=== PATIENT | male | born 1945 | race Caucasian/White ===

== ENCOUNTER → 2017-12-26 06:00 | Outpatient (CLI) | payer MEDICARE, OTHER, MEDICAID, SELFPAY ==
--- NOTE | 2017-12-26 12:54 | STRESSREP_ITS ---
Stress Test Report Date: 12/26/2017 Procedure: Pharmacologic stress nuclear imaging study Indications: CAD status post PCI status post CABG; preoperative cardiovascular evaluation Consent: Per the patient Procedure: The patient underwent pharmacologic (Regadenoson) evaluation with a peak heart rate of 100 bpm (66% predicted maximal heart rate) with a peak blood pressure 162/78 mmHg. The baseline ECG demonstrates the appearance of underlying normal sinus rhythm with nonspecific ST/T-wave abnormality. The peak pharmacologic ECG demonstrates no obvious ECG changes. There were no obvious cardiac dysrhythmias pretest, during pharmacologic infusion, or recovery. The patient had no complaint of chest discomfort during pharmacologic infusion or recovery. The examination was discontinued secondary to completion of protocol. Impression: 1. Pharmacologic (Regadenoson) evaluation 2. Peak pharmacologic ECG with continued nonspecific ST and T-wave abnormality 3. Nuclear images pending Myocardial perfusion imaging study: Technique: The patient was injected with 11.2 mCi of technetium 99m Cardiolite and subsequently rest SPECT Cardiolite nuclear imaging was obtained in the horizontal long, vertical long, and short axis views. The patient underwent pharmacologic (Regadenoson) evaluation with a peak heart rate of 100 bpm (66% predicted maximal heart rate) with a peak blood pressure 162/78 mmHg. The patient was injected with 31.0 mCi of technetium 99m Cardiolite and subsequently stress SPECT Cardiolite nuclear imaging was obtained in the horizontal long, vertical long, and short axis views. A gated Cardiolite study was obtained. Interpretation: Rest and stress SPECT Cardiolite nuclear imaging, s/p normalization, realignment , and attenuation correction, demonstrates an area of diminished to absence of myocardial perfusion / trace uptake in the basal inferoseptal, inferior, and inferolateral segments extending into the mid to distal inferolateral segments, inferior apical, and lateral apical segments. There are similar type findings on the rest and stress polar map images. There is diminished end systolic thickening and brightening and diminished inward wall motion and myocardial thickening in the aforementioned areas. The gated Cardiolite study reports an LVEF of 45%. Impression: 1. Rest and Stress SPECT Cardiolite nuclear imaging demonstrates myocardial perfusion changes compatible with an area of myocardial injury / infarction involving portions of the inferoseptal, inferior, inferolateral, inferoapical, and lateral apical segments. 2. There are no myocardial perfusion images considered diagnostic for stress induced myocardial ischemia. 3. The Gated LVEF is 45%.
== END ==
PROVIDERS: Family Provider Family Medicine; PCP Family Medicine; Visit Provider Internal Medicine Cardiovascular Disease
DX: Z01.810 Encounter for preprocedural cardiovascular examination (principal); I25.10 Atherosclerotic heart disease of native coronary artery without angina pectoris
CPT/HCPCS: 78452; 93017; A9500; A4216; J2785

== ENCOUNTER 2018-01-02 16:53 | Inpatient (IN) | payer MEDICARE, OTHER, MEDICAID, SELFPAY ==
[2018-01-02 16:56] VITALS: BP 149/76; PULSE 75; RESP 16; TEMP 37.4; O2SAT 98; BMI 27.1
--- NOTE | 2018-01-02 17:37 | CT_ITS ---
STUDY: CT ABDOMEN AND PELVIS WITHOUT CONTRAST REASON FOR EXAM: Male, 72 years old. Nausea and vomiting RADIATION DOSAGE (If Supplied By Facility): CTDIvol = ( 21.90 ) mGy, DLP = ( 984.63 ) mGycm TECHNIQUE: Transaxial images were obtained from the lower chest to the upper thighs without oral contrast, and without intravenous contrast. Sagittal and coronal images were reconstructed. Individualized dose optimization techniques were used for this CT. COMPARISON: June 06, 2017 FINDINGS: There is minimal dependent atelectasis in both lung bases. There is no pleural effusion. There is mild enlargement of the heart. Sternotomy wires are present. There are coronary artery calcifications. The liver is unremarkable. The gallbladder is contracted. The spleen is unremarkable. The pancreas is unremarkable. The adrenal glands are unremarkable. There are benign cysts in the right kidney. The right kidney is small with cortical thinning. There is no dilatation of the collecting system in the right kidney. There are benign cysts in the left kidney. The left kidney is small with cortical thinning. There is no dilatation of the collecting system in the left kidney. The stomach is unremarkable. An ileostomy is again seen in the left lower quadrant. Small bowel loops are prominent. There is herniation of bowel to the right of midline with the neck measuring about 7 cm. There is herniation of bowel into a pannus in the lower abdominal wall. There is herniation of small bowel in the right lateral pelvic wall with the neck measuring 4.5 cm. The colon is surgically absent. There are moderate scattered vascular calcifications. The IVC is unremarkable. The retroperitoneum is unremarkable. There is no free fluid in the abdomen. The urinary bladder is unremarkable. The prostate is small. Benign calcifications are again seen in the lower pelvis. Extensive surgical changes are again seen along the anterior abdominal wall. There are moderate degenerative changes in the visualized spine. Surgical changes are again seen in the lumbar spine. There are marked degenerative changes in the left hip. There are marked degenerative changes in the sacroiliac joints. Prostheses are present in the right hip. CT/Abdomen/Pelvis without Cont IMPRESSION: Extensive surgical changes are again seen along the anterior abdominal wall with defects present showing herniation of small bowel. The hernias are not significantly changed compared to the prior study, however there is now dilatation of small bowel loops worrisome for a partial obstruction at one of these hernias, possibly the hernia positioned to the right of midline above what is thought to represent the umbilicus. There is no ascites or free air. There are stable incidental findings described above. Electronically Signed: Amber Hall MD at 18:33 EST Tel Direct: [phone], Service support ,
[2018-01-02] MEDS: 0.9% Normal Saline 1,000 ML 150 ML IV (18:05)
[2018-01-02 18:42] LABS: Anion Gap 8 (5-15); BUN 54 mg/dL (7-18); Calcium,Total 9.3 mg/dL (8.5-10.1); Chloride 111 mmol/L (98-107); Creatinine, Serum 2.57 mg/dL (0.70-1.30); EST Glomerular Filtration Rate 26 mL/min (>60); Est Glom Filt Rate - Afr Amer 32 mL/min (>60); Estimated Creatinine Clearance 24.14 ml/min; Glucose 116 mg/dL (74-106); Hematocrit 44.7 % (40-54); Hemoglobin 14.5 g/dl (13.0-16.5); Mean Corp Hgb Conc 32.4 g/gl (32-36); Mean Corpuscular Hgb 29.5 pg (27.0-32.0); Mean Corpuscular Volume 90.9 fL (80-94); Mean Platelet Vol. 9.7 fl (6.2-12.0); Platelet Count 122 K/mm3 (150-450); Potassium 5.3 mmol/L (3.5-5.1); RBC Distribution Width CV 15.6 % (11.6-14.6); RBC Distribution Width SD 49.8 fl (35.1-43.9); Red Blood Count 4.92 M/mm3 (4.6-6.2); Sodium Level 140 mmol/L (136-145); White Blood Count 9.9 K/mm3 (4.4-11.0)
[2018-01-02 18:47] LABS: Differential Indicated MANUAL DIFF; POSITIVE COUNT YES; POSITIVE DIFFERENTIAL NO; POSITIVE MORPHOLOGY YES
--- NOTE | 2018-01-02 19:36 | NURSING ---
ILEOSTOMY EMPTY FOR ABOUT 300 OF LIQUID STOOL
[2018-01-02 19:45] LABS: Eosinophil 5 % (0-5); Lymphocyte 22 % (19-41); Metamyelocyte 4 % (0-1); Monocyte 2 % (0-10); Neutrophil-Band 3 % (0-5); Neutrophil-Segmented 64 % (47-70); Total Cells Counted 100 (MANUAL DIFF)
[2018-01-02 19:46] LABS: Absolute Lymphocyte Count 2.18 X10^3/ul (0.83-4.51); Lymphocyte # 2.18 X10^3/ul (4.0); Neutrophil # 7.03 X10^3/uL (2.7-7.7)
[2018-01-02 19:47] LABS: Platelet Estimate SLT DEC (ADEQ); Red Cell Morphology NORM C+C NORMAL (NORM C&C)
[2018-01-02 19:58] VITALS: BP 145/65; PULSE 66; RESP 20; O2SAT 98
[2018-01-02 20:00] VITALS: BP 145/65; PULSE 66; RESP 20; O2SAT 98
--- NOTE | 2018-01-02 20:02 | ED.DCSUM_ITS ---
- ER Visit Summary Date of Service: 01/02/18 Chief Complaint: Nausea and vomiting History of Present Illness: The patient is a 72 M with nausea and vomiting today. He does complain of lower abdominal pain. Patient has had multiple abdominal surgeries and does have an ostomy. He is having output from his ostomy although slightly less than normal. He does complain of a low-grade fever. He is scheduled for hernia repair later this month with Dr. Minaya at [facility]. Physical Examination: Vital signs are significant for temperature 99.3 TA, otherwise normal. Patient sitting upright in bed in no acute distress. He is nontoxic appearing. Head and neck examination is unremarkable. Heart is regular rate and rhythm. Lung sounds are clear. Abdomen is soft with lower abdominal tenderness, worse in the right lower quadrant. He does have active bowel sounds throughout. Test Results: CBC is significant only for platelet count of 122,000. Chemistry studies reveal BUN of 54 and creatinine of 2.57. He does have known renal failure this does appear to be consistent with his baseline. CT the flank shows extensive surgical changes. Hernias are not significantly changed compared to prior study, but now there is dilatation of the small bowel loops worrisome for partial small bowel obstruction. Emergency Department Course and Treatment: Patient was treated with morphine, Phenergan, and IV fluids. I spoke with Dr. Purdy to whom the patient is known. Patient will be admitted for bowel rest and Dr. Purdy will evaluate him in the morning. I spoke with the hospitalist. Treatment Plan: [] Disposition: Admit Impression: Partial small bowel obstruction This note was generated with [employer] dictation software. It may contain incorrect words, spelling, and punctuation that were not noted in review of the chart prior to signing ED Disposition - Plan for ED Patient: Chief Complaint: Nausea/Vomiting
--- NOTE | 2018-01-02 20:09 | PCM.HP.STD ---
Problem List (1) Paroxysmal atrial flutter Status: Chronic (2) Benign essential hypertension Status: Chronic (3) History of coronary artery bypass graft Status: Chronic (4) Hypothyroidism Status: Chronic Qualifiers: (5) Parkinson's disease Status: Chronic (6) Rheumatoid arthritis Status: Chronic Qualifiers: (7) Opiate dependence Status: Chronic (8) Personality disorder Status: Chronic (9) Chronic obstructive lung disease Status: Chronic Qualifiers: (10) Cerebrovascular disease, arteriosclerotic, post-stroke Status: Chronic (11) Migraines Status: Chronic Qualifiers: (12) Peptic ulcer disease Status: Chronic (13) CKD (chronic kidney disease) stage 3, GFR 30-59 ml/min Status: Chronic (14) Ankylosing spondylitis Status: Chronic (15) Psoriatic arthritis Status: Chronic History of Present Illness Date of Admission: 01/02/18 Chief Complaint: Abdominal pain, nausea and vomiting. The patient is a 72 year old M with complicated past medical history presented to the emergency room because of abdominal pain, nausea and vomiting. Her symptoms started last night with abdominal pain, generalized abdominal pain, dull aching pain and sometimes crampy, 7 out of 10 in severity, not radiating, associated with nausea and vomiting and without aggravating or relieving factors. He history of total colectomy for diverticulitis and he has ileostomy in place. He mentioned that his stool output has been decreased slightly but not significantly. He denies fever chills. In the emergency room, his vital signs were stable. His routine blood work was remarkable for platelet count of 122,000, potassium of 5.3, creatinine of 2.[address] scan abdomen and pelvis without contrast revealed extensive anterior abdominal changes with defects as well as findings consistent with possible partial small bowel obstruction. ER physician notified the general surgeon on-call and Dr. Purdy agreed to see the patient in consultation to morning. Patient is being admitted for suspected partial small bowel obstruction. 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, arteriosclerotic, post-stroke (Chronic) Migraines (Chronic) Peptic ulcer disease (Chronic) CKD (chronic kidney disease) stage 3, GFR 30-59 ml/min (Chronic) Esophagitis (Chronic) Ankylosing spondylitis (Chronic) Psoriatic arthritis (Chronic) Allergies amoxicillin trihydrate [From Augmentin] Allergy (Verified 01/02/18 16:58) Rash bisacodyl [From Dulcolax (bisacodyl)] Allergy (Verified 01/02/18 16:58) Anaphylaxis iodine Allergy (Verified 01/02/18 16:58) Rash piperacillin sodium [From Zosyn] Allergy (Verified 01/02/18 16:58) Rash potassium clavulanate [From Augmentin] Allergy (Verified 01/02/18 16:58) Rash tazobactam sodium [From Zosyn] Allergy (Verified 01/02/18 16:58) Rash apixaban [From Eliquis] Adverse Reaction (Verified 01/02/18 16:58) Other azithromycin Adverse Reaction (Verified 01/02/18 16:58) Diarrhea bupropion Adverse Reaction (Verified 01/02/18 16:58) Unknown ciprofloxacin [From Cipro] Adverse Reaction (Verified 01/02/18 16:58) Other ciprofloxacin HCl [From Cipro] Adverse Reaction (Verified 01/02/18 16:58) Other diazepam [From Valium] Adverse Reaction (Verified 01/02/18 16:58) Other hallucinations duloxetine Adverse Reaction (Verified 01/02/18 16:58) Unknown gabapentin Adverse Reaction (Verified 01/02/18 16:58) Other heparin Adverse Reaction (Verified 01/02/18 16:58) Unknown Iodinated Contrast- Oral and IV Dye [CONTRASTS] Adverse Reaction (Verified 01/02/18 16:58) Rash nitroglycerin Adverse Reaction (Verified 01/02/18 16:58) Other headaches and extreme hyperactivity paroxetine Adverse Reaction (Verified 01/02/18 16:58) Unknown tetracycline [Tetracycline] Adverse Reaction (Verified 01/02/18 16:58) Vomiting plastics Adverse Reaction (Uncoded 01/02/18 16:58) Rash Home Medications: Ambulatory Orders Medication Instructions Recorded Acetaminophen/Butalbital/Caffe 1 tablet PO BID PRN 06/06/17 [Fioricet] Albuterol Aerosols [Ventolin 2.5 mg INHALATION Q4HWA.RT 06/06/17 Aerosols] Allopurinol 100 mg PO BID 06/06/17 Amiodarone HCl [Pacerone] 200 mg PO DAILY 06/06/17 Amlodipine [Norvasc] 10 mg PO DAILY 06/06/17 Aspirin E.C. [Ecotrin] 81 mg PO DAILY@0800 06/06/17 Cholecalciferol (Vitamin D3) 5,000 unit PO DAILY 06/06/17 [Vitamin D3] Cimetidine [Tagamet Hb] 200 mg PO PRN PRN 06/06/17 Colchicine [Mitigare] 0.6 mg PO PRN PRN 06/06/17 Cyanocobalamin (Vitamin B-12) 1,000 mcg IM Q28D 06/06/17 [Vitamin B-12] Diphenhydramine HCl [Benadryl 25 mg PO PRN PRN 06/06/17 Allergy] Folic Acid 0.4 mg PO DAILY@0800 06/06/17 Hydromorphone HCl [Dilaudid] 4 mg PO DAILY PRN 06/06/17 Levothyroxine [Synthroid] 137 mcg PO DAILY 06/06/17 Magnesium Glycinate 4,000 gm PO TID 06/06/17 Metoprolol Tartrate 25 mg PO DAILY PRN 06/06/17 Morphine Sulfate [Morphine Sulfate 30 mg PO Q8H PRN 06/06/17 ER] Multivitamins,Ther W-Minerals 1 tablet PO BID 06/06/17 [Multivitamin With Minerals] Pramipexole Di-HCl [Mirapex] 1 mg PO QHS 06/06/17 ProMETHAzine [Phenergan] 25 mg PO Q4H PRN PRN 06/06/17 Testosterone Cypionate 100 mg IM Q14D 06/06/17 [Depo-Testosterone] Turmeric/Turmeric Root Extract 800 mg PO TID 06/06/17 [Turmeric] Vilazodone Hydrochloride [Viibryd] 40 mg PO DAILY 06/06/17 Zinc 50 mg PO BID 06/06/17 Amitriptyline HCl 25 mg PO QHS 12/11/17 Apremilast [Otezla] 30 mg PO BID 12/11/17 Carbidopa/Levodopa 10/100 1 tab PO 4X/DAY 12/11/17 Codeine 30 mg PO DAILY 12/11/17 Entacapone [Comtan] 200 mg PO 4X/DAY 12/11/17 Omeprazole Magnesium [Prilosec Otc] 40 mg PO DAILY 01/02/18 Sucralfate [Carafate] 1 gm PO TID 01/02/18 Surgical History: appendectomy, coronary bypass surgery, total hip arthroplasty, tonsillectomy, - - multiple abdominal surgeries with removal of entire colon, placement of abdominal wall mesh, ileostomy, surgery for bowel abscess, lumbar back surgery, right shoulder surgery, foot surgery, cervical neck surgery, prostate surgery Psychiatric History: - - Personality disorder Lives: Spouse/ Significant Other Smoking Status: Former smoker Alcohol: None Drugs: None - *Family History Maternal History Items: Hypertension Paternal History Items: Heart Disease Sibling History Items: Diabetes Review of Systems Constitutional: Reports: Anorexia. Denies: Chills, Fever, Weakness Eyes: Denies: Blurred vision, Double vision, Drainage, Redness HEENT: Denies: Difficulty Hearing, Ear Pain, Eye Pain, Nasal Congestion, Sore Throat Cardiovascular: Denies: Chest Pain, Chest Pressure, Chest Tightness, Palpitations, Paroxysmal Noc. Dyspnea, Syncope Respiratory: Denies: Cough, Hemoptysis, Pleuritic Pain, Shortness of Breath, Shortness of breath upon exertion Gastrointestinal: Reports: Abdominal Pain, Nausea, Vomiting. Denies: Constipation, Diarrhea, Hematochezia, Melena Genitourinary: Denies: Dysuria, Frequency, Hematuria Musculoskeletal: Denies: Arm Pain, Back Pain, Foot Pain Skin: Denies: Dryness, Rash Neurological: Denies: Balance problems, Double vision, Change in Speech, Slurred speech, Confusion, Headaches, Incoordination, Numbness Psychiatric: Denies: Anxiety, Depression Endocrine: Denies: Change in Body Habitus, Polydipsia VTE Information - Inpt Only VTE Present on Admission: No VTE Mechan Device Prophylaxis: SCD's VTE Pharm Prophylaxis ordered?: No - Physical Exam General: Alert, Oriented x3, Cooperative, No apparent distress HEENT: Atraumatic, PERRLA, EOMI Oral: Moist Mucosa, No Gingival or Mucosal Lesions/ Ulcerations Neck: Supple, No JVD, Negative Carotid Bruits, Trachea Midline, Thyroid Normal Size and Texture Lungs: Clear to auscultation, No rhonchi, No wheeze, No rales, Diminished Cardiovascular: Regular rate, Regular Rhythm, Normal S2, PMI Normal Abdomen: Bowel Sounds Present, Non-Distended, No Hepato-splenomegaly, Tender Extremities: No clubbing, No cyanosis, No edema Skin: No rashes, No breakdown Lymphatic: No Cervical, Supraclavicular, or Inguinal Adenopathy Neurological: Cranial nerves II-XII grossly intact, Motor Exam 5/5 strength throughout Psych/Mental Status: Flat Affect, Alert and oriented to time, place, person, mood and affect Vital Signs Temp Pulse Resp BP Pulse Ox 99.3 F H 75 16 149/76 H 98 01/02/18 16:56 01/02/18 16:56 01/02/18 16:56 01/02/18 16:56 01/02/18 16:56 Laboratory Tests 01/02/18 01/02/18 Range/Units 18:10 18:10 WBC 9.9 (4.4-11.0) K/mm3 RBC 4.92 (4.6-6.2) M/mm3 Hgb 14.5 (13.0-16.5) g/dl Hct 44.7 (40-54) % MCV 90.9 (80-94) fL MCH 29.5 (27.0-32.0) pg MCHC 32.4 (32-36) g/gl RDW 15.6 H (11.6-14.6) % RDW Differential 49.8 H (35.1-43.9) fl Plt Count 122 L (150-450) K/mm3 MPV 9.7 (6.2-12.0) fl Neut % (Auto) Not Reportable Absolute Neuts (auto) 7.0 (2.0-7.7) X10^3/uL Absolute Lymphs (auto) 2.18 (0.83-4.51) X10^3/ul Total Counted 100 (MANUAL DIFF) Neutrophils % (Manual) 64 (47-70) % Band Neutrophils % 3 (0-5) % Lymphocytes % (Manual) 22 (19-41) % Monocytes % (Manual) 2 (0-10) % Eosinophils % (Manual) 5 (0-5) % Metamyelocytes % 4 H (0-1) % Diff Path Review May foll Platelet Estimate SLT DEC (ADEQ) RBC Morphology NORM C+C (NORM C&C) NORMAL Sodium 140 (136-145) mmol/L Potassium 5.3 H (3.5-5.1) mmol/L Chloride 111 H (98-107) mmol/L Carbon Dioxide 21.0 (21.0-32.0) mmol/L Anion Gap 8 (5-15) BUN 54 H (7-18) mg/dL Creatinine 2.57 H (0.70-1.30) mg/dL Estim Creat Clear Calc 24.14 ml/min Est GFR (MDRD) Af Amer 32 L (>60) mL/min Est GFR (MDRD) Non-Af 26 L (>60) mL/min BUN/Creatinine Ratio 21.0 H (10-20) RATIO Glucose 116 H (74-106) mg/dL Calcium 9.3 (8.5-10.1) mg/dL Clinical Impression(s) from Imaging Studies Abdomen/Pelvis CT 01/02/18 17:37 IMPRESSION: Extensive surgical changes are again seen along the anterior abdominal wall with defects present showing herniation of small bowel. The hernias are not significantly changed compared to the prior study, however there is now dilatation of small bowel loops worrisome for a partial obstruction at one of these hernias, possibly the hernia positioned to the right of midline above what is thought to represent the umbilicus. There is no ascites or free air. There are stable incidental findings described above. Electronically Signed: Amber Hall MD at 18:33 EST Tel Direct: [phone], Service support , Assessment/Plan This is a 72 years old male patient presented to the emergency room because of abdominal pain, nausea and vomiting and he was found to have findings consistent with suspected partial small bowel obstruction on CT scan abdomen and pelvis. #1 suspected partial small bowel obstruction: In context of history of multiple abdominal surgeries as well as past history of partial small bowel obstruction, likely because of adhesions. CT scan abdomen and pelvis without contrast reviewed as above. Vital signs are stable. Plan: Admit to [facility] floor, telemetry, keep on n.p.o., IV fluids, replace electrolytes as appropriate, IV morphine as needed for pain, IV Zofran as needed, IV Phenergan as needed, IV Pepcid twice daily, repeat CBC and BMP tomorrow morning, general surgery consult, PT OT evaluation and treatment., Dr. Purdy was notified by ER physician and he will see the patient in consultation tomorrow morning. #2 mild hyperkalemia: Potassium is 5.3. Serum creatinine is 2.57 which is chronic and at his baseline. Plan for IV fluids as above, repeat BMP tomorrow morning. #3 stage III chronic kidney disease: Creatinine is around 2-2.5 mg/dL. Admission creatinine is 2.57, stable at baseline. #4 proximal atrial flutter: Heart rate stable, blood pressure stable. Continue amiodarone and metoprolol for rate control. He is not on anticoagulation. #5 thrombocytopenia: Chronic, platelet count is 122,000, no evidence of active bleeding. #6 CAD status post CABG and stents: Stable, no acute issues. Continue aspirin and metoprolol. #7 hypertension: Blood pressure stable, continue metoprolol and Norvasc. #9 DVT prophylaxis: SCDs. Other chronic medical problems: Stable, continue current medications. #1 Parkinson's disease. #2 rheumatoid arthritis. #3 hypothyroidism. #4 history of CVA/TIA. #5 ankylosing spondylitis. Rate stable, This note was generated with [employer] dictation software. It may contain incorrect words, spelling, and punctuation that were not noted in checking the note before signing. Code Visit Inpatient E&M: 80161 Init Hosp L3
[2018-01-02 20:53] VITALS: BP 164/50; PULSE 64; RESP 14; TEMP 36.9; O2SAT 100
[2018-01-02 21:16] VITALS: BMI 26.8
--- NOTE | 2018-01-02 21:18 | NURSING ---
Pt states he has some trouble swallowing d/t Parkinsons. Lizz RN (admissions nurse) did most of the home meds except this RN clarified Omeprazole and Carafaate with pt per instructions from Lizz.
[2018-01-02 21:26] VITALS: BMI 26.8
[2018-01-02] MEDS: 0.9% Normal Saline 1,000 ML 100 ML IV (21:44)
[2018-01-02 22:08] LABS: Magnesium 1.7 mg/dL (1.6-2.6)
[2018-01-02] MEDS: Pramipexole Di-HCl 1 MG Tablet PO (23:10)
[2018-01-02] MEDS: Carbidopa/Levodopa 10/100 Tablet PO (23:10)
[2018-01-02] MEDS: Amitriptyline 25 MG Tablet PO (23:10)
[2018-01-02 23:27] VITALS: O2SAT 95
[2018-01-02 23:29] VITALS: PULSE 56
[2018-01-03] VITALS (10 sets, daily range): BP systolic 144–148; BP diastolic 58–72; PULSE 60–78; RESP 14–16; TEMP 36.6–37.4; O2SAT 97–100
[2018-01-03] MEDS: amLODIPine 5 MG Tablet PO ×2 (00:24→22:53)
[2018-01-03] MEDS: DiphenhydrAMINE 12.5 MG/5 ML UDC PO ×2 (04:19→13:12)
[2018-01-03 06:03] LABS: Absolute Lymphocyte Count 1.81 X10^3/ul (0.83-4.51); Basophil# 0.05 X10^3/uL; Basophil% 0.6 % (0-1); Eosinophils% 3.4 % (0-5); Hematocrit 40.6 % (40-54); Hemoglobin 12.5 g/dl (13.0-16.5); Lymphocyte # 1.81 X10^3/ul (4.0); Lymphocyte % 20.8 % (19-41); Mean Corp Hgb Conc 30.8 g/gl (32-36); Mean Corpuscular Hgb 29.2 pg (27.0-32.0); Mean Corpuscular Volume 94.9 fL (80-94); Mean Platelet Vol. 9.7 fl (6.2-12.0); Monocyte# 0.34 X10^3/uL; Monocyte% 3.9 % (0-10); Neutrophil # 5.99 X10^3/uL (2.7-7.7); Neutrophil % 68.9 % (47-70); Platelet Count 94 K/mm3 (150-450); RBC Distribution Width CV 15.6 % (11.6-14.6); RBC Distribution Width SD 53.4 fl (35.1-43.9); Red Blood Count 4.28 M/mm3 (4.6-6.2); White Blood Count 8.7 K/mm3 (4.4-11.0)
[2018-01-03 06:06] LABS: POSITIVE COUNT YES; POSITIVE DIFFERENTIAL NO; POSITIVE MORPHOLOGY YES
[2018-01-03 06:08] LABS: Anion Gap 9 (5-15); BUN 52 mg/dL (7-18); BUN/Creat Ratio 22.7 RATIO (10-20); Calcium,Total 8.2 mg/dL (8.5-10.1); Chloride 116 mmol/L (98-107); Creatinine, Serum 2.29 mg/dL (0.70-1.30); EST Glomerular Filtration Rate 30 mL/min (>60); Est Glom Filt Rate - Afr Amer 37 mL/min (>60); Estimated Creatinine Clearance 27.09 ml/min; Glucose 76 mg/dL (74-106); Potassium 4.9 mmol/L (3.5-5.1); Sodium Level 140 mmol/L (136-145)
[2018-01-03] MEDS: Levothyroxine 137 MCG Tablet PO (06:11)
--- NOTE | 2018-01-03 08:27 | NURSING ---
Was asked to see patient since he has an ileostomy. Pt is known to this nurse and has had the ileostomy for approx 7 yrs. Pt's typically changes the appliances at home. there is a small amount of liquid shi stool noted on the appliance as well as a small amount of stool noted on the flange. cannot tell if the stool on the flange is from leakage or from when the appliance was emptied. patient ok with this nurse removing appliance to assess for leak and to assess the stoma. patient currently wears a 2 piece flat Cori appliance with stoma paste. removed appliance. stoma is well budded, beefy red, moist, and measures approx 7/8. peristomal skin is intact. there is a peristomal hernia noted that patient states he is scheduled to get repaired at [facility] in a week or so. cleansed skin with warm water and patted dry. applied a new 2 piece flat [place] appliance with a small amount of stoma paste. pt tolerated well. will monitor.
--- NOTE | 2018-01-03 09:05 | NURSING ---
Addendum entered by Blanca Rasmussen 01/03/18 09:05: Due to inability to obtain patent IV. Original Note: K[place], IVT in with patient at this time- midline to be inserted.
[2018-01-03] MEDS: 0.9% NaCl Peripheral Flush Adult/Peds IV ×4 (09:19→17:20)
[2018-01-03] MEDS: Ondansetron 4 MG/2 ML Vial IV (09:20)
--- NOTE | 2018-01-03 09:32 | NURSING ---
Patient c/o pain and nausea. zofran and morphine given after insertion of IV by LESLEY Sheets. Multiple attempts and plans for midline- unsuccessful. 22 gauge catheter on index knuckle on right hand- Flushed and IVF reconnected by this RN. Pt refusing AM pills at this time- will wait 30 minutes to see if nausea subsides.
[2018-01-03] MEDS: BENZOCAINE/MENTHOL 1 LOZENGE MUCOUS MEM (10:21)
[2018-01-03] MEDS: Carbidopa/Levodopa 10/100 Tablet PO ×4 (10:25→22:54)
[2018-01-03] MEDS: VILAZODONE HYDROCHLORIDE 10 MG TABLET 20 MG PO (10:25)
[2018-01-03] MEDS: Amiodarone 200 MG Tablet PO (10:27)
--- NOTE | 2018-01-03 12:35 | PCM.PROGNOTE ---
<Izaiah Dobbs - Last Filed: 01/03/18 12:35> Subjective: Pt continues to have significant abdominal pain all over. His ostomy is draining shi colored feces per nursing. No fever or chills. Still nauseous. No vomiting this AM. He had planned to have hernia surgery at [facility] on the . - Physical Exam General: Alert, Oriented x3, Cooperative HEENT: Atraumatic, PERRLA, EOMI, Normocephalic Neck: Supple, No JVD, Negative Carotid Bruits Lungs: Clear to auscultation, Normal air movement Cardiovascular: Regular rate, No murmurs Abdomen: Bowel Sounds Present, Guarding, Tender - very tender to light palp diffusely Extremities: No edema, Capillary Refill Less than 3 Seconds Skin: No rashes, No breakdown Musculoskeletal: No Tenderness to Palpation of Joints or Extremities Neurological: Cranial nerves II-XII grossly intact Psych/Mental Status: Normal Affect, Appropriate, Alert and oriented to time, place, person, mood and affect Vital Signs Temp Pulse Resp BP Pulse Ox 97.9 F 78 16 147/67 H 100 01/03/18 09:15 01/03/18 10:00 01/03/18 09:15 01/03/18 09:15 01/03/18 09:15 Oxygen Delivery Method Room Air Weight: 75.3 kg Body Mass Index (BMI) 26.8 Intake and Output for Last 24 Hours 01/01/18 01/02/18 01/03/18 23:59 23:59 23:59 Intake Total 1105 / 1105 Output Total 550 / 550 Balance 555 / 555 Laboratory Tests Past 24 Hrs 01/03/18 01/03/18 05:00 05:00 WBC 8.7 RBC 4.28 L Hgb 12.5 L Hct 40.6 MCV 94.9 H MCH 29.2 MCHC 30.8 L RDW 15.6 H RDW Differential 53.4 H Plt Count 94 L MPV 9.7 Immature Gran % (Auto) 2.400 H Neut % (Auto) 68.9 Lymph % (Auto) 20.8 [place] % (Auto) 3.9 Eos % (Auto) 3.4 Baso % (Auto) 0.6 Absolute Neuts (auto) 6.0 Absolute Lymphs (auto) 1.81 Total Counted Not Reportable Diff Path Review May foll Sodium 140 Potassium 4.9 Chloride 116 H Carbon Dioxide 15.0 L Anion Gap 9 BUN 52 H Creatinine 2.29 H Estim Creat Clear Calc 27.09 Est GFR (MDRD) Af Amer 37 L Est GFR (MDRD) Non-Af 30 L BUN/Creatinine Ratio 22.7 H Glucose 76 Calcium 8.2 L Assessment/Plan 1. Partial SBO - multiple abdominal surgeries and has multiple abdominal hernias that were supposed to be treated surgically this month at [facility]. Dr. Calabrese is on consult. Pt remains NPO, on IV fluids, no NG, on antiemetics, pain meds, and IV pepcid. Significant pain and tenderness. Ileostomy in place with shi drainage no reported irritation around stoma. He is nauseous with no vomiting. BS are present. Pt may need transferred to his surgeon at [facility]. -CT abdomen at admission with dilated small bowel loops concerning for partial obstruction at one of his hernias (hernia positioned to right of midline above umbilicus). 2. CKD III - improved. reported to be at baseline on admission 3. Hyperkalemia resolved 4. Paroxysmal A flutter - NSR. Continue Amio, metoprolol. No oral anticoagulation 5. Thrombocytopenia - this is trending down and needs to be followed. 6. CAD - s/p CABG/stents. asa/BB 7. HTN - stable 8. Parkinsons - home meds 9. RA, ankylosing spondylitis, chronic pain 10. Hypothyroidism - on synthroid 11. Hx CVA/TIA DVT ppx: SCDs. This patient was seen by Izaiah Dobbs PA-C under the supervision of Dr. Medrano. <Carlton Medrano - Last Filed: 01/03/18 14:58> Subjective: Seen and examined Patient has history of multiple surgeries in the past. He has ileostomy on the left lower quadrant with peristomal hernia and right-sided hernia. - Physical Exam General: Alert, Oriented x3, Cooperative HEENT: Atraumatic, PERRLA, EOMI, Normocephalic Neck: Supple, No JVD, Negative Carotid Bruits Lungs: Clear to auscultation, No rhonchi, Diminished Cardiovascular: Regular rate, Regular Rhythm, Normal S2, No murmurs Abdomen: Bowel Sounds Present, Soft, Non Tender Extremities: No edema, Capillary Refill Less than 3 Seconds Skin: No rashes, No breakdown Musculoskeletal: No Tenderness to Palpation of Joints or Extremities Neurological: Cranial nerves II-XII grossly intact Psych/Mental Status: Normal Affect, Appropriate Vital Signs Temp Pulse Resp BP Pulse Ox 97.9 F 71 16 144/72 H 97 01/03/18 13:26 01/03/18 13:26 01/03/18 13:26 01/03/18 13:26 01/03/18 13:26 Oxygen Delivery Method Room Air Weight: 166 lb 0.129 oz Body Mass Index (BMI) 26.8 Intake and Output for Last 24 Hours 01/01/18 01/02/18 01/03/18 23:59 23:59 23:59 Intake Total 1827 / 1827 Output Total 1100 / 1100 Balance 727 / 727 Laboratory Tests Past 24 Hrs 01/03/18 01/03/18 05:00 05:00 WBC 8.7 RBC 4.28 L Hgb 12.5 L Hct 40.6 MCV 94.9 H MCH 29.2 MCHC 30.8 L RDW 15.6 H RDW Differential 53.4 H Plt Count 94 L MPV 9.7 Immature Gran % (Auto) 2.400 H Neut % (Auto) 68.9 Lymph % (Auto) 20.8 [place] % (Auto) 3.9 Eos % (Auto) 3.4 Baso % (Auto) 0.6 Absolute Neuts (auto) 6.0 Absolute Lymphs (auto) 1.81 Total Counted Not Reportable Diff Path Review May foll Sodium 140 Potassium 4.9 Chloride 116 H Carbon Dioxide 15.0 L Anion Gap 9 BUN 52 H Creatinine 2.29 H Estim Creat Clear Calc 27.09 Est GFR (MDRD) Af Amer 37 L Est GFR (MDRD) Non-Af 30 L BUN/Creatinine Ratio 22.7 H Glucose 76 Calcium 8.2 L Assessment/Plan This patient was seen in conjunction with Izaiah HERNANDEZ. I have independently interviewed and examined the patient and reviewed pertinent history, examination findings, laboratory and plan of management. I have reviewed the note and agree with the documented findings with the few additional points. In brief, patient is admitted for partial small bowel obstruction secondary to multiple abdominal hernias and adhesions. Currently patient is n.p.o. On conservative treatment. I have discussed my assessment with Izaiah HERNANDEZ and orders have been reviewed. Code Visit Inpatient E&M: 92686 Subs Hosp L3
--- NOTE | 2018-01-03 12:44 | PN_ITS ---
<Izaiah Dobbs - Last Filed: 01/03/18 12:35> Subjective: Pt continues to have significant abdominal pain all over. His ostomy is draining shi colored feces per nursing. No fever or chills. Still nauseous. No vomiting this AM. He had planned to have hernia surgery at [facility] on the . - Physical Exam General: Alert, Oriented x3, Cooperative HEENT: Atraumatic, PERRLA, EOMI, Normocephalic Neck: Supple, No JVD, Negative Carotid Bruits Lungs: Clear to auscultation, Normal air movement Cardiovascular: Regular rate, No murmurs Abdomen: Bowel Sounds Present, Guarding, Tender - very tender to light palp diffusely Extremities: No edema, Capillary Refill Less than 3 Seconds Skin: No rashes, No breakdown Musculoskeletal: No Tenderness to Palpation of Joints or Extremities Neurological: Cranial nerves II-XII grossly intact Psych/Mental Status: Normal Affect, Appropriate, Alert and oriented to time, place, person, mood and affect Vital Signs Temp Pulse Resp BP Pulse Ox 97.9 F 78 16 147/67 H 100 01/03/18 09:15 01/03/18 10:00 01/03/18 09:15 01/03/18 09:15 01/03/18 09:15 Oxygen Delivery Method Room Air Weight: 75.3 kg Body Mass Index (BMI) 26.8 Intake and Output for Last 24 Hours 01/01/18 01/02/18 01/03/18 23:59 23:59 23:59 Intake Total 1105 / 1105 Output Total 550 / 550 Balance 555 / 555 Laboratory Tests Past 24 Hrs 01/03/18 01/03/18 05:00 05:00 WBC 8.7 RBC 4.28 L Hgb 12.5 L Hct 40.6 MCV 94.9 H MCH 29.2 MCHC 30.8 L RDW 15.6 H RDW Differential 53.4 H Plt Count 94 L MPV 9.7 Immature Gran % (Auto) 2.400 H Neut % (Auto) 68.9 Lymph % (Auto) 20.8 [place] % (Auto) 3.9 Eos % (Auto) 3.4 Baso % (Auto) 0.6 Absolute Neuts (auto) 6.0 Absolute Lymphs (auto) 1.81 Total Counted Not Reportable Diff Path Review May foll Sodium 140 Potassium 4.9 Chloride 116 H Carbon Dioxide 15.0 L Anion Gap 9 BUN 52 H Creatinine 2.29 H Estim Creat Clear Calc 27.09 Est GFR (MDRD) Af Amer 37 L Est GFR (MDRD) Non-Af 30 L BUN/Creatinine Ratio 22.7 H Glucose 76 Calcium 8.2 L Assessment/Plan 1. Partial SBO - multiple abdominal surgeries and has multiple abdominal hernias that were supposed to be treated surgically this month at [facility]. Dr. Calabrese is on consult. Pt remains NPO, on IV fluids, no NG, on antiemetics, pain meds, and IV pepcid. Significant pain and tenderness. Ileostomy in place with shi drainage no reported irritation around stoma. He is nauseous with no vomiting. BS are present. Pt may need transferred to his surgeon at [facility]. -CT abdomen at admission with dilated small bowel loops concerning for partial obstruction at one of his hernias (hernia positioned to right of midline above umbilicus). 2. CKD III - improved. reported to be at baseline on admission 3. Hyperkalemia resolved 4. Paroxysmal A flutter - NSR. Continue Amio, metoprolol. No oral anticoagulation 5. Thrombocytopenia - this is trending down and needs to be followed. 6. CAD - s/p CABG/stents. asa/BB 7. HTN - stable 8. Parkinsons - home meds 9. RA, ankylosing spondylitis, chronic pain 10. Hypothyroidism - on synthroid 11. Hx CVA/TIA DVT ppx: SCDs. This patient was seen by Izaiah Dobbs PA-C under the supervision of Dr. Medrano. <Carlton Medrano - Last Filed: 01/03/18 14:58> Subjective: Seen and examined Patient has history of multiple surgeries in the past. He has ileostomy on the left lower quadrant with peristomal hernia and right-sided hernia. - Physical Exam General: Alert, Oriented x3, Cooperative HEENT: Atraumatic, PERRLA, EOMI, Normocephalic Neck: Supple, No JVD, Negative Carotid Bruits Lungs: Clear to auscultation, No rhonchi, Diminished Cardiovascular: Regular rate, Regular Rhythm, Normal S2, No murmurs Abdomen: Bowel Sounds Present, Soft, Non Tender Extremities: No edema, Capillary Refill Less than 3 Seconds Skin: No rashes, No breakdown Musculoskeletal: No Tenderness to Palpation of Joints or Extremities Neurological: Cranial nerves II-XII grossly intact Psych/Mental Status: Normal Affect, Appropriate Vital Signs Temp Pulse Resp BP Pulse Ox 97.9 F 71 16 144/72 H 97 01/03/18 13:26 01/03/18 13:26 01/03/18 13:26 01/03/18 13:26 01/03/18 13:26 Oxygen Delivery Method Room Air Weight: 166 lb 0.129 oz Body Mass Index (BMI) 26.8 Intake and Output for Last 24 Hours 01/01/18 01/02/18 01/03/18 23:59 23:59 23:59 Intake Total 1827 / 1827 Output Total 1100 / 1100 Balance 727 / 727 Laboratory Tests Past 24 Hrs 01/03/18 01/03/18 05:00 05:00 WBC 8.7 RBC 4.28 L Hgb 12.5 L Hct 40.6 MCV 94.9 H MCH 29.2 MCHC 30.8 L RDW 15.6 H RDW Differential 53.4 H Plt Count 94 L MPV 9.7 Immature Gran % (Auto) 2.400 H Neut % (Auto) 68.9 Lymph % (Auto) 20.8 [place] % (Auto) 3.9 Eos % (Auto) 3.4 Baso % (Auto) 0.6 Absolute Neuts (auto) 6.0 Absolute Lymphs (auto) 1.81 Total Counted Not Reportable Diff Path Review May foll Sodium 140 Potassium 4.9 Chloride 116 H Carbon Dioxide 15.0 L Anion Gap 9 BUN 52 H Creatinine 2.29 H Estim Creat Clear Calc 27.09 Est GFR (MDRD) Af Amer 37 L Est GFR (MDRD) Non-Af 30 L BUN/Creatinine Ratio 22.7 H Glucose 76 Calcium 8.2 L Assessment/Plan This patient was seen in conjunction with Izaiah HERNANDEZ. I have independently interviewed and examined the patient and reviewed pertinent history, examination findings, laboratory and plan of management. I have reviewed the note and agree with the documented findings with the few additional points. In brief, patient is admitted for partial small bowel obstruction secondary to multiple abdominal hernias and adhesions. Currently patient is n.p.o. On conservative treatment. I have discussed my assessment with Izaiah HERNANDEZ and orders have been reviewed. Code Visit Inpatient E&M: 99151 Subs Hosp L3
[2018-01-03] MEDS: 0.9% Normal Saline 1,000 ML 100 ML IV ×2 (13:12→23:05)
--- NOTE | 2018-01-03 14:49 | CASEMGMT ---
SEAN MELVIN Face to Face with patient for initial transition planning/care coordination assessment. SEAN MELVIN introduced self and role at [facility]. Patient sitting in chair, alert and oriented. Patient willing to participate in assessment and is able to answer all questions appropriately. Care providers, pharmacy, and demographics verified. See link attached. Patient wishes to discharge home, denies need for home health at this time. Patient states that he is scheduled for [facility]. Patient also states that he has aide services with [employer] through [employer] for 2hours/week. Patient states he has no further needs or concerns at this time. SEAN MELVIN updated LYNETTE Boo in regards to [employer] services. CM to follow for discharge planning needs that may arise. Disposition Plan: Patient to discharge home with [employer] services, family support, and follow-up plans in place.
--- NOTE | 2018-01-03 15:33 | CON.PCM_ITS ---
Reason for Consult Date of Consultation: 01/03/18 History of Present Illness: The patient is a 72 year old M who presents with abdominal disconfort and abdominal distention, nausea and vomiting. He is still noting stoma output. He has a parastomal hernia at his left lower quadrant ileostomy site and a complex midline abdominal hernia. he had a very complicated surgical procedure for perforated diverticulitis in 2010 where he had a total colectomy with end ileostomy, 3 hour lysis of adhesions and repair of iliac vein and repair of ureter injury. In July 2014, the patient had follow-up exploratory laparotomy with extensive lysis of adhesions, takedown of enterocutaneous fistula and complex abdominal wall repair. He has since developed multiple parastomal andmidline incisional hernias. He is currently scheduled to undergo complex hernia repair next Monday At [facility] by Dr. Guerrero Minaya. CT scan demonstrates a partial small bowel obstruction picture with complicated hernias as noted above. 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, arteriosclerotic, post-stroke (Chronic) Migraines (Chronic) Peptic ulcer disease (Chronic) CKD (chronic kidney disease) stage 3, GFR 30-59 ml/min (Chronic) Esophagitis (Chronic) Ankylosing spondylitis (Chronic) Psoriatic arthritis (Chronic) Allergies amoxicillin trihydrate [From Augmentin] Allergy (Verified 01/02/18 16:58) Rash bisacodyl [From Dulcolax (bisacodyl)] Allergy (Verified 01/02/18 16:58) Anaphylaxis iodine Allergy (Verified 01/02/18 16:58) Rash piperacillin sodium [From Zosyn] Allergy (Verified 01/02/18 16:58) Rash potassium clavulanate [From Augmentin] Allergy (Verified 01/02/18 16:58) Rash tazobactam sodium [From Zosyn] Allergy (Verified 01/02/18 16:58) Rash apixaban [From Eliquis] Adverse Reaction (Verified 01/02/18 16:58) Other azithromycin Adverse Reaction (Verified 01/02/18 16:58) Diarrhea bupropion Adverse Reaction (Verified 01/02/18 16:58) Unknown ciprofloxacin [From Cipro] Adverse Reaction (Verified 01/02/18 16:58) Other ciprofloxacin HCl [From Cipro] Adverse Reaction (Verified 01/02/18 16:58) Other diazepam [From Valium] Adverse Reaction (Verified 01/02/18 16:58) Other hallucinations duloxetine Adverse Reaction (Verified 01/02/18 16:58) Unknown gabapentin Adverse Reaction (Verified 01/02/18 16:58) Other heparin Adverse Reaction (Verified 01/02/18 16:58) Unknown Iodinated Contrast- Oral and IV Dye [CONTRASTS] Adverse Reaction (Verified 01/02 16:58) Rash nitroglycerin Adverse Reaction (Verified 01/02/18 16:58) Other headaches and extreme hyperactivity paroxetine Adverse Reaction (Verified 01/02/18 16:58) Unknown tetracycline [Tetracycline] Adverse Reaction (Verified 01/02/18 16:58) Vomiting plastics Adverse Reaction (Uncoded 01/02/18 16:58) Rash Home Medications: Ambulatory Orders Medication Instructions Recorded Acetaminophen/Butalbital/Caffe 1 tablet PO BID PRN 06/06/17 [Fioricet] Albuterol Aerosols [Ventolin 2.5 mg INHALATION Q4HWA.RT 06/06/17 Aerosols] Allopurinol 200 mg PO DAILY 06/06/17 Amiodarone HCl [Pacerone] 200 mg PO DAILY 06/06/17 Amlodipine [Norvasc] 5 mg PO QHS 06/06/17 Cimetidine [Tagamet Hb] 200 mg PO PRN PRN 06/06/17 Colchicine [Mitigare] 0.6 mg PO PRN PRN 06/06/17 Diphenhydramine HCl [Benadryl 25 mg PO PRN PRN 06/06/17 Allergy] Hydromorphone HCl [Dilaudid] 4 mg PO DAILY PRN 06/06/17 Levothyroxine [Synthroid] 137 mcg PO [id number] 06/06/17 Metoprolol Tartrate 25 mg PO DAILY 06/06/17 Morphine Sulfate [Morphine Sulfate 30 mg PO Q8H PRN 06/06/17 ER] Pramipexole Di-HCl [Mirapex] 1 mg PO QHS 06/06/17 ProMETHAzine [Phenergan] 25 mg PO Q4H PRN PRN 06/06/17 Testosterone Cypionate 100 mg IM Q14D 06/06/17 [Depo-Testosterone] Vilazodone Hydrochloride [Viibryd] 20 mg PO DAILY 06/06/17 Amitriptyline HCl 25 mg PO QHS 12/11/17 Codeine 30 mg PO Q6H PRN PRN 12/11/17 Entacapone [Comtan] 200 mg PO 4X/DAY 12/11/17 Carbidopa/Levodopa [Carbidopa-Levo 1 tab PO 4X/DAY 01/02/18 25-100 mg Odt] Furosemide [Lasix] 10 mg PO DAILY 01/02/18 Levothyroxine [Synthroid] 274 mcg PO MOTH 01/02/18 Omeprazole Magnesium [Prilosec Otc] 40 mg PO DAILY 01/02/18 Prednisone 5 mg PO DAILY PRN 01/02/18 Sucralfate [Carafate] 1 gm PO TID 01/02/18 Surgical History: appendectomy, coronary bypass surgery, total hip arthroplasty , tonsillectomy, - - multiple abdominal surgeries with removal of entire colon, placement of abdominal wall mesh, ileostomy, surgery for bowel abscess, lumbar back surgery, right shoulder surgery, foot surgery, cervical neck surgery, prostate surgery Psychiatric History: - - Personality disorder Lives: Spouse/ Significant Other Smoking Status: Former smoker Alcohol: None Drugs: None - *Family History Maternal History Items: Hypertension Paternal History Items: Heart Disease Sibling History Items: Diabetes - Physical Exam General: Alert, Oriented x3 Lungs: Clear to auscultation, Normal air movement Cardiovascular: Regular rate, Irregular Rate Abdomen: Bowel Sounds Present, Soft, Tender - mildly, - - multiple midline and parastomal hernias. There is output in the stoma bag Vital Signs Temp Pulse Resp BP Pulse Ox 97.9 F 71 16 144/72 H 97 01/03/18 13:26 01/03/18 13:26 01/03/18 13:26 01/03/18 13:26 01/03/18 13:26 Oxygen Delivery Method Room Air Weight: 75.3 kg Body Mass Index (BMI) 26.8 Intake and Output for Last 24 Hours 01/01/18 01/02/18 01/03/18 23:59 23:59 23:59 Intake Total 1827 / 1827 Output Total 1100 / 1100 Balance 727 / 727 Laboratory Tests Past 24 Hrs 01/03/18 01/03/18 05:00 05:00 WBC 8.7 RBC 4.28 L Hgb 12.5 L Hct 40.6 MCV 94.9 H MCH 29.2 MCHC 30.8 L RDW 15.6 H RDW Differential 53.4 H Plt Count 94 L MPV 9.7 Immature Gran % (Auto) 2.400 H Neut % (Auto) 68.9 Lymph % (Auto) 20.8 [place] % (Auto) 3.9 Eos % (Auto) 3.4 Baso % (Auto) 0.6 Absolute Neuts (auto) 6.0 Absolute Lymphs (auto) 1.81 Total Counted Not Reportable Diff Path Review March foll Sodium 140 Potassium 4.9 Chloride 116 H Carbon Dioxide 15.0 L Anion Gap 9 BUN 52 H Creatinine 2.29 H Estim Creat Clear Calc 27.09 Est GFR (MDRD) Af Amer 37 L Est GFR (MDRD) Non-Af 30 L BUN/Creatinine Ratio 22.7 H Glucose 76 Calcium 8.2 L Assessment/Plan complex abdominal hernia, parastomal hernia, partial small bowel obstruction. we'll plan for bowel rest, IV fluid support. Anticipate that the patient will resolve with conservative treatment. It would be optimal if his bowel is somewhat decompressed prior to his surgical procedures next week. We will plan for pain control in the interim. we'll follow with serial exams and abdominal series. If the patient fails to improve, we'll consider earlier transfer to [place].
[2018-01-03] MEDS: Amitriptyline 25 MG Tablet PO (22:53)
[2018-01-03] MEDS: Pramipexole Di-HCl 1 MG Tablet PO (23:14)
[2018-01-04] VITALS (11 sets, daily range): BP systolic 134–173; BP diastolic 49–70; PULSE 56–82; RESP 16–18; TEMP 36.6–37.7; O2SAT 97–100
--- NOTE | 2018-01-04 05:00 | RAD_ITS ---
STUDY: X-RAY - ABDOMEN/PELVIS REASON FOR EXAM: Male, 72 years old. Small bowel obstruction TECHNIQUE: 3 view COMPARISON: None. FINDINGS: There is no bowel distention or free intraperitoneal air. A total right hip replacement suspicion of avascular necrosis of the left femoral head. There are degenerative changes of the lower thoracic and lumbosacral spines with degenerative L4 and L5. Significant plates and screws are seen at the L3-4 level. RAD/Abd Inc Decub and/or Erect IMPRESSION: No acute findings in the abdomen. A total right hip replacement. Early avascular necrosis left femoral head. Electronically Signed: Jose Guadalupe Perrin, at 6:53 EST Tel , Service support ,
[2018-01-04] MEDS: Levothyroxine 137 MCG Tablet 274 MCG PO (06:07)
[2018-01-04] MEDS: VILAZODONE HYDROCHLORIDE 10 MG TABLET 20 MG PO (06:11)
[2018-01-04] MEDS: Carbidopa/Levodopa 10/100 Tablet PO ×3 (06:11→17:54)
[2018-01-04 07:29] LABS: Anion Gap 9 (5-15); BUN 39 mg/dL (7-18); BUN/Creat Ratio 20.3 RATIO (10-20); Calcium,Total 8.3 mg/dL (8.5-10.1); Chloride 115 mmol/L (98-107); Creatinine, Serum 1.92 mg/dL (0.70-1.30); EST Glomerular Filtration Rate 37 mL/min (>60); Est Glom Filt Rate - Afr Amer 45 mL/min (>60); Estimated Creatinine Clearance 32.31 ml/min; Glucose 97 mg/dL (74-106); Potassium 3.9 mmol/L (3.5-5.1); Sodium Level 144 mmol/L (136-145)
[2018-01-04 07:32] LABS: Hematocrit 37.6 % (40-54); Hemoglobin 12.3 g/dl (13.0-16.5); Mean Corp Hgb Conc 32.7 g/gl (32-36); Mean Corpuscular Hgb 29.8 pg (27.0-32.0); Mean Platelet Vol. 8.9 fl (6.2-12.0); Platelet Count 80 K/mm3 (150-450); RBC Distribution Width CV 15.3 % (11.6-14.6); RBC Distribution Width SD 49.6 fl (35.1-43.9); Red Blood Count 4.13 M/mm3 (4.6-6.2); White Blood Count 5.5 K/mm3 (4.4-11.0)
[2018-01-04 07:33] LABS: Differential Indicated MANUAL DIFF; POSITIVE COUNT YES; POSITIVE DIFFERENTIAL NO; POSITIVE MORPHOLOGY YES
[2018-01-04 08:01] LABS: Eosinophil 7 % (0-5); Lymphocyte 21 % (19-41); Monocyte 3 % (0-10); Neutrophil-Segmented 69 % (47-70); Total Cells Counted 100 (MANUAL DIFF)
[2018-01-04 08:02] LABS: Platelet Estimate MKD DEC (ADEQ); Red Cell Morphology NORM C+C NORMAL (NORM C&C)
[2018-01-04 08:04] LABS: Absolute Lymphocyte Count 1.16 X10^3/ul (0.83-4.51); Absolute Neutrophil Count 3.8 X10^3/uL (2.0-7.7)
--- NOTE | 2018-01-04 08:40 | NURSING ---
Pt has had a moderate amount of soft brown stool in ostomy appliance. appliance is intact. no signs of leakage noted. will continue to monitor.
[2018-01-04] MEDS: Amiodarone 200 MG Tablet PO (09:08)
[2018-01-04] MEDS: 0.9% NaCl Peripheral Flush Adult/Peds IV ×2 (09:11→15:28)
[2018-01-04 10:30] LABS: Pathologist Review Reviewed
[2018-01-04] MEDS: 0.9% Normal Saline 1,000 ML 100 ML IV (14:38)
[2018-01-04 14:50] LABS: Pathologist Review Reviewed
[2018-01-04 14:54] LABS: Pathologist Review Reviewed
--- NOTE | 2018-01-04 15:10 | PCM.PROGNOTE ---
<Thu Mcghee - Last Filed: 01/04/18 15:25> Subjective: Patient seen and examined. Complains of abdominal pain 6 out of 10, tender to palpation throughout abdomen. Denies nausea, vomiting. Denies fever, chills. Patient has had a small amount of output from his ostomy as well as flatus. - Physical Exam General: Alert, Oriented x3, Cooperative HEENT: Atraumatic, PERRLA, EOMI, Normocephalic Oral: Dry Mucosa Neck: Supple, No JVD, Negative Carotid Bruits Lungs: Clear to auscultation, Normal air movement Cardiovascular: Regular rate, Regular Rhythm, Normal S1, Normal S2, No murmurs Abdomen: Bowel Sounds Present, Soft, Obese, Tender, Hernia, - - Small amount of output and stoma. Extremities: No clubbing, No cyanosis, No edema, Capillary Refill Less than 3 Seconds Skin: No rashes, No breakdown Musculoskeletal: No Tenderness to Palpation of Joints or Extremities Neurological: Cranial nerves II-XII grossly intact, Neuro grossly intact Psych/Mental Status: Normal Affect, Appropriate Vital Signs Temp Pulse Resp BP Pulse Ox 97.8 F 69 16 173/68 H 100 01/04/18 14:45 01/04/18 14:45 01/04/18 14:45 01/04/18 14:45 01/04/18 14:45 Oxygen Delivery Method Room Air Weight: 75.3 kg Body Mass Index (BMI) 26.8 Intake and Output for Last 24 Hours 01/02/18 01/03/18 01/04/18 23:59 23:59 23:59 Intake Total 2363 / 2363 1388 / 1388 Output Total 1100 / 1100 1450 / 1450 Balance 1263 / 1263 -62 / -62 Laboratory Tests Past 24 Hrs 01/03/18 01/04/18 01/04/18 05:00 06:45 06:45 WBC 5.5 RBC 4.13 L Hgb 12.3 L Hct 37.6 L MCV 91.0 MCH 29.8 MCHC 32.7 RDW 15.3 H RDW Differential 49.6 H Plt Count 80 L MPV 8.9 Neut % (Auto) Not Reportable Absolute Neuts (auto) 3.8 Absolute Lymphs (auto) 1.16 Total Counted 100 Neutrophils % (Manual) 69 Lymphocytes % (Manual) 21 Monocytes % (Manual) 3 Eosinophils % (Manual) 7 H Diff Path Review Reviewed Reviewed Platelet Estimate MKD DEC RBC Morphology NORM C+C Sodium 144 Potassium 3.9 Chloride 115 H Carbon Dioxide 20.0 L Anion Gap 9 BUN 39 H Creatinine 1.92 H Estim Creat Clear Calc 32.31 Est GFR (MDRD) Af Amer 45 L Est GFR (MDRD) Non-Af 37 L BUN/Creatinine Ratio 20.3 H Glucose 97 Calcium 8.3 L Assessment/Plan Patient is a 72-year-old male admitted 01/02/2018 due to abdominal pain, nausea, vomiting. He has a past medical history of chronic kidney disease stage III, psoriatic arthritis, peptic ulcer disease, migraines, CVA, degenerative joint disease, chronic obstructive lung disease, Parkinson's disease, hypothyroidism, type 2 diabetes mellitus, coronary artery disease, hypertension, anemia of chronic disease, paroxysmal atrial flutter. 1. Partial small bowel obstruction with complex abdominal hernia, parastomal hernia-patient has a history of 11 abdominal surgeries. Patient is to have further surgical intervention this month at [facility] with Dr. Guerrero Minaya for complex hernia repair. Dr. Purdy, surgery on consult. Remain n.p.o. Continue IV fluid. Continue antiemetics as needed, morphine as needed and IV Pepcid. Patient denies nausea, vomiting. Continues to have abdominal tenderness/pain. Patient has ileostomy which has small amount of output and flatus. Patient may require transfer to [facility]. CT of abdomen on admission shows dilated small bowel loops concerning for partial obstruction at one of his hernias. Repeat abdominal x-ray this morning shows no acute findings in the abdomen. 2. Chronic kidney disease stage III-stable, monitor BMP. 3. Hyperkalemia-resolved. 4. Paroxysmal A flutter-rate controlled. Not on oral anticoagulation. Continue amiodarone and metoprolol. 5. Thrombocytopenia-trending down, monitor CBC. 6. CAD status post CABG and PCI-does not appear to be on aspirin, statin. Continue beta-crystal. 7. HTN-stable, continue home regimen. 8. Parkinson's disease-continue home regimen. 9. Rheumatoid arthritis, ankylosing spondylitis, DJD, chronic pain with history of opioid dependence-PT/OT. Morphine as needed for pain. 10. Hypothyroidism-continue Synthroid. 11. Hx CVA/TIA-not on aspirin or statin. 12. Protein calorie malnutrition-Ensure supplementation when able to tolerate oral intake. 13. Peptic ulcer disease-continue home regimen. DVT prophylaxis-SCDs. This patient was seen by TRACY Zee under the supervision of Dr. Medrano. <MitchellCarlton - Last Filed: 01/04/18 16:24> Subjective: Seen and examined. Patient said he had complicated abdominal surgery history with about 11 and number. Started with appendectomy which was complicated with appendicular abscess for which he needed further surgery. After that he had diverticulitis which was complicated and perhaps necrotic and had total colectomy with end ileostomy. And after that he had multiple other surgeries for parastomal hernia and bowel obstruction. Today, he does not feel like much improvement as compared to yesterday no worsening too. - Physical Exam Neck: Supple, No JVD, Negative Carotid Bruits Lungs: Clear to auscultation, Diminished Cardiovascular: Regular rate, Regular Rhythm, Normal S1, Normal S2, No murmurs Abdomen: Bowel Sounds Present, Soft, Hyperactive Bowel Sounds, Obese, Tender, Hernia Vital Signs Temp Pulse Resp BP Pulse Ox 97.8 F 69 16 173/68 H 100 01/04/18 14:45 01/04/18 14:45 01/04/18 14:45 01/04/18 14:45 01/04/18 14:45 Oxygen Delivery Method Room Air Weight: 166 lb 0.129 oz Body Mass Index (BMI) 26.8 Intake and Output for Last 24 Hours 01/02/18 01/03/18 01/04/18 23:59 23:59 23:59 Intake Total 2363 / 2363 1388 / 1388 Output Total 1100 / 1100 1450 / 1450 Balance 1263 / 1263 -62 / -62 Laboratory Tests Past 24 Hrs 01/03/18 01/04/18 01/04/18 05:00 06:45 06:45 WBC 5.5 RBC 4.13 L Hgb 12.3 L Hct 37.6 L MCV 91.0 MCH 29.8 MCHC 32.7 RDW 15.3 H RDW Differential 49.6 H Plt Count 80 L MPV 8.9 Neut % (Auto) Not Reportable Absolute Neuts (auto) 3.8 Absolute Lymphs (auto) 1.16 Total Counted 100 Neutrophils % (Manual) 69 Lymphocytes % (Manual) 21 Monocytes % (Manual) 3 Eosinophils % (Manual) 7 H Diff Path Review Reviewed Reviewed Platelet Estimate MKD DEC RBC Morphology NORM C+C Sodium 144 Potassium 3.9 Chloride 115 H Carbon Dioxide 20.0 L Anion Gap 9 BUN 39 H Creatinine 1.92 H Estim Creat Clear Calc 32.31 Est GFR (MDRD) Af Amer 45 L Est GFR (MDRD) Non-Af 37 L BUN/Creatinine Ratio 20.3 H Glucose 97 Calcium 8.3 L Assessment/Plan I This patient was seen in conjunction with Thu KHAN. I have independently interviewed and examined the patient and reviewed pertinent history, examination findings, laboratory and plan of management. I have reviewed the note and agree with the documented findings with the few additional points. In brief, patient is admitted for partial small bowel obstruction secondary to multiple abdominal hernias and adhesions. He had complicated abdominal surgical history with perforated diverticulitis in 2010 which led to a total colectomy with end ileostomy and repair of iliac vein and ureter injuries. As per Dr. Purdy note, patient is scheduled for complex hernia repair on January 12, 2018 micrograms in [facility]. Currently patient is n.p.o. On conservative treatment. Repeat abdominal x-ray 01/04/2018 does not show acute finding. I have discussed my assessment with Thu KHAN and orders have been reviewed. Clinical Impression(s) from Imaging Studies Abdomen/Pelvis CT 01/02/18 17:37 IMPRESSION: Extensive surgical changes are again seen along the anterior abdominal wall with defects present showing herniation of small bowel. The hernias are not significantly changed compared to the prior study, however there is now dilatation of small bowel loops worrisome for a partial obstruction at one of these hernias, possibly the hernia positioned to the right of midline above what is thought to represent the umbilicus. There is no ascites or free air. There are stable incidental findings described above. Electronically Signed: Amber Hall MD at 18:33 EST Tel Direct: [phone], Service support , Abdomen X-Ray 01/04/18 05:00 IMPRESSION: No acute findings in the abdomen. A total right hip replacement. Early avascular necrosis left femoral head. Electronically Signed: Jose Guadalupe Perrin, at 6:53 EST Tel , Service support , Laboratory Results 01/02/18 18:10: Diff Path Review Reviewed 01/03/18 05:00: Diff Path Review Reviewed 01/04/18 06:45: WBC 5.5, RBC 4.13 L, Hgb 12.3 L, Hct 37.6 L, MCV 91.0, MCH 29.8, MCHC 32.7, RDW 15.3 H, RDW Differential 49.6 H, Plt Count 80 L, MPV 8.9, Neut % (Auto) Not Reportable, Absolute Neuts (auto) 3.8, Absolute Lymphs (auto) 1.16, Total Counted 100, Neutrophils % (Manual) 69, Lymphocytes % (Manual) 21, Monocytes % (Manual) 3, Eosinophils % (Manual) 7 H, Diff Path Review Reviewed, Platelet Estimate MKD DEC, RBC Morphology NORM C+C 01/04/18 06:45: Sodium 144, Potassium 3.9, Chloride 115 H, Carbon Dioxide 20.0 L, Anion Gap 9, BUN 39 H, Creatinine 1.92 H, Estim Creat Clear Calc 32.31, Est GFR (MDRD) Af Amer 45 L, Est GFR (MDRD) Non-Af 37 L, BUN/Creatinine Ratio 20.3 H, Glucose 97, Calcium 8.3 L Code Visit Inpatient E&M: 02206 Subs Hosp L3
--- NOTE | 2018-01-04 15:24 | PN_ITS ---
<Thu Mcghee - Last Filed: 01/04/18 15:25> Subjective: Patient seen and examined. Complains of abdominal pain 6 out of 10, tender to palpation throughout abdomen. Denies nausea, vomiting. Denies fever, chills. Patient has had a small amount of output from his ostomy as well as flatus. - Physical Exam General: Alert, Oriented x3, Cooperative HEENT: Atraumatic, PERRLA, EOMI, Normocephalic Oral: Dry Mucosa Neck: Supple, No JVD, Negative Carotid Bruits Lungs: Clear to auscultation, Normal air movement Cardiovascular: Regular rate, Regular Rhythm, Normal S1, Normal S2, No murmurs Abdomen: Bowel Sounds Present, Soft, Obese, Tender, Hernia, - - Small amount of output and stoma. Extremities: No clubbing, No cyanosis, No edema, Capillary Refill Less than 3 Seconds Skin: No rashes, No breakdown Musculoskeletal: No Tenderness to Palpation of Joints or Extremities Neurological: Cranial nerves II-XII grossly intact, Neuro grossly intact Psych/Mental Status: Normal Affect, Appropriate Vital Signs Temp Pulse Resp BP Pulse Ox 97.8 F 69 16 173/68 H 100 01/04/18 14:45 01/04/18 14:45 01/04/18 14:45 01/04/18 14:45 01/04/18 14:45 Oxygen Delivery Method Room Air Weight: 75.3 kg Body Mass Index (BMI) 26.8 Intake and Output for Last 24 Hours 01/02/18 01/03/18 01/04/18 23:59 23:59 23:59 Intake Total 2363 / 2363 1388 / 1388 Output Total 1100 / 1100 1450 / 1450 Balance 1263 / 1263 -62 / -62 Laboratory Tests Past 24 Hrs 01/03/18 01/04/18 01/04/18 05:00 06:45 06:45 WBC 5.5 RBC 4.13 L Hgb 12.3 L Hct 37.6 L MCV 91.0 MCH 29.8 MCHC 32.7 RDW 15.3 H RDW Differential 49.6 H Plt Count 80 L MPV 8.9 Neut % (Auto) Not Reportable Absolute Neuts (auto) 3.8 Absolute Lymphs (auto) 1.16 Total Counted 100 Neutrophils % (Manual) 69 Lymphocytes % (Manual) 21 Monocytes % (Manual) 3 Eosinophils % (Manual) 7 H Diff Path Review Reviewed Reviewed Platelet Estimate MKD DEC RBC Morphology NORM C+C Sodium 144 Potassium 3.9 Chloride 115 H Carbon Dioxide 20.0 L Anion Gap 9 BUN 39 H Creatinine 1.92 H Estim Creat Clear Calc 32.31 Est GFR (MDRD) Af Amer 45 L Est GFR (MDRD) Non-Af 37 L BUN/Creatinine Ratio 20.3 H Glucose 97 Calcium 8.3 L Assessment/Plan Patient is a 72-year-old male admitted 01/02/2018 due to abdominal pain, nausea, vomiting. He has a past medical history of chronic kidney disease stage III, psoriatic arthritis, peptic ulcer disease, migraines, CVA, degenerative joint disease, chronic obstructive lung disease, Parkinson's disease, hypothyroidism, type 2 diabetes mellitus, coronary artery disease, hypertension, anemia of chronic disease, paroxysmal atrial flutter. 1. Partial small bowel obstruction with complex abdominal hernia, parastomal hernia-patient has a history of 11 abdominal surgeries. Patient is to have further surgical intervention this month at [facility] with Dr. Guerrero Minaya for complex hernia repair. Dr. Purdy, surgery on consult. Remain n.p.o. Continue IV fluid. Continue antiemetics as needed, morphine as needed and IV Pepcid. Patient denies nausea, vomiting. Continues to have abdominal tenderness/pain. Patient has ileostomy which has small amount of output and flatus. Patient may require transfer to [facility]. CT of abdomen on admission shows dilated small bowel loops concerning for partial obstruction at one of his hernias. Repeat abdominal x-ray this morning shows no acute findings in the abdomen. 2. Chronic kidney disease stage III-stable, monitor BMP. 3. Hyperkalemia-resolved. 4. Paroxysmal A flutter-rate controlled. Not on oral anticoagulation. Continue amiodarone and metoprolol. 5. Thrombocytopenia-trending down, monitor CBC. 6. CAD status post CABG and PCI-does not appear to be on aspirin, statin. Continue beta-crystal. 7. HTN-stable, continue home regimen. 8. Parkinson's disease-continue home regimen. 9. Rheumatoid arthritis, ankylosing spondylitis, DJD, chronic pain with history of opioid dependence-PT/OT. Morphine as needed for pain. 10. Hypothyroidism-continue Synthroid. 11. Hx CVA/TIA-not on aspirin or statin. 12. Protein calorie malnutrition-Ensure supplementation when able to tolerate oral intake. 13. Peptic ulcer disease-continue home regimen. DVT prophylaxis-SCDs. This patient was seen by TRACY Zee under the supervision of Dr. Medrano. <MitchellCarlton - Last Filed: 01/04/18 16:24> Subjective: Seen and examined. Patient said he had complicated abdominal surgery history with about 11 and number. Started with appendectomy which was complicated with appendicular abscess for which he needed further surgery. After that he had diverticulitis which was complicated and perhaps necrotic and had total colectomy with end ileostomy. And after that he had multiple other surgeries for parastomal hernia and bowel obstruction. Today, he does not feel like much improvement as compared to yesterday no worsening too. - Physical Exam Neck: Supple, No JVD, Negative Carotid Bruits Lungs: Clear to auscultation, Diminished Cardiovascular: Regular rate, Regular Rhythm, Normal S1, Normal S2, No murmurs Abdomen: Bowel Sounds Present, Soft, Hyperactive Bowel Sounds, Obese, Tender, Hernia Vital Signs Temp Pulse Resp BP Pulse Ox 97.8 F 69 16 173/68 H 100 01/04/18 14:45 01/04/18 14:45 01/04/18 14:45 01/04/18 14:45 01/04/18 14:45 Oxygen Delivery Method Room Air Weight: 166 lb 0.129 oz Body Mass Index (BMI) 26.8 Intake and Output for Last 24 Hours 01/02/18 01/03/18 01/04/18 23:59 23:59 23:59 Intake Total 2363 / 2363 1388 / 1388 Output Total 1100 / 1100 1450 / 1450 Balance 1263 / 1263 -62 / -62 Laboratory Tests Past 24 Hrs 01/03/18 01/04/18 01/04/18 05:00 06:45 06:45 WBC 5.5 RBC 4.13 L Hgb 12.3 L Hct 37.6 L MCV 91.0 MCH 29.8 MCHC 32.7 RDW 15.3 H RDW Differential 49.6 H Plt Count 80 L MPV 8.9 Neut % (Auto) Not Reportable Absolute Neuts (auto) 3.8 Absolute Lymphs (auto) 1.16 Total Counted 100 Neutrophils % (Manual) 69 Lymphocytes % (Manual) 21 Monocytes % (Manual) 3 Eosinophils % (Manual) 7 H Diff Path Review Reviewed Reviewed Platelet Estimate MKD DEC RBC Morphology NORM C+C Sodium 144 Potassium 3.9 Chloride 115 H Carbon Dioxide 20.0 L Anion Gap 9 BUN 39 H Creatinine 1.92 H Estim Creat Clear Calc 32.31 Est GFR (MDRD) Af Amer 45 L Est GFR (MDRD) Non-Af 37 L BUN/Creatinine Ratio 20.3 H Glucose 97 Calcium 8.3 L Assessment/Plan I This patient was seen in conjunction with Thu KHAN. I have independently interviewed and examined the patient and reviewed pertinent history, examination findings, laboratory and plan of management. I have reviewed the note and agree with the documented findings with the few additional points. In brief, patient is admitted for partial small bowel obstruction secondary to multiple abdominal hernias and adhesions. He had complicated abdominal surgical history with perforated diverticulitis in 2010 which led to a total colectomy with end ileostomy and repair of iliac vein and ureter injuries. As per Dr. Purdy note, patient is scheduled for complex hernia repair on January 12, 2018 micrograms in [facility]. Currently patient is n.p.o. On conservative treatment. Repeat abdominal x-ray 01/04/2018 does not show acute finding. I have discussed my assessment with Thu KHAN and orders have been reviewed. Clinical Impression(s) from Imaging Studies Abdomen/Pelvis CT 01/02/18 17:37 IMPRESSION: Extensive surgical changes are again seen along the anterior abdominal wall with defects present showing herniation of small bowel. The hernias are not significantly changed compared to the prior study, however there is now dilatation of small bowel loops worrisome for a partial obstruction at one of these hernias, possibly the hernia positioned to the right of midline above what is thought to represent the umbilicus. There is no ascites or free air. There are stable incidental findings described above. Electronically Signed: Amber Hall MD at 18:33 EST Tel Direct: [phone], Service support , Abdomen X-Ray 01/04/18 05:00 IMPRESSION: No acute findings in the abdomen. A total right hip replacement. Early avascular necrosis left femoral head. Electronically Signed: Jose Guadalupe Perrin, at 6:53 EST Tel , Service support , Laboratory Results 01/02/18 18:10: Diff Path Review Reviewed 01/03/18 05:00: Diff Path Review Reviewed 01/04/18 06:45: WBC 5.5, RBC 4.13 L, Hgb 12.3 L, Hct 37.6 L, MCV 91.0, MCH 29.8 , MCHC 32.7, RDW 15.3 H, RDW Differential 49.6 H, Plt Count 80 L, MPV 8.9, Neut % (Auto) Not Reportable, Absolute Neuts (auto) 3.8, Absolute Lymphs (auto) 1.16 , Total Counted 100, Neutrophils % (Manual) 69, Lymphocytes % (Manual) 21, Monocytes % (Manual) 3, Eosinophils % (Manual) 7 H, Diff Path Review Reviewed, Platelet Estimate MKD DEC, RBC Morphology NORM C+C 01/04/18 06:45: Sodium 144, Potassium 3.9, Chloride 115 H, Carbon Dioxide 20.0 L , Anion Gap 9, BUN 39 H, Creatinine 1.92 H, Estim Creat Clear Calc 32.31, Est GFR (MDRD) Af Amer 45 L, Est GFR (MDRD) Non-Af 37 L, BUN/Creatinine Ratio 20.3 H , Glucose 97, Calcium 8.3 L Code Visit Inpatient E&M: 50281 Subs Hosp L3
[2018-01-04] MEDS: Acetaminophen/Butalbital/Caffe 1 Tablet PO (15:32)
--- NOTE | 2018-01-04 15:59 | CHAPLAIN ---
Type of Pastoral Visit _x__ Initial Visit ___ Follow-up Visit ___ On-call Visit ___ General Patient Visit ___ Spiritual Assessment ___ Family Conference ___ Bereavement ___ Rapid Response ___ Code Blue ___ Other (describe below) Pastoral Care Referral From _x__ Patient ___ Family ___ Nurse ___ Physician ___ [place] ___ Foot Orthopedist ___ Other (describe below) Sacrament/Intervention _x__ Active listening ___ Anointing ___ Lutheran ___ Bereavement ___ Communion _x__ Evita exploration ___ _x__ Life review _x__ Prayer ___ Reconciliation ___ Sacrament of Sick _x__ Supportive presence ___ Wedding ___ Other (describe below) Pastoral Comments patient has long list of health history and is facing a major surgery very soon; pt is most worried about his who is very anxious about pt and the potential for his ; pt has strong connection to latter-day and his evita which appears to be his greatest support; patient was quite talkative; pt would like his latter-day contacted and this was accomplished by this parts fabricator
--- NOTE | 2018-01-04 17:54 | PCM.PN.SRG ---
Subjective: sterile nausea, still abdominal pain slightly improved - Physical Exam Lungs: Clear to auscultation, Normal air movement Cardiovascular: Regular rate, Regular Rhythm Abdomen: Bowel Sounds Present, Soft, Tender - mild diffusely without peritoneal signs, Hernia - both midline and parastomal hernias. Soft but partially reducible Vital Signs Temp Pulse Resp BP Pulse Ox 97.8 F 82 16 173/68 H 100 01/04/18 14:45 01/04/18 16:00 01/04/18 14:45 01/04/18 14:45 01/04/18 14:45 Oxygen Delivery Method Room Air Weight: 75.3 kg Body Mass Index (BMI) 26.8 Intake and Output for Last 24 Hours 01/02/18 01/03/18 01/04/18 23:59 23:59 23:59 Intake Total 2363 / 2363 1388 / 1388 Output Total 1100 / 1100 1450 / 1450 Balance 1263 / 1263 -62 / -62 Laboratory Tests Past 24 Hrs 01/03/18 01/04/18 01/04/18 05:00 06:45 06:45 WBC 5.5 RBC 4.13 L Hgb 12.3 L Hct 37.6 L MCV 91.0 MCH 29.8 MCHC 32.7 RDW 15.3 H RDW Differential 49.6 H Plt Count 80 L MPV 8.9 Neut % (Auto) Not Reportable Absolute Neuts (auto) 3.8 Absolute Lymphs (auto) 1.16 Total Counted 100 Neutrophils % (Manual) 69 Lymphocytes % (Manual) 21 Monocytes % (Manual) 3 Eosinophils % (Manual) 7 H Diff Path Review Reviewed Reviewed Platelet Estimate MKD DEC RBC Morphology NORM C+C Sodium 144 Potassium 3.9 Chloride 115 H Carbon Dioxide 20.0 L Anion Gap 9 BUN 39 H Creatinine 1.92 H Estim Creat Clear Calc 32.31 Est GFR (MDRD) Af Amer 45 L Est GFR (MDRD) Non-Af 37 L BUN/Creatinine Ratio 20.3 H Glucose 97 Calcium 8.3 L Assessment/Plan complex abdominal hernia, parastomal hernia, partial small bowel obstruction. we'll plan for bowel rest, IV fluid support. Anticipate that the patient will resolve with conservative treatment. KUB today shows improvement and is listed as a normal bowel gas pattern. The patient does have reasonable output in his ileostomy this morning. It would be optimal if his bowel is somewhat decompressed prior to his surgical procedures next week. We will plan for pain control in the interim. we'll follow with serial exams and abdominal series. as you still having discomfort. We'll maintain him nothing by mouth with bowel rest and IV fluids, but at this point with an improving x-ray picture and stoma output. This may be incisional pain with a resolving partial small bowel obstruction. We will likely plan to start liquids tomorrow if x-ray remains stable and his symptoms are same or improved.
[2018-01-04] MEDS: amLODIPine 5 MG Tablet PO (21:05)
[2018-01-04] MEDS: Pramipexole Di-HCl 1 MG Tablet PO (21:05)
[2018-01-04] MEDS: Amitriptyline 25 MG Tablet PO (21:05)
[2018-01-05] VITALS (17 sets, daily range): BP systolic 129–158; BP diastolic 59–86; PULSE 63–98; RESP 16–20; TEMP 36.7–38.3; O2SAT 95–98
[2018-01-05] MEDS: Carbidopa/Levodopa 10/100 Tablet PO ×5 (00:04→23:32)
[2018-01-05] MEDS: 0.9% Normal Saline 1,000 ML 100 ML IV ×3 (00:05→22:48)
[2018-01-05] MEDS: Acetaminophen/Butalbital/Caffe 1 Tablet PO ×2 (00:11→23:24)
--- NOTE | 2018-01-05 05:00 | RAD_ITS ---
STUDY: X-RAY - ABDOMEN/PELVIS REASON FOR EXAM: Male, 72 years old. History of small bowel obstruction. TECHNIQUE: AP supine and upright views of the abdomen and pelvis. COMPARISON: Comparison is made with prior examination dated January 04, 2018. FINDINGS: Minimal increased markings of the lung bases suggestive of atelectasis. There is an unremarkable bowel gas pattern. There is no demonstrated free abdominal air. The visualized liver, spleen and kidneys are grossly normal in size and morphology. Normal soft tissue structures. There is evidence of prior laminectomy and fusion at the L3-L4 level. The patient is status post right total hip replacement. Moderate to marked degree of osteoarthritis of the left hip joint. RAD/Abd Inc Decub and/or Erect IMPRESSION: Nonspecific bowel gas pattern. Electronically Signed: Xander Doe MD at 8:47 EST Tel [phone], Service support ,
[2018-01-05] MEDS: Levothyroxine 137 MCG Tablet PO (05:43)
--- NOTE | 2018-01-05 05:59 | RAD_ITS ---
STUDY: X-RAY CHEST REASON FOR EXAM: Male, 72 years old. Fever TECHNIQUE: 2 views COMPARISON: None. FINDINGS: There is a mild lower thoracic scoliosis with convexity to the left. There is no acute pneumonia or failure and no pleural effusions. The heart is slightly enlarged. Extensive plates and screws are in the lumbosacral spine There is no demonstrated abnormality of the visualized soft tissue structures of the upper abdomen. RAD/Chest PA and Lateral IMPRESSION: No acute findings in the lungs Electronically Signed: Jose Guadalupe Perrin, at 7:11 EST Tel , Service support ,
[2018-01-05 06:07] LABS: Hematocrit 34.8 % (40-54); Hemoglobin 11.3 g/dl (13.0-16.5); Mean Corp Hgb Conc 32.5 g/gl (32-36); Mean Corpuscular Hgb 29.8 pg (27.0-32.0); Mean Corpuscular Volume 91.8 fL (80-94); Platelet Count 87 K/mm3 (150-450); RBC Distribution Width CV 15.3 % (11.6-14.6); RBC Distribution Width SD 49.6 fl (35.1-43.9); Red Blood Count 3.79 M/mm3 (4.6-6.2); White Blood Count 4.5 K/mm3 (4.4-11.0)
[2018-01-05 06:09] LABS: Scan Indicated on CBC? Y/N NO
[2018-01-05 06:28] LABS: Anion Gap 9 (5-15); BUN 30 mg/dL (7-18); Calcium,Total 7.9 mg/dL (8.5-10.1); Chloride 115 mmol/L (98-107); Creatinine, Serum 1.87 mg/dL (0.70-1.30); EST Glomerular Filtration Rate 38 mL/min (>60); Est Glom Filt Rate - Afr Amer 46 mL/min (>60); Estimated Creatinine Clearance 33.17 ml/min; Glucose 86 mg/dL (74-106); Potassium 3.5 mmol/L (3.5-5.1); Sodium Level 145 mmol/L (136-145)
[2018-01-05 08:31] LABS: Mucous, Urine 0 SEEN /hpf (<or=2+); Red Blood Cells-Urine 0 SEEN /hpf (0-5)
[2018-01-05 08:33] LABS: Color, Urine Yellow (Yellow); Glucose, Dipstick Normal (Normal); Ketone-Dipstick Negative (Negative); Leukocyte Esterase-Dipstick 25 /ul (Negative); Nitrite-Dipstick Negative (Negative); Occult Blood-Urine Negative /ul (Negative); Protein-Dipstick 30 mg/dl (Negative); Specific Gravity, Urine 1.015 (1.002-1.030); Urine Bilirubin Dipstick Negative (Negative); Urine Clarity Sl. Cloudy (Clear); Urine Urobilinogen Normal (Normal)
[2018-01-05 08:40] LABS: Bacteria RARE /hpf (None Seen); Hyaline Cast 0-5 SEEN /lpf (0-5); Squamous Epithelial Cells - UA 0-5 SEEN /hpf (0-5); White Blood Cells 0-5 SEEN /hpf (0-5)
--- NOTE | 2018-01-05 08:57 | NURSING ---
Ileostomy appliance remains intact. no leakage noted. Appliance was just changed on 01/03/18. Plan to keep in place for 4 days if possible.
[2018-01-05] MEDS: 0.9% NaCl Peripheral Flush Adult/Peds IV ×4 (09:54→18:27)
[2018-01-05] MEDS: Amiodarone 200 MG Tablet PO (09:55)
[2018-01-05] MEDS: VILAZODONE HYDROCHLORIDE 10 MG TABLET 20 MG PO (09:55)
[2018-01-05] MEDS: BENZOCAINE/MENTHOL 1 LOZENGE MUCOUS MEM ×2 (10:14→23:24)
--- NOTE | 2018-01-05 11:03 | NURSING ---
pt states he is not diabetic and refused to have blood glucose checked at this time.
[2018-01-05] MEDS: DiphenhydrAMINE 12.5 MG/5 ML UDC PO ×2 (11:08→18:20)
--- NOTE | 2018-01-05 11:18 | PN_ITS ---
<Thu Mcghee - Last Filed: 01/05/18 11:19> Subjective: Patient seen and examined. States symptoms are not improved from yesterday. Continues to have nausea, abdominal pain 06/29. States he has had minimal output from ileostomy. Denies fever, chills. Denies other complaints. Requesting to have central line placed due to difficult blood draws/IV sticks. - Physical Exam General: Alert, Oriented x3, Cooperative, No apparent distress HEENT: Atraumatic, PERRLA, EOMI, Normocephalic Oral: Dry Mucosa Lungs: Clear to auscultation, Normal air movement Cardiovascular: Regular rate, Regular Rhythm, Normal S1, Normal S2, No murmurs Abdomen: Bowel Sounds Present, Soft, Tender, Hernia, - - ileostomy Extremities: No clubbing, No cyanosis, No edema, Capillary Refill Less than 3 Seconds Skin: No rashes, No breakdown Musculoskeletal: No Tenderness to Palpation of Joints or Extremities Neurological: Cranial nerves II-XII grossly intact, Neuro grossly intact Psych/Mental Status: Normal Affect, Appropriate Vital Signs Temp Pulse Resp BP Pulse Ox 99.0 F 98 18 158/86 H 98 01/05/18 11:01 01/05/18 09:48 01/05/18 09:48 01/05/18 09:48 01/05/18 09:48 Oxygen Delivery Method Room Air Weight: 75.3 kg Body Mass Index (BMI) 26.8 Intake and Output for Last 24 Hours 01/03/18 01/04/18 01/05/18 23:59 23:59 23:59 Intake Total 2363 / 2363 2138 / 2138 1032 / 1032 Output Total 1100 / 1100 2125 / 2125 550 / 550 Balance 1263 / 1263 482 / 482 Laboratory Tests Past 24 Hrs 01/03/18 01/05/18 01/05/18 05:00 05:45 05:45 WBC 4.5 RBC 3.79 L Hgb 11.3 L Hct 34.8 L MCV 91.8 MCH 29.8 MCHC 32.5 RDW 15.3 H RDW Differential 49.6 H Plt Count 87 L MPV 9.0 Diff Path Review Reviewed Sodium 145 Potassium 3.5 Chloride 115 H Carbon Dioxide 21.0 Anion Gap 9 BUN 30 H Creatinine 1.87 H Estim Creat Clear Calc 33.17 Est GFR (MDRD) Af Amer 46 L Est GFR (MDRD) Non-Af 38 L BUN/Creatinine Ratio 16.0 Glucose 86 Calcium 7.9 L Urine Color Urine Clarity Urine pH Ur Specific [place] Urine Protein Urine Glucose (UA) Urine Ketones Urine Occult Blood Urine Nitrite Urine Bilirubin Urine Urobilinogen Ur Leukocyte Esterase Urine RBC Urine WBC Ur Squamous Epith Cells Urine Bacteria Hyaline Casts Urine Mucus 01/05/18 08:27 WBC RBC Hgb Hct MCV MCH MCHC RDW RDW Differential Plt Count MPV Diff Path Review Sodium Potassium Chloride Carbon Dioxide Anion Gap BUN Creatinine Estim Creat Clear Calc Est GFR (MDRD) Af Amer Est GFR (MDRD) Non-Af BUN/Creatinine Ratio Glucose Calcium Urine Color Yellow Urine Clarity Sl. Cloudy Urine pH 6.0 Ur Specific [place] 1.015 Urine Protein 30 H Urine Glucose (UA) Normal Urine Ketones Negative Urine Occult Blood Negative Urine Nitrite Negative Urine Bilirubin Negative Urine Urobilinogen Normal Ur Leukocyte Esterase 25 H Urine RBC 0 SEEN Urine WBC 0-5 SEEN Ur Squamous Epith Cells 0-5 SEEN Urine Bacteria RARE Hyaline Casts 0-5 SEEN Urine Mucus 0 SEEN Assessment/Plan Patient is a 72-year-old male admitted 01/02/2018 due to abdominal pain, nausea, vomiting. He has a past medical history of chronic kidney disease stage III, psoriatic arthritis, peptic ulcer disease, migraines, CVA, degenerative joint disease, chronic obstructive lung disease, Parkinson's disease, hypothyroidism, type 2 diabetes mellitus, coronary artery disease, hypertension, anemia of chronic disease, paroxysmal atrial flutter. 1. Partial small bowel obstruction with complex abdominal hernia, parastomal hernia-patient has a history of 11 abdominal surgeries. Patient is to have further surgical intervention 01/12/18 at [facility] with Dr. Guerrero Minaya for complex hernia repair. Dr. Purdy, surgery on consult. Remain n.p.o. Continue IV fluid. Continue antiemetics as needed, morphine as needed and IV Pepcid. Patient denies complains of nausea, denies vomiting. Continues to have abdominal tenderness/pain. Patient has ileostomy which has small amount of output and flatus. Patient may require transfer to [facility]. CT of abdomen on admission shows dilated small bowel loops concerning for partial obstruction at one of his hernias. Repeat abdominal x-ray this morning shows nonspecific bowel gas pattern. Per surgery, patient may possibly be advanced to liquid diet if able to tolerate. 2. Chronic kidney disease stage III-stable, monitor BMP. 3. Hyperkalemia-resolved. 4. Paroxysmal A flutter-rate controlled. Not on oral anticoagulation. Continue amiodarone and metoprolol. 5. Thrombocytopenia-stable, monitor CBC. 6. CAD status post CABG and PCI-does not appear to be on aspirin, statin. Continue beta-crystal. 7. HTN-stable, continue home regimen. 8. Parkinson's disease-continue home regimen. 9. Rheumatoid arthritis, ankylosing spondylitis, DJD, chronic pain with history of opioid dependence-PT/OT. Morphine as needed for pain. 10. Hypothyroidism-continue Synthroid. 11. Hx CVA/TIA-not on aspirin or statin. 12. Protein calorie malnutrition-Ensure supplementation when able to tolerate oral intake. 13. Peptic ulcer disease-continue home regimen. DVT prophylaxis-SCDs. This patient was seen by TRACY Zee under the supervision of Dr. Medrano. <Carlton Medrano - Last Filed: 01/05/18 17:13> - Physical Exam General: Alert, Oriented x3, Cooperative HEENT: Atraumatic, PERRLA, EOMI, Normocephalic Neck: Supple, No JVD, Negative Carotid Bruits Lungs: Clear to auscultation, Normal air movement Cardiovascular: Regular rate, Regular Rhythm, Normal S1, Normal S2, No murmurs Abdomen: Bowel Sounds Present, Soft, Non Tender, Tender, Hernia Extremities: No edema, Capillary Refill Less than 3 Seconds Skin: No rashes, No breakdown Musculoskeletal: No Tenderness to Palpation of Joints or Extremities Neurological: Cranial nerves II-XII grossly intact Psych/Mental Status: Normal Affect, Appropriate Vital Signs Temp Pulse Resp BP Pulse Ox 100.3 F H 96 18 156/73 H 96 01/05/18 14:12 01/05/18 14:00 01/05/18 14:00 01/05/18 14:00 01/05/18 14:00 Oxygen Delivery Method Room Air Weight: 166 lb 0.129 oz Body Mass Index (BMI) 26.8 Intake and Output for Last 24 Hours 01/03/18 01/04/18 01/05/18 23:59 23:59 23:59 Intake Total 2363 / 2363 2138 / 2138 2315 / 2315 Output Total 1100 / 1100 2125 / 2125 1200 / 1200 Balance 1263 / 1263 1115 / 1115 Laboratory Tests Past 24 Hrs 01/05/18 01/05/18 01/05/18 05:45 05:45 08:27 WBC 4.5 RBC 3.79 L Hgb 11.3 L Hct 34.8 L MCV 91.8 MCH 29.8 MCHC 32.5 RDW 15.3 H RDW Differential 49.6 H Plt Count 87 L MPV 9.0 Sodium 145 Potassium 3.5 Chloride 115 H Carbon Dioxide 21.0 Anion Gap 9 BUN 30 H Creatinine 1.87 H Estim Creat Clear Calc 33.17 Est GFR (MDRD) Af Amer 46 L Est GFR (MDRD) Non-Af 38 L BUN/Creatinine Ratio 16.0 Glucose 86 Calcium 7.9 L Urine Color Yellow Urine Clarity Sl. Cloudy Urine pH 6.0 Ur Specific [place] 1.015 Urine Protein 30 H Urine Glucose (UA) Normal Urine Ketones Negative Urine Occult Blood Negative Urine Nitrite Negative Urine Bilirubin Negative Urine Urobilinogen Normal Ur Leukocyte Esterase 25 H Urine RBC 0 SEEN Urine WBC 0-5 SEEN Ur Squamous Epith Cells 0-5 SEEN Urine Bacteria RARE Hyaline Casts 0-5 SEEN Urine Mucus 0 SEEN Assessment/Plan This patient was seen in conjunction with SALES DEVELOPMENT SPECIALIST, Thu. I have independently interviewed and examined the patient and reviewed pertinent history, examination findings, laboratory and plan of management. I have reviewed the note and agree with the documented findings with the few additional points. In brief, patient is admitted for partial small bowel obstruction secondary to multiple abdominal hernias and adhesions. He had complicated abdominal surgical history with perforated diverticulitis in 2010 which led to a total colectomy with end ileostomy and repair of iliac vein and ureter injuries. As per Dr. Purdy note, patient is scheduled for complex hernia repair on January 12, [address] [facility]. Currently patient is n.p.o. On conservative treatment. Repeat abdominal x-ray 01/04/2018 does not show acute finding. Patient has low-grade fever, 101.1 Fahrenheit, rectal 99 and then 100.4 Fahrenheit. Started on IV antibiotics Flagyl and ceftriaxone as the patient is allergic to penicillin group of antibiotics and Cipro. Partial small bowel obstruction with enteritis, most probably from gut marilynn translocation. Lactic acid ordered. Discussed with Dr. Purdy and he want bowel disinfection as surgical preparation for next week including clinic main campus. If further assisted if patient tolerates soft diet with low residue can be discharged, but patient had mild nausea with soft oral diet. I have discussed my assessment with SALES DEVELOPMENT SPECIALIST, Thu and orders have been reviewed. Code Visit Inpatient E&M: 07005 Subs Hosp L3
--- NOTE | 2018-01-05 13:18 | PN.SURG_ITS ---
Subjective: still complaining of abdominal discomfort, nausea control, the sonogram, no vomiting - Physical Exam General: Alert, Oriented x3 Lungs: Clear to auscultation, Normal air movement Cardiovascular: Regular rate, Regular Rhythm Abdomen: Bowel Sounds Present, Soft, Tender - mild diffusely tender-no peritoneal signs, stable herniation, stool and air and stoma bag Vital Signs Temp Pulse Resp BP Pulse Ox 99.0 F 97 18 158/86 H 98 01/05/18 11:01 01/05/18 11:00 01/05/18 09:48 01/05/18 09:48 01/05/18 09:48 Oxygen Delivery Method Room Air Weight: 75.3 kg Body Mass Index (BMI) 26.8 Intake and Output for Last 24 Hours 01/03/18 01/04/18 01/05/18 23:59 23:59 23:59 Intake Total 2363 / 2363 2138 / 2138 1032 / 1032 Output Total 1100 / 1100 2125 / 2125 550 / 550 Balance 1263 / 1263 482 / 482 Laboratory Tests Past 24 Hrs 01/03/18 01/05/18 01/05/18 05:00 05:45 05:45 WBC 4.5 RBC 3.79 L Hgb 11.3 L Hct 34.8 L MCV 91.8 MCH 29.8 MCHC 32.5 RDW 15.3 H RDW Differential 49.6 H Plt Count 87 L MPV 9.0 Diff Path Review Reviewed Sodium 145 Potassium 3.5 Chloride 115 H Carbon Dioxide 21.0 Anion Gap 9 BUN 30 H Creatinine 1.87 H Estim Creat Clear Calc 33.17 Est GFR (MDRD) Af Amer 46 L Est GFR (MDRD) Non-Af 38 L BUN/Creatinine Ratio 16.0 Glucose 86 Calcium 7.9 L Urine Color Urine Clarity Urine pH Ur Specific [place] Urine Protein Urine Glucose (UA) Urine Ketones Urine Occult Blood Urine Nitrite Urine Bilirubin Urine Urobilinogen Ur Leukocyte Esterase Urine RBC Urine WBC Ur Squamous Epith Cells Urine Bacteria Hyaline Casts Urine Mucus 01/05/18 08:27 WBC RBC Hgb Hct MCV MCH MCHC RDW RDW Differential Plt Count MPV Diff Path Review Sodium Potassium Chloride Carbon Dioxide Anion Gap BUN Creatinine Estim Creat Clear Calc Est GFR (MDRD) Af Amer Est GFR (MDRD) Non-Af BUN/Creatinine Ratio Glucose Calcium Urine Color Yellow Urine Clarity Sl. Cloudy Urine pH 6.0 Ur Specific [place] 1.015 Urine Protein 30 H Urine Glucose (UA) Normal Urine Ketones Negative Urine Occult Blood Negative Urine Nitrite Negative Urine Bilirubin Negative Urine Urobilinogen Normal Ur Leukocyte Esterase 25 H Urine RBC 0 SEEN Urine WBC 0-5 SEEN Ur Squamous Epith Cells 0-5 SEEN Urine Bacteria RARE Hyaline Casts 0-5 SEEN Urine Mucus 0 SEEN Assessment/Plan complex abdominal hernia, parastomal hernia, partial small bowel obstruction. KUB is demonstrated normal bowel gas pattern for the past [address] scan demonstrated contrast into the stoma bag. There is succus andfluid contents in the stoma bag. Will start clear liquids and advance as tolerated. As KUB today shows improvement and is listed as a normal bowel gas pattern. The patient does have reasonable output in his ileostomy this morning. We will plan for pain control in the interim. patient had temperature to 101 overnight. White blood cell count is normal. Chest x-ray demonstrated no abnormalities. Urinalysis demonstrated a few bacteria and trace leukocyte esterase. Would start Bactrim DS and obtain urine culture. Otherwise, the patient's tolerating diet. I would plan for discharge to home, have him stay on a lower residue diet until his surgery next week
--- NOTE | 2018-01-05 16:59 | NURSING ---
Notified Thu the BREASTFEEDING EDUCATOR that pt's his nephologist said not to take bactrim due to has stage IV kidney disease. SHe said she would notify Dr. Medrano.
[2018-01-05] MEDS: Ceftriaxone 1 GM/50 ML BAG IV (17:23)
[2018-01-05 18:50] LABS: Lactic Acid 0.7 mmol/L (0.4-2.0)
[2018-01-05] MEDS: Pramipexole Di-HCl 1 MG Tablet PO (22:32)
[2018-01-05] MEDS: amLODIPine 5 MG Tablet PO (22:32)
[2018-01-05] MEDS: Amitriptyline 25 MG Tablet PO (22:33)
[2018-01-06] VITALS (8 sets, daily range): BP systolic 124–169; BP diastolic 59–88; PULSE 59–88; RESP 18; TEMP 36.2–37.3; O2SAT 97–100
[2018-01-06] MEDS: BENZOCAINE/MENTHOL 1 LOZENGE MUCOUS MEM (04:41)
[2018-01-06] MEDS: DiphenhydrAMINE 12.5 MG/5 ML UDC PO (04:51)
[2018-01-06] MEDS: Levothyroxine 137 MCG Tablet PO (05:30)
[2018-01-06] MEDS: Carbidopa/Levodopa 10/100 Tablet PO ×4 (05:31→23:46)
[2018-01-06] MEDS: 0.9% NaCl Peripheral Flush Adult/Peds IV (06:10)
[2018-01-06 06:23] LABS: Hematocrit 35.6 % (40-54); Hemoglobin 11.4 g/dl (13.0-16.5); Mean Corpuscular Hgb 29.2 pg (27.0-32.0); Mean Corpuscular Volume 91.3 fL (80-94); Mean Platelet Vol. 9.3 fl (6.2-12.0); Platelet Count 75 K/mm3 (150-450); RBC Distribution Width CV 15.2 % (11.6-14.6); RBC Distribution Width SD 49.2 fl (35.1-43.9); Scan Indicated on CBC? Y/N NO; White Blood Count 4.1 K/mm3 (4.4-11.0)
[2018-01-06 06:36] LABS: Anion Gap 9 (5-15); BUN 21 mg/dL (7-18); Calcium,Total 8.1 mg/dL (8.5-10.1); Chloride 114 mmol/L (98-107); Creatinine, Serum 1.75 mg/dL (0.70-1.30); EST Glomerular Filtration Rate 41 mL/min (>60); Est Glom Filt Rate - Afr Amer 50 mL/min (>60); Estimated Creatinine Clearance 35.44 ml/min; Glucose 105 mg/dL (74-106); Potassium 3.4 mmol/L (3.5-5.1); Sodium Level 144 mmol/L (136-145)
[2018-01-06] MEDS: Ceftriaxone 1 GM/50 ML BAG IV (10:34)
[2018-01-06] MEDS: Amiodarone 200 MG Tablet PO (10:37)
[2018-01-06] MEDS: VILAZODONE HYDROCHLORIDE 10 MG TABLET 20 MG PO (10:37)
--- NOTE | 2018-01-06 11:41 | PCM.PROGNOTE ---
<Thu Mcghee - Last Filed: 01/06/18 11:51> Subjective: Patient seen and examined. States he is not tolerating a liquid diet. Complains of nausea. Denies emesis. Patient states abdominal pain is not improved. He has had increased output from ostomy which is liquid and brown in color. Denies fever, chills. - Physical Exam General: Alert, Oriented x3, Cooperative, No apparent distress HEENT: Atraumatic, PERRLA, EOMI, Normocephalic Neck: Supple, No JVD, Negative Carotid Bruits Lungs: Clear to auscultation, Normal air movement Cardiovascular: Regular rate, Regular Rhythm, Normal S1, Normal S2, No murmurs Abdomen: Bowel Sounds Present, Soft, Tender, Hernia, - - ileostomy, dark brown liquid output noted. Extremities: No clubbing, No cyanosis, No edema, Capillary Refill Less than 3 Seconds Skin: No rashes, No breakdown Musculoskeletal: No Tenderness to Palpation of Joints or Extremities Neurological: Cranial nerves II-XII grossly intact, Neuro grossly intact Psych/Mental Status: Normal Affect Vital Signs Temp Pulse Resp BP Pulse Ox 97.2 F L 88 18 152/88 H 100 01/06/18 10:00 01/06/18 10:00 01/06/18 10:00 01/06/18 10:00 01/06/18 10:00 Oxygen Delivery Method Room Air Weight: 75.3 kg Body Mass Index (BMI) 26.8 Intake and Output for Last 24 Hours 01/04/18 01/05/18 01/06/18 23:59 23:59 23:59 Intake Total 2138 / 2138 2315 / 2315 1845 / 1845 Output Total 2125 / 2125 1405 / 1405 1850 / 1850 Balance 910 / 910 -5 / -5 Microbiology Past 72 Hours 01/05/18 08:27 Urine Culture - Preliminary Urine, Clean Catch Culture exhibits no growth. Laboratory Tests Past 24 Hrs 01/05/18 01/06/18 01/06/18 18:10 06:10 06:10 WBC 4.1 L RBC 3.90 L Hgb 11.4 L Hct 35.6 L MCV 91.3 MCH 29.2 MCHC 32.0 RDW 15.2 H RDW Differential 49.2 H Plt Count 75 L MPV 9.3 Sodium 144 Potassium 3.4 L Chloride 114 H Carbon Dioxide 21.0 Anion Gap 9 BUN 21 H Creatinine 1.75 H Estim Creat Clear Calc 35.44 Est GFR (MDRD) Af Amer 50 L Est GFR (MDRD) Non-Af 41 L BUN/Creatinine Ratio 12.0 Glucose 105 Lactic Acid 0.7 Calcium 8.1 L Assessment/Plan Patient is a 72-year-old male admitted 01/02/2018 due to abdominal pain, nausea, vomiting. He has a past medical history of chronic kidney disease stage III, psoriatic arthritis, peptic ulcer disease, migraines, CVA, degenerative joint disease, chronic obstructive lung disease, Parkinson's disease, hypothyroidism, type 2 diabetes mellitus, coronary artery disease, hypertension, anemia of chronic disease, paroxysmal atrial flutter. 1. Partial small bowel obstruction with complex abdominal hernia, parastomal hernia-patient has a history of 11 abdominal surgeries. Patient is to have further surgical intervention 01/12/18 at [facility] with Dr. Guerrero Minaya for complex hernia repair. Dr. Purdy, surgery on consult. Clear liquid diet, advance as tolerated. Continue IV fluid. Continue antiemetics as needed, morphine as needed and IV Pepcid. Patient denies complains of nausea, denies vomiting. Continues to have abdominal tenderness/pain. Patient has ileostomy which has increased output which appears dark brown, liquid. CT of abdomen on admission showed dilated small bowel loops concerning for partial obstruction at one of his hernias. Repeat abdominal x-ray 01/05/18 showed nonspecific bowel gas pattern. Patient has had intermittent low-grade temperature. Started on antibiotics empirically given upcoming surgery. Continue IV Flagyl and IV Rocephin. Urine culture shows no growth. Chest x-ray unremarkable. Patient may be discharged when able to tolerate diet. He will be discharged on oral antibiotic therapy and low residue diet until surgery next week. 2. Chronic kidney disease stage III-stable, monitor BMP. 3. Hyperkalemia/hypokalemia-potassium now 3.4 which was replaced orally. Monitor BMP. 4. Paroxysmal A flutter-rate controlled. Not on oral anticoagulation. Continue amiodarone and metoprolol. 5. Thrombocytopenia-stable, monitor CBC. 6. CAD status post CABG and PCI-does not appear to be on aspirin, statin. Continue beta-crystal. 7. HTN-stable, continue home regimen. 8. Parkinson's disease-continue home regimen. 9. Rheumatoid arthritis, ankylosing spondylitis, DJD, chronic pain with history of opioid dependence-PT/OT. Continue home morphine regimen. 10. Hypothyroidism-continue Synthroid. 11. Hx CVA/TIA-not on aspirin or statin. 12. Protein calorie malnutrition-Ensure supplementation when able to tolerate oral intake. 13. Peptic ulcer disease-continue home regimen. DVT prophylaxis-SCDs. This patient was seen by TRACY Zee under the supervision of Dr. Medrano. <Carlton Medrano - Last Filed: 01/06/18 16:25> Subjective: Patient had clear liquid diet in the breakfast and as per the nurse he finished all his diet but he developed abdominal pain, nausea and mild abdominal distention after that. Mild low-grade temperature, 100.3 Fahrenheit. - Physical Exam General: Alert, Oriented x3, Cooperative HEENT: Atraumatic, PERRLA, EOMI, Normocephalic Abdomen: Soft, Tender, Hernia Vital Signs Temp Pulse Resp BP Pulse Ox 98.2 F 78 18 169/71 H 100 01/06/18 15:45 01/06/18 15:45 01/06/18 15:45 01/06/18 15:45 01/06/18 15:45 Oxygen Delivery Method Room Air Weight: 166 lb 0.129 oz Body Mass Index (BMI) 26.8 Intake and Output for Last 24 Hours 01/04/18 01/05/18 01/06/18 23:59 23:59 23:59 Intake Total 2138 / 2138 2315 / 2315 3195 / 3195 Output Total 2125 / 2125 1405 / 1405 2550 / 2550 Balance 910 / 910 645 / 645 Microbiology Past 72 Hours 01/05/18 08:27 Urine Culture - Preliminary Urine, Clean Catch Culture exhibits no growth. Laboratory Tests Past 24 Hrs 01/05/18 01/06/18 01/06/18 18:10 06:10 06:10 WBC 4.1 L RBC 3.90 L Hgb 11.4 L Hct 35.6 L MCV 91.3 MCH 29.2 MCHC 32.0 RDW 15.2 H RDW Differential 49.2 H Plt Count 75 L MPV 9.3 Sodium 144 Potassium 3.4 L Chloride 114 H Carbon Dioxide 21.0 Anion Gap 9 BUN 21 H Creatinine 1.75 H Estim Creat Clear Calc 35.44 Est GFR (MDRD) Af Amer 50 L Est GFR (MDRD) Non-Af 41 L BUN/Creatinine Ratio 12.0 Glucose 105 Lactic Acid 0.7 Calcium 8.1 L Assessment/Plan This patient was seen in conjunction with Thu KHAN. I have independently interviewed and examined the patient and reviewed pertinent history, examination findings, laboratory and plan of management. I have reviewed the note and agree with the documented findings with the few additional points. In brief, patient is admitted for partial small bowel obstruction secondary to multiple abdominal hernias and adhesions. He had complicated abdominal surgical history with perforated diverticulitis in 2010 which led to a total colectomy with end ileostomy and repair of iliac vein and ureter injuries. As per Dr. Purdy note, patient is scheduled for complex hernia repair on January 12, 2018 micrograms in [facility]. Currently patient is n.p.o. On conservative treatment. Repeat abdominal x-ray 01/04/2018 does not show acute finding. Patient has low-grade fever, 101.1 Fahrenheit, rectal 99 and then 100.4 Fahrenheit. Started on IV antibiotics Flagyl and ceftriaxone as the patient is allergic to penicillin group of antibiotics and Cipro. He further said he has tolerated Levaquin and amoxicillin in the past. Partial small bowel obstruction with enteritis, most probably from gut marilynn translocation. Lactic acid 0.[address] Purdy and he want bowel disinfection as surgical preparation for next week including [facility]. Dr. Borrego note reviewed. For now, patient is made n.p.o. for about 6 hours and will try clear liquid but if it does not tolerate, might need to transfer to [facility]. I have discussed my assessment with Thu KHAN and orders have been reviewed. Code Visit Inpatient E&M: 94156 Subs Hosp L3
--- NOTE | 2018-01-06 11:50 | PN_ITS ---
<Thu Mcghee - Last Filed: 01/06/18 11:51> Subjective: Patient seen and examined. States he is not tolerating a liquid diet. Complains of nausea. Denies emesis. Patient states abdominal pain is not improved. He has had increased output from ostomy which is liquid and brown in color. Denies fever, chills. - Physical Exam General: Alert, Oriented x3, Cooperative, No apparent distress HEENT: Atraumatic, PERRLA, EOMI, Normocephalic Neck: Supple, No JVD, Negative Carotid Bruits Lungs: Clear to auscultation, Normal air movement Cardiovascular: Regular rate, Regular Rhythm, Normal S1, Normal S2, No murmurs Abdomen: Bowel Sounds Present, Soft, Tender, Hernia, - - ileostomy, dark brown liquid output noted. Extremities: No clubbing, No cyanosis, No edema, Capillary Refill Less than 3 Seconds Skin: No rashes, No breakdown Musculoskeletal: No Tenderness to Palpation of Joints or Extremities Neurological: Cranial nerves II-XII grossly intact, Neuro grossly intact Psych/Mental Status: Normal Affect Vital Signs Temp Pulse Resp BP Pulse Ox 97.2 F L 88 18 152/88 H 100 01/06/18 10:00 01/06/18 10:00 01/06/18 10:00 01/06/18 10:00 01/06/18 10:00 Oxygen Delivery Method Room Air Weight: 75.3 kg Body Mass Index (BMI) 26.8 Intake and Output for Last 24 Hours 01/04/18 01/05/18 01/06/18 23:59 23:59 23:59 Intake Total 2138 / 2138 2315 / 2315 1845 / 1845 Output Total 2125 / 2125 1405 / 1405 1850 / 1850 Balance 910 / 910 -5 / -5 Microbiology Past 72 Hours 01/05/18 08:27 Urine Culture - Preliminary Urine, Clean Catch Culture exhibits no growth. Laboratory Tests Past 24 Hrs 01/05/18 01/06/18 01/06/18 18:10 06:10 06:10 WBC 4.1 L RBC 3.90 L Hgb 11.4 L Hct 35.6 L MCV 91.3 MCH 29.2 MCHC 32.0 RDW 15.2 H RDW Differential 49.2 H Plt Count 75 L MPV 9.3 Sodium 144 Potassium 3.4 L Chloride 114 H Carbon Dioxide 21.0 Anion Gap 9 BUN 21 H Creatinine 1.75 H Estim Creat Clear Calc 35.44 Est GFR (MDRD) Af Amer 50 L Est GFR (MDRD) Non-Af 41 L BUN/Creatinine Ratio 12.0 Glucose 105 Lactic Acid 0.7 Calcium 8.1 L Assessment/Plan Patient is a 72-year-old male admitted 01/02/2018 due to abdominal pain, nausea, vomiting. He has a past medical history of chronic kidney disease stage III, psoriatic arthritis, peptic ulcer disease, migraines, CVA, degenerative joint disease, chronic obstructive lung disease, Parkinson's disease, hypothyroidism, type 2 diabetes mellitus, coronary artery disease, hypertension, anemia of chronic disease, paroxysmal atrial flutter. 1. Partial small bowel obstruction with complex abdominal hernia, parastomal hernia-patient has a history of 11 abdominal surgeries. Patient is to have further surgical intervention 01/12/[address] [facility] [address] Guerrero Minaya for complex hernia repair. Dr. Purdy, surgery on consult. Clear liquid diet, advance as tolerated. Continue IV fluid. Continue antiemetics as needed, morphine as needed and IV Pepcid. Patient denies complains of nausea, denies vomiting. Continues to have abdominal tenderness/pain. Patient has ileostomy which has increased output which appears dark brown, liquid. CT of abdomen on admission showed dilated small bowel loops concerning for partial obstruction at one of his hernias. Repeat abdominal x-ray 01/05/18 showed nonspecific bowel gas pattern. Patient has had intermittent low-grade temperature. Started on antibiotics empirically given upcoming surgery. Continue IV Flagyl and IV Rocephin. Urine culture shows no growth. Chest x- ray unremarkable. Patient may be discharged when able to tolerate diet. He will be discharged on oral antibiotic therapy and low residue diet until surgery next week. 2. Chronic kidney disease stage III-stable, monitor BMP. 3. Hyperkalemia/hypokalemia-potassium now 3.4 which was replaced orally. Monitor BMP. 4. Paroxysmal A flutter-rate controlled. Not on oral anticoagulation. Continue amiodarone and metoprolol. 5. Thrombocytopenia-stable, monitor CBC. 6. CAD status post CABG and PCI-does not appear to be on aspirin, statin. Continue beta-crystal. 7. HTN-stable, continue home regimen. 8. Parkinson's disease-continue home regimen. 9. Rheumatoid arthritis, ankylosing spondylitis, DJD, chronic pain with history of opioid dependence-PT/OT. Continue home morphine regimen. 10. Hypothyroidism-continue Synthroid. 11. Hx CVA/TIA-not on aspirin or statin. 12. Protein calorie malnutrition-Ensure supplementation when able to tolerate oral intake. 13. Peptic ulcer disease-continue home regimen. DVT prophylaxis-SCDs. This patient was seen by TRACY Zee under the supervision of Dr. Medrano. <Carlton Medrano - Last Filed: 01/06/18 16:25> Subjective: Patient had clear liquid diet in the breakfast and as per the nurse he finished all his diet but he developed abdominal pain, nausea and mild abdominal distention after that. Mild low-grade temperature, 100.3 Fahrenheit. - Physical Exam General: Alert, Oriented x3, Cooperative HEENT: Atraumatic, PERRLA, EOMI, Normocephalic Abdomen: Soft, Tender, Hernia Vital Signs Temp Pulse Resp BP Pulse Ox 98.2 F 78 18 169/71 H 100 01/06/18 15:45 01/06/18 15:45 01/06/18 15:45 01/06/18 15:45 01/06/18 15:45 Oxygen Delivery Method Room Air Weight: 166 lb 0.129 oz Body Mass Index (BMI) 26.8 Intake and Output for Last 24 Hours 01/04/18 01/05/18 01/06/18 23:59 23:59 23:59 Intake Total 2138 / 2138 2315 / 2315 3195 / 3195 Output Total 2125 / 2125 1405 / 1405 2550 / 2550 Balance 910 / 910 645 / 645 Microbiology Past 72 Hours 01/05/18 08:27 Urine Culture - Preliminary Urine, Clean Catch Culture exhibits no growth. Laboratory Tests Past 24 Hrs 01/05/18 01/06/18 01/06/18 18:10 06:10 06:10 WBC 4.1 L RBC 3.90 L Hgb 11.4 L Hct 35.6 L MCV 91.3 MCH 29.2 MCHC 32.0 RDW 15.2 H RDW Differential 49.2 H Plt Count 75 L MPV 9.3 Sodium 144 Potassium 3.4 L Chloride 114 H Carbon Dioxide 21.0 Anion Gap 9 BUN 21 H Creatinine 1.75 H Estim Creat Clear Calc 35.44 Est GFR (MDRD) Af Amer 50 L Est GFR (MDRD) Non-Af 41 L BUN/Creatinine Ratio 12.0 Glucose 105 Lactic Acid 0.7 Calcium 8.1 L Assessment/Plan This patient was seen in conjunction with Thu KHAN. I have independently interviewed and examined the patient and reviewed pertinent history, examination findings, laboratory and plan of management. I have reviewed the note and agree with the documented findings with the few additional points. In brief, patient is admitted for partial small bowel obstruction secondary to multiple abdominal hernias and adhesions. He had complicated abdominal surgical history with perforated diverticulitis in 2010 which led to a total colectomy with end ileostomy and repair of iliac vein and ureter injuries. As per Dr. Purdy note, patient is scheduled for complex hernia repair on January 12, 2018 micrograms in [facility]. Currently patient is n.p.o. On conservative treatment. Repeat abdominal x-ray 01/04/2018 does not show acute finding. Patient has low-grade fever, 101.1 Fahrenheit, rectal 99 and then 100.4 Fahrenheit. Started on IV antibiotics Flagyl and ceftriaxone as the patient is allergic to penicillin group of antibiotics and Cipro. He further said he has tolerated Levaquin and amoxicillin in the past. Partial small bowel obstruction with enteritis, most probably from gut marilynn translocation. Lactic acid 0.[address] Purdy and he want bowel disinfection as surgical preparation for next week including [facility]. Dr. Borrego note reviewed. For now, patient is made n.p.o. for about 6 hours and will try clear liquid but if it does not tolerate, might need to transfer to [facility]. I have discussed my assessment with Thu KHAN and orders have been reviewed. Code Visit Inpatient E&M: 27635 Subs Hosp L3
--- NOTE | 2018-01-06 11:58 | PCM.PN.SRG ---
Subjective: patient with seemingly chronic abdominal pain, no essential changes awaiting surgery at [facility] has air/liquid stools per ostomy - Physical Exam General: Alert, Oriented x3 Oral: Moist Mucosa Neck: Supple Abdomen: Soft, - - ostomy - air/liquid in bag Vital Signs Temp Pulse Resp BP Pulse Ox 97.2 F L 88 18 152/88 H 100 01/06/18 10:00 01/06/18 10:00 01/06/18 10:00 01/06/18 10:00 01/06/18 10:00 Oxygen Delivery Method Room Air Weight: 75.3 kg Body Mass Index (BMI) 26.8 Intake and Output for Last 24 Hours 01/04/18 01/05/18 01/06/18 23:59 23:59 23:59 Intake Total 2138 / 2138 2315 / 2315 1845 / 1845 Output Total 2125 / 2125 1405 / 1405 1850 / 1850 Balance 910 / 910 -5 / -5 Microbiology Past 72 Hours 01/05/18 08:27 Urine Culture - Preliminary Urine, Clean Catch Culture exhibits no growth. Laboratory Tests Past 24 Hrs 01/05/18 01/06/18 01/06/18 18:10 06:10 06:10 WBC 4.1 L RBC 3.90 L Hgb 11.4 L Hct 35.6 L MCV 91.3 MCH 29.2 MCHC 32.0 RDW 15.2 H RDW Differential 49.2 H Plt Count 75 L MPV 9.3 Sodium 144 Potassium 3.4 L Chloride 114 H Carbon Dioxide 21.0 Anion Gap 9 BUN 21 H Creatinine 1.75 H Estim Creat Clear Calc 35.44 Est GFR (MDRD) Af Amer 50 L Est GFR (MDRD) Non-Af 41 L BUN/Creatinine Ratio 12.0 Glucose 105 Lactic Acid 0.7 Calcium 8.1 L Assessment/Plan Impression: chronic abdominal pain parastomal and abdominal wall hernias partial SBO - resolved Plan: continue liquid diet - ensure clear patient to return to all his prehosp meds difficult to determine if patient's abdominal pain is part of his pSBO, however there is air/liquid stool in bag - previous KUB revealed contrast in ostomy bag awaiting surgery at [facility] can be discharged on clear liquid diet with ensure clears, however if no improvement consider early transfer to [facility]
--- NOTE | 2018-01-06 12:01 | PN.SURG_ITS ---
Subjective: patient with seemingly chronic abdominal pain, no essential changes awaiting surgery at [facility] has air/liquid stools per ostomy - Physical Exam General: Alert, Oriented x3 Oral: Moist Mucosa Neck: Supple Abdomen: Soft, - - ostomy - air/liquid in bag Vital Signs Temp Pulse Resp BP Pulse Ox 97.2 F L 88 18 152/88 H 100 01/06/18 10:00 01/06/18 10:00 01/06/18 10:00 01/06/18 10:00 01/06/18 10:00 Oxygen Delivery Method Room Air Weight: 75.3 kg Body Mass Index (BMI) 26.8 Intake and Output for Last 24 Hours 01/04/18 01/05/18 01/06/18 23:59 23:59 23:59 Intake Total 2138 / 2138 2315 / 2315 1845 / 1845 Output Total 2125 / 2125 1405 / 1405 1850 / 1850 Balance 910 / 910 -5 / -5 Microbiology Past 72 Hours 01/05/18 08:27 Urine Culture - Preliminary Urine, Clean Catch Culture exhibits no growth. Laboratory Tests Past 24 Hrs 01/05/18 01/06/18 01/06/18 18:10 06:10 06:10 WBC 4.1 L RBC 3.90 L Hgb 11.4 L Hct 35.6 L MCV 91.3 MCH 29.2 MCHC 32.0 RDW 15.2 H RDW Differential 49.2 H Plt Count 75 L MPV 9.3 Sodium 144 Potassium 3.4 L Chloride 114 H Carbon Dioxide 21.0 Anion Gap 9 BUN 21 H Creatinine 1.75 H Estim Creat Clear Calc 35.44 Est GFR (MDRD) Af Amer 50 L Est GFR (MDRD) Non-Af 41 L BUN/Creatinine Ratio 12.0 Glucose 105 Lactic Acid 0.7 Calcium 8.1 L Assessment/Plan Impression: chronic abdominal pain parastomal and abdominal wall hernias partial SBO - resolved Plan: continue liquid diet - ensure clear patient to return to all his prehosp meds difficult to determine if patient's abdominal pain is part of his pSBO, however there is air/liquid stool in bag - previous KUB revealed contrast in ostomy bag awaiting surgery at [facility] can be discharged on clear liquid diet with ensure clears, however if no improvement consider early transfer to [facility]
[2018-01-06] MEDS: 0.9% Normal Saline 1,000 ML 100 ML IV ×2 (12:08→23:44)
--- NOTE | 2018-01-06 12:13 | CASEMGMT ---
Addendum entered by Oly Knight 01/06/18 12:22: SW called and confirmed w/[facility] that they are current w/pt. MARY Carson, DEALER SALES MANAGER Original Note: SW spoke w/pt as pt may be discharged today. Pt clarified that though he has Passport, he has no services through them at present. Pt states he has nursing 2 hours per week through [facility]. SW placed green sheet w/order to resume home health on chart in event pt is discharged on the weekend. MARY Carson, DEALER SALES MANAGER
[2018-01-06] MEDS: Pramipexole Di-HCl 1 MG Tablet PO (21:31)
[2018-01-06] MEDS: Amitriptyline 25 MG Tablet PO (21:31)
[2018-01-06] MEDS: amLODIPine 5 MG Tablet PO (21:32)
[2018-01-07] VITALS: PULSE 70
[2018-01-07 04:00] VITALS: BP 136/68; PULSE 53; PULSE 63; RESP 18; TEMP 36.8; O2SAT 97
[2018-01-07] MEDS: 0.9% NaCl Peripheral Flush Adult/Peds IV ×2 (04:51→12:35)
[2018-01-07 05:12] LABS: Anion Gap 9 (5-15); BUN 16 mg/dL (7-18); Calcium,Total 7.9 mg/dL (8.5-10.1); Chloride 114 mmol/L (98-107); EST Glomerular Filtration Rate 46 mL/min (>60); Est Glom Filt Rate - Afr Amer 55 mL/min (>60); Estimated Creatinine Clearance 38.77 ml/min; Glucose 131 mg/dL (74-106); Potassium 3.4 mmol/L (3.5-5.1); Sodium Level 144 mmol/L (136-145)
[2018-01-07] MEDS: Carbidopa/Levodopa 10/100 Tablet PO ×2 (06:36→12:41)
[2018-01-07] MEDS: Levothyroxine 137 MCG Tablet PO (06:36)
[2018-01-07] MEDS: Ceftriaxone 1 GM/50 ML BAG IV (09:19)
[2018-01-07] MEDS: VILAZODONE HYDROCHLORIDE 10 MG TABLET 20 MG PO (09:20)
[2018-01-07] MEDS: Amiodarone 200 MG Tablet PO (09:23)
--- NOTE | 2018-01-07 09:56 | PCM.PN.SRG ---
Subjective: patient still with complaint of pain has air/liquid in ostomy bag - Physical Exam General: Alert Neck: Supple Abdomen: Soft, - - air/liquid in ostomy bag Vital Signs Temp Pulse Resp BP Pulse Ox 98.3 F 63 18 136/68 H 97 01/07/18 04:00 01/07/18 04:00 01/07/18 04:00 01/07/18 04:00 01/07/18 04:00 Oxygen Delivery Method Room Air Weight: 75.3 kg Body Mass Index (BMI) 26.8 Intake and Output for Last 24 Hours 01/05/18 01/06/18 01/07/18 23:59 23:59 23:59 Intake Total 2315 / 2315 4545 / 4545 1212 / 1212 Output Total 1405 / 1405 3400 / 3400 800 / 800 Balance 910 / 910 1145 / 1145 412 / 412 Microbiology Past 72 Hours 01/05/18 08:27 Urine Culture - Preliminary Urine, Clean Catch Mixed Gram Positive Organisms Laboratory Tests Past 24 Hrs 01/07/18 04:45 Sodium 144 Potassium 3.4 L Chloride 114 H Carbon Dioxide 21.0 Anion Gap 9 BUN 16 Creatinine 1.60 H Estim Creat Clear Calc 38.77 Est GFR (MDRD) Af Amer 55 L Est GFR (MDRD) Non-Af 46 L BUN/Creatinine Ratio 10.0 Glucose 131 H Calcium 7.9 L Assessment/Plan Impression: chronic abdominal pain parastomal and abdominal wall hernias partial SBO - resolved Plan: continue liquid diet - ensure clear awaiting surgery at [facility] - this Monday can be discharged on clear liquid diet with ensure clears, however if no improvement consider early transfer to [facility]
[2018-01-07 10:00] VITALS: BP 160/88; PULSE 90; RESP 18; TEMP 37.2; O2SAT 95
[2018-01-07 12:00] VITALS: PULSE 62
--- NOTE | 2018-01-07 12:31 | PCM.DC ---
You will use the following diet at home:: Clear liquid - Advance as tolerated. Ensure clear supplementation. Discharge Activity: Return to Normal Activity Call your doctor if you observe: Fever of 101 or Higher, Inability to have a bowel movement, Shortness of breath, Dizziness, Fainting spells, Chest pain, Increased palpitations (irregular heartbeat) Allergies/Adverse Reactions: Allergies amoxicillin trihydrate [From Augmentin] Allergy (Verified 01/02/18 16:58) Rash bisacodyl [From Dulcolax (bisacodyl)] Allergy (Verified 01/02/18 16:58) Anaphylaxis iodine Allergy (Verified 01/02/18 16:58) Rash piperacillin sodium [From Zosyn] Allergy (Verified 01/02/18 16:58) Rash potassium clavulanate [From Augmentin] Allergy (Verified 01/02/18 16:58) Rash tazobactam sodium [From Zosyn] Allergy (Verified 01/02/18 16:58) Rash apixaban [From Eliquis] Adverse Reaction (Verified 01/02/18 16:58) Other azithromycin Adverse Reaction (Verified 01/02/18 16:58) Diarrhea bupropion Adverse Reaction (Verified 01/02/18 16:58) Unknown ciprofloxacin [From Cipro] Adverse Reaction (Verified 01/02/18 16:58) Other ciprofloxacin HCl [From Cipro] Adverse Reaction (Verified 01/02/18 16:58) Other diazepam [From Valium] Adverse Reaction (Verified 01/02/18 16:58) Other hallucinations duloxetine Adverse Reaction (Verified 01/02/18 16:58) Unknown gabapentin Adverse Reaction (Verified 01/02/18 16:58) Other heparin Adverse Reaction (Verified 01/02/18 16:58) Unknown Iodinated Contrast- Oral and IV Dye [CONTRASTS] Adverse Reaction (Verified 01/02/18 16:58) Rash nitroglycerin Adverse Reaction (Verified 01/02/18 16:58) Other headaches and extreme hyperactivity paroxetine Adverse Reaction (Verified 01/02/18 16:58) Unknown tetracycline [Tetracycline] Adverse Reaction (Verified 01/02/18 16:58) Vomiting plastics Adverse Reaction (Uncoded 01/02/18 16:58) Rash Medications to take at Discharge Acetaminophen/Butalbital/Caffe [Fioricet] 1 tablet PO BID PRN 06/06/17 Albuterol Aerosols [Ventolin Aerosols] 2.5 mg INHALATION Q4HWA.RT 06/06/17 Allopurinol 200 mg PO DAILY 06/06/17 Amiodarone HCl [Pacerone] 200 mg PO DAILY 06/06/17 Amlodipine [Norvasc] 5 mg PO QHS 06/06/17 Cimetidine [Tagamet Hb] 200 mg PO PRN PRN 06/06/17 Colchicine [Mitigare] 0.6 mg PO PRN PRN 06/06/17 Diphenhydramine HCl [Benadryl Allergy] 25 mg PO PRN PRN 06/06/17 Hydromorphone HCl [Dilaudid] 4 mg PO DAILY PRN 06/06/17 Levothyroxine [Synthroid] 137 mcg PO [id number] 06/06/17 Metoprolol Tartrate 25 mg PO DAILY 06/06/17 Morphine Sulfate [Morphine Sulfate ER] 30 mg PO Q8H PRN 06/06/17 Pramipexole Di-HCl [Mirapex] 1 mg PO QHS 06/06/17 ProMETHAzine [Phenergan] 25 mg PO Q4H PRN PRN 06/06/17 Testosterone Cypionate [Depo-Testosterone] 100 mg IM Q14D 06/06/17 Vilazodone Hydrochloride [Viibryd] 20 mg PO DAILY 06/06/17 Amitriptyline HCl 25 mg PO QHS 12/11/17 Codeine 30 mg PO Q6H PRN PRN 12/11/17 Entacapone [Comtan] 200 mg PO 4X/DAY 12/11/17 Carbidopa/Levodopa [Carbidopa-Levo 25-100 mg Odt] 1 tab PO 4X/DAY 01/02/18 Furosemide [Lasix] 10 mg PO DAILY 01/02/18 Levothyroxine [Synthroid] 274 mcg PO MOTH 01/02/18 Omeprazole Magnesium [Prilosec Otc] 40 mg PO DAILY 01/02/18 Prednisone 5 mg PO DAILY PRN 01/02/18 Sucralfate [Carafate] 1 gm PO TID 01/02/18 Levofloxacin [Levaquin] 500 mg PO DAILY #4 tab 01/07/18 The following prescriptions were given: Levofloxacin [Levaquin] 500 mg PO DAILY #4 tab Primary Care Physician: Durga Brandt MD [Primary Care Provider] - Please follow up with your Primary Care Physician in: 1 Week, following upcoming surgery. Please Follow Up With: Dr. Guerrero Minaya When: As scheduled 01/12/18 for surgery Proposed Discharge Date: 01/07/18
--- NOTE | 2018-01-07 12:35 | PCM.DC.SUM ---
<Thu Mcghee - Last Filed: 01/07/18 12:44> Discharge Date and Diagnosis Date of Admission: 01/02/18 Date of Discharge: 01/07/18 - Primary Discharge Diagnosis 1. Partial small bowel obstruction-resolved. 2. Protein calorie malnutrition 3. Electrolyte imbalance - Secondary Discharge Diagnosis Chronic Problems Paroxysmal atrial flutter (Chronic) Thrombocytopenia (Chronic) Anemia of chronic disorder (Chronic) Atrial flutter (Chronic) Benign essential hypertension (Chronic) Chronic diarrhea (Chronic) History of coronary artery bypass graft (Chronic) Diabetes mellitus, type 2 (Chronic) Hypothyroidism (Chronic) Parkinson's disease (Chronic) Rheumatoid arthritis (Chronic) Edema of lower extremity (Chronic) Opiate dependence (Chronic) Personality disorder (Chronic) Chronic obstructive lung disease (Chronic) 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, arteriosclerotic, post-stroke (Chronic) Migraines (Chronic) Peptic ulcer disease (Chronic) CKD (chronic kidney disease) stage 3, GFR 30-59 ml/min (Chronic) Esophagitis (Chronic) Ankylosing spondylitis (Chronic) Psoriatic arthritis (Chronic) Hospital Course and Treatment Imaging Results: Diagnostic Data Abdomen/Pelvis CT 01/02/18 17:37 IMPRESSION: Extensive surgical changes are again seen along the anterior abdominal wall with defects present showing herniation of small bowel. The hernias are not significantly changed compared to the prior study, however there is now dilatation of small bowel loops worrisome for a partial obstruction at one of these hernias, possibly the hernia positioned to the right of midline above what is thought to represent the umbilicus. There is no ascites or free air. There are stable incidental findings described above. Electronically Signed: Amber Hall MD at 18:33 EST Tel Direct: [phone], Service support , Abdomen X-Ray 01/05/18 05:00 IMPRESSION: Nonspecific bowel gas pattern. Electronically Signed: Xander Doe MD at 8:47 EST Tel [phone], Service support , Chest X-Ray 01/05/18 05:59 IMPRESSION: No acute findings in the lungs Electronically Signed: Jose Guadalupe Perrin at 7:11 EST Tel , Service support , Consultations 01/02/18 21:31 Consult: Onc/Wound/stain wiper Routine Comment: Reason for Consult:: Ileostomy Dr. Calabrese- Surgery Operations: None Procedures: None Summary of Care Provided: Patient is a 72-year-old male admitted 01/02/2018 due to abdominal pain, nausea, vomiting. He has a past medical history of chronic kidney disease stage III, psoriatic arthritis, peptic ulcer disease, migraines, CVA, degenerative joint disease, chronic obstructive lung disease, Parkinson's disease, hypothyroidism, type 2 diabetes mellitus, coronary artery disease, hypertension, anemia of chronic disease, paroxysmal atrial flutter. 1. Partial small bowel obstruction with complex abdominal hernia, parastomal hernia-patient has a history of 11 abdominal surgeries. Patient is to have further surgical intervention 01/12/[address] [facility] with Dr. Guerrero Minaya for complex hernia repair. Dr. Purdy, surgery was consulted. CT of abdomen on admission showed dilated small bowel loops concerning for partial obstruction at one of his hernias. Repeat abdominal x-ray 01/05/18 showed nonspecific bowel gas pattern. Patient was started on antibiotic therapy empirically given upcoming surgery. He will be discharged on Levaquin 500 mg daily for the next 4 days. Urine culture shows no growth. Chest x-ray unremarkable. Patient is tolerating clear liquid diet. Surgery comfortable with patient being discharged home pending upcoming surgical intervention at [facility]. He is having significant output from his ostomy. He will continue clear liquid diet at discharge with ensure clear supplementation. He can advance to full liquid diet as tolerated. 2. Chronic kidney disease stage III-stable. 3. Hyperkalemia/hypokalemia-replaced. 4. Paroxysmal A flutter-rate controlled. Not on oral anticoagulation. Continue amiodarone and metoprolol. 5. Thrombocytopenia-stable, monitor CBC. 6. CAD status post CABG and PCI-does not appear to be on aspirin, statin. Continue beta-crystal. 7. HTN-stable, continue home regimen. 8. Parkinson's disease-continue home regimen. 9. Rheumatoid arthritis, ankylosing spondylitis, DJD, chronic pain with history of opioid dependence-Continue home morphine regimen. 10. Hypothyroidism-continue Synthroid. 11. Hx CVA/TIA-not on aspirin or statin. 12. Protein calorie malnutrition-Ensure supplementation when able to tolerate oral intake. 13. Peptic ulcer disease-continue home regimen. General: Alert, Oriented x3, Cooperative, No apparent distress HEENT: Atraumatic, PERRLA, EOMI, Normocephalic Neck: Supple, No JVD, Negative Carotid Bruits Lungs: Clear to auscultation, Normal air movement Cardiovascular: Regular rate, Regular Rhythm, Normal S1, Normal S2, No murmurs Abdomen: Bowel Sounds Present, Soft, Tender, Hernia, - - ileostomy, dark brown liquid output noted. Extremities: No clubbing, No cyanosis, No edema, Capillary Refill Less than 3 Seconds Skin: No rashes, No breakdown Musculoskeletal: No Tenderness to Palpation of Joints or Extremities Neurological: Cranial nerves II-XII grossly intact, Neuro grossly intact Psych/Mental Status: Normal Affect Patient seen and examined prior to discharge. Physical assessment as noted above. Patient is tolerating clear liquid and is stable for discharge home pending upcoming surgery 01/12/2018 at [facility]. This patient was seen by TRACY Zee under the supervision of Dr. Medrano. Discharge Diet: - - Clear liquid, ensure clear, advance as tolerated. Discharge Activity: Return to Normal Activity Call your doctor if you observe: Fever of 101 or Higher, Inability to have a bowel movement, Shortness of breath, Dizziness, Fainting spells, Chest pain, Increased palpitations (irregular heartbeat) Home Medications: Medications to take at Discharge Acetaminophen/Butalbital/Caffe [Fioricet] 1 tablet PO BID PRN 06/06/17 Albuterol Aerosols [Ventolin Aerosols] 2.5 mg INHALATION Q4HWA.RT 06/06/17 Allopurinol 200 mg PO DAILY 06/06/17 Amiodarone HCl [Pacerone] 200 mg PO DAILY 06/06/17 Amlodipine [Norvasc] 5 mg PO QHS 06/06/17 Cimetidine [Tagamet Hb] 200 mg PO PRN PRN 06/06/17 Colchicine [Mitigare] 0.6 mg PO PRN PRN 06/06/17 Diphenhydramine HCl [Benadryl Allergy] 25 mg PO PRN PRN 06/06/17 Hydromorphone HCl [Dilaudid] 4 mg PO DAILY PRN 06/06/17 Levothyroxine [Synthroid] 137 mcg PO SUTUWEFRSA 06/06/17 Metoprolol Tartrate 25 mg PO DAILY 06/06/17 Morphine Sulfate [Morphine Sulfate ER] 30 mg PO Q8H PRN 06/06/17 Pramipexole Di-HCl [Mirapex] 1 mg PO QHS 06/06/17 ProMETHAzine [Phenergan] 25 mg PO Q4H PRN PRN 06/06/17 Testosterone Cypionate [Depo-Testosterone] 100 mg IM Q14D 06/06/17 Vilazodone Hydrochloride [Viibryd] 20 mg PO DAILY 06/06/17 Amitriptyline HCl 25 mg PO QHS 12/11/17 Codeine 30 mg PO Q6H PRN PRN 12/11/17 Entacapone [Comtan] 200 mg PO 4X/DAY 12/11/17 Carbidopa/Levodopa [Carbidopa-Levo 25-100 mg Odt] 1 tab PO 4X/DAY 01/02/18 Furosemide [Lasix] 10 mg PO DAILY 01/02/18 Levothyroxine [Synthroid] 274 mcg PO MOTH 01/02/18 Omeprazole Magnesium [Prilosec Otc] 40 mg PO DAILY 01/02/18 Prednisone 5 mg PO DAILY PRN 01/02/18 Sucralfate [Carafate] 1 gm PO TID 01/02/18 Levofloxacin [Levaquin] 500 mg PO DAILY #4 tab 01/07/18 Following Prescrptions Were Given to Patient: Levofloxacin [Levaquin] 500 mg PO DAILY #4 tab Primary Care Physician: Durga Brandt MD [Primary Care Provider] - Please follow up with your Primary Care Physician in: 1 Week, following upcoming surgery. Please Follow Up With: Dr. Guerrero Minaya When: As scheduled 01/12/18 for surgery Disposition: Home Minutes spent on discharge:: 35 Patient Condition:: Stable Meaningful Use Info Meaningful Use Diagnoses (Choose all that apply): None applicable <Carlton Medrano - Last Filed: 01/07/18 17:51> Discharge Date and Diagnosis - Secondary Discharge Diagnosis Chronic Problems Paroxysmal atrial flutter (Chronic) Thrombocytopenia (Chronic) Anemia of chronic disorder (Chronic) Atrial flutter (Chronic) Benign essential hypertension (Chronic) Chronic diarrhea (Chronic) History of coronary artery bypass graft (Chronic) Diabetes mellitus, type 2 (Chronic) Hypothyroidism (Chronic) Parkinson's disease (Chronic) Rheumatoid arthritis (Chronic) Edema of lower extremity (Chronic) Opiate dependence (Chronic) Personality disorder (Chronic) Chronic obstructive lung disease (Chronic) 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, arteriosclerotic, post-stroke (Chronic) Migraines (Chronic) Peptic ulcer disease (Chronic) CKD (chronic kidney disease) stage 3, GFR 30-59 ml/min (Chronic) Esophagitis (Chronic) Ankylosing spondylitis (Chronic) Psoriatic arthritis (Chronic) Hospital Course and Treatment Consultations 01/02/18 21:31 Consult: Onc/Wound/stain wiper Routine Comment: Reason for Consult:: Ileostomy Summary of Care Provided: This patient was seen in conjunction with [employer]ANT, Thu. I have independently interviewed and examined the patient and reviewed pertinent history, examination findings, laboratory and plan of management. I have reviewed the note and agree with the documented findings with the few additional points. In brief, patient is admitted for partial small bowel obstruction secondary to multiple abdominal hernias and adhesions. He had complicated abdominal surgical history with perforated diverticulitis in 2010 which led to a total colectomy with end ileostomy and repair of iliac vein and ureter injuries. As per Dr. Purdy note, patient is scheduled for complex hernia repair on January 12, 2018 micrograms in [facility]. Repeat abdominal x-ray 01/04/2018 does not show acute finding. Patient had low-grade fever, 101.1 Fahrenheit, rectal 99 and then 100.4 Fahrenheit yesterday. Started on IV antibiotics Flagyl and ceftriaxone as the patient is allergic to penicillin group of antibiotics and Cipro. He further said he has tolerated Levaquin and amoxicillin in the past. Today he is afebrile. Partial small bowel obstruction with enteritis, most probably from gut marilynn translocation. Lactic acid 0.[address] Borrego. Patient is being discharged home and advised to report to [facility] about 2 days prior to surgery or if condition worsens can go to [facility] directly. Patient is discharged on Levaquin 500 mg daily as he tolerated in the past. I have discussed my assessment with [employer] CONSULTANTThu and orders have been reviewed. [] Code Visit Inpatient E&M: 70999 Disch Hosp
--- NOTE | 2018-01-07 12:44 | DS.PCM_ITS ---
<Thu Mcghee - Last Filed: 01/07/18 12:44> Discharge Date and Diagnosis Date of Admission: 01/02/18 Date of Discharge: 01/07/18 - Primary Discharge Diagnosis 1. Partial small bowel obstruction-resolved. 2. Protein calorie malnutrition 3. Electrolyte imbalance - Secondary Discharge Diagnosis Chronic Problems Paroxysmal atrial flutter (Chronic) Thrombocytopenia (Chronic) Anemia of chronic disorder (Chronic) Atrial flutter (Chronic) Benign essential hypertension (Chronic) Chronic diarrhea (Chronic) History of coronary artery bypass graft (Chronic) Diabetes mellitus, type 2 (Chronic) Hypothyroidism (Chronic) Parkinson's disease (Chronic) Rheumatoid arthritis (Chronic) Edema of lower extremity (Chronic) Opiate dependence (Chronic) Personality disorder (Chronic) Chronic obstructive lung disease (Chronic) 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, arteriosclerotic, post-stroke (Chronic) Migraines (Chronic) Peptic ulcer disease (Chronic) CKD (chronic kidney disease) stage 3, GFR 30-59 ml/min (Chronic) Esophagitis (Chronic) Ankylosing spondylitis (Chronic) Psoriatic arthritis (Chronic) Hospital Course and Treatment Imaging Results: Diagnostic Data Abdomen/Pelvis CT 01/02/18 17:37 IMPRESSION: Extensive surgical changes are again seen along the anterior abdominal wall with defects present showing herniation of small bowel. The hernias are not significantly changed compared to the prior study, however there is now dilatation of small bowel loops worrisome for a partial obstruction at one of these hernias, possibly the hernia positioned to the right of midline above what is thought to represent the umbilicus. There is no ascites or free air. There are stable incidental findings described above. Electronically Signed: Amber Hall MD at 18:33 EST Tel Direct: [phone], Service support , Abdomen X-Ray 01/05/18 05:00 IMPRESSION: Nonspecific bowel gas pattern. Electronically Signed: Xander Doe MD at 8:47 EST Tel [phone], Service support , Chest X-Ray 01/05/18 05:59 IMPRESSION: No acute findings in the lungs Electronically Signed: Jose Guadalupe Perrin at 7:11 EST Tel , Service support , Consultations 01/02/18 21:31 Consult: Onc/Wound/print machine operator Routine Comment: Reason for Consult:: Ileostomy Dr. Calabrese- Surgery Operations: None Procedures: None Summary of Care Provided: Patient is a 72-year-old male admitted 01/02/2018 due to abdominal pain, nausea, vomiting. He has a past medical history of chronic kidney disease stage III, psoriatic arthritis, peptic ulcer disease, migraines, CVA, degenerative joint disease, chronic obstructive lung disease, Parkinson's disease, hypothyroidism, type 2 diabetes mellitus, coronary artery disease, hypertension, anemia of chronic disease, paroxysmal atrial flutter. 1. Partial small bowel obstruction with complex abdominal hernia, parastomal hernia-patient has a history of 11 abdominal surgeries. Patient is to have further surgical intervention 01/12/18 at [facility] with Dr. Guerrero Minaya for complex hernia repair. Dr. Purdy, surgery was consulted. CT of abdomen on admission showed dilated small bowel loops concerning for partial obstruction at one of his hernias. Repeat abdominal x-ray 01/05/18 showed nonspecific bowel gas pattern. Patient was started on antibiotic therapy empirically given upcoming surgery. He will be discharged on Levaquin 500 mg daily for the next 4 days. Urine culture shows no growth. Chest x-ray unremarkable. Patient is tolerating clear liquid diet. Surgery comfortable with patient being discharged home pending upcoming surgical intervention at [facility]. He is having significant output from his ostomy. He will continue clear liquid diet at discharge with ensure clear supplementation. He can advance to full liquid diet as tolerated. 2. Chronic kidney disease stage III-stable. 3. Hyperkalemia/hypokalemia-replaced. 4. Paroxysmal A flutter-rate controlled. Not on oral anticoagulation. Continue amiodarone and metoprolol. 5. Thrombocytopenia-stable, monitor CBC. 6. CAD status post CABG and PCI-does not appear to be on aspirin, statin. Continue beta-crystal. 7. HTN-stable, continue home regimen. 8. Parkinson's disease-continue home regimen. 9. Rheumatoid arthritis, ankylosing spondylitis, DJD, chronic pain with history of opioid dependence-Continue home morphine regimen. 10. Hypothyroidism-continue Synthroid. 11. Hx CVA/TIA-not on aspirin or statin. 12. Protein calorie malnutrition-Ensure supplementation when able to tolerate oral intake. 13. Peptic ulcer disease-continue home regimen. General: Alert, Oriented x3, Cooperative, No apparent distress HEENT: Atraumatic, PERRLA, EOMI, Normocephalic Neck: Supple, No JVD, Negative Carotid Bruits Lungs: Clear to auscultation, Normal air movement Cardiovascular: Regular rate, Regular Rhythm, Normal S1, Normal S2, No murmurs Abdomen: Bowel Sounds Present, Soft, Tender, Hernia, - - ileostomy, dark brown liquid output noted. Extremities: No clubbing, No cyanosis, No edema, Capillary Refill Less than 3 Seconds Skin: No rashes, No breakdown Musculoskeletal: No Tenderness to Palpation of Joints or Extremities Neurological: Cranial nerves II-XII grossly intact, Neuro grossly intact Psych/Mental Status: Normal Affect Patient seen and examined prior to discharge. Physical assessment as noted above. Patient is tolerating clear liquid and is stable for discharge home pending upcoming surgery 01/12/2018 at [facility]. This patient was seen by TRACY Zee under the supervision of Dr. Medrano. Discharge Diet: - - Clear liquid, ensure clear, advance as tolerated. Discharge Activity: Return to Normal Activity Call your doctor if you observe: Fever of 101 or Higher, Inability to have a bowel movement, Shortness of breath, Dizziness, Fainting spells, Chest pain, Increased palpitations (irregular heartbeat) Home Medications: Medications to take at Discharge Acetaminophen/Butalbital/Caffe [Fioricet] 1 tablet PO BID PRN 06/06/17 Albuterol Aerosols [Ventolin Aerosols] 2.5 mg INHALATION Q4HWA.RT 06/06/17 Allopurinol 200 mg PO DAILY 06/06/17 Amiodarone HCl [Pacerone] 200 mg PO DAILY 06/06/17 Amlodipine [Norvasc] 5 mg PO QHS 06/06/17 Cimetidine [Tagamet Hb] 200 mg PO PRN PRN 06/06/17 Colchicine [Mitigare] 0.6 mg PO PRN PRN 06/06/17 Diphenhydramine HCl [Benadryl Allergy] 25 mg PO PRN PRN 06/06/17 Hydromorphone HCl [Dilaudid] 4 mg PO DAILY PRN 06/06/17 Levothyroxine [Synthroid] 137 mcg PO SUTUWEFRSA 06/06/17 Metoprolol Tartrate 25 mg PO DAILY 06/06/17 Morphine Sulfate [Morphine Sulfate ER] 30 mg PO Q8H PRN 06/06/17 Pramipexole Di-HCl [Mirapex] 1 mg PO QHS 06/06/17 ProMETHAzine [Phenergan] 25 mg PO Q4H PRN PRN 06/06/17 Testosterone Cypionate [Depo-Testosterone] 100 mg IM Q14D 06/06/17 Vilazodone Hydrochloride [Viibryd] 20 mg PO DAILY 06/06/17 Amitriptyline HCl 25 mg PO QHS 12/11/17 Codeine 30 mg PO Q6H PRN PRN 12/11/17 Entacapone [Comtan] 200 mg PO 4X/DAY 12/11/17 Carbidopa/Levodopa [Carbidopa-Levo 25-100 mg Odt] 1 tab PO 4X/DAY 01/02/18 Furosemide [Lasix] 10 mg PO DAILY 01/02/18 Levothyroxine [Synthroid] 274 mcg PO MOTH 01/02/18 Omeprazole Magnesium [Prilosec Otc] 40 mg PO DAILY 01/02/18 Prednisone 5 mg PO DAILY PRN 01/02/18 Sucralfate [Carafate] 1 gm PO TID 01/02/18 Levofloxacin [Levaquin] 500 mg PO DAILY #4 tab 01/07/18 Following Prescrptions Were Given to Patient: Levofloxacin [Levaquin] 500 mg PO DAILY #4 tab Primary Care Physician: Durga Brandt MD [Primary Care Provider] - Please follow up with your Primary Care Physician in: 1 Week, following upcoming surgery. Please Follow Up With: Dr. Guerrero Minaya When: As scheduled 01/12/18 for surgery Disposition: Home Minutes spent on discharge:: 35 Patient Condition:: Stable Meaningful Use Info Meaningful Use Diagnoses (Choose all that apply): None applicable <Carlton Medrano - Last Filed: 01/07/18 17:51> Discharge Date and Diagnosis - Secondary Discharge Diagnosis Chronic Problems Paroxysmal atrial flutter (Chronic) Thrombocytopenia (Chronic) Anemia of chronic disorder (Chronic) Atrial flutter (Chronic) Benign essential hypertension (Chronic) Chronic diarrhea (Chronic) History of coronary artery bypass graft (Chronic) Diabetes mellitus, type 2 (Chronic) Hypothyroidism (Chronic) Parkinson's disease (Chronic) Rheumatoid arthritis (Chronic) Edema of lower extremity (Chronic) Opiate dependence (Chronic) Personality disorder (Chronic) Chronic obstructive lung disease (Chronic) 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, arteriosclerotic, post-stroke (Chronic) Migraines (Chronic) Peptic ulcer disease (Chronic) CKD (chronic kidney disease) stage 3, GFR 30-59 ml/min (Chronic) Esophagitis (Chronic) Ankylosing spondylitis (Chronic) Psoriatic arthritis (Chronic) Hospital Course and Treatment Consultations 01/02/18 21:31 Consult: Onc/Wound/print machine operator Routine Comment: Reason for Consult:: Ileostomy Summary of Care Provided: This patient was seen in conjunction with [employer], Thu. I have independently interviewed and examined the patient and reviewed pertinent history, examination findings, laboratory and plan of management. I have reviewed the note and agree with the documented findings with the few additional points. In brief, patient is admitted for partial small bowel obstruction secondary to multiple abdominal hernias and adhesions. He had complicated abdominal surgical history with perforated diverticulitis in 2010 which led to a total colectomy with end ileostomy and repair of iliac vein and ureter injuries. As per Dr. Purdy note, patient is scheduled for complex hernia repair on January 12, 2018 micrograms in [facility]. Repeat abdominal x-ray does not show acute finding. Patient had low-grade fever, 101.1 Fahrenheit, rectal 99 and then 100.4 Fahrenheit yesterday. Started on IV antibiotics Flagyl and ceftriaxone as the patient is allergic to penicillin group of antibiotics and Cipro. He further said he has tolerated Levaquin and amoxicillin in the past. Today he is afebrile. Partial small bowel obstruction with enteritis, most probably from gut marilynn translocation. Lactic acid 0.[address] Borrego. Patient is being discharged home and advised to report to [facility] about 2 days prior to surgery or if condition worsens can go to [facility] directly. Patient is discharged on Levaquin 500 mg daily as he tolerated in the past. I have discussed my assessment with [employer] CONSULTANTThu and orders have been reviewed. [] Code Visit Inpatient E&M: 10244 Disch Hosp
[2018-01-07 13:58] VITALS: BP 173/91; PULSE 73; RESP 18; TEMP 37.2; O2SAT 98
== END 2018-01-07 14:04 | disposition home health service (06) | DRG 394 ==
LOC: ED 18:47 → MS3 19:59
PROVIDERS: Nurse Practitioner Family; Physician Assistant; Surgery; Admitting Provider Hospitalist; Emergency Provider Emergency Medicine; Family Provider Family Medicine; PCP Family Medicine; Visit Provider Internal Medicine
DX: K46.0 Unspecified abdominal hernia with obstruction, without gangrene (principal); E46 Unspecified protein-calorie malnutrition; K56.51 Intestinal adhesions [bands], with partial obstruction; D69.6 Thrombocytopenia, unspecified; E11.22 Type 2 diabetes mellitus with diabetic chronic kidney disease; E87.5 Hyperkalemia; I48.92 Unspecified atrial flutter; N18.3 Chronic kidney disease, stage 3 (moderate); G20 Parkinson's disease; M06.9 Rheumatoid arthritis, unspecified; M45.9 Ankylosing spondylitis of unspecified sites in spine; I25.10 Atherosclerotic heart disease of native coronary artery without angina pectoris; K52.9 Noninfective gastroenteritis and colitis, unspecified; E03.9 Hypothyroidism, unspecified; F60.9 Personality disorder, unspecified; I12.9 Hypertensive chronic kidney disease with stage 1 through stage 4 chronic kidney disease, or unspecified chronic kidney disease; K43.5 Parastomal hernia without obstruction or gangrene; K27.7 Chronic peptic ulcer, site unspecified, without hemorrhage or perforation; Z93.2 Ileostomy status; Z86.73 Personal history of transient ischemic attack (TIA), and cerebral infarction without residual deficits; Z68.26 Body mass index [BMI] 26.0-26.9, adult; Z95.1 Presence of aortocoronary bypass graft; Z90.49 Acquired absence of other specified parts of digestive tract; Z87.891 Personal history of nicotine dependence
CPT/HCPCS: 36415; 71046; 74019; 74176; 80048; 81001; 83605; 83735; 85025; 85027; 87086; 87088; 97110; 97116; 97162; 97166; 97530; 99284; J7030; A4216; J2405; J3490

== ENCOUNTER 2018-01-22 13:34 | Emergency (ER) | payer MEDICARE, OTHER, MEDICAID, SELFPAY ==
[2018-01-22 13:36] VITALS: BP 141/67; PULSE 80; RESP 14; TEMP 36.7; O2SAT 100; BMI 26.8
--- NOTE | 2018-01-22 14:31 | ED.RN ---
CALLED MOR RIVAS REGARDING COLOSTOMY ISSUE. SHE IS BUSY BUT STATED SHE WOULD COME DOWN WHEN SHE COULD
[2018-01-22] MEDS: HYDROmorphone 1 MG/ML Syringe IV ×2 (15:47→18:22)
[2018-01-22] MEDS: 0.9% Normal Saline 1,000 ML 150 ML IV (15:47)
[2018-01-22] MEDS: Ondansetron 4 MG/2 ML Vial IV (15:47)
[2018-01-22 16:10] LABS: Absolute Lymphocyte Count 1.26 X10^3/ul (0.83-4.51); Absolute Neutrophil Count 4.9 X10^3/uL (2.0-7.7); Basophil# 0.02 X10^3/uL; Basophil% 0.3 % (0-1); Eosinophil# 0.41 X10^3/uL; Eosinophils% 5.8 % (0-5); Hematocrit 30.5 % (40-54); Hemoglobin 9.2 g/dl (13.0-16.5); Lymphocyte # 1.26 X10^3/ul (4.0); Lymphocyte % 17.7 % (19-41); Mean Corp Hgb Conc 30.2 g/gl (32-36); Mean Platelet Vol. 9.1 fl (6.2-12.0); Monocyte# 0.37 X10^3/uL; Monocyte% 5.2 % (0-10); Neutrophil # 4.87 X10^3/uL (2.7-7.7); Neutrophil % 68.3 % (47-70); POSITIVE COUNT YES; POSITIVE DIFFERENTIAL NO; POSITIVE MORPHOLOGY YES; Platelet Count 191 K/mm3 (150-450); RBC Distribution Width CV 15.1 % (11.6-14.6); RBC Distribution Width SD 51.6 fl (35.1-43.9); Red Blood Count 3.28 M/mm3 (4.6-6.2); White Blood Count 7.1 K/mm3 (4.4-11.0)
[2018-01-22 16:17] LABS: Anion Gap 4 (5-15); BUN 23 mg/dL (7-18); BUN/Creat Ratio 9.6 RATIO (10-20); Calcium,Total 8.6 mg/dL (8.5-10.1); Chloride 108 mmol/L (98-107); Creatinine, Serum 2.39 mg/dL (0.70-1.30); EST Glomerular Filtration Rate 29 mL/min (>60); Est Glom Filt Rate - Afr Amer 35 mL/min (>60); Estimated Creatinine Clearance 25.95 ml/min; Glucose 102 mg/dL (74-106); Potassium 5.5 mmol/L (3.5-5.1); Sodium Level 142 mmol/L (136-145)
--- NOTE | 2018-01-22 16:29 | ED.DCSUM_ITS ---
- ER Visit Summary Date of Service: 01/22/18 Chief Complaint: Ileostomy will not seal History of Present Illness: The patient is a [address] Brandt. On January 12 he had a revision of an ileostomy by Dr. Minaya at [facility]. He was discharged from the hospital 3 days ago. He reports that since that time they have not been able to get the dressing to seal over the ileostomy and he has been leaking stool. He reports that he has burning to his skin is 10 out of 10 severity. It is worsened by changing his dressing and relieved by his oxycodone , Dilaudid, and morphine. He denies any nausea or vomiting. No fever or chills. He has had dysuria without frequency. Physical Examination: Vitals: Stable. Afebrile. General: Well-nourished and well-developed. Head: Normocephalic atraumatic. Neck: Supple, no lymphadenopathy. No JVD. Nontender. Cardiovascular: Regular rate and rhythm. No murmurs. Respiratory: No respiratory distress. Clear to auscultation bilaterally. Abdominal: Soft, no tenderness to palpation that is diffuse, nondistended, normal bowel sounds. No guarding, rebound, or peritoneal signs. Incision that extends from the upper abdomen around his umbilicus and down to the suprapubic region. Gunpowder are in place. There is minimal minimal surrounding erythema. There is no induration or fluctuance. The stoma itself is retracted down to just below the level of his skin. It is not dusky. Back: Nontender. Extremities: Nontender, no edema. Skin: Normal color, no rash. Neurologic: Alert and oriented ?3. Cranial nerves II through XII are intact. Normal strength and sensation. Psych: Normal affect. Test Results: CBC is remarkable for an H&H of 9.2 and 30.5, lymphocytes of 18, eosinophils of 6, and immature granulocytes of 2.7%. Chem-7 is marked potassium of 5.5 (slight hemolysis), chloride 108, BUN of 23, creatinine 2.39. Creatinine ranged from 2.14-2.28 in 2017. Swelling 1.6-2.57 and 2018. Urinalysis shows 10-25 white blood cells and leukocytes. There are also 5-10 epithelial cells and no bacteria. Emergency Department Course and Treatment: The patient was treated with Dilaudid IV. The stoma nurse came to the emergency department. She reports that he has mild breakdown from the skin surrounding the stoma and bleeding from the skin. She reports that when he sits up the skin overlaps his stoma. She believes a convex dressing would help, but is not going to solve the problem. His urine was sent for culture. He was given Macrobid p.o. Treatment Plan: The patient was discussed with Dr. Fox, covering for Dr. Minaya, who asked that we give him a prescription for the convex stoma. The office will contact him and get an appointment with the stoma nurse there to evaluate this. He has an appointment to see Dr. Minaya in 4 days. We were able to get the convex stoma and appropriate dressing from [facility] prior to his discharge and this was placed. He will be discharged on Macrobid. Disposition: To home in improved and stable condition. Impression: 1. Leakage from ileostomy dressing. This note was generated with [employer] dictation software. It may contain incorrect words, spelling, and punctuation that were not noted in review of the chart prior to signing ED Disposition - Plan for ED Patient: Disposition: Home or Assisted Living Chief Complaint: General Illness Instructions: Ileostomy: Caring For Your Stoma Prescriptions: Nitrofurantoin Macrocrystals [Macrobid] 100 mg PO Q12 #14 capsule Referrals: Durga Brandt MD [Primary Care Provider] - Additional Instructions: Follow-up with Dr. Minaya in 4 days as previously directed. Follow-up with the stoma nurse as soon as possible.
[2018-01-22 16:56] VITALS: BP 106/55; PULSE 70; RESP 16; O2SAT 98
[2018-01-22 17:27] LABS: Bacteria 0 SEEN /hpf (None Seen); Mucous, Urine 0 SEEN /hpf (<or=2+)
[2018-01-22 17:32] LABS: Color, Urine Yellow (Yellow); Glucose, Dipstick Normal (Normal); Ketone-Dipstick 5 mg/dl (Negative); Leukocyte Esterase-Dipstick 100 /ul (Negative); Nitrite-Dipstick Negative (Negative); Occult Blood-Urine 10 /ul (Negative); Protein-Dipstick 30 mg/dl (Negative); Urine Bilirubin Dipstick Negative (Negative); Urine Clarity Clear (Clear); Urine Urobilinogen Normal (Normal)
[2018-01-22 17:48] LABS: Hyaline Cast 0-5 SEEN /lpf (0-5); Red Blood Cells-Urine 0-5 SEEN /hpf (0-5); Squamous Epithelial Cells - UA 5-10 SEEN /hpf (0-5); Transitional Epithelial - Ur 0-5 SEEN /hpf (0-5); White Blood Cells 10-25 SEEN /hpf (0-5)
[2018-01-22 18:18] VITALS: BP 125/63; PULSE 74; RESP 18; O2SAT 96
[2018-01-22] MEDS: Nitrofurantoin Macrocrystals 100 MG Capsule PO (18:22)
--- NOTE | 2018-01-22 18:51 | NURSING ---
getting dressed. called for ride
[2018-01-22 19:03] VITALS: BP 116/68; PULSE 83; RESP 21; O2SAT 96
[2018-01-23 13:43] LABS: Pathologist Review Reviewed
== END 2018-01-22 19:18 | disposition home or self-care (01) ==
PROVIDERS: Emergency Provider Emergency Medicine; Family Provider Family Medicine; PCP Family Medicine
DX: K94.13 Enterostomy malfunction (principal); N39.0 Urinary tract infection, site not specified; I25.10 Atherosclerotic heart disease of native coronary artery without angina pectoris; J44.9 Chronic obstructive pulmonary disease, unspecified; I10 Essential (primary) hypertension; Z79.891 Long term (current) use of opiate analgesic; Z79.52 Long term (current) use of systemic steroids; Z79.899 Other long term (current) drug therapy; Z86.73 Personal history of transient ischemic attack (TIA), and cerebral infarction without residual deficits; Z87.19 Personal history of other diseases of the digestive system; Z90.49 Acquired absence of other specified parts of digestive tract
CPT/HCPCS: 80048; 81001; 85025; 87086; 87088; 96361; 96374; 96375; 96376; 99285; J7030; J7040; A4216; J2405

== ENCOUNTER 2018-02-19 11:21 | Emergency (ER) | payer MEDICARE, OTHER, MEDICAID, SELFPAY ==
[2018-02-19 11:22] VITALS: BP 154/80; PULSE 96; RESP 2; TEMP 36.9; O2SAT 100; BMI 24.5
[2018-02-19] MEDS: Ipratropium/Albuterol Sulfate 3 ML AMPUL.NEB INHALATION (11:52)
[2018-02-19 11:53] VITALS: PULSE 88; RESP 20
[2018-02-19 12:03] VITALS: PULSE 88; RESP 16; O2SAT 100
--- NOTE | 2018-02-19 12:22 | RAD_ITS ---
STUDY: X-RAY CHEST REASON FOR EXAM: Male, 72 years old. COUGH SOB. PAIN TO SIDE FROM COUGHING HX OF HTN, CVA, CHF, COPD TECHNIQUE: Frontal and lateral views of the chest. COMPARISON: None. FINDINGS: The lungs are clear and expanded. There is no demonstrated pleural abnormality. Normal size heart. Normal mediastinum and sherry. Normal visualized pulmonary arteries. Normal visualized aortic arch and descending thoracic aorta. There is demineralization of the osseous structures. There is degenerative osteoarthritis of the bilateral shoulders. There is no demonstrated abnormality of the visualized soft tissue structures of the upper abdomen. RAD/Chest PA and Lateral IMPRESSION: Degenerative changes, as described above. No demonstrated acute cardiopulmonary process. Electronically Signed: Erik Whitley MD at 13:16 EDT Tel , Service support ,
[2018-02-19 12:38] VITALS: O2SAT 100
--- NOTE | 2018-02-19 13:43 | ED.VISSUMM ---
- ER Visit Summary Date of Service: 02/19/18 Chief Complaint: Cough and shortness of breath History of Present Illness: The patient is a 72 M who had abdominal surgery approximately 5 weeks ago at [facility] with mesh placement. Patient reports for the last 2 weeks he has had cough. He is no longer bringing up much mucus. He has left-sided chest pain and left abdomen pain that is worse with cough. Patient is concerned he might tear his mesh out of place. He was seen by his PCP last week and given Mucinex. At that time they want to avoid antibiotics due to concern for C. difficile. Patient states he start currently taking Delsym and Mucinex. He does have an inhaler. He does not had fever. Physical Examination: Vital signs are unremarkable. Pulse ox is 100% on room air. Patient sitting upright in bed. He does have frequent cough. Heart is regular rate and rhythm. Lung sounds with minimal expiratory wheeze. Abdomen is soft with left-sided tenderness with light palpation over the skin. There are no hernias. Ostomy is in place. Test Results: Two-view chest x-ray reveals no focal infiltrate. Emergency Department Course and Treatment: Patient is given a DuoNeb treatment and Hycodan. On repeat evaluation he does have continued intermittent cough. At this time I discussed with him that he does have a history of COPD this is likely a mild exacerbation. He has not had improvement in 2 weeks. Patient will be given doxycycline which has a low probability of causing C. difficile. He also be treated with prednisone will be given Hycodan syrup for home. Patient is on chronic morphine. He was warned about using Hycodan and morphine together. Treatment Plan: [] Disposition: Discharge Impression: Cough with history of COPD This note was generated with [employer] dictation software. It may contain incorrect words, spelling, and punctuation that were not noted in review of the chart prior to signing ED Disposition - Plan for ED Patient: Chief Complaint: Cough Referrals: Durga Brandt MD [Primary Care Provider] -
--- NOTE | 2018-02-19 13:46 | ED.DCSUM_ITS ---
- ER Visit Summary Date of Service: 02/19/18 Chief Complaint: Cough and shortness of breath History of Present Illness: The patient is a 72 M who had abdominal surgery approximately 5 weeks ago at [facility] with mesh placement. Patient reports for the last 2 weeks he has had cough. He is no longer bringing up much mucus. He has left-sided chest pain and left abdomen pain that is worse with cough. Patient is concerned he might tear his mesh out of place. He was seen by his PCP last week and given Mucinex. At that time they want to avoid antibiotics due to concern for C. difficile. Patient states he start currently taking Delsym and Mucinex. He does have an inhaler. He does not had fever. Physical Examination: Vital signs are unremarkable. Pulse ox is 100% on room air. Patient sitting upright in bed. He does have frequent cough. Heart is regular rate and rhythm. Lung sounds with minimal expiratory wheeze. Abdomen is soft with left-sided tenderness with light palpation over the skin. There are no hernias. Ostomy is in place. Test Results: Two-view chest x-ray reveals no focal infiltrate. Emergency Department Course and Treatment: Patient is given a DuoNeb treatment and Hycodan. On repeat evaluation he does have continued intermittent cough. At this time I discussed with him that he does have a history of COPD this is likely a mild exacerbation. He has not had improvement in 2 weeks. Patient will be given doxycycline which has a low probability of causing C. difficile. He also be treated with prednisone will be given Hycodan syrup for home. Patient is on chronic morphine. He was warned about using Hycodan and morphine together. Treatment Plan: [] Disposition: Discharge Impression: Cough with history of COPD This note was generated with [email or web address] dictation software. It may contain incorrect words, spelling, and punctuation that were not noted in review of the chart prior to signing ED Disposition - Plan for ED Patient: Chief Complaint: Cough Referrals: Durga Brandt MD [Primary Care Provider] -
--- NOTE | 2018-02-19 13:46 | ED.DEP ---
ED Disposition - Plan for ED Patient: Disposition: Home or Assisted Living Chief Complaint: Cough Instructions: ED COPD Flare Prescriptions: Hydrocodone Bit/Homatropine [Hycodan Syrup] 5 ml PO Q6H PRN PRN 4 Days #60 udc PRN Reason: Cough Prednisone [Deltasone] 60 mg PO DAILY #15 tablet Doxycycline Monohydrate 100 mg PO BID #20 capsule Referrals: Durga Brandt MD [Primary Care Provider] - 1 Week if not improving
[2018-02-19 13:50] VITALS: BP 159/77; PULSE 96; RESP 18; O2SAT 98
--- NOTE | 2018-02-19 14:03 | ED.RN ---
Verbal and written d/c instructions given. All questions answered. Assistance with cane out of ED. Gait slow and steady
--- NOTE | 2018-02-19 14:59 | ED.DEP ---
ED Disposition - Plan for ED Patient: Disposition: Home or Assisted Living Chief Complaint: Cough Instructions: ED COPD Flare Prescriptions: Hydrocodone Bit/Homatropine [Hycodan Syrup] 5 ml PO Q6H PRN PRN 4 Days #60 ml PRN Reason: Cough Prednisone [Deltasone] 60 mg PO DAILY #15 tab Doxycycline Monohydrate 100 mg PO BID #20 cap Referrals: Durga Brandt MD [Primary Care Provider] - 1 Week if not improving
== END 2018-02-19 13:58 | disposition home or self-care (01) ==
PROVIDERS: Emergency Provider Emergency Medicine; Family Provider Family Medicine; PCP Family Medicine
DX: R05 Cough (principal); J44.9 Chronic obstructive pulmonary disease, unspecified; I12.9 Hypertensive chronic kidney disease with stage 1 through stage 4 chronic kidney disease, or unspecified chronic kidney disease; N18.9 Chronic kidney disease, unspecified; I48.92 Unspecified atrial flutter; G20 Parkinson's disease; M06.9 Rheumatoid arthritis, unspecified; Z79.82 Long term (current) use of aspirin; Z79.891 Long term (current) use of opiate analgesic; Z79.899 Other long term (current) drug therapy; Z86.718 Personal history of other venous thrombosis and embolism
CPT/HCPCS: 71046; 94640; 99283

== ENCOUNTER 2018-04-28 17:42 | Emergency (ER) | payer MEDICARE, OTHER, MEDICAID, SELFPAY ==
--- NOTE | 2018-04-28 17:42 | DT_ITS ---
This patient was seen during an EMR downtime April 23, 2018 - April 30, 2018. This patient may have a combination of paper and electronic documentation or all paper documentation. All documentation is viewable within the e-chart portion of [employer] for each patient visit.
[2018-05-01 16:46] LABS: Anion Gap 10 (5-15); BUN 55 mg/dL (7-18); BUN/Creat Ratio 19.2 RATIO (10-20); Calcium,Total 9.7 mg/dL (8.5-10.1); Chloride 107 mmol/L (98-107); Creatinine, Serum 2.87 mg/dL (0.70-1.30); EST Glomerular Filtration Rate 23 mL/min (>60); Est Glom Filt Rate - Afr Amer 28 mL/min (>60); Glucose 137 mg/dL (74-106); Potassium 4.7 mmol/L (3.5-5.1); Sodium Level 142 mmol/L (136-145)
[2018-05-01 20:53] LABS: Basophil% 0.2 % (0-1); Eosinophils% 2.8 % (0-5); Hematocrit 45.7 % (40-54); Hemoglobin 14.3 g/dl (13.0-16.5); Lymphocyte % 20.6 % (19-41); Mean Corp Hgb Conc 31.3 g/gl (32-36); Mean Corpuscular Hgb 26.7 pg (27.0-32.0); Mean Corpuscular Volume 85.4 fL (80-94); Mean Platelet Vol. 9.4 fl (6.2-12.0); Monocyte% 3.9 % (0-10); POSITIVE COUNT NO; POSITIVE DIFFERENTIAL NO; POSITIVE MORPHOLOGY NO; Platelet Count 107 K/mm3 (150-450); RBC Distribution Width CV 17.4 % (11.6-14.6); RBC Distribution Width SD 54.7 fl (35.1-43.9); Red Blood Count 5.35 M/mm3 (4.6-6.2); White Blood Count 6.4 K/mm3 (4.4-11.0)
[2018-05-01 20:54] LABS: Absolute Lymphocyte Count 1.31 X10^3/ul (0.83-4.51); Absolute Neutrophil Count 4.6 X10^3/uL (2.0-7.7); Basophil# 0.01 X10^3/uL; Eosinophil# 0.18 X10^3/uL; Lymphocyte # 1.31 X10^3/ul (4.0); Monocyte# 0.25 X10^3/uL; Neutrophil # 4.57 X10^3/uL (2.7-7.7)
== END 2018-04-28 20:50 | disposition home or self-care (01) ==
LOC: ED 04-29 15:03
PROVIDERS: Emergency Provider Emergency Medicine; Family Provider Family Medicine; PCP Family Medicine
DX: R11.2 Nausea with vomiting, unspecified (principal); R21 Rash and other nonspecific skin eruption; Z93.2 Ileostomy status; E78.00 Pure hypercholesterolemia, unspecified; I48.91 Unspecified atrial fibrillation; G20 Parkinson's disease; Z79.82 Long term (current) use of aspirin; Z79.899 Other long term (current) drug therapy
CPT/HCPCS: 36415; 80048; 85025; 96361; 96374; 96375; 99284; J7030; A4216; J2405

== ENCOUNTER 2018-07-22 08:47 | Emergency (ER) | payer MEDICARE, OTHER, MEDICAID, SELFPAY ==
[2018-07-22 08:48] VITALS: BP 161/78; PULSE 93; RESP 20; TEMP 36.6; O2SAT 99; BMI 24.2
--- NOTE | 2018-07-22 09:12 | ED.VISSUMM ---
- ER Visit Summary Date of Service: 07/22/18 Chief Complaint: Rash History of Present Illness: The patient is a 72 M who has 2-3 week history of a rash that is quite itchy. Patient has no fever chills. He has no mucosal involvement. He has no new meds new detergents new close or anything new in his diet. He has no chest pain shortness of breath. He has no systemic complaints. Physical Examination: Patient's physical exam is significant for an ostomy bag that is clean dry and intact, this is after severe diverticulitis. There is also left lower extremity edema which is chronic after bypass surgery, no signs of infection. His skin exam is significant for a blanching diffuse erythematous rash consistent with allergic dermatitis. No signs of superinfection. The rash is present on the arms legs back and chest. Emergency Department Course and Treatment: Patient will be treated with Kenalog, as well as Vistaril for home. In reviewing his list he is on codeine which may cause his symptoms. He does have hydromorphone available, I told him at the very least to stop his codeine since there is a high likelihood that this would be causing his symptoms even after using it for years. He will follow-up with PCP. At this time this is an allergic rash without any mucosal involvement or signs of superinfection he will be discharged in stable condition. Disposition: Discharge stable condition Impression: Allergic dermatitis This note was generated with [employer] dictation software. It may contain incorrect words, spelling, and punctuation that were not noted in review of the chart prior to signing ED Disposition - Plan for ED Patient: Disposition: Home or Assisted Living Chief Complaint: Itching Instructions: ED Allergic Reaction General Other Prescriptions: hydrOXYzine pamoate capsule [Vistaril] 50 mg PO TID PRN PRN #30 cap PRN Reason: Anxiety Referrals: Durga Brandt MD [Primary Care Provider] - 1 Week
[2018-07-22] MEDS: hydrOXYzine PAM 25 MG Capsule 50 MG PO (09:20)
[2018-07-22] MEDS: Triamcinolone Acetonide 40 MG/ML Vial IM (09:20)
== END 2018-07-22 09:55 | disposition home or self-care (01) ==
PROVIDERS: Emergency Provider Emergency Medicine; Family Provider Family Medicine; PCP Family Medicine
DX: L23.9 Allergic contact dermatitis, unspecified cause (principal); I25.10 Atherosclerotic heart disease of native coronary artery without angina pectoris; M06.9 Rheumatoid arthritis, unspecified; R60.0 Localized edema; Z87.19 Personal history of other diseases of the digestive system; Z79.82 Long term (current) use of aspirin; Z79.891 Long term (current) use of opiate analgesic; Z99.81 Dependence on supplemental oxygen; Z79.899 Other long term (current) drug therapy; Z95.5 Presence of coronary angioplasty implant and graft
CPT/HCPCS: 96372; 99283

== ENCOUNTER 2018-08-17 19:29 | Inpatient (IN) | payer MEDICARE, OTHER, MEDICAID, SELFPAY ==
[2018-08-17 19:30] VITALS: BP 133/73; PULSE 95; RESP 16; TEMP 37.1; O2SAT 100; BMI 24.2
[2018-08-17 20:47] LABS: Hematocrit 39.4 % (40-54); Hemoglobin 12.1 g/dl (13.0-16.5); Mean Corp Hgb Conc 30.7 g/gl (32-36); Mean Corpuscular Hgb 29.2 pg (27.0-32.0); Mean Corpuscular Volume 94.9 fL (80-94); Mean Platelet Vol. 9.8 fl (6.2-12.0); Platelet Count 101 K/mm3 (150-450); RBC Distribution Width CV 16.2 % (11.6-14.6); RBC Distribution Width SD 54.7 fl (35.1-43.9); Red Blood Count 4.15 M/mm3 (4.6-6.2)
[2018-08-17 20:50] LABS: Differential Indicated MANUAL DIFF; POSITIVE COUNT YES; POSITIVE DIFFERENTIAL NO; POSITIVE MORPHOLOGY YES
[2018-08-17 20:55] LABS: International Normalized Ratio 1.1; Prothrombin Time (Protime)PT. 14.2 SECONDS (11.7-14.9)
[2018-08-17] MEDS: 0.9% Normal Saline 1,000 ML 250 ML IV (21:07)
[2018-08-17 21:08] VITALS: BP 146/74; PULSE 93; RESP 22; O2SAT 98
[2018-08-17 21:08] LABS: Anisocytosis 1+; Lymphocyte 8 % (19-41); Metamyelocyte 2 % (0-1); Monocyte 6 % (0-10); Neutrophil-Band 5 % (0-5); Neutrophil-Segmented 79 % (47-70); Total Cells Counted 100 (MANUAL DIFF)
[2018-08-17 21:09] LABS: Platelet Estimate SLT DEC (ADEQ); Red Cell Morphology N CHROM NORMAL (NORM C&C)
[2018-08-17 21:29] LABS: ALB/GLOB Ratio 0.6 RATIO (0.9-2.4); AST(SGOT) 42 U/L (15-37); Alanine Aminotransfer ALT/SGPT 13 U/L (16-61); Albumin, Serum 2.7 g/dL (3.2-5.0); Alkaline Phosphatase 85 U/L (45-117); Anion Gap 4 (5-15); BUN 49 mg/dL (7-18); BUN/Creat Ratio 17.8 RATIO (10-20); Calcium,Total 8.8 mg/dL (8.5-10.1); Chloride 110 mmol/L (98-107); Creatinine, Serum 2.75 mg/dL (0.70-1.30); EST Glomerular Filtration Rate 24 mL/min (>60); Est Glom Filt Rate - Afr Amer 30 mL/min (>60); Estimated Creatinine Clearance 22.56 ml/min; Globulin 4.7 g/dL (2.2-4.2); Glucose 113 mg/dL (74-106); Potassium 5.6 mmol/L (3.5-5.1); Protein, Total 7.4 g/dL (6.4-8.2); Sodium Level 136 mmol/L (136-145)
[2018-08-17] MEDS: HYDROmorphone 1 MG/ML Syringe IV (21:38)
[2018-08-17 22:09] VITALS: BP 116/65; PULSE 99; RESP 20; TEMP 36.9; O2SAT 99
--- NOTE | 2018-08-17 22:15 | PCM.HP.STD ---
Problem List (1) Cellulitis Status: Acute (2) Paroxysmal atrial flutter Status: Chronic (3) Thrombocytopenia Status: Chronic (4) Anemia of chronic disorder Status: Chronic (5) Benign essential hypertension Status: Chronic (6) Diabetes mellitus, type 2 Status: Chronic (7) Hypothyroidism Status: Chronic Qualifiers: (8) Parkinson's disease Status: Chronic (9) Rheumatoid arthritis Status: Chronic Qualifiers: (10) Edema of lower extremity Status: Chronic (11) Hyperkalemia Status: Acute (12) CKD (chronic kidney disease) stage 3, GFR 30-59 ml/min Status: Chronic History of Present Illness Date of Admission: 08/17/18 Chief Complaint: Leg pain and redness The patient is a 72 year old M with a PMH as above who presents with a 3 day h/o LLE swelling and worsening pain and redness. He says that with the redness came fevers and chills at home. He states that his leg swelling is normal but usually stops at the knee, whereas this time it extends into his thigh. He did not contact his PCP and has not been on abx as an outpatient. He was recently in [place] to visit with an oncologist for a possible leg tumor, however the MRI was negative. His leg is more tender than usual and at home he takes PO dilaudid daily prn and morphine q8. In the ER he was given IVF@250 given his slightly reduced EF of 45% and clindamycin IV for the cellulitis, and he did not have a leukocytosis in the ER. 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, arteriosclerotic, post-stroke (Chronic) Migraines (Chronic) Peptic ulcer disease (Chronic) CKD (chronic kidney disease) stage 3, GFR 30-59 ml/min (Chronic) Esophagitis (Chronic) Ankylosing spondylitis (Chronic) Psoriatic arthritis (Chronic) Allergies amoxicillin trihydrate [From Augmentin] Allergy (Verified 07/22/18 09:28) Rash bisacodyl [From Dulcolax (bisacodyl)] Allergy (Verified 07/22/18 09:28) Anaphylaxis iodine Allergy (Verified 07/22/18:) Rash piperacillin sodium [From Zosyn] Allergy (Verified 07/22/18 09:28) Rash potassium clavulanate [From Augmentin] Allergy (Verified 07/22/18 09:) Rash tazobactam sodium [From Zosyn] Allergy (Verified 07/22/18 09:28) Rash apixaban [From Eliquis] Adverse Reaction (Verified 07/22/18 09:) Other azithromycin Adverse Reaction (Verified 07/22/18:) Diarrhea bupropion Adverse Reaction (Verified 07/22/18:) Unknown ciprofloxacin [From Cipro] Adverse Reaction (Verified 07/22/18 09:28) Other ciprofloxacin HCl [From Cipro] Adverse Reaction (Verified 07/22/18:) Other diazepam [From Valium] Adverse Reaction (Verified 07/22/18:28) Other hallucinations duloxetine Adverse Reaction (Verified 07/22/18 09:) Unknown gabapentin Adverse Reaction (Verified 07/22/18:) Other heparin Adverse Reaction (Verified 07/22/18:) Unknown Iodinated Contrast- Oral and IV Dye [CONTRASTS] Adverse Reaction (Verified 07/22/18 09:28) Rash nitroglycerin Adverse Reaction (Verified 07/22/18 09:28) Other headaches and extreme hyperactivity paroxetine Adverse Reaction (Verified 07/22/18 09:28) Unknown tetracycline [Tetracycline] Adverse Reaction (Verified 07/22/18 09:28) Vomiting plastics Adverse Reaction (Uncoded 07/22/18 09:28) Rash Home Medications: Ambulatory Orders Medication Instructions Recorded Acetaminophen/Butalbital/Caffe 1 tablet PO BID PRN 06/06/17 [Fioricet] Allopurinol 200 mg PO DAILY 06/06/17 Amiodarone HCl [Pacerone] 200 mg PO DAILY 06/06/17 Diphenhydramine HCl [Benadryl 25 mg PO PRN PRN 06/06/17 Allergy] Hydromorphone HCl [Dilaudid] 4 mg PO DAILY PRN 06/06/17 Levothyroxine [Synthroid] 137 mcg PO [id number] 06/06/17 Morphine Sulfate [Morphine Sulfate 30 mg PO Q8H 06/06/17 ER] Pramipexole Di-HCl [Mirapex] 1 mg PO QHS 06/06/17 Testosterone Cypionate 200 mg IM Q14D 06/06/17 [Depo-Testosterone] Vilazodone Hydrochloride [Viibryd] 40 mg PO DAILY 06/06/17 proMETHazine tablet [Phenergan 25 mg PO Q4H PRN PRN 06/06/17 tablet] Amitriptyline HCl 25 mg PO QHS 12/11/17 Entacapone [Comtan] 200 mg PO 4X/DAY 12/11/17 Carbidopa/Levodopa [Carbidopa-Levo 1 tab PO 4X/DAY 01/02/18 25-100 mg Odt] Furosemide [Lasix] 20 mg PO DAILY 01/02/18 Levothyroxine [Synthroid] 274 mcg PO MOTH 01/02/18 Apremilast [Otezla] 30 mg PO BID 02/19/18 Aspirin [Aspir-Low] 81 mg PO DAILY 02/19/18 Cholecalciferol (Vitamin D3) 5,000 unit PO DAILY 02/19/18 [Vitamin D3] Ciclopirox 1 applic TOPICAL DAILY 02/19/18 Cyanocobalamin [Vitamin B12] 1,000 mcg IM Q30D 02/19/18 Dextran 70/He-Cell [Tears 1 drop EACH EYE Q1H PRN PRN 02/19/18 Naturale, Artificial Tears] Metoprolol Succinate 25 mg PO DAILY 02/19/18 Oxygen, Home [Home Oxygen] 2 lpm NASAL DAILY PRN 02/19/18 Zinc Sulfate (50mg elemental) 220 mg PO DAILY 02/19/18 [Zinc Sulfate] hydrOXYzine pamoate capsule 50 mg PO TID PRN PRN #30 cap 07/22/18 [Vistaril] Amlodipine [Norvasc] 5 - 10 mg PO DAILY 08/17/18 Codeine 30 mg PO PRN PRN 08/17/18 Levalbuterol HCl [Xopenex] 3 ml INHALATION Q4H PRN PRN 08/17/18 Omeprazole 40 mg PO DAILY 08/17/18 Surgical History: appendectomy, coronary bypass surgery, total hip arthroplasty, tonsillectomy, - - multiple abdominal surgeries with removal of entire colon, placement of abdominal wall mesh, ileostomy, surgery for bowel abscess, lumbar back surgery, right shoulder surgery, foot surgery, cervical neck surgery, prostate surgery Psychiatric History: - - Personality disorder Smoking Status: Former smoker Alcohol: None Drugs: None - *Family History Maternal History Items: Hypertension Paternal History Items: Heart Disease Sibling History Items: Diabetes Review of Systems Constitutional: Reports: Chills, Fever HEENT: Denies: Head Aches, Sinus Congestion, Sinus Drainage Cardiovascular: Denies: Chest Pain, Palpitations Respiratory: Denies: Cough, Shortness of breath at rest, Sputum production Gastrointestinal: Denies: Abdominal Pain, Nausea, Vomiting Genitourinary: Denies: Dysuria Musculoskeletal: Denies: Joint Pain, Joint Tenderness Skin: Reports: Rash. Denies: Wounds Neurological: Denies: Numbness, Tingling, Focal weakness Psychiatric: Denies: Anxiety, Depression Hematologic/ Lymphatic: Denies: Easy Bruising, Easy Bleeding VTE Information - Inpt Only VTE Present on Admission: No Patient Problems: Active and Suspected Problems Cellulitis (Acute) - Physical Exam General: Alert, Oriented x3, Cooperative, No apparent distress HEENT: Atraumatic, PERRLA, EOMI, Normocephalic Oral: Moist Mucosa Neck: Supple, No JVD Lungs: Clear to auscultation, Normal air movement, No rhonchi, No wheeze, No rales Cardiovascular: Regular rate, Regular Rhythm, Normal S1, Normal S2, No murmurs Abdomen: Soft, Non Tender, Non-Distended, No Hepato-splenomegaly, - - ostomy Extremities: - - 2+ pitting edema b/l LE Skin: - - Chronic venous stasis changes with worsening redness and warmth on the left Musculoskeletal: Tenderness - to palpation of the LLE Neurological: Neuro grossly intact, Sensory exam intact to light touch and pain Psych/Mental Status: Normal Affect, Appropriate Vital Signs Temp Pulse Resp BP Pulse Ox 98.5 F 99 20 H 116/65 99 08/17/18 22:08/17/18 22:08/17/18 22:09 08/17/18 22:08/17/18 22:09 Oxygen Delivery Method Room Air Weight: 150 lb Body Mass Index (BMI) 24.2 Finger Stick Blood Glucose 203 Laboratory Tests Past 24 Hrs 08/17/18 08/17/18 08/17/18 20:30 20:30 20:30 WBC 9.0 RBC 4.15 L Hgb 12.1 L Hct 39.4 L MCV 94.9 H MCH 29.2 MCHC 30.7 L RDW 16.2 H RDW Differential 54.7 H Plt Count 101 L MPV 9.8 Neut % (Auto) Not Reportable Absolute Neuts (auto) Not Reportable Total Counted 100 Neutrophils % (Manual) 79 H Band Neutrophils % 5 Lymphocytes % (Manual) 8 L Monocytes % (Manual) 6 Metamyelocytes % 2 H Diff Path Review May foll Platelet Estimate SLT DEC RBC Morphology N CHROM Anisocytosis 1+ PT 14.2 INR 1.1 APTT 42.0 H Sodium 136 Potassium 5.6 H Chloride 110 H Carbon Dioxide 22.0 Anion Gap 4 L BUN 49 H Creatinine 2.75 H Estim Creat Clear Calc 22.56 Est GFR (MDRD) Af Amer 30 L Est GFR (MDRD) Non-Af 24 L BUN/Creatinine Ratio 17.8 Glucose 113 H Lactic Acid Calcium 8.8 Total Bilirubin 0.70 AST 42 H ALT 13 L Alkaline Phosphatase 85 Total Protein 7.4 Albumin 2.7 L Globulin 4.7 H Albumin/Globulin Ratio 0.6 L 08/17/18 20:30 WBC RBC Hgb Hct MCV MCH MCHC RDW RDW Differential Plt Count MPV Neut % (Auto) Absolute Neuts (auto) Total Counted Neutrophils % (Manual) Band Neutrophils % Lymphocytes % (Manual) Monocytes % (Manual) Metamyelocytes % Diff Path Review Platelet Estimate RBC Morphology Anisocytosis PT INR APTT Sodium Potassium Chloride Carbon Dioxide Anion Gap BUN Creatinine Estim Creat Clear Calc Est GFR (MDRD) Af Amer Est GFR (MDRD) Non-Af BUN/Creatinine Ratio Glucose Lactic Acid 1.0 Calcium Total Bilirubin AST ALT Alkaline Phosphatase Total Protein Albumin Globulin Albumin/Globulin Ratio Assessment/Plan All Active Problems Cellulitis (Acute) Superficial thrombophlebitis of left upper extremity (Acute) Unstable angina (Acute) DVT of upper extremity (deep vein thrombosis) (Ruled-out) Hyperkalemia (Acute) Small Bowel Enterocut Fistula (Resolved) 1. LLE Cellulitis - He has multiple allergies but given the strep appearance of this cellulitis with start ancef IV q8 - CBC and BMP in the AM - Will be cautious with any bolus and will start with IVF@100 and give a 500 cc bolus - Hold the lasix for now - Lactate is normal at 1.0 - C/s to wound care 2. Afib/CAD s/p CABG/Peripheral edema/HTN - Will c/w his amiodarone for rhythm control and metoprolol for rate control - Hold the lasix while on IVF - He has eliquis and heparin listed as allergies so he is not anticoagulated - c/w aspirin - His norvasc is listed as 5-10 mg daily, will just give 5 mg given his edema 3. Parkinsons - Stable - c/w cinement, entacapone and mirapex 4. Depression/Chronic pain - stable - c/w his amitriptyline, Vilazodone for the depression - Dilaudid, morphine and vistaril for the chronic pain 5. CKD3/Gout/DM2 - will hydrate with normal saline - c/w allopurinol - SSI, he does not take any medications for it at home 6. Hypothyroidism - Stable - will c/w his home synthroid 7. GERD - stable - c/w his home omeprazole DVT: None since he is allergic to heparin and eliquis, SCDs will make his cellulitis worse and he will not tolerate d/t the pain Diet: Cardiac Code Visit Inpatient E&M: 15359 Init Hosp L3
--- NOTE | 2018-08-17 22:42 | ED.VISSUMM ---
- ER Visit Summary Date of Service: 08/17/18 Chief Complaint: Cellulitis History of Present Illness: The patient is a 72 M presenting due to concern for cellulitis. Patient reports that he has been dealing with chronic skin changes on his left leg since about December. Patient states that intermittently he will have some issues with cellulitis with this, and over the course last 2-3 days he has developed this. He states that there is pain redness and warmth over the area, and he reports a ascending rash on his left leg going all the way up into his groin. He does endorse that he had some fevers at home as high as 100. Denies any other constitutional symptoms. Review of systems otherwise negative. Patient has a past medical history of stroke coronary artery disease hypertension hyperlipidemia chronic kidney disease Physical Examination: Vital signs notable for heart rate of 99 respiratory rate 20. Well-nourished male no acute distress. Moist mucous membranes. Neck supple. Heart was regular rate with extrasystoles noted. Lung sounds are clear. Abdomen was soft and nontender with a ostomy that is pink and nontender. Left leg shows severe cellulitis of the area below the knee with erythema tenderness to palpation and some areas of excoriated skin. Calf is swollen but the compartment is soft, and there are palpable PT pulses that are bilaterally symmetric. There is lymphangitic streaking going up into the patient's groin that is also tender. Test Results: CBC shows a shift but no leukocytosis, chemistry shows hyperkalemia of 5.6 BUN of 49 creatinine of 2.75 lactic acid is negative Emergency Department Course and Treatment: Patient presented secondary to severe cellulitis. Workup was essentially unremarkable, but the patient has overall extremely poor health and I do believe that he requires admission to the hospital. He was given clindamycin. I discussed this with the hospitalist and the patient was admitted. Disposition: Admission Impression: 1. Cellulitis 2. Ascending lymphangitis 3. Chronic kidney disease This note was generated with [employer] dictation software. It may contain incorrect words, spelling, and punctuation that were not noted in review of the chart prior to signing ED Disposition - Plan for ED Patient: Chief Complaint: Cellulitis
[2018-08-17 23:26] VITALS: BMI 24.2; BMI 26.4
[2018-08-17 23:28] VITALS: BP 141/69; PULSE 114; RESP 18; TEMP 37.9; O2SAT 95
[2018-08-17 23:38] VITALS: PULSE 99
[2018-08-17] MEDS: 0.9% Normal Saline 1,000 ML 100 ML IV (23:40)
[2018-08-18] VITALS (11 sets, daily range): BP systolic 111–116; BP diastolic 49–60; PULSE 66–94; RESP 18; TEMP 36.7–37.2; O2SAT 95–100
[2018-08-18] MEDS: 0.9% NaCl Peripheral Flush Adult/Peds IV (00:07)
[2018-08-18 00:29] LABS: Absolute Lymphocyte Count 0.72 X10^3/ul (0.83-4.51); Absolute Neutrophil Count 7.6 X10^3/uL (2.0-7.7)
[2018-08-18] MEDS: HYDROmorphone 2 MG TABLET 4 MG PO (03:30)
[2018-08-18] MEDS: Cefazolin 1 GM/50 ML BAG IV ×2 (05:26→21:40)
[2018-08-18] MEDS: Levothyroxine 137 MCG Tablet PO (05:38)
[2018-08-18] MEDS: Carbidopa/Levodopa 25/100 Tablet PO ×4 (05:38→21:40)
[2018-08-18] MEDS: Metoprolol(XL)Succ 25 MG Tablet PO (05:38)
[2018-08-18] MEDS: VILAZODONE HYDROCHLORIDE 40 MG TABLET PO (05:38)
--- NOTE | 2018-08-18 05:40 | NURSING ---
Pt requesting to have AM meds earlier this AM.
--- NOTE | 2018-08-18 05:55 | EKG12_ITS ---
Test Reason : AM EKG Blood Pressure : / mmHG Vent. Rate : 077 BPM Atrial Rate : 077 BPM P-R Int : 214 ms QRS Dur : 102 ms QT Int : 382 ms P-R-T Axes : 067 009 -33 degrees QTc Int : 432 ms Sinus rhythm with 1st degree A-V block with Premature atrial complexes Nonspecific T wave abnormality Abnormal ECG Confirmed by MATHEW ALCARAZ, ANGELICA ([id number]), map editor HARJINDER PARSONS ([id number]) on 08/21/2018 2:53:48 PM Referred By: TAWANDA Confirmed By:ANGELICA CARMONA MD
[2018-08-18 06:50] LABS: Anion Gap 8 (5-15); BUN 41 mg/dL (7-18); BUN/Creat Ratio 17.4 RATIO (10-20); Calcium,Total 7.7 mg/dL (8.5-10.1); Chloride 115 mmol/L (98-107); Creatinine, Serum 2.36 mg/dL (0.70-1.30); EST Glomerular Filtration Rate 29 mL/min (>60); Est Glom Filt Rate - Afr Amer 35 mL/min (>60); Estimated Creatinine Clearance 26.28 ml/min; Glucose 163 mg/dL (74-106); Hematocrit 32.3 % (40-54); Mean Corpuscular Hgb 29.8 pg (27.0-32.0); Mean Corpuscular Volume 96.1 fL (80-94); Mean Platelet Vol. 9.9 fl (6.2-12.0); Platelet Count 77 K/mm3 (150-450); Potassium 4.5 mmol/L (3.5-5.1); RBC Distribution Width CV 15.7 % (11.6-14.6); RBC Distribution Width SD 52.8 fl (35.1-43.9); Red Blood Count 3.36 M/mm3 (4.6-6.2); Sodium Level 141 mmol/L (136-145); White Blood Count 5.5 K/mm3 (4.4-11.0)
[2018-08-18 06:51] LABS: Differential Indicated MANUAL DIFF; POSITIVE COUNT YES; POSITIVE DIFFERENTIAL YES; POSITIVE MORPHOLOGY YES
[2018-08-18 07:18] LABS: Lymphocyte 5 % (19-41); Monocyte 6 % (0-10); Neutrophil-Band 4 % (0-5); Neutrophil-Segmented 85 % (47-70); Total Cells Counted 100 (MANUAL DIFF)
[2018-08-18 07:19] LABS: Anisocytosis 1+; Hypochromasia 1+; Microcytosis 1+; Platelet Estimate MOD DEC (ADEQ)
[2018-08-18 07:21] LABS: Absolute Lymphocyte Count 0.28 X10^3/ul (0.83-4.51); Absolute Neutrophil Count 4.9 X10^3/uL (2.0-7.7)
[2018-08-18] MEDS: Amiodarone 200 MG Tablet PO (10:11)
[2018-08-18] MEDS: Pantoprazole Sodium 40 MG Tablet PO (10:12)
[2018-08-18] MEDS: Allopurinol 100 MG Tablet 200 MG PO (10:12)
--- NOTE | 2018-08-18 12:15 | PCM.PROGNOTE ---
Patient Problems: Active and Suspected Problems Cellulitis (Acute) Subjective: Patient seen and examined. Resting in chair eating breakfast, no acute distress. Complains of left lower extremity aching and burning. States his left lower extremity has been seeping fluid recently. - Physical Exam General: Alert, Oriented x3, Cooperative HEENT: Atraumatic, PERRLA, EOMI, Normocephalic Neck: Supple, No JVD, Negative Carotid Bruits Lungs: Clear to auscultation, Normal air movement Cardiovascular: Regular rate, Regular Rhythm, Normal S1, Normal S2, No murmurs Abdomen: Bowel Sounds Present, Soft, Non Tender, Non-Distended, - - Ileostomy intact Extremities: No clubbing, No cyanosis, Edema - Left lower extremity +2 edema Skin: - - Left lower extremity with chronic venous stasis changes as well as generalized erythema and areas of flaking/dry skin. Lymphatic: No Cervical, Supraclavicular, or Inguinal Adenopathy Neurological: Cranial nerves II-XII grossly intact, Neuro grossly intact Psych/Mental Status: Normal Affect, Appropriate Vital Signs Temp Pulse Resp BP Pulse Ox 98.0 F 78 18 113/53 L 97 08/18/18 10:00 08/18/18 10:00 08/18/18 10:08/18/18 10:00 08/18/18 08:12 Oxygen Delivery Method Room Air Weight: 163 lb 5.8 oz Body Mass Index (BMI) 26.4 Finger Stick Blood Glucose 203 Intake and Output for Last 24 Hours 08/16/18 08/17/18 08/18/18 23:59 23:59 23:59 Intake Total 1202 / 1202 Output Total 450 / 450 Balance 752 / 752 Laboratory Tests Past 24 Hrs 08/17/18 08/17/18 08/17/18 20:30 20:30 20:30 WBC 9.0 RBC 4.15 L Hgb 12.1 L Hct 39.4 L MCV 94.9 H MCH 29.2 MCHC 30.7 L RDW 16.2 H RDW Differential 54.7 H Plt Count 101 L MPV 9.8 Neut % (Auto) Not Reportable Absolute Neuts (auto) 7.6 Absolute Lymphs (auto) 0.72 L Total Counted 100 Neutrophils % (Manual) 79 H Band Neutrophils % 5 Lymphocytes % (Manual) 8 L Monocytes % (Manual) 6 Metamyelocytes % 2 H Diff Path Review May foll Platelet Estimate SLT DEC RBC Morphology N CHROM Hypochromasia Anisocytosis 1+ Microcytosis PT 14.2 INR 1.1 APTT 42.0 H Sodium 136 Potassium 5.6 H Chloride 110 H Carbon Dioxide 22.0 Anion Gap 4 L BUN 49 H Creatinine 2.75 H Estim Creat Clear Calc 22.56 Est GFR (MDRD) Af Amer 30 L Est GFR (MDRD) Non-Af 24 L BUN/Creatinine Ratio 17.8 Glucose 113 H Lactic Acid Calcium 8.8 Total Bilirubin 0.70 AST 42 H ALT 13 L Alkaline Phosphatase 85 Total Protein 7.4 Albumin 2.7 L Globulin 4.7 H Albumin/Globulin Ratio 0.6 L 08/17/18 08/18/18 08/18/18 20:30 06:17 06:17 WBC 5.5 RBC 3.36 L Hgb 10.0 L Hct 32.3 L MCV 96.1 H MCH 29.8 MCHC 31.0 L RDW 15.7 H RDW Differential 52.8 H Plt Count 77 L MPV 9.9 Neut % (Auto) Not Reportable Absolute Neuts (auto) 4.9 Absolute Lymphs (auto) 0.28 L Total Counted 100 Neutrophils % (Manual) 85 H Band Neutrophils % 4 Lymphocytes % (Manual) 5 L Monocytes % (Manual) 6 Metamyelocytes % Diff Path Review May foll Platelet Estimate MOD DEC RBC Morphology Hypochromasia 1+ Anisocytosis 1+ Microcytosis 1+ PT INR APTT Sodium 141 Potassium 4.5 Chloride 115 H Carbon Dioxide 18.0 L Anion Gap 8 BUN 41 H Creatinine 2.36 H Estim Creat Clear Calc 26.28 Est GFR (MDRD) Af Amer 35 L Est GFR (MDRD) Non-Af 29 L BUN/Creatinine Ratio 17.4 Glucose 163 H Lactic Acid 1.0 Calcium 7.7 L Total Bilirubin AST ALT Alkaline Phosphatase Total Protein Albumin Globulin Albumin/Globulin Ratio Medical Necessity - Tobacco Use Smoking Status: Former smoker Assessment/Plan All Active Problems Cellulitis (Acute) Superficial thrombophlebitis of left upper extremity (Resolved) Unstable angina (Resolved) DVT of upper extremity (deep vein thrombosis) (Ruled-out) Hyperkalemia (Resolved) Small Bowel Enterocut Fistula (Resolved) 1. Left lower extremity cellulitis-no open wounds noted. Blood culture pending. Continue IV Ancef. Wound RN consult. Snug demond wraps bilateral lower extremities. Elevate bilateral lower extremities. 2. KENDALL on Chronic kidney disease stage III-gentle IVF. Trend BMP. 3. Hyperkalemia-resolved. 4. Paroxysmal A flutter-rate controlled. Not on oral anticoagulation. Continue amiodarone and metoprolol. 5. Chronic Thrombocytopenia-stable, monitor CBC. 6. CAD status post CABG and PCI-does not appear to be on aspirin, statin. Continue beta-crystal. 7. HTN-stable, continue home regimen. 8. Parkinson's disease-continue home regimen. 9. Rheumatoid arthritis, ankylosing spondylitis, DJD, chronic pain with history of opioid dependence-Continue home morphine regimen. 10. Hypothyroidism-continue Synthroid. 11. Hx CVA/TIA-not on aspirin or statin. 12. Protein calorie malnutrition-nutrition consult. 13. GERD-continue home regimen. 14. History of 11 abdominal surgeries status post ileostomy DVT prophylaxis-SCDs This patient was seen by TRACY Zee under the supervision of Dr. Arizmendi.
--- NOTE | 2018-08-18 13:40 | CM.UR ---
Met face to face with patient. Denies anticipating any needs upon discharge. 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 Instructed that case management would be available should anything arise. Verb understanding. Doretha Chawla RN, CCM.
[2018-08-18] MEDS: 0.9% Normal Saline 1,000 ML 100 ML IV (17:00)
[2018-08-18] MEDS: amLODIPine 5 MG Tablet PO (21:40)
[2018-08-18] MEDS: Pramipexole Di-HCl 1 MG Tablet PO (21:41)
[2018-08-18] MEDS: Amitriptyline 25 MG Tablet PO (22:02)
[2018-08-19] VITALS (13 sets, daily range): BP systolic 117–143; BP diastolic 54–62; PULSE 55–98; RESP 16–18; TEMP 36.6–37; O2SAT 97–100
[2018-08-19] MEDS: 0.9% Normal Saline 1,000 ML 100 ML IV ×3 (02:04→21:42)
[2018-08-19] MEDS: Levothyroxine 137 MCG Tablet PO (05:38)
[2018-08-19 06:04] LABS: Hematocrit 32.9 % (40-54); Hemoglobin 10.1 g/dl (13.0-16.5); Mean Corp Hgb Conc 30.7 g/gl (32-36); Mean Corpuscular Hgb 29.8 pg (27.0-32.0); Mean Corpuscular Volume 97.1 fL (80-94); Mean Platelet Vol. 9.8 fl (6.2-12.0); Platelet Count 79 K/mm3 (150-450); RBC Distribution Width CV 16.1 % (11.6-14.6); RBC Distribution Width SD 54.8 fl (35.1-43.9); Red Blood Count 3.39 M/mm3 (4.6-6.2); White Blood Count 4.4 K/mm3 (4.4-11.0)
[2018-08-19 06:12] LABS: Anion Gap 7 (5-15); BUN 38 mg/dL (7-18); BUN/Creat Ratio 16.9 RATIO (10-20); Calcium,Total 7.8 mg/dL (8.5-10.1); Chloride 120 mmol/L (98-107); Creatinine, Serum 2.25 mg/dL (0.70-1.30); EST Glomerular Filtration Rate 31 mL/min (>60); Est Glom Filt Rate - Afr Amer 37 mL/min (>60); Estimated Creatinine Clearance 27.57 ml/min; Glucose 131 mg/dL (74-106); Potassium 4.9 mmol/L (3.5-5.1); Scan Indicated on CBC? Y/N NO; Sodium Level 146 mmol/L (136-145)
[2018-08-19] MEDS: HYDROmorphone 2 MG TABLET 4 MG PO (08:06)
[2018-08-19] MEDS: Cefazolin 1 GM/50 ML BAG IV ×2 (10:07→21:42)
[2018-08-19] MEDS: Allopurinol 100 MG Tablet 200 MG PO (10:08)
[2018-08-19] MEDS: Pantoprazole Sodium 40 MG Tablet PO (10:09)
[2018-08-19] MEDS: VILAZODONE HYDROCHLORIDE 40 MG TABLET PO (10:09)
[2018-08-19] MEDS: Carbidopa/Levodopa 25/100 Tablet PO ×4 (10:09→21:43)
[2018-08-19] MEDS: Metoprolol(XL)Succ 25 MG Tablet PO (10:10)
--- NOTE | 2018-08-19 11:03 | PCM.PROGNOTE ---
Patient Problems: Active and Suspected Problems Cellulitis (Acute) Subjective: Patient seen and examined. Complains of left lower extremity pain. Notes improvement in lower extremity swelling and left lower extremity redness. Denies fever, chills. No other complaints. - Physical Exam General: Alert, Oriented x3, Cooperative HEENT: Atraumatic, PERRLA, EOMI, Normocephalic Neck: Supple, No JVD, Negative Carotid Bruits Lungs: Clear to auscultation, Normal air movement Cardiovascular: Regular rate, Regular Rhythm, Normal S1, Normal S2, No murmurs Abdomen: Bowel Sounds Present, Soft, Non Tender, Non-Distended, - - Ileostomy intact Extremities: No clubbing, No cyanosis, Capillary Refill Less than 3 Seconds, Edema - Bilateral lower extremities, improved. Skin: - - Left lower extremity with chronic venous stasis changes as well as generalized erythema and areas of flaking/dry skin. Erythema improved. Musculoskeletal: No Tenderness to Palpation of Joints or Extremities Neurological: Cranial nerves II-XII grossly intact, Neuro grossly intact Psych/Mental Status: Normal Affect, Appropriate Vital Signs Temp Pulse Resp BP Pulse Ox 98.2 F 74 16 136/60 H 100 08/19/18 10:00 08/19/18 10:10 08/19/18 10:00 08/19/18 10:10 08/19/18 10:00 Oxygen Flow Rate (L/min) 2 Oxygen Delivery Method Room Air Weight: 163 lb 5.8 oz Body Mass Index (BMI) 26.4 Finger Stick Blood Glucose 203 Intake and Output for Last 24 Hours 08/17/18 08/18/18 08/19/18 23:59 23:59 23:59 Intake Total 3257 / 3257 685 / 685 Output Total 1600 / 1600 925 / 925 Balance 1657 / 1657 -240 / -240 Laboratory Tests Past 24 Hrs 08/19/18 08/19/18 05:16 05:16 WBC 4.4 RBC 3.39 L Hgb 10.1 L Hct 32.9 L MCV 97.1 H MCH 29.8 MCHC 30.7 L RDW 16.1 H RDW Differential 54.8 H Plt Count 79 L MPV 9.8 Sodium 146 H Potassium 4.9 Chloride 120 H Carbon Dioxide 19.0 L Anion Gap 7 BUN 38 H Creatinine 2.25 H Estim Creat Clear Calc 27.57 Est GFR (MDRD) Af Amer 37 L Est GFR (MDRD) Non-Af 31 L BUN/Creatinine Ratio 16.9 Glucose 131 H Calcium 7.8 L Medical Necessity - Tobacco Use Smoking Status: Former smoker Assessment/Plan All Active Problems Cellulitis (Acute) Superficial thrombophlebitis of left upper extremity (Resolved) Unstable angina (Resolved) DVT of upper extremity (deep vein thrombosis) (Ruled-out) Hyperkalemia (Resolved) Small Bowel Enterocut Fistula (Resolved) 1. Left lower extremity cellulitis-no open wounds noted. Blood culture pending. Continue IV Ancef. Wound RN consult. Snug demond wraps bilateral lower extremities. Elevate bilateral lower extremities. LLE erythema improving. 2. KENDALL on Chronic kidney disease stage III-gentle IVF. Trend BMP. 3. Hyperkalemia-resolved. 4. Paroxysmal A flutter-rate controlled. Not on oral anticoagulation. Continue amiodarone and metoprolol. 5. Chronic Thrombocytopenia-stable, monitor CBC. 6. CAD status post CABG and PCI-does not appear to be on aspirin, statin. Continue beta-crystal. 7. HTN-stable, continue home regimen. 8. Parkinson's disease-continue home regimen. 9. Rheumatoid arthritis, ankylosing spondylitis, DJD, chronic pain with history of opioid dependence-Continue home morphine regimen. 10. Hypothyroidism-continue Synthroid. 11. Hx CVA/TIA-not on aspirin or statin. 12. Protein calorie malnutrition-nutrition consult. 13. GERD-continue home regimen. 14. History of 11 abdominal surgeries status post ileostomy DVT prophylaxis-SCDs This patient was seen by TRACY Zee under the supervision of Dr. Arizmendi.
[2018-08-19] MEDS: Amitriptyline 25 MG Tablet PO (21:42)
[2018-08-19] MEDS: amLODIPine 5 MG Tablet PO (21:42)
[2018-08-19] MEDS: Pramipexole Di-HCl 1 MG Tablet PO (21:43)
[2018-08-20] VITALS (7 sets, daily range): BP systolic 130–143; BP diastolic 52–63; PULSE 66–91; RESP 18–20; TEMP 36.7–36.9; O2SAT 96–100
[2018-08-20] MEDS: HYDROmorphone 2 MG TABLET 4 MG PO (00:24)
[2018-08-20] MEDS: Levothyroxine 137 MCG Tablet 274 MCG PO (05:06)
[2018-08-20 06:56] LABS: Anion Gap 8 (5-15); BUN 31 mg/dL (7-18); BUN/Creat Ratio 15.4 RATIO (10-20); Calcium,Total 8.1 mg/dL (8.5-10.1); Chloride 122 mmol/L (98-107); Creatinine, Serum 2.01 mg/dL (0.70-1.30); EST Glomerular Filtration Rate 35 mL/min (>60); Est Glom Filt Rate - Afr Amer 42 mL/min (>60); Estimated Creatinine Clearance 30.86 ml/min; Glucose 114 mg/dL (74-106); Potassium 4.8 mmol/L (3.5-5.1); Sodium Level 148 mmol/L (136-145)
[2018-08-20] MEDS: Allopurinol 100 MG Tablet 200 MG PO (08:47)
[2018-08-20] MEDS: Carbidopa/Levodopa 25/100 Tablet PO ×2 (08:47→14:31)
[2018-08-20] MEDS: Metoprolol(XL)Succ 25 MG Tablet PO (08:47)
[2018-08-20] MEDS: Pantoprazole Sodium 40 MG Tablet PO (08:47)
[2018-08-20] MEDS: Cefazolin 1 GM/50 ML BAG IV (10:00)
[2018-08-20] MEDS: VILAZODONE HYDROCHLORIDE 40 MG TABLET PO (10:00)
[2018-08-20] MEDS: 0.9% Normal Saline 1,000 ML 100 ML IV (10:01)
--- NOTE | 2018-08-20 10:21 | VDLE_ITS ---
Reason For Study: LEG PAIN RIGHT LEFT CFV is compressible, spontaneous, phasic, CFV is compressible, spontaneous, phasic, competent and demonstrates normal competent, and demonstrates normal augmentation. augmentation. FV is compressible, spontaneous, phasic, competent and demonstrates normal augmentation. POP V is compressible, spontaneous, phasic, competent and demonstrates normal augmentation. T/P Trunk is compressible. PTV is compressible. LT PerV is compressible. GSV absent. Interpretation Summary The left greater saphenous vein appears patent and compressible segmentally. Surgically absent left great saphenous vein Patent and compressible right common femoral vein. No change from 12/04/17 Ordering Physician: Thu Mcghee NP-Delmi Referring Physician: MD Hemant Brandt Performed By: Sharona Velazquez RVT
--- NOTE | 2018-08-20 11:11 | CASEMGMT ---
SW spoke with patient about placement. He said he would go to TCU. SW told him SW will check to see if they have beds available. He said 2nd choice would be home. SW called Kimber who is covering referrals for [facility] post acute units. They would have a bed for patient today. SW let Nurse Practitioner know this information. SW will let patient know as well. Plan: [facility] TCU today under skilled level of care. Kaylene JAMA MSW
--- NOTE | 2018-08-20 12:35 | TREXTCA.CO_ITS ---
- Diet 08/19/18 09:30 Diet: Regular Diet Is pt able to select menu?: Yes Diet Comments: grind meat and soft foods - Routine Orders/Code Status Enema Type: Fleetz Enema Frequency: Daily PRN Suppository Type: Dulcolax 10mg Suppository Frequency: Daily PRN O2 Liters per Minute: 2 O2 Frequency: PRN Keep PO Greater than or Equal to (%): 90 Routine Lab Work: CBC, BMP, - - in 3 days and then Q Week. Code Status: Full Code - Suggestions for Active Care Change Position every (hours): 2 Times a day to sit in chair: 3 - Therapies Physical Therapy: Eval and Treat Occupational Therapy: Eval and Treat Speech Therapy: Eval and Treat - Problem/Diagnosis (1) Cellulitis Status: Acute Comment: LLE Current Visit: Yes (2) Paroxysmal atrial flutter Status: Chronic Current Visit: No (3) Thrombocytopenia Status: Chronic Current Visit: No (4) Superficial thrombophlebitis of left upper extremity Status: Resolved Current Visit: No (5) Unstable angina Status: Resolved Current Visit: No (6) Anemia of chronic disorder Status: Chronic Current Visit: No (7) Atrial flutter Status: Chronic Current Visit: No (8) Benign essential hypertension Status: Chronic Current Visit: No (9) Chronic diarrhea Status: Chronic Current Visit: No (10) History of coronary artery bypass graft Status: Chronic Current Visit: No (11) DVT of upper extremity (deep vein thrombosis) Status: Ruled-out Current Visit: No (12) Diabetes mellitus, type 2 Status: Chronic Current Visit: No (13) Hypothyroidism Status: Chronic Current Visit: No (14) Parkinson's disease Status: Chronic Current Visit: No (15) Rheumatoid arthritis Status: Chronic Current Visit: No (16) Edema of lower extremity Status: Chronic Current Visit: No (17) Opiate dependence Status: Chronic Current Visit: No (18) Personality disorder Status: Chronic Current Visit: No (19) Chronic obstructive lung disease Status: Chronic Current Visit: No (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 Current Visit: No (21) Cerebrovascular disease, arteriosclerotic, post-stroke Status: Chronic Current Visit: No (22) Migraines Status: Chronic Current Visit: No (23) Peptic ulcer disease Status: Chronic Current Visit: No (24) Hyperkalemia Status: Resolved Current Visit: No (25) CKD (chronic kidney disease) stage 3, GFR 30-59 ml/min Status: Chronic Current Visit: No (26) Esophagitis Status: Chronic Current Visit: No (27) Ankylosing spondylitis Status: Chronic Current Visit: No (28) Psoriatic arthritis Status: Chronic Current Visit: No - Allergies/Procedures Done in Hospital Allergies/Adverse Reactions: Allergies amoxicillin trihydrate [From Augmentin] Allergy (Verified 08/17/18 23:43) Rash bisacodyl [From Dulcolax (bisacodyl)] Allergy (Verified 08/17/18 23:43) Anaphylaxis iodine Allergy (Verified 08/17/18 23:43) Rash piperacillin sodium [From Zosyn] Allergy (Verified 08/17/18 23:43) Rash potassium clavulanate [From Augmentin] Allergy (Verified 08/17/18 23:43) Rash tazobactam sodium [From Zosyn] Allergy (Verified 08/17/18 23:43) Rash apixaban [From Eliquis] Adverse Reaction (Verified 08/17/18 23:43) Other azithromycin Adverse Reaction (Verified 08/17/18 23:43) Diarrhea bupropion Adverse Reaction (Verified 08/17/18 23:43) Unknown ciprofloxacin [From Cipro] Adverse Reaction (Verified 08/17/18 23:43) Other ciprofloxacin HCl [From Cipro] Adverse Reaction (Verified 07/22/18 09:28) Other diazepam [From Valium] Adverse Reaction (Verified 08/17/18 23:43) Other hallucinations duloxetine Adverse Reaction (Verified 08/17/18 23:43) Unknown gabapentin Adverse Reaction (Verified 08/17/18 23:43) Other heparin Adverse Reaction (Verified 08/17/18 23:43) Unknown Iodinated Contrast- Oral and IV Dye [CONTRASTS] Adverse Reaction (Verified 08/17/18 23:43) Rash nitroglycerin Adverse Reaction (Verified 08/17/18 23:43) Other headaches and extreme hyperactivity paroxetine Adverse Reaction (Verified 08/17/18 23:43) Unknown tetracycline [Tetracycline] Adverse Reaction (Verified 08/17/18 23:43) Vomiting plastics Adverse Reaction (Uncoded 08/17/18 23:43) Rash Procedures: None - Type of Care/Length of Stay Estimated LOS: Convalescent Care Less Than 30 days Type of Care Needed: Skilled Rehab Potential: Good Prognosis: Good - Additional Orders/Day of Discharge H&P will serve as current which was dated: 08/17/18 Day of Discharge: 08/20/18 - Dietary and Speech Recommendations Dietitian Recommendations/Changes: Rec GRILL ATTENDANT evaluation d/t throat stricture. - Follow Up Care Primary Care Physician: Durga Brandt MD [Primary Care Provider] - Please follow up with your Primary Care Physician in: 1 Week
--- NOTE | 2018-08-20 12:42 | DS.PCM_ITS ---
Addendum entered and electronically signed by TRACY Zee 08/20/18 12:49: Code Visit Duplex ultrasound left lower extremity completed prior to discharge which was negative for DVT. Original Note: <Thu Mcghee - Last Filed: 08/20/18 12:49> Discharge Date and Diagnosis Date of Admission: 08/17/18 Date of Discharge: 08/20/18 - Primary Discharge Diagnosis Active and Suspected Problems 1. Left lower extremity cellulitis 2. Acute kidney injury on chronic kidney disease stage III, resolved 3. Hyperkalemia, resolved 4. Physical debility secondary to #1 - Secondary Discharge Diagnosis Chronic Problems Paroxysmal atrial flutter (Chronic) Thrombocytopenia (Chronic) Anemia of chronic disorder (Chronic) Atrial flutter (Chronic) Benign essential hypertension (Chronic) Chronic diarrhea (Chronic) History of coronary artery bypass graft (Chronic) Diabetes mellitus, type 2 (Chronic) Hypothyroidism (Chronic) Parkinson's disease (Chronic) Rheumatoid arthritis (Chronic) Edema of lower extremity (Chronic) Opiate dependence (Chronic) Personality disorder (Chronic) Chronic obstructive lung disease (Chronic) 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, arteriosclerotic, post-stroke (Chronic) Migraines (Chronic) Peptic ulcer disease (Chronic) CKD (chronic kidney disease) stage 3, GFR 30-59 ml/min (Chronic) Esophagitis (Chronic) Ankylosing spondylitis (Chronic) Psoriatic arthritis (Chronic) Hospital Course and Treatment Consultations 08/17/18 23:20 Consult: Onc/Wound/fun house operator Routine Comment: Operations: None Procedures: None Summary of Care Provided: The patient is a 72 year old M admitted 08/17/2018 due to left leg pain and redness. 1. Left lower extremity cellulitis-no open wounds noted. Blood culture shows no growth. Patient treated with IV Ancef during admission. Snug demond wraps bilateral lower extremities. Elevate bilateral lower extremities. LLE erythema improving. Discharge on Keflex 500 mg TID for 5 days. Follow-up with primary care physician in 1 week. TCU at discharge for further PT/OT. 2. KENDALL on Chronic kidney disease stage III-AK I resolved. Repeat BMP in 3 days followed by weekly. 3. Hyperkalemia-resolved. 4. Paroxysmal A flutter-rate controlled. Not on oral anticoagulation. Continue amiodarone and metoprolol. 5. Chronic Thrombocytopenia-stable, monitor CBC. 6. CAD status post CABG and PCI-does not appear to be on aspirin, statin. Continue beta-crystal. 7. HTN-stable, continue home regimen. 8. Parkinson's disease-continue home regimen. 9. Rheumatoid arthritis, ankylosing spondylitis, DJD, chronic pain with history of opioid dependence-Continue home morphine regimen. 10. Hypothyroidism-continue Synthroid. 11. Hx CVA/TIA-not on aspirin or statin. 12. Protein calorie malnutrition-continue recommended nutritional supplementation. 13. GERD-continue home regimen. 14. History of 11 abdominal surgeries status post ileostomy General: Alert, Oriented x3, Cooperative HEENT: Atraumatic, PERRLA, EOMI, Normocephalic Neck: Supple, No JVD, Negative Carotid Bruits Lungs: Clear to auscultation, Normal air movement Cardiovascular: Regular rate, Regular Rhythm, Normal S1, Normal S2, No murmurs Abdomen: Bowel Sounds Present, Soft, Non Tender, Non-Distended, - - Ileostomy intact Extremities: No clubbing, No cyanosis, Capillary Refill Less than 3 Seconds, Edema - Bilateral lower extremities, improved. Skin: - - Left lower extremity with chronic venous stasis changes as well as generalized erythema and areas of flaking/dry skin. Erythema improved. Musculoskeletal: No Tenderness to Palpation of Joints or Extremities Neurological: Cranial nerves II-XII grossly intact, Neuro grossly intact Psych/Mental Status: Normal Affect, Appropriate Patient seen exam prior to discharge. Physical assessment as noted above. Patient stable for discharge to TCU. This patient was seen by TRACY Zee under the supervision of Dr. Sullivan. Home Medications: Medications to take at Discharge Acetaminophen/Butalbital/Caffe [Fioricet] 1 tablet PO BID PRN 06/06/17 Allopurinol 200 mg PO DAILY 06/06/17 Amiodarone HCl [Pacerone] 200 mg PO DAILY 06/06/17 Diphenhydramine HCl [Benadryl Allergy] 25 mg PO PRN PRN 06/06/17 Hydromorphone HCl [Dilaudid] 4 mg PO DAILY PRN 06/06/17 Levothyroxine [Synthroid] 137 mcg PO SUTUWEFRSA 06/06/17 Morphine Sulfate [Morphine Sulfate ER] 30 mg PO Q8H 06/06/17 Pramipexole Di-HCl [Mirapex] 1 mg PO QHS 06/06/17 Testosterone Cypionate [Depo-Testosterone] 200 mg IM Q14D 06/06/17 Vilazodone Hydrochloride [Viibryd] 40 mg PO DAILY 06/06/17 proMETHazine tablet [Phenergan tablet] 25 mg PO Q4H PRN PRN 06/06/17 Amitriptyline HCl 25 mg PO QHS 12/11/17 Entacapone [Comtan] 200 mg PO 4X/DAY 12/11/17 Carbidopa/Levodopa [Carbidopa-Levo 25-100 mg Odt] 1 tab PO 4X/DAY 01/02/18 Furosemide [Lasix] 20 mg PO DAILY 01/02/18 Levothyroxine [Synthroid] 274 mcg PO MOTH 01/02/18 Apremilast [Otezla] 30 mg PO BID 02/19/18 Aspirin [Aspir-Low] 81 mg PO DAILY 02/19/18 Cholecalciferol (Vitamin D3) [Vitamin D3] 5,000 unit PO DAILY 02/19/18 Ciclopirox 1 applic TOPICAL DAILY 02/19/18 Cyanocobalamin [Vitamin B12] 1,000 mcg IM Q30D 02/19/18 Dextran 70/He-Cell [Tears Naturale, Artificial Tears] 1 drop EACH EYE Q1H PRN PRN 02/19/18 Metoprolol Succinate 25 mg PO DAILY 02/19/18 Oxygen, Home [Home Oxygen] 2 lpm NASAL DAILY PRN 02/19/18 Zinc Sulfate (50mg elemental) [Zinc Sulfate] 220 mg PO DAILY 02/19/18 hydrOXYzine pamoate capsule [Vistaril pamoate capsule] 50 mg PO TID PRN PRN #30 cap 07/22/18 Amlodipine [Norvasc] 5 - 10 mg PO DAILY 08/17/18 Codeine 30 mg PO PRN PRN 08/17/18 Levalbuterol HCl [Xopenex] 3 ml INHALATION Q4H PRN PRN 08/17/18 Omeprazole 40 mg PO DAILY 08/17/18 Cephalexin [Keflex] 500 mg PO Q8 5 Days #15 capsule 08/20/18 Following Prescrptions Were Given to Patient: Cephalexin [Keflex] 500 mg PO Q8 5 Days #15 capsule Primary Care Physician: Durga Brandt MD [Primary Care Provider] - Please follow up with your Primary Care Physician in: 1 Week Disposition: Custodial facility Minutes spent on discharge:: 35 Patient Condition:: Stable Medical Necessity - Tobacco Use Smoking Status: Former smoker Meaningful Use Info Meaningful Use Diagnoses (Choose all that apply): None applicable <Adrian Sullivan - Last Filed: 08/20/18 13:41> Discharge Date and Diagnosis - Secondary Discharge Diagnosis Chronic Problems Paroxysmal atrial flutter (Chronic) Thrombocytopenia (Chronic) Anemia of chronic disorder (Chronic) Atrial flutter (Chronic) Benign essential hypertension (Chronic) Chronic diarrhea (Chronic) History of coronary artery bypass graft (Chronic) Diabetes mellitus, type 2 (Chronic) Hypothyroidism (Chronic) Parkinson's disease (Chronic) Rheumatoid arthritis (Chronic) Edema of lower extremity (Chronic) Opiate dependence (Chronic) Personality disorder (Chronic) Chronic obstructive lung disease (Chronic) 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, arteriosclerotic, post-stroke (Chronic) Migraines (Chronic) Peptic ulcer disease (Chronic) CKD (chronic kidney disease) stage 3, GFR 30-59 ml/min (Chronic) Esophagitis (Chronic) Ankylosing spondylitis (Chronic) Psoriatic arthritis (Chronic) Hospital Course and Treatment Consultations 08/17/18 23:20 Consult: Onc/Wound/fun house operator Routine Comment: Summary of Care Provided: The patient is a 72 year old M [] Code Visit Addendum: Dr. Sullivan I personally examined the patient and reviewed the chart. I agree with the above. 72 yo M presenting with worsening LLE swelling, redness and warmth. He did imprve prior to discharge with abx. An US doppler of his LLE to r/o DVT was negative for DVT. He will need to be discharge to SNF for therapy prior to discharge home. Inpatient E&M: [id number] Disch Hosp
--- NOTE | 2018-08-20 13:48 | NURSING ---
Called report to [facility] in TCU at this time.
--- NOTE | 2018-08-20 13:55 | CASEMGMT ---
Patient was accepted in TCU and he was informed and in agreement. Orders were completed. Plan: d/c to [facility] TCU under skilled level of care. Kaylene JAMA MSW
--- NOTE | 2018-08-20 14:22 | PHA.DC.MR ---
Pharmacy Service has performed discharge medication reconciliation for this patient for transfer to extended care facility. The patient's discharge medication list was reviewed for discrepancies and discrepancies were resolved.
--- NOTE | 2018-08-20 14:54 | PHA.DC.MR ---
Pharmacy Service has performed discharge medication reconciliation for this patient for transfer to [facility]. The patient's discharge medication list was reviewed for discrepancies and discrepancies were resolved.
[2018-08-21 09:11] LABS: Pathologist Review Reviewed
[2018-08-21 09:22] LABS: Pathologist Review Reviewed
== END 2018-08-20 14:53 | disposition skilled nursing facility (03) | DRG 603 ==
LOC: ED 20:05 → PCU 22:24
PROVIDERS: Nurse Practitioner Family; Admitting Provider Family Medicine; Emergency Provider Emergency Medicine; Family Provider Family Medicine; PCP Family Medicine; Visit Provider Family Medicine
DX: L03.116 Cellulitis of left lower limb (principal); N17.9 Acute kidney failure, unspecified; F11.20 Opioid dependence, uncomplicated; E46 Unspecified protein-calorie malnutrition; D69.6 Thrombocytopenia, unspecified; G20 Parkinson's disease; M06.9 Rheumatoid arthritis, unspecified; E03.9 Hypothyroidism, unspecified; K21.9 Gastro-esophageal reflux disease without esophagitis; Z95.1 Presence of aortocoronary bypass graft; I25.10 Atherosclerotic heart disease of native coronary artery without angina pectoris; E87.5 Hyperkalemia; Z86.73 Personal history of transient ischemic attack (TIA), and cerebral infarction without residual deficits; Z93.2 Ileostomy status; Z87.891 Personal history of nicotine dependence; I12.9 Hypertensive chronic kidney disease with stage 1 through stage 4 chronic kidney disease, or unspecified chronic kidney disease; N18.3 Chronic kidney disease, stage 3 (moderate); Z90.49 Acquired absence of other specified parts of digestive tract; G89.29 Other chronic pain; R53.81 Other malaise; Z68.24 Body mass index [BMI] 24.0-24.9, adult
CPT/HCPCS: 36415; 80048; 80053; 83605; 85025; 85027; 85610; 85730; 87040; 93005; 93971; 97162; 97166; 97530; 97802; 99282; J7030; J7040; A4216

== ENCOUNTER 2018-08-20 15:06 | Inpatient (IN) | payer MEDICARE, OTHER, MEDICAID, SELFPAY ==
[2018-08-20 15:24] VITALS: BP 155/80; PULSE 97; RESP 16; TEMP 37.1; O2SAT 99
[2018-08-20 15:33] VITALS: BMI 28.0
[2018-08-20 15:42] VITALS: BMI 28.1
--- NOTE | 2018-08-20 18:04 | NURSING ---
PT STARTED COUGHING AFTER TAKEN A BIT OF FOOD. FOOD CAME UP WITH CLEAR,THICK SPUTUM. CALLED SEAN WATKINS TO ROOM. OXYGEN APPLIED AT 2L PER SEAN WATKINS. SPEECH CONSULTED.
--- NOTE | 2018-08-20 18:20 | NURSING ---
Addendum entered by Jorge Gama 08/20/18 18:22: at 1300 Original Note: pt arrived in bed from [facility]
--- NOTE | 2018-08-20 18:22 | NURSING ---
pt made NPO until ST consult
--- NOTE | 2018-08-20 19:51 | PCM.HP.STD ---
Problem List (1) Cellulitis of leg Status: Acute (2) Venous stasis dermatitis Status: Chronic (3) Fever Status: Acute (4) Stroke Status: Chronic (5) Coronary artery disease Status: Chronic (6) Hypertension Status: Chronic (7) Hyperlipidemia Status: Chronic (8) Chronic kidney disease Status: Chronic (9) Anemia of chronic disease Status: Chronic (10) Diabetes mellitus Status: Chronic (11) Gout Status: Chronic (12) Chronic pain Status: Chronic (13) Hypogonadism Status: Chronic (14) Depression Status: Chronic (15) GERD (gastroesophageal reflux disease) Status: Chronic (16) Atrial flutter Status: Chronic (17) Hypothyroidism Status: Chronic Qualifiers: (18) Parkinson's disease Status: Chronic (19) Rheumatoid arthritis Status: Chronic Qualifiers: (20) Opiate dependence Status: Chronic History of Present Illness Date of Admission: 08/20/18 Chief Complaint: Here for rehabilitation, strengthening, prior to discharge home with spouse. The patient is a 72 year old Male with below past medical history presented to [facility] Emergency Department 08/17/2018 with cellulitis. Left lower extremity venous stasis dermatitis. Left lower extremity cellulitis. Fever 100. CBCD with left shift, WBC normal, K 5.6, BUN 49, Cr 2.75. Lactic acid normal. Clindamycin IV given. 08/17/2018 Admit to Hospital. Ancef IV for left lower extremity cellulitis. IV fluid bolus. Hold Lasix. 08/18/2018 Blood cultures pending. 08/19/2018 Left lower extremity pain, but he has chronic pain issues. 08/20/2018 Doppler of left lower extremity negative for DVT. Keflex 500MG TID x 5 days for left lower extremity cellulitis. Hyperkalemia resolved. No anticoagulation for atrial flutter due to Eliquis, Heparin allergies. 08/20/2018 Admit to TCU with debility, here for rehabilitation, strengthening, prior to discharge home with spouse. Past Medical History Past Medical History (Chronic Problems): Chronic Problems Venous stasis dermatitis (Chronic) Stroke (Chronic) Coronary artery disease (Chronic) Hypertension (Chronic) Hyperlipidemia (Chronic) Chronic kidney disease (Chronic) Anemia of chronic disease (Chronic) Diabetes mellitus (Chronic) Gout (Chronic) Chronic pain (Chronic) Hypogonadism (Chronic) Depression (Chronic) GERD (gastroesophageal reflux disease) (Chronic) Paroxysmal atrial flutter (Chronic) Thrombocytopenia (Chronic) Anemia of chronic disorder (Chronic) Atrial flutter (Chronic) Benign essential hypertension (Chronic) Chronic diarrhea (Chronic) History of coronary artery bypass graft (Chronic) Diabetes mellitus, type 2 (Chronic) Hypothyroidism (Chronic) Parkinson's disease (Chronic) Rheumatoid arthritis (Chronic) Edema of lower extremity (Chronic) Opiate dependence (Chronic) Personality disorder (Chronic) Chronic obstructive lung disease (Chronic) 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, arteriosclerotic, post-stroke (Chronic) Migraines (Chronic) Peptic ulcer disease (Chronic) CKD (chronic kidney disease) stage 3, GFR 30-59 ml/min (Chronic) Esophagitis (Chronic) Ankylosing spondylitis (Chronic) Psoriatic arthritis (Chronic) Allergies amoxicillin trihydrate [From Augmentin] Allergy (Verified 08/17/18 23:43) Rash bisacodyl [From Dulcolax (bisacodyl)] Allergy (Verified 08/17/18 23:43) Anaphylaxis iodine Allergy (Verified 08/17/18 23:43) Rash piperacillin sodium [From Zosyn] Allergy (Verified 08/17/18 23:43) Rash potassium clavulanate [From Augmentin] Allergy (Verified 08/17/18 23:43) Rash tazobactam sodium [From Zosyn] Allergy (Verified 08/17/18 23:43) Rash apixaban [From Eliquis] Adverse Reaction (Verified 08/17/18 23:43) Other azithromycin Adverse Reaction (Verified 08/17/18 23:43) Diarrhea bupropion Adverse Reaction (Verified 08/17/18 23:43) Unknown ciprofloxacin [From Cipro] Adverse Reaction (Verified 08/17/18 23:43) Other ciprofloxacin HCl [From Cipro] Adverse Reaction (Verified 07/22/18 09:28) Other diazepam [From Valium] Adverse Reaction (Verified 08/17/18 23:43) Other hallucinations duloxetine Adverse Reaction (Verified 08/17/18 23:43) Unknown gabapentin Adverse Reaction (Verified 08/17/18 23:43) Other heparin Adverse Reaction (Verified 08/17/18 23:43) Unknown Iodinated Contrast- Oral and IV Dye [CONTRASTS] Adverse Reaction (Verified 08/17/18 23:43) Rash nitroglycerin Adverse Reaction (Verified 08/17/18 23:43) Other headaches and extreme hyperactivity paroxetine Adverse Reaction (Verified 08/17/18 23:43) Unknown tetracycline [Tetracycline] Adverse Reaction (Verified 08/17/18 23:43) Vomiting plastics Adverse Reaction (Uncoded 08/17/18 23:43) Rash Home Medications: Ambulatory Orders Medication Instructions Recorded Acetaminophen/Butalbital/Caffe 1 tablet PO BID PRN 06/06/17 [Fioricet] Allopurinol 200 mg PO DAILY 06/06/17 Amiodarone HCl [Pacerone] 200 mg PO DAILY 06/06/17 Diphenhydramine HCl [Benadryl 25 mg PO PRN PRN 06/06/17 Allergy] Hydromorphone HCl [Dilaudid] 4 mg PO DAILY PRN 06/06/17 Levothyroxine [Synthroid] 137 mcg PO SUTUWEFRSA 06/06/17 Morphine Sulfate [Morphine Sulfate 30 mg PO Q8H 06/06/17 ER] Pramipexole Di-HCl [Mirapex] 1 mg PO QHS 06/06/17 Testosterone Cypionate 200 mg IM Q14D 06/06/17 [Depo-Testosterone] Vilazodone Hydrochloride [Viibryd] 40 mg PO DAILY 06/06/17 proMETHazine tablet [Phenergan 25 mg PO Q4H PRN PRN 06/06/17 tablet] Amitriptyline HCl 25 mg PO QHS 12/11/17 Entacapone [Comtan] 200 mg PO 4X/DAY 12/11/17 Carbidopa/Levodopa [Carbidopa-Levo 1 tab PO 4X/DAY 01/02/18 25-100 mg Odt] Furosemide [Lasix] 20 mg PO DAILY 01/02/18 Levothyroxine [Synthroid] 274 mcg PO MOTH 01/02/18 Apremilast [Otezla] 30 mg PO BID 02/19/18 Aspirin [Aspir-Low] 81 mg PO DAILY 02/19/18 Cholecalciferol (Vitamin D3) 5,000 unit PO DAILY 02/19/18 [Vitamin D3] Ciclopirox 1 applic TOPICAL DAILY 02/19/18 Cyanocobalamin [Vitamin B12] 1,000 mcg IM Q30D 02/19/18 Dextran 70/He-Cell [Tears 1 drop EACH EYE Q1H PRN PRN 02/19/18 Naturale, Artificial Tears] Metoprolol Succinate 25 mg PO DAILY 02/19/18 Oxygen, Home [Home Oxygen] 2 lpm NASAL DAILY PRN 02/19/18 Zinc Sulfate (50mg elemental) 220 mg PO DAILY 02/19/18 [Zinc Sulfate] hydrOXYzine pamoate capsule 50 mg PO TID PRN PRN #30 cap 07/22/18 [Vistaril pamoate capsule] Amlodipine [Norvasc] 5 mg PO DAILY 08/17/18 Codeine 30 mg PO PRN PRN 08/17/18 Levalbuterol HCl [Xopenex] 3 ml INHALATION Q4H PRN PRN 08/17/18 Omeprazole 40 mg PO DAILY 08/17/18 Cephalexin [Keflex] 500 mg PO Q8 08/20/18 Surgical History: appendectomy, coronary bypass surgery, total hip arthroplasty, tonsillectomy, - - multiple abdominal surgeries with removal of entire colon, placement of abdominal wall mesh, ileostomy, surgery for bowel abscess, lumbar back surgery, right shoulder surgery, foot surgery, cervical neck surgery, prostate surgery Psychiatric History: Depression, - - Personality disorder Lives: Spouse/ Significant Other Smoking Status: Former smoker Tobacco Use: Non-smoker Alcohol: None Drugs: None - *Family History Maternal History Items: Hypertension Paternal History Items: Heart Disease Sibling History Items: Diabetes Review of Systems Constitutional: Denies: Chills, Fever, Weight Change HEENT: Denies: Head Aches, Sinus Congestion, Sinus Drainage Cardiovascular: Denies: Chest Pain, Palpitations Respiratory: Denies: Cough, Shortness of breath at rest, Sputum production Gastrointestinal: Denies: Abdominal Pain, Nausea, Vomiting Genitourinary: Denies: Dysuria Musculoskeletal: Denies: Joint Pain, Joint Tenderness Skin: Denies: Rash, Wounds Neurological: Denies: Numbness, Tingling, Focal weakness Psychiatric: Denies: Anxiety, Depression, Homicidal Ideations, Suicidal Ideations Hematologic/ Lymphatic: Denies: Easy Bruising, Easy Bleeding VTE Information - Inpt Only VTE Present on Admission: No VTE Mechan Device Prophylaxis: Knee High MEGHA Hose VTE Pharm Prophylaxis ordered?: No Reason prophylaxis not ordered:: Medical Contraindication Patient Problems: Active and Suspected Problems Cellulitis of leg (Acute) Fever (Acute) - Physical Exam General: Alert, Oriented x3, Cooperative HEENT: Atraumatic, PERRLA, EOMI, Normocephalic Neck: Supple, No JVD, Negative Carotid Bruits Lungs: Clear to auscultation, Normal air movement Cardiovascular: Regular rate, No murmurs Abdomen: Bowel Sounds Present, Soft, Non Tender Extremities: No edema, Capillary Refill Less than 3 Seconds, Tenderness - Left lower extremity. Skin: No rashes, No breakdown Musculoskeletal: No Tenderness to Palpation of Joints or Extremities Neurological: Cranial nerves II-XII grossly intact Psych/Mental Status: Normal Affect, Appropriate Vital Signs Temp Pulse Resp BP Pulse Ox 98.8 F 97 16 155/80 H 99 08/20/18 15:24 08/20/18 15:24 08/20/18 15:24 08/20/18 15:24 08/20/18 15:24 Oxygen Delivery Method Room Air Weight: 78.9 kg Body Mass Index (BMI) 28.0 Finger Stick Blood Glucose 203 Intake and Output for Last 24 Hours 08/18/18 08/19/18 08/20/18 23:59 23:59 23:59 Output Total 100 / 100 Balance -100 / -100 Assessment/Plan All Active Problems Cellulitis of leg (Acute) Fever (Acute) Cellulitis (Acute) Superficial thrombophlebitis of left upper extremity (Resolved) Unstable angina (Resolved) DVT of upper extremity (deep vein thrombosis) (Ruled-out) Hyperkalemia (Resolved) Small Bowel Enterocut Fistula (Resolved) 72 year old male with below past medical history hospitalized for left lower extremity cellulitis, admitted to TCU with debility, here for rehabilitation, strengthening, prior to discharge home with spouse. Debility - PT/OT. Pain - Fioricet 1 tablet BID PRN headache, Elavil 25MG QHS, Codeine 30MG QOD PRN headache, Dilaudid 4MG daily PRN breakthrough pain, MS Contin 30MG Q8H. Bowel - Miralax 17GM twice daily, Senna/colace 2 tablets BID, Dulcolax 10MG PO daily. Pneumonia vaccination - Administer Prevnar 13 and/or Pneumovax 23 as necessary. DVT prophylaxis - Resident allergic to Eliquis, Heparin. Shortness of breath - Albuterol 2.5MG Q4H PRN. Gout - Allopurinol 200MG daily. Atrial Flutter - Metoprolol XL 25MG daily, Amiodarone 200MG daily, unable to anticoagulate. Hypertension - Metoprolol XL 25MG daily, Amlodipine 5MG daily. Rheumatoid Arthritis - Otezla 30MG BID. Coronary Artery Disease - Metoprolol XL 25MG daily, Baby aspirin 81MG daily. Parkinson's Disease - Sinemet 25/100MG 1 tablet QACHS, Comtan 200MG QACHS, Mirapex 1MG QHS. Left lower extremity cellulitis - Keflex 500MG Q8H thru 08/25/2018. Vitamin D deficiency - D3 5000IU daily. Tinea Corporis - Ciclopirox topical daily. Vitamin B12 deficiency - B12 1000MCG IM Q30 days. Pruritus - Benadryl 25MG Q4H PRN, Hydroxyzine 50MG TID PRN. Edema - Lasix 20MG daily. Nutrition - Glucerna 120MG TID. Hypothyroidism - Levothyroxine 274MCG 2 days/week, 137MCG 5 days/week. Skin irritation - Calmoseptine BID. GERD - Pantoprazole 40MG daily. Dry eye - Artificial Tears 1gtt OU Q1H PRN. Nausea - Phenergan 25MG Q4H PRN. Hypogonadism - Testosterone 200MG IM Q14 days. Depression - Viibryd 40MG daily. Zinc deficiency - Zinc 220MG daily. Polypharmacy - recommend working with primary care provider to taper or stop as many medications as possible.
--- NOTE | 2018-08-20 19:55 | HP.PCM_ITS ---
Problem List (1) Cellulitis of leg Status: Acute (2) Venous stasis dermatitis Status: Chronic (3) Fever Status: Acute (4) Stroke Status: Chronic (5) Coronary artery disease Status: Chronic (6) Hypertension Status: Chronic (7) Hyperlipidemia Status: Chronic (8) Chronic kidney disease Status: Chronic (9) Anemia of chronic disease Status: Chronic (10) Diabetes mellitus Status: Chronic (11) Gout Status: Chronic (12) Chronic pain Status: Chronic (13) Hypogonadism Status: Chronic (14) Depression Status: Chronic (15) GERD (gastroesophageal reflux disease) Status: Chronic (16) Atrial flutter Status: Chronic (17) Hypothyroidism Status: Chronic Qualifiers: (18) Parkinson's disease Status: Chronic (19) Rheumatoid arthritis Status: Chronic Qualifiers: (20) Opiate dependence Status: Chronic History of Present Illness Date of Admission: 08/20/18 Chief Complaint: Here for rehabilitation, strengthening, prior to discharge home with spouse. The patient is a 72 year old Male with below past medical history presented to [facility] Emergency Department 08/17/2018 with cellulitis. Left lower extremity venous stasis dermatitis. Left lower extremity cellulitis. Fever 100. CBCD with left shift, WBC normal, K 5.6, BUN 49, Cr 2.75. Lactic acid normal. Clindamycin IV given. 08/17/2018 Admit to Hospital. Ancef IV for left lower extremity cellulitis. IV fluid bolus. Hold Lasix. 08/18/2018 Blood cultures pending. 08/19/2018 Left lower extremity pain, but he has chronic pain issues. 08/20/2018 Doppler of left lower extremity negative for DVT. Keflex 500MG TID x 5 days for left lower extremity cellulitis. Hyperkalemia resolved. No anticoagulation for atrial flutter due to Eliquis, Heparin allergies. 08/20/2018 Admit to TCU with debility, here for rehabilitation, strengthening, prior to discharge home with spouse. Past Medical History Past Medical History (Chronic Problems): Chronic Problems Venous stasis dermatitis (Chronic) Stroke (Chronic) Coronary artery disease (Chronic) Hypertension (Chronic) Hyperlipidemia (Chronic) Chronic kidney disease (Chronic) Anemia of chronic disease (Chronic) Diabetes mellitus (Chronic) Gout (Chronic) Chronic pain (Chronic) Hypogonadism (Chronic) Depression (Chronic) GERD (gastroesophageal reflux disease) (Chronic) Paroxysmal atrial flutter (Chronic) Thrombocytopenia (Chronic) Anemia of chronic disorder (Chronic) Atrial flutter (Chronic) Benign essential hypertension (Chronic) Chronic diarrhea (Chronic) History of coronary artery bypass graft (Chronic) Diabetes mellitus, type 2 (Chronic) Hypothyroidism (Chronic) Parkinson's disease (Chronic) Rheumatoid arthritis (Chronic) Edema of lower extremity (Chronic) Opiate dependence (Chronic) Personality disorder (Chronic) Chronic obstructive lung disease (Chronic) 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, arteriosclerotic, post-stroke (Chronic) Migraines (Chronic) Peptic ulcer disease (Chronic) CKD (chronic kidney disease) stage 3, GFR 30-59 ml/min (Chronic) Esophagitis (Chronic) Ankylosing spondylitis (Chronic) Psoriatic arthritis (Chronic) Allergies amoxicillin trihydrate [From Augmentin] Allergy (Verified 08/17/18 23:43) Rash bisacodyl [From Dulcolax (bisacodyl)] Allergy (Verified 08/17/18 23:43) Anaphylaxis iodine Allergy (Verified 08/17/18 23:43) Rash piperacillin sodium [From Zosyn] Allergy (Verified 08/17/18 23:43) Rash potassium clavulanate [From Augmentin] Allergy (Verified 08/17/18 23:43) Rash tazobactam sodium [From Zosyn] Allergy (Verified 08/17/18 23:43) Rash apixaban [From Eliquis] Adverse Reaction (Verified 08/17/18 23:43) Other azithromycin Adverse Reaction (Verified 08/17/18 23:43) Diarrhea bupropion Adverse Reaction (Verified 08/17/18 23:43) Unknown ciprofloxacin [From Cipro] Adverse Reaction (Verified 08/17/18 23:43) Other ciprofloxacin HCl [From Cipro] Adverse Reaction (Verified 07/22/18 09:28) Other diazepam [From Valium] Adverse Reaction (Verified 08/17/18 23:43) Other hallucinations duloxetine Adverse Reaction (Verified 08/17/18 23:43) Unknown gabapentin Adverse Reaction (Verified 08/17/18 23:43) Other heparin Adverse Reaction (Verified 08/17/18 23:43) Unknown Iodinated Contrast- Oral and IV Dye [CONTRASTS] Adverse Reaction (Verified 08/17/18 23:43) Rash nitroglycerin Adverse Reaction (Verified 08/17/18 23:43) Other headaches and extreme hyperactivity paroxetine Adverse Reaction (Verified 08/17/18 23:43) Unknown tetracycline [Tetracycline] Adverse Reaction (Verified 08/17/18 23:43) Vomiting plastics Adverse Reaction (Uncoded 08/17/18 23:43) Rash Home Medications: Ambulatory Orders Medication Instructions Recorded Acetaminophen/Butalbital/Caffe 1 tablet PO BID PRN 06/06/17 [Fioricet] Allopurinol 200 mg PO DAILY 06/06/17 Amiodarone HCl [Pacerone] 200 mg PO DAILY 06/06/17 Diphenhydramine HCl [Benadryl 25 mg PO PRN PRN 06/06/17 Allergy] Hydromorphone HCl [Dilaudid] 4 mg PO DAILY PRN 06/06/17 Levothyroxine [Synthroid] 137 mcg PO SUTUWEFRSA 06/06/17 Morphine Sulfate [Morphine Sulfate 30 mg PO Q8H 06/06/17 ER] Pramipexole Di-HCl [Mirapex] 1 mg PO QHS 06/06/17 Testosterone Cypionate 200 mg IM Q14D 06/06/17 [Depo-Testosterone] Vilazodone Hydrochloride [Viibryd] 40 mg PO DAILY 06/06/17 proMETHazine tablet [Phenergan 25 mg PO Q4H PRN PRN 06/06/17 tablet] Amitriptyline HCl 25 mg PO QHS 12/11/17 Entacapone [Comtan] 200 mg PO 4X/DAY 12/11/17 Carbidopa/Levodopa [Carbidopa-Levo 1 tab PO 4X/DAY 01/02/18 25-100 mg Odt] Furosemide [Lasix] 20 mg PO DAILY 01/02/18 Levothyroxine [Synthroid] 274 mcg PO MOTH 01/02/18 Apremilast [Otezla] 30 mg PO BID 02/19/18 Aspirin [Aspir-Low] 81 mg PO DAILY 02/19/18 Cholecalciferol (Vitamin D3) 5,000 unit PO DAILY 02/19/18 [Vitamin D3] Ciclopirox 1 applic TOPICAL DAILY 02/19/18 Cyanocobalamin [Vitamin B12] 1,000 mcg IM Q30D 02/19/18 Dextran 70/He-Cell [Tears 1 drop EACH EYE Q1H PRN PRN 02/19/18 Naturale, Artificial Tears] Metoprolol Succinate 25 mg PO DAILY 02/19/18 Oxygen, Home [Home Oxygen] 2 lpm NASAL DAILY PRN 02/19/18 Zinc Sulfate (50mg elemental) 220 mg PO DAILY 02/19/18 [Zinc Sulfate] hydrOXYzine pamoate capsule 50 mg PO TID PRN PRN #30 cap 07/22/18 [Vistaril pamoate capsule] Amlodipine [Norvasc] 5 mg PO DAILY 08/17/18 Codeine 30 mg PO PRN PRN 08/17/18 Levalbuterol HCl [Xopenex] 3 ml INHALATION Q4H PRN PRN 08/17/18 Omeprazole 40 mg PO DAILY 08/17/18 Cephalexin [Keflex] 500 mg PO Q8 08/20/18 Surgical History: appendectomy, coronary bypass surgery, total hip arthroplasty, tonsillectomy, - - multiple abdominal surgeries with removal of entire colon, placement of abdominal wall mesh, ileostomy, surgery for bowel abscess, lumbar back surgery, right shoulder surgery, foot surgery, cervical neck surgery, prostate surgery Psychiatric History: Depression, - - Personality disorder Lives: Spouse/ Significant Other Smoking Status: Former smoker Tobacco Use: Non-smoker Alcohol: None Drugs: None - *Family History Maternal History Items: Hypertension Paternal History Items: Heart Disease Sibling History Items: Diabetes Review of Systems Constitutional: Denies: Chills, Fever, Weight Change HEENT: Denies: Head Aches, Sinus Congestion, Sinus Drainage Cardiovascular: Denies: Chest Pain, Palpitations Respiratory: Denies: Cough, Shortness of breath at rest, Sputum production Gastrointestinal: Denies: Abdominal Pain, Nausea, Vomiting Genitourinary: Denies: Dysuria Musculoskeletal: Denies: Joint Pain, Joint Tenderness Skin: Denies: Rash, Wounds Neurological: Denies: Numbness, Tingling, Focal weakness Psychiatric: Denies: Anxiety, Depression, Homicidal Ideations, Suicidal Ideations Hematologic/ Lymphatic: Denies: Easy Bruising, Easy Bleeding VTE Information - Inpt Only VTE Present on Admission: No VTE Mechan Device Prophylaxis: Knee High MEGHA Hose VTE Pharm Prophylaxis ordered?: No Reason prophylaxis not ordered:: Medical Contraindication Patient Problems: Active and Suspected Problems Cellulitis of leg (Acute) Fever (Acute) - Physical Exam General: Alert, Oriented x3, Cooperative HEENT: Atraumatic, PERRLA, EOMI, Normocephalic Neck: Supple, No JVD, Negative Carotid Bruits Lungs: Clear to auscultation, Normal air movement Cardiovascular: Regular rate, No murmurs Abdomen: Bowel Sounds Present, Soft, Non Tender Extremities: No edema, Capillary Refill Less than 3 Seconds, Tenderness - Left lower extremity. Skin: No rashes, No breakdown Musculoskeletal: No Tenderness to Palpation of Joints or Extremities Neurological: Cranial nerves II-XII grossly intact Psych/Mental Status: Normal Affect, Appropriate Vital Signs Temp Pulse Resp BP Pulse Ox 98.8 F 97 16 155/80 H 99 08/20/18 15:24 08/20/18 15:24 08/20/18 15:24 08/20/18 15:24 08/20/18 15:24 Oxygen Delivery Method Room Air Weight: 78.9 kg Body Mass Index (BMI) 28.0 Finger Stick Blood Glucose 203 Intake and Output for Last 24 Hours 08/18/18 08/19/18 08/20/18 23:59 23:59 23:59 Output Total 100 / 100 Balance -100 / -100 Assessment/Plan All Active Problems Cellulitis of leg (Acute) Fever (Acute) Cellulitis (Acute) Superficial thrombophlebitis of left upper extremity (Resolved) Unstable angina (Resolved) DVT of upper extremity (deep vein thrombosis) (Ruled-out) Hyperkalemia (Resolved) Small Bowel Enterocut Fistula (Resolved) 72 year old male with below past medical history hospitalized for left lower extremity cellulitis, admitted to TCU with debility, here for rehabilitation, strengthening, prior to discharge home with spouse. * Debility - PT/OT. * Pain - Fioricet 1 tablet BID PRN headache, Elavil 25MG QHS, Codeine 30MG QOD PRN headache, Dilaudid 4MG daily PRN breakthrough pain, MS Contin 30MG Q8H. * Bowel - Miralax 17GM twice daily, Senna/colace 2 tablets BID, Dulcolax 10MG PO daily. * Pneumonia vaccination - Administer Prevnar 13 and/or Pneumovax 23 as necessary. * DVT prophylaxis - Resident allergic to Eliquis, Heparin. * Shortness of breath - Albuterol 2.5MG Q4H PRN. * Gout - Allopurinol 200MG daily. * Atrial Flutter - Metoprolol XL 25MG daily, Amiodarone 200MG daily, unable to anticoagulate. * Hypertension - Metoprolol XL 25MG daily, Amlodipine 5MG daily. * Rheumatoid Arthritis - Otezla 30MG BID. * Coronary Artery Disease - Metoprolol XL 25MG daily, Baby aspirin 81MG daily. * Parkinson's Disease - Sinemet 25/100MG 1 tablet QACHS, Comtan 200MG QACHS, Mirapex 1MG QHS. * Left lower extremity cellulitis - Keflex 500MG Q8H thru 08/25/2018. * Vitamin D deficiency - D3 5000IU daily. * Tinea Corporis - Ciclopirox topical daily. * Vitamin B12 deficiency - B12 1000MCG IM Q30 days. * Pruritus - Benadryl 25MG Q4H PRN, Hydroxyzine 50MG TID PRN. * Edema - Lasix 20MG daily. * Nutrition - Glucerna 120MG TID. * Hypothyroidism - Levothyroxine 274MCG 2 days/week, 137MCG 5 days/week. * Skin irritation - Calmoseptine BID. * GERD - Pantoprazole 40MG daily. * Dry eye - Artificial Tears 1gtt OU Q1H PRN. * Nausea - Phenergan 25MG Q4H PRN. * Hypogonadism - Testosterone 200MG IM Q14 days. * Depression - Viibryd 40MG daily. * Zinc deficiency - Zinc 220MG daily. * Polypharmacy - recommend working with primary care provider to taper or stop as many medications as possible.
[2018-08-20] MEDS: Carbidopa/Levodopa 25/100 Tablet PO (21:01)
[2018-08-20] MEDS: Cephalexin 500 MG Capsule PO (21:01)
[2018-08-20] MEDS: Amitriptyline 25 MG Tablet PO (21:01)
[2018-08-20] MEDS: Pramipexole Di-HCl 1 MG Tablet PO (21:01)
[2018-08-20] MEDS: Menthol/Lanolin/Calamine/Znox 113 GM Tube 1 APPLIC TOPICAL (21:05)
[2018-08-21] MEDS: Allopurinol 100 MG Tablet 200 MG PO (05:42)
[2018-08-21] MEDS: Cyanocobalamin (B12) 1,000 MCG/ML Vial 1000 MCG IM (05:42)
[2018-08-21] MEDS: amLODIPine 5 MG Tablet PO (05:43)
[2018-08-21] MEDS: Pantoprazole Sodium 40 MG Tablet PO (05:43)
[2018-08-21] MEDS: Levothyroxine 137 MCG Tablet PO (05:43)
[2018-08-21] MEDS: VILAZODONE HYDROCHLORIDE 40 MG TABLET PO (05:43)
[2018-08-21] MEDS: Amiodarone 200 MG Tablet PO (05:43)
[2018-08-21] MEDS: Furosemide 20 MG Tablet PO (05:43)
[2018-08-21] MEDS: Carbidopa/Levodopa 25/100 Tablet PO ×4 (05:43→20:58)
[2018-08-21] MEDS: Cephalexin 500 MG Capsule PO ×3 (05:43→20:58)
[2018-08-21 05:44] VITALS: BP 145/71; PULSE 81
[2018-08-21] MEDS: Polyethylene Glycol 3350 17 GM PACKET PO (05:44)
[2018-08-21] MEDS: Senna/Docusate Sodium 1 Tablet 2 TABLET PO (05:44)
[2018-08-21] MEDS: Metoprolol(XL)Succ 25 MG Tablet PO (05:44)
[2018-08-21] MEDS: Bisacodyl 5 MG Tablet 10 MG PO (05:48)
[2018-08-21] MEDS: Menthol/Lanolin/Calamine/Znox 113 GM Tube 1 APPLIC TOPICAL ×2 (05:55→17:25)
[2018-08-21 06:15] LABS: Hemoglobin 10.6 g/dl (13.0-16.5); Mean Corp Hgb Conc 30.3 g/gl (32-36); Mean Corpuscular Hgb 29.8 pg (27.0-32.0); Mean Corpuscular Volume 98.3 fL (80-94); Mean Platelet Vol. 9.3 fl (6.2-12.0); Platelet Count 105 K/mm3 (150-450); RBC Distribution Width CV 15.9 % (11.6-14.6); RBC Distribution Width SD 55.9 fl (35.1-43.9); Red Blood Count 3.56 M/mm3 (4.6-6.2); White Blood Count 4.8 K/mm3 (4.4-11.0)
[2018-08-21 06:16] LABS: Differential Indicated MANUAL DIFF; POSITIVE COUNT YES; POSITIVE DIFFERENTIAL NO; POSITIVE MORPHOLOGY YES
[2018-08-21 06:26] LABS: Anion Gap 6 (5-15); BUN 28 mg/dL (7-18); BUN/Creat Ratio 13.7 RATIO (10-20); Calcium,Total 8.4 mg/dL (8.5-10.1); Chloride 119 mmol/L (98-107); Creatinine, Serum 2.05 mg/dL (0.70-1.30); EST Glomerular Filtration Rate 34 mL/min (>60); Est Glom Filt Rate - Afr Amer 41 mL/min (>60); Estimated Creatinine Clearance 30.26 ml/min; Glucose 98 mg/dL (74-106); Potassium 4.8 mmol/L (3.5-5.1); Sodium Level 147 mmol/L (136-145)
[2018-08-21 06:46] LABS: Absolute Lymphocyte Count 0.82 X10^3/ul (0.83-4.51); Eosinophil 4 % (0-5); Lymphocyte 17 % (19-41); Lymphocyte # 0.82 X10^3/ul (4.0); Metamyelocyte 2 % (0-1); Monocyte 3 % (0-10); Neutrophil-Segmented 74 % (47-70); Platelet Estimate ADEQUATE (ADEQ); Red Cell Morphology NORM C+C NORMAL (NORM C&C); Total Cells Counted 100 (MANUAL DIFF)
[2018-08-21 06:47] LABS: Absolute Neutrophil Count 3.6 X10^3/uL (2.0-7.7); Neutrophil # 3.55 X10^3/uL (2.7-7.7)
[2018-08-21 10:00] VITALS: PULSE 72; RESP 18; O2SAT 97
[2018-08-21] MEDS: Tuberculin,Purif.prot.deriv. 50 TU/ML Vial 5 ML ID (10:59)
[2018-08-21] MEDS: HYDROmorphone 2 MG TABLET 4 MG PO (11:37)
[2018-08-21 13:34] LABS: Pathologist Review Reviewed
--- NOTE | 2018-08-21 13:37 | NURSING ---
pt colostomy changed x2 d/t leaking around flange. found one of his colostomy bags in personal belongings, applied as per pt request. Notified bryon, wound nurse regarding consult d/t leaking and her recommendations since we do not carry his type of concave colostomy bag.
[2018-08-21 16:00] VITALS: BP 110/55; PULSE 66; RESP 16; TEMP 36.9; O2SAT 98
[2018-08-21] MEDS: Amitriptyline 25 MG Tablet PO (20:58)
[2018-08-21] MEDS: Pramipexole Di-HCl 1 MG Tablet PO (20:58)
[2018-08-22 05:04] VITALS: BP 142/66; PULSE 74
[2018-08-22] MEDS: Cephalexin 500 MG Capsule PO ×3 (05:04→21:11)
[2018-08-22] MEDS: VILAZODONE HYDROCHLORIDE 40 MG TABLET PO (05:04)
[2018-08-22] MEDS: Amiodarone 200 MG Tablet PO (05:04)
[2018-08-22] MEDS: amLODIPine 5 MG Tablet PO (05:04)
[2018-08-22] MEDS: Pantoprazole Sodium 40 MG Tablet PO (05:04)
[2018-08-22] MEDS: Levothyroxine 137 MCG Tablet PO (05:04)
[2018-08-22] MEDS: Bisacodyl 5 MG Tablet 10 MG PO (05:04)
[2018-08-22] MEDS: Furosemide 20 MG Tablet PO (05:04)
[2018-08-22] MEDS: Metoprolol(XL)Succ 25 MG Tablet PO (05:04)
[2018-08-22] MEDS: Nystatin Powder 15gm Bottle 1 APPLIC TOPICAL ×2 (05:06→21:12)
[2018-08-22] MEDS: Allopurinol 100 MG Tablet 200 MG PO (05:06)
[2018-08-22] MEDS: Menthol/Lanolin/Calamine/Znox 113 GM Tube 1 APPLIC TOPICAL ×2 (05:07→16:41)
[2018-08-22] MEDS: Carbidopa/Levodopa 25/100 Tablet PO ×4 (06:04→21:12)
--- NOTE | 2018-08-22 09:48 | NURSING ---
pt refused scheduled aspirin this AM. States he is having a surgery this week to have his throat stretched. Staff unaware of surgery at this time. Pt also states if he is still here, he will have to reschedule his surgery and will begin to take aspirin again in AM. No D/C date set as pt admitted to unit on 08/20/18.
--- NOTE | 2018-08-22 14:42 | CON.PCM_ITS ---
Problem List (1) Cellulitis of leg Status: Acute Reason for Consult: cellulitis Consulted by: Dr. Hills History of Present Illness: The patient is a 72 year old M who presented originally 08/17 to [place] with several days of LLE pain, redness, swelling. pain was stabbing, severe. No known inciting events. Denies any purulent drainage. Had some chills. No n/v. Doppler was neg, started on cefazolin with improvement, transferred to TCU on keflex. C/o leg still with redness, swelling, pain. Full ROS performed and neg except as noted above. - Medical History Past Medical History (Chronic Problems): Chronic Problems Venous stasis dermatitis (Chronic) Stroke (Chronic) Coronary artery disease (Chronic) Hypertension (Chronic) Hyperlipidemia (Chronic) Chronic kidney disease (Chronic) Anemia of chronic disease (Chronic) Diabetes mellitus (Chronic) Gout (Chronic) Chronic pain (Chronic) Hypogonadism (Chronic) Depression (Chronic) GERD (gastroesophageal reflux disease) (Chronic) Paroxysmal atrial flutter (Chronic) Thrombocytopenia (Chronic) Anemia of chronic disorder (Chronic) Atrial flutter (Chronic) Benign essential hypertension (Chronic) Chronic diarrhea (Chronic) History of coronary artery bypass graft (Chronic) Diabetes mellitus, type 2 (Chronic) Hypothyroidism (Chronic) Parkinson's disease (Chronic) Rheumatoid arthritis (Chronic) Edema of lower extremity (Chronic) Opiate dependence (Chronic) Personality disorder (Chronic) Chronic obstructive lung disease (Chronic) 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, arteriosclerotic, post-stroke (Chronic) Migraines (Chronic) Peptic ulcer disease (Chronic) CKD (chronic kidney disease) stage 3, GFR 30-59 ml/min (Chronic) Esophagitis (Chronic) Ankylosing spondylitis (Chronic) Psoriatic arthritis (Chronic) Allergies/Adverse Reactions: Allergies amoxicillin trihydrate [From Augmentin] Allergy (Verified 08/17/18 23:43) Rash bisacodyl [From Dulcolax (bisacodyl)] Allergy (Verified 08/17/18 23:43) Anaphylaxis iodine Allergy (Verified 08/17/18 23:43) Rash piperacillin sodium [From Zosyn] Allergy (Verified 08/17/18 23:43) Rash potassium clavulanate [From Augmentin] Allergy (Verified 08/17/18 23:43) Rash tazobactam sodium [From Zosyn] Allergy (Verified 08/17/18 23:43) Rash apixaban [From Eliquis] Adverse Reaction (Verified 08/17/18 23:43) Other azithromycin Adverse Reaction (Verified 08/17/18 23:43) Diarrhea bupropion Adverse Reaction (Verified 08/17/18 23:43) Unknown ciprofloxacin [From Cipro] Adverse Reaction (Verified 08/17/18 23:43) Other ciprofloxacin HCl [From Cipro] Adverse Reaction (Verified 07/22/18 09:28) Other diazepam [From Valium] Adverse Reaction (Verified 08/17/18 23:43) Other hallucinations duloxetine Adverse Reaction (Verified 08/17/18 23:43) Unknown gabapentin Adverse Reaction (Verified 08/17/18 23:43) Other heparin Adverse Reaction (Verified 08/17/18 23:43) Unknown Iodinated Contrast- Oral and IV Dye [CONTRASTS] Adverse Reaction (Verified 08/17/18 23:43) Rash nitroglycerin Adverse Reaction (Verified 08/17/18 23:43) Other headaches and extreme hyperactivity paroxetine Adverse Reaction (Verified 08/17/18 23:43) Unknown tetracycline [Tetracycline] Adverse Reaction (Verified 08/17/18 23:43) Vomiting plastics Adverse Reaction (Uncoded 08/17/18 23:43) Rash Home Medications: Ambulatory Orders Medication Instructions Recorded Acetaminophen/Butalbital/Caffe 1 tablet PO BID PRN 06/06/17 [Fioricet] Allopurinol 200 mg PO DAILY 06/06/17 Amiodarone HCl [Pacerone] 200 mg PO DAILY 06/06/17 Diphenhydramine HCl [Benadryl 25 mg PO PRN PRN 06/06/17 Allergy] Hydromorphone HCl [Dilaudid] 4 mg PO DAILY PRN 06/06/17 Levothyroxine [Synthroid] 137 mcg PO SUTUWEFRSA 06/06/17 Morphine Sulfate [Morphine Sulfate 30 mg PO Q8H 06/06/17 ER] Pramipexole Di-HCl [Mirapex] 1 mg PO QHS 06/06/17 Testosterone Cypionate 200 mg IM Q14D 06/06/17 [Depo-Testosterone] Vilazodone Hydrochloride [Viibryd] 40 mg PO DAILY 06/06/17 proMETHazine tablet [Phenergan 25 mg PO Q4H PRN PRN 06/06/17 tablet] Amitriptyline HCl 25 mg PO QHS 12/11/17 Entacapone [Comtan] 200 mg PO 4X/DAY 12/11/17 Carbidopa/Levodopa [Carbidopa-Levo 1 tab PO 4X/DAY 01/02/18 25-100 mg Odt] Furosemide [Lasix] 20 mg PO DAILY 01/02/18 Levothyroxine [Synthroid] 274 mcg PO MOTH 01/02/18 Apremilast [Otezla] 30 mg PO BID 02/19/18 Aspirin [Aspir-Low] 81 mg PO DAILY 02/19/18 Cholecalciferol (Vitamin D3) 5,000 unit PO DAILY 02/19/18 [Vitamin D3] Ciclopirox 1 applic TOPICAL DAILY 02/19/18 Cyanocobalamin [Vitamin B12] 1,000 mcg IM Q30D 02/19/18 Dextran 70/He-Cell [Tears 1 drop EACH EYE Q1H PRN PRN 02/19/18 Naturale, Artificial Tears] Metoprolol Succinate 25 mg PO DAILY 02/19/18 Oxygen, Home [Home Oxygen] 2 lpm NASAL DAILY PRN 02/19/18 Zinc Sulfate (50mg elemental) 220 mg PO DAILY 02/19/18 [Zinc Sulfate] hydrOXYzine pamoate capsule 50 mg PO TID PRN PRN #30 cap 07/22/18 [Vistaril pamoate capsule] Amlodipine [Norvasc] 5 mg PO DAILY 08/17/18 Codeine 30 mg PO PRN PRN 08/17/18 Levalbuterol HCl [Xopenex] 3 ml INHALATION Q4H PRN PRN 08/17/18 Omeprazole 40 mg PO DAILY 08/17/18 Cephalexin [Keflex] 500 mg PO Q8 08/20/18 - Social History SMOKING STATUS:: Former smoker Vital Signs Temp Pulse Resp BP Pulse Ox 98.4 F 74 16 142/66 H 98 08/21/18 16:00 08/22/18 05:04 08/21/18 16:00 08/22/18 05:04 08/21/18 16:00 Oxygen Flow Rate (L/min) 2 Oxygen Delivery Method Nasal Cannula Weight: 79.01 kg Body Mass Index (BMI) 28.0 Finger Stick Blood Glucose 203 - Other Studies Radiology: [] reviewed Other Studies: [] Route of nutrition/ use of supplements: [] Nutritional Intake: [] IV Site: [] Saravia Catheter: [] - Physical Exam General: Alert, Cooperative, No apparent distress HEENT: Atraumatic, PERRLA, EOMI Neck: Supple, No Nodes Lungs: Clear to auscultation, Normal air movement Cardiovascular: Regular rate, Regular Rhythm Abdomen: Soft, Non Tender, Non-Distended, - - ostomy in place Extremities: Edema Skin: - - LLE with redness, swelling, soreness. Musculoskeletal: No Tenderness to Palpation of Joints or Extremities Neurological: Cranial nerves II-XII grossly intact - Assessment/Plan Antibiotics: [] Assessment/Plan: [] Active and Suspected Problems Cellulitis of leg (Acute) Fever (Acute) LLE cellulitis with prior surgery to that leg - discussed typical course with cellulitis, will take time for inflammation to resolve. Wrapping it should help, and will continue keflex as planned. Thank you, will follow, d/w family preservation caseworker and with Dr. Sullivan who took care of him in [facility].
[2018-08-22 16:00] VITALS: BP 128/59; PULSE 65; RESP 20; TEMP 36.8; O2SAT 96
[2018-08-22] MEDS: Amitriptyline 25 MG Tablet PO (21:12)
[2018-08-22] MEDS: Pramipexole Di-HCl 1 MG Tablet PO (21:12)
[2018-08-23] MEDS: Bisacodyl 5 MG Tablet 10 MG PO (06:49)
[2018-08-23 06:50] VITALS: BP 119/65; PULSE 63
[2018-08-23] MEDS: VILAZODONE HYDROCHLORIDE 40 MG TABLET PO (06:50)
[2018-08-23] MEDS: Metoprolol(XL)Succ 25 MG Tablet PO (06:50)
[2018-08-23] MEDS: Levothyroxine 137 MCG Tablet 274 MCG PO (06:50)
[2018-08-23] MEDS: Carbidopa/Levodopa 25/100 Tablet PO ×4 (06:50→20:49)
[2018-08-23] MEDS: Pantoprazole Sodium 40 MG Tablet PO (06:50)
[2018-08-23] MEDS: amLODIPine 5 MG Tablet PO (06:51)
[2018-08-23] MEDS: Amiodarone 200 MG Tablet PO (06:51)
[2018-08-23] MEDS: Furosemide 20 MG Tablet PO (06:51)
[2018-08-23] MEDS: Cephalexin 500 MG Capsule PO ×3 (06:51→20:47)
[2018-08-23] MEDS: Menthol/Lanolin/Calamine/Znox 113 GM Tube 1 APPLIC TOPICAL ×2 (06:59→17:03)
[2018-08-23] MEDS: Nystatin Powder 15gm Bottle 1 APPLIC TOPICAL ×2 (07:00→20:50)
[2018-08-23] MEDS: Allopurinol 100 MG Tablet 200 MG PO (08:48)
--- NOTE | 2018-08-23 10:48 | PCM.PN.ID ---
Patient Problems: Active and Suspected Problems Cellulitis of leg (Acute) Fever (Acute) Subjective: C/o ongoing swelling and discomfort in leg. no fever, no n/v/d. - Physical Exam General: Alert, Cooperative, No apparent distress Lungs: Clear to auscultation, Normal air movement Cardiovascular: Regular rate, Regular Rhythm Abdomen: Soft, Non Tender, Non-Distended Extremities: Edema Skin: Rash Present - L suarez with mild soreness, some swelling and redness. No warmth or drainage. Vital Signs Temp Pulse Resp BP Pulse Ox 98.2 F 63 20 H 119/65 96 08/22/18 16:00 08/23/18 06:50 08/22/18 16:00 08/23/18 06:50 08/22/18 16:00 Oxygen Flow Rate (L/min) 2 Oxygen Delivery Method Room Air Weight: 79.01 kg Body Mass Index (BMI) 28.0 Finger Stick Blood Glucose 203 Intake and Output for Last 24 Hours 08/21/18 08/22/18 08/23/18 23:59 23:59 23:59 Intake Total 660 / 660 540 / 540 480 / 480 Output Total 725 / 725 1000 / 1000 600 / 600 Balance -65 / -65 -460 / -460 -120 / -120 Medical Necessity - Tobacco Use Smoking Status: Former smoker Tobacco Use: Non-smoker Route of nutrition/ use of supplements: [] Nutritional Intake: [] IV Site: [] Saravia Catheter: [] - Assessment/Plan Antibiotics: [] Assessment/Plan: [] Active and Suspected Problems Cellulitis of leg (Acute) Fever (Acute) LLE cellulitis with prior surgery to that leg - discussed typical course with cellulitis, will take time for inflammation to resolve. Wrapping it should help as it seems like most of his sx are related to edema, and will continue keflex as planned. will follow
[2018-08-23 10:50] VITALS: PULSE 64; RESP 18; O2SAT 96
--- NOTE | 2018-08-23 12:07 | NURSING ---
ostomy appliance intact when assessed this am. there was a moderate amount of flatus noted in appliance. patient cares for appliance. was changed on 08/21/18. had put some extra appliances in patient's closet if needed through the weekend.
--- NOTE | 2018-08-23 12:11 | PCM.PN.RX ---
<Sander Ortega Romulo - Last Filed: 08/23/18 12:11> Progress Note - Pharmacy Subjective: [facility] Admission Objective: Allergies amoxicillin trihydrate [From Augmentin] Allergy (Verified 08/17/18 23:43) Rash bisacodyl [From Dulcolax (bisacodyl)] Allergy (Verified 08/17/18 23:43) Anaphylaxis iodine Allergy (Verified 08/17/18 23:43) Rash piperacillin sodium [From Zosyn] Allergy (Verified 08/17/18 23:43) Rash potassium clavulanate [From Augmentin] Allergy (Verified 08/17/18 23:43) Rash tazobactam sodium [From Zosyn] Allergy (Verified 08/17/18 23:43) Rash apixaban [From Eliquis] Adverse Reaction (Verified 08/17/18 23:43) Other azithromycin Adverse Reaction (Verified 08/17/18 23:43) Diarrhea bupropion Adverse Reaction (Verified 08/17/18 23:43) Unknown ciprofloxacin [From Cipro] Adverse Reaction (Verified 08/17/18 23:43) Other ciprofloxacin HCl [From Cipro] Adverse Reaction (Verified 07/22/18 09:28) Other diazepam [From Valium] Adverse Reaction (Verified 08/17/18 23:43) Other hallucinations duloxetine Adverse Reaction (Verified 08/17/18 23:43) Unknown gabapentin Adverse Reaction (Verified 08/17/18 23:43) Other heparin Adverse Reaction (Verified 08/17/18 23:43) Unknown Iodinated Contrast- Oral and IV Dye [CONTRASTS] Adverse Reaction (Verified 08/17/18 23:43) Rash nitroglycerin Adverse Reaction (Verified 08/17/18 23:43) Other headaches and extreme hyperactivity paroxetine Adverse Reaction (Verified 08/17/18 23:43) Unknown tetracycline [Tetracycline] Adverse Reaction (Verified 08/17/18 23:43) Vomiting plastics Adverse Reaction (Uncoded 08/17/18 23:43) Rash Current Medications Generic Name Dose Route Start Last Admin Trade Name Freq PRN Reason Stop Dose Admin Acetaminophen/Butalbital/Caffeine 1 tablet 08/20/18 16:48 Fioricet PO BID PRN HEADACHE Albuterol Sulfate 2.5 mg 08/20/18 16:48 Ventolin Aerosols INHALATION Q4H PRN PRN CHRONIC BRONCHITIS Allopurinol 200 mg 10/04/18 08:00 08/23/18 08:48 Zyloprim PO 200 mg DAILY@0800 [facility] Administration Amiodarone HCl 200 mg 08/21/18 06:00 08/23/18 06:51 Cordarone PO 200 mg DAILY [facility] Administration Amitriptyline HCl 25 mg 08/20/18 22:00 08/22/18 21:12 Elavil PO 25 mg QHS [facility] Administration Amlodipine Besylate 5 mg 08/21/18 06:00 08/23/18 06:51 Norvasc PO 5 mg DAILY [facility] Administration Bisacodyl 10 mg 08/21/18 06:00 08/23/18 06:49 Dulcolax PO 10 mg DAILY [facility] Administration Calamine/Phenol 1 applic 08/20/18 18:00 08/23/18 06:59 Calmoseptine Ointment TOPICAL 1 applicatio BID [facility] Administration Protocol Carbidopa/Levodopa 1 tablet 08/20/18 22:00 08/23/18 11:03 Sinemet PO 1 tablet ACHS [facility] Administration Cephalexin 500 mg 08/20/18 22:00 08/23/18 06:51 Keflex PO 08/25/18 22:01 500 mg Q8 [facility] Administration Cholecalciferol 5,000 unit 08/23/18 08:00 08/23/18 08:48 Vitamin D PO 5,000 unit DAILY@0800 [facility] Administration Codeine Sulfate 30 mg 08/20/18 16:48 Codeine PO QODAY PRN HEADACHE Cyanocobalamin 1,000 mcg 08/21/18 06:00 08/21/18 05:42 Vitamin B12 IM 1,000 mcg Q30D [facility] Administration Diphenhydramine HCl 25 mg 08/20/18 16:48 Benadryl PO Q4H PRN PRN ITCHING Entacapone 200 mg 08/20/18 22:00 08/23/18 11:03 Comtan PO 200 mg ACHS [facility] Administration Furosemide 20 mg 08/21/18 06:00 08/23/18 06:51 Lasix PO 20 mg DAILY [facility] Administration Hydromorphone HCl 4 mg 08/20/18 16:48 08/21/18 11:37 Dilaudid Tablet PO 4 mg DAILY PRN Administration BREAKTHROUGH PAIN (>4/10) Hydroxyzine Pamoate 50 mg 08/20/18 16:48 Vistaril Pamoate Capsule PO TID PRN PRN ANXIETY Levothyroxine Sodium 274 mcg 08/23/18 06:00 08/23/18 06:50 Synthroid PO 274 mcg MoTh@0600 [facility] Administration Levothyroxine Sodium 137 mcg 08/21/18 06:00 08/22/18 05:04 Synthroid PO 137 mcg [id number] [facility] Administration Metoprolol Succinate 25 mg 08/21/18 06:00 08/23/18 06:50 Toprol Xl (Beta Pb) PO 25 mg DAILY [facility] Administration Morphine Sulfate 30 mg 08/20/18 22:00 08/23/18 06:48 Ms Contin PO 30 mg Q8 [facility] Administration Non-Formulary Medication 2 lpm 08/20/18 16:48 Oxygen, Home [Home Oxygen] NASAL DAILY PRN SHORTNESS OF BREATH Nystatin 1 applic 08/22/18 06:00 08/23/18 07:00 Mycostatin Powder TOPICAL 1 applicatio 0600,2200 [facility] Administration Protocol Pantoprazole Sodium 40 mg 08/21/18 06:00 08/23/18 06:50 Protonix PO 40 mg DAILY [facility] Administration Polyethylene Glycol 17 gm 08/21/18 17:27 Miralax PO BID PRN Constipation Pramipexole Dihydrochloride 1 mg 08/20/18 22:00 08/22/18 21:12 Mirapex PO 1 mg QHS [facility] Administration Promethazine HCl 25 mg 08/20/18 16:48 Phenergan Tablet PO Q4H PRN PRN NAUSEA Senna/Docusate Sodium 2 tablet 08/21/18 17:27 Senokot-S, Alanna-Colace PO BID PRN Constipation Tuberculin PPD 5 tu 08/28/18 10:00 Tubersol, Aplisol, Ppd ID 08/28/18 10:01 X1 ONE Vilazodone HCl 40 mg 08/21/18 06:00 08/23/18 06:50 Viibryd PO 40 mg DAILY [facility] Administration Zinc Sulfate 220 mg 08/23/18 08:00 08/23/18 08:48 Zinc Sulfate PO 220 mg DAILY@0800 [facility] Administration Problem List Cellulitis of leg (Acute) Venous stasis dermatitis (Chronic) Fever (Acute) Stroke (Chronic) Coronary artery disease (Chronic) Hypertension (Chronic) Hyperlipidemia (Chronic) Chronic kidney disease (Chronic) Anemia of chronic disease (Chronic) Diabetes mellitus (Chronic) Gout (Chronic) Chronic pain (Chronic) Hypogonadism (Chronic) Depression (Chronic) GERD (gastroesophageal reflux disease) (Chronic) Vital Signs Temp Pulse Resp BP Pulse Ox 98.2 F 63 20 H 119/65 96 08/22/18 16:00 08/23/18 06:50 08/22/18 16:00 08/23/18 06:50 08/22/18 16:00 Oxygen Flow Rate (L/min) 2 Oxygen Delivery Method Room Air Weight: 79.01 kg Body Mass Index (BMI) 28.0 Finger Stick Blood Glucose 203 Sodium 147 mmol/L (136-145) H 08/21/18 05:25 Potassium 4.8 mmol/L (3.5-5.1) 08/21/18 05:25 Chloride 119 mmol/L (98-107) H 08/21/18 05:25 Carbon Dioxide 22.0 mmol/L (21.0-32.0) 08/21/18 05:25 Anion Gap 6 (5-15) 08/21/18 05:25 BUN 28 mg/dL (7-18) H 08/21/18 05:25 Creatinine 2.05 mg/dL (0.70-1.30) H 08/21/18 05:25 Est GFR (MDRD) Af Amer 41 mL/min (>60) L 08/21/18 05:25 Est GFR (MDRD) Non-Af 34 mL/min (>60) L 08/21/18 05:25 BUN/Creatinine Ratio 13.7 RATIO (10-20) 08/21/18 05:25 Glucose 98 mg/dL (74-106) 08/21/18 05:25 Assessment/Plan: 1) Pain APAP, codeine for headache, morphine SR scheduled, hydromorphone prn, amitriptyline at HS. Continue to monitor prn medication use, daily pain scores. 2) Cellulitis Cephalexin until 08/25. Continue to monitor s/s infection. 3) Gout Allopurinol daily. Continue to monitor s/s gout. 4) AFlutter/HTN Amiodarone, amlodipine, metoprolol XL. Continue to monitor BP/HR. 5) Furosemide Furosemide daily. Continue to monitor swelling, electrolytes. 6) Nutrition D, B12, Zn. Continue to monitor clinically. 7) Hypothyroidism Levothyroxine daily. Continue to monitor s/s hyper/hypoglycemia. 8) GI Pantoprazole daily, promethazine for nausea. Continue to monitor prn medication use, s/s GI distress. 9) Parkinson's Entacapone, carbidopa/levodopa, pramipexole. Continue to monitor clinically. Psychotropic Medications: 10) Depression/Anxiety Vilazodone, hydroxyzine for anxiety. Continue to monitor prn medication use, s/s depression, for s/s serotonin syndrome such as sweating, agitation, unresolved fever. Unnecessary Medications: None Bowel Regimen: 11) Senna/s, PEG, prn bisacodyl. Continue to monitor prn medication use, for constipation/diarrhea. Date of Note:: 08/23/18 - Provider Comments Provider responsibility: Provider responsible to enter orders to implement recommendations <David Hills Chi - Last Filed: 08/23/18 17:37> Progress Note - Pharmacy Subjective: [] Objective: Allergies amoxicillin trihydrate [From Augmentin] Allergy (Verified 08/17/18 23:43) Rash bisacodyl [From Dulcolax (bisacodyl)] Allergy (Verified 08/17/18 23:43) Anaphylaxis iodine Allergy (Verified 08/17/18 23:43) Rash piperacillin sodium [From Zosyn] Allergy (Verified 08/17/18 23:43) Rash potassium clavulanate [From Augmentin] Allergy (Verified 08/17/18 23:43) Rash tazobactam sodium [From Zosyn] Allergy (Verified 08/17/18 23:43) Rash apixaban [From Eliquis] Adverse Reaction (Verified 08/17/18 23:43) Other azithromycin Adverse Reaction (Verified 08/17/18 23:43) Diarrhea bupropion Adverse Reaction (Verified 08/17/18 23:43) Unknown ciprofloxacin [From Cipro] Adverse Reaction (Verified 08/17/18 23:43) Other ciprofloxacin HCl [From Cipro] Adverse Reaction (Verified 07/22/18 09:28) Other diazepam [From Valium] Adverse Reaction (Verified 08/17/18 23:43) Other hallucinations duloxetine Adverse Reaction (Verified 08/17/18 23:43) Unknown gabapentin Adverse Reaction (Verified 08/17/18 23:43) Other heparin Adverse Reaction (Verified 08/17/18 23:43) Unknown Iodinated Contrast- Oral and IV Dye [CONTRASTS] Adverse Reaction (Verified 08/17/18 23:43) Rash nitroglycerin Adverse Reaction (Verified 08/17/18 23:43) Other headaches and extreme hyperactivity paroxetine Adverse Reaction (Verified 08/17/18 23:43) Unknown tetracycline [Tetracycline] Adverse Reaction (Verified 08/17/18 23:43) Vomiting plastics Adverse Reaction (Uncoded 08/17/18 23:43) Rash Current Medications Generic Name Dose Route Start Last Admin Trade Name Freq PRN Reason Stop Dose Admin Acetaminophen/Butalbital/Caffeine 1 tablet 08/20/18 16:48 Fioricet PO BID PRN HEADACHE Albuterol Sulfate 2.5 mg 08/20/18 16:48 Ventolin Aerosols INHALATION Q4H PRN PRN CHRONIC BRONCHITIS Allopurinol 200 mg 08/23/18 08:00 08/23/18 08:48 Zyloprim PO 200 mg DAILY@0800 [facility] Administration Amiodarone HCl 200 mg 08/21/18 06:00 08/23/18 06:51 Cordarone PO 200 mg DAILY [facility] Administration Amitriptyline HCl 25 mg 08/20/18 22:00 08/22/18 21:12 Elavil PO 25 mg QHS [facility] Administration Amlodipine Besylate 5 mg 08/21/18 06:00 08/23/18 06:51 Norvasc PO 5 mg DAILY [facility] Administration Bisacodyl 10 mg 08/21/18 06:00 08/23/18 06:49 Dulcolax PO 10 mg DAILY [facility] Administration Calamine/Phenol 1 applic 08/20/18 18:00 08/23/18 17:03 Calmoseptine Ointment TOPICAL 1 applicatio BID [facility] Administration Protocol Carbidopa/Levodopa 1 tablet 08/20/18 22:00 08/23/18 16:05 Sinemet PO 1 tablet ACHS [facility] Administration Cephalexin 500 mg 08/20/18 22:00 08/23/18 14:12 Keflex PO 08/25/18 22:01 500 mg Q8 [facility] Administration Cholecalciferol 5,000 unit 08/23/18 08:00 08/23/18 08:48 Vitamin D PO 5,000 unit DAILY@0800 [facility] Administration Codeine Sulfate 30 mg 08/20/18 16:48 Codeine PO QODAY PRN HEADACHE Cyanocobalamin 1,000 mcg 08/21/18 06:00 08/21/18 05:42 Vitamin B12 IM 1,000 mcg Q30D [facility] Administration Diphenhydramine HCl 25 mg 08/20/18 16:48 Benadryl PO Q4H PRN PRN ITCHING Entacapone 200 mg 08/20/18 22:00 08/23/18 16:05 Comtan PO 200 mg ACHS [facility] Administration Furosemide 20 mg 08/21/18 06:00 08/23/18 06:51 Lasix PO 20 mg DAILY [facility] Administration Hydromorphone HCl 4 mg 08/20/18 16:48 08/21/18 11:37 Dilaudid Tablet PO 4 mg DAILY PRN Administration BREAKTHROUGH PAIN (>4/10) Hydroxyzine Pamoate 50 mg 08/20/18 16:48 Vistaril Pamoate Capsule PO TID PRN PRN ANXIETY Lactobacillus Acidophilus 2 tablet 08/23/18 18:00 08/23/18 17:01 Acidophilus PO 2 tablet BID [facility] Administration Levothyroxine Sodium 274 mcg 08/23/18 06:00 08/23/18 06:50 Synthroid PO 274 mcg MoTh@0600 [facility] Administration Levothyroxine Sodium 137 mcg 08/21/18 06:00 08/22/18 05:04 Synthroid PO 137 mcg SUTUWEFRSA [facility] Administration Metoprolol Succinate 25 mg 08/21/18 06:00 08/23/18 06:50 Toprol Xl (Beta Pb) PO 25 mg DAILY [facility] Administration Morphine Sulfate 30 mg 08/20/18 22:00 08/23/18 14:12 Ms Contin PO 30 mg Q8 [facility] Administration Non-Formulary Medication 2 lpm 08/20/18 16:48 Oxygen, Home [Home Oxygen] NASAL DAILY PRN SHORTNESS OF BREATH Nystatin 1 applic 08/22/18 06:00 08/23/18 07:00 Mycostatin Powder TOPICAL 1 applicatio 0600,2200 [facility] Administration Protocol Pantoprazole Sodium 40 mg 08/21/18 06:00 08/23/18 06:50 Protonix PO 40 mg DAILY [facility] Administration Polyethylene Glycol 17 gm 08/21/18 17:27 Miralax PO BID PRN Constipation Pramipexole Dihydrochloride 1 mg 08/20/18 22:00 08/22/18 21:12 Mirapex PO 1 mg QHS [facility] Administration Promethazine HCl 25 mg 08/20/18 16:48 Phenergan Tablet PO Q4H PRN PRN NAUSEA Senna/Docusate Sodium 2 tablet 08/21/18 17:27 Senokot-S, Alanna-Colace PO BID PRN Constipation Tuberculin PPD 5 tu 08/28/18 10:00 Tubersol, Aplisol, Ppd ID 08/28/18 10:01 X1 ONE Vilazodone HCl 40 mg 08/21/18 06:00 08/23/18 06:50 Viibryd PO 40 mg DAILY [facility] Administration Zinc Sulfate 220 mg 08/23/18 08:00 08/23/18 08:48 Zinc Sulfate PO 220 mg DAILY@0800 [facility] Administration Problem List Cellulitis of leg (Acute) Venous stasis dermatitis (Chronic) Fever (Acute) Stroke (Chronic) Coronary artery disease (Chronic) Hypertension (Chronic) Hyperlipidemia (Chronic) Chronic kidney disease (Chronic) Anemia of chronic disease (Chronic) Diabetes mellitus (Chronic) Gout (Chronic) Chronic pain (Chronic) Hypogonadism (Chronic) Depression (Chronic) GERD (gastroesophageal reflux disease) (Chronic) Vital Signs Temp Pulse Resp BP Pulse Ox 97.8 F 62 16 119/58 L 99 08/23/18 15:21 08/23/18 15:21 08/23/18 15:21 08/23/18 15:21 08/23/18 15:21 Oxygen Flow Rate (L/min) 2 Oxygen Delivery Method Nasal Cannula Weight: 79.01 kg Body Mass Index (BMI) 28.0 Finger Stick Blood Glucose 203 Sodium 147 mmol/L (136-145) H 08/21/18 05:25 Potassium 4.8 mmol/L (3.5-5.1) 08/21/18 05:25 Chloride 119 mmol/L (98-107) H 08/21/18 05:25 Carbon Dioxide 22.0 mmol/L (21.0-32.0) 08/21/18 05:25 Anion Gap 6 (5-15) 08/21/18 05:25 BUN 28 mg/dL (7-18) H 08/21/18 05:25 Creatinine 2.05 mg/dL (0.70-1.30) H 08/21/18 05:25 Est GFR (MDRD) Af Amer 41 mL/min (>60) L 08/21/18 05:25 Est GFR (MDRD) Non-Af 34 mL/min (>60) L 08/21/18 05:25 BUN/Creatinine Ratio 13.7 RATIO (10-20) 08/21/18 05:25 Glucose 98 mg/dL (74-106) 08/21/18 05:25 Assessment/Plan: Psychotropic Medications: Unnecessary Medications: Bowel Regimen: - Provider Comments Provider responsibility: Provider responsible to enter orders to implement recommendations Provider Comments to Recommendations by Pharmacy: Agree
--- NOTE | 2018-08-23 12:24 | PHA.CONS_ITS ---
<Sander Ortega Romulo - Last Filed: 08/23/18 12:11> Progress Note - Pharmacy Subjective: TCU Admission Objective: Allergies amoxicillin trihydrate [From Augmentin] Allergy (Verified 08/17/18 23:43) Rash bisacodyl [From Dulcolax (bisacodyl)] Allergy (Verified 08/17/18 23:43) Anaphylaxis iodine Allergy (Verified 08/17/18 23:43) Rash piperacillin sodium [From Zosyn] Allergy (Verified 08/17/18 23:43) Rash potassium clavulanate [From Augmentin] Allergy (Verified 08/17/18 23:43) Rash tazobactam sodium [From Zosyn] Allergy (Verified 08/17/18 23:43) Rash apixaban [From Eliquis] Adverse Reaction (Verified 08/17/18 23:43) Other azithromycin Adverse Reaction (Verified 08/17/18 23:43) Diarrhea bupropion Adverse Reaction (Verified 08/17/18 23:43) Unknown ciprofloxacin [From Cipro] Adverse Reaction (Verified 08/17/18 23:43) Other ciprofloxacin HCl [From Cipro] Adverse Reaction (Verified 07/22/18 09:28) Other diazepam [From Valium] Adverse Reaction (Verified 08/17/18 23:43) Other hallucinations duloxetine Adverse Reaction (Verified 08/17/18 23:43) Unknown gabapentin Adverse Reaction (Verified 08/17/18 23:43) Other heparin Adverse Reaction (Verified 08/17/18 23:43) Unknown Iodinated Contrast- Oral and IV Dye [CONTRASTS] Adverse Reaction (Verified 08/17/18 23:43) Rash nitroglycerin Adverse Reaction (Verified 08/17/18 23:43) Other headaches and extreme hyperactivity paroxetine Adverse Reaction (Verified 08/17/18 23:43) Unknown tetracycline [Tetracycline] Adverse Reaction (Verified 08/17/18 23:43) Vomiting plastics Adverse Reaction (Uncoded 08/17/18 23:43) Rash Current Medications Generic Name Dose Route Start Last Admin Trade Name Freq PRN Reason Stop Dose Admin Acetaminophen/Butalbital/Caffeine 1 tablet 08/20/18 16:48 Fioricet PO BID PRN HEADACHE Albuterol Sulfate 2.5 mg 08/20/18 16:48 Ventolin Aerosols INHALATION Q4H PRN PRN CHRONIC BRONCHITIS Allopurinol 200 mg 10/04/18 08:00 08/23/18 08:48 Zyloprim PO 200 mg DAILY@0800 [facility] Administration Amiodarone HCl 200 mg 08/21/18 06:00 08/23/18 06:51 Cordarone PO 200 mg DAILY [facility] Administration Amitriptyline HCl 25 mg 08/20/18 22:00 08/22/18 21:12 Elavil PO 25 mg QHS [facility] Administration Amlodipine Besylate 5 mg 08/21/18 06:00 08/23/18 06:51 Norvasc PO 5 mg DAILY [facility] Administration Bisacodyl 10 mg 08/21/18 06:00 08/23/18 06:49 Dulcolax PO 10 mg DAILY [facility] Administration Calamine/Phenol 1 applic 08/20/18 18:00 08/23/18 06:59 Calmoseptine Ointment TOPICAL 1 applicatio BID [facility] Administration Protocol Carbidopa/Levodopa 1 tablet 08/20/18 22:00 08/23/18 11:03 Sinemet PO 1 tablet ACHS [facility] Administration Cephalexin 500 mg 08/20/18 22:00 08/23/18 06:51 Keflex PO 08/25/18 22:01 500 mg Q8 [facility] Administration Cholecalciferol 5,000 unit 08/23/18 08:00 08/23/18 08:48 Vitamin D PO 5,000 unit DAILY@0800 [facility] Administration Codeine Sulfate 30 mg 08/20/18 16:48 Codeine PO QODAY PRN HEADACHE Cyanocobalamin 1,000 mcg 08/21/18 06:00 08/21/18 05:42 Vitamin B12 IM 1,000 mcg Q30D [facility] Administration Diphenhydramine HCl 25 mg 08/20/18 16:48 Benadryl PO Q4H PRN PRN ITCHING Entacapone 200 mg 08/20/18 22:00 08/23/18 11:03 Comtan PO 200 mg ACHS [facility] Administration Furosemide 20 mg 08/21/18 06:00 08/23/18 06:51 Lasix PO 20 mg DAILY [facility] Administration Hydromorphone HCl 4 mg 08/20/18 16:48 08/21/18 11:37 Dilaudid Tablet PO 4 mg DAILY PRN Administration BREAKTHROUGH PAIN (>4/10) Hydroxyzine Pamoate 50 mg 08/20/18 16:48 Vistaril Pamoate Capsule PO TID PRN PRN ANXIETY Levothyroxine Sodium 274 mcg 08/23/18 06:00 08/23/18 06:50 Synthroid PO 274 mcg MoTh@0600 [facility] Administration Levothyroxine Sodium 137 mcg 08/21/18 06:00 08/22/18 05:04 Synthroid PO 137 mcg SUTUWEFRSA [facility] Administration Metoprolol Succinate 25 mg 08/21/18 06:00 08/23/18 06:50 Toprol Xl (Beta Pb) PO 25 mg DAILY [facility] Administration Morphine Sulfate 30 mg 08/20/18 22:00 08/23/18 06:48 Ms Contin PO 30 mg Q8 [facility] Administration Non-Formulary Medication 2 lpm 08/20/18 16:48 Oxygen, Home [Home Oxygen] NASAL DAILY PRN SHORTNESS OF BREATH Nystatin 1 applic 08/22/18 06:00 08/23/18 07:00 Mycostatin Powder TOPICAL 1 applicatio 0600,2200 [facility] Administration Protocol Pantoprazole Sodium 40 mg 08/21/18 06:00 08/23/18 06:50 Protonix PO 40 mg DAILY [facility] Administration Polyethylene Glycol 17 gm 08/21/18 17:27 Miralax PO BID PRN Constipation Pramipexole Dihydrochloride 1 mg 08/20/18 22:00 08/22/18 21:12 Mirapex PO 1 mg QHS [facility] Administration Promethazine HCl 25 mg 08/20/18 16:48 Phenergan Tablet PO Q4H PRN PRN NAUSEA Senna/Docusate Sodium 2 tablet 08/21/18 17:27 Senokot-S, Alanna-Colace PO BID PRN Constipation Tuberculin PPD 5 tu 08/28/18 10:00 Tubersol, Aplisol, Ppd ID 08/28/18 10:01 X1 ONE Vilazodone HCl 40 mg 08/21/18 06:00 08/23/18 06:50 Viibryd PO 40 mg DAILY [facility] Administration Zinc Sulfate 220 mg 08/23/18 08:00 08/23/18 08:48 Zinc Sulfate PO 220 mg DAILY@0800 [facility] Administration Problem List Cellulitis of leg (Acute) Venous stasis dermatitis (Chronic) Fever (Acute) Stroke (Chronic) Coronary artery disease (Chronic) Hypertension (Chronic) Hyperlipidemia (Chronic) Chronic kidney disease (Chronic) Anemia of chronic disease (Chronic) Diabetes mellitus (Chronic) Gout (Chronic) Chronic pain (Chronic) Hypogonadism (Chronic) Depression (Chronic) GERD (gastroesophageal reflux disease) (Chronic) Vital Signs Temp Pulse Resp BP Pulse Ox 98.2 F 63 20 H 119/65 96 08/22/18 16:00 08/23/18 06:50 08/22/18 16:00 08/23/18 06:50 08/22/18 16:00 Oxygen Flow Rate (L/min) 2 Oxygen Delivery Method Room Air Weight: 79.01 kg Body Mass Index (BMI) 28.0 Finger Stick Blood Glucose 203 Sodium 147 mmol/L (136-145) H 08/21/18 05:25 Potassium 4.8 mmol/L (3.5-5.1) 08/21/18 05:25 Chloride 119 mmol/L (98-107) H 08/21/18 05:25 Carbon Dioxide 22.0 mmol/L (21.0-32.0) 08/21/18 05:25 Anion Gap 6 (5-15) 08/21/18 05:25 BUN 28 mg/dL (7-18) H 08/21/18 05:25 Creatinine 2.05 mg/dL (0.70-1.30) H 08/21/18 05:25 Est GFR (MDRD) Af Amer 41 mL/min (>60) L 08/21/18 05:25 Est GFR (MDRD) Non-Af 34 mL/min (>60) L 08/21/18 05:25 BUN/Creatinine Ratio 13.7 RATIO (10-20) 08/21/18 05:25 Glucose 98 mg/dL (74-106) 08/21/18 05:25 Assessment/Plan: 1) Pain APAP, codeine for headache, morphine SR scheduled, hydromorphone prn, amitriptyline at HS. Continue to monitor prn medication use, daily pain scores. 2) Cellulitis Cephalexin until 08/25. Continue to monitor s/s infection. 3) Gout Allopurinol daily. Continue to monitor s/s gout. 4) AFlutter/HTN Amiodarone, amlodipine, metoprolol XL. Continue to monitor BP/HR. 5) Furosemide Furosemide daily. Continue to monitor swelling, electrolytes. 6) Nutrition D, B12, Zn. Continue to monitor clinically. 7) Hypothyroidism Levothyroxine daily. Continue to monitor s/s hyper/hypoglycemia. 8) GI Pantoprazole daily, promethazine for nausea. Continue to monitor prn medication use, s/s GI distress. 9) Parkinson's Entacapone, carbidopa/levodopa, pramipexole. Continue to monitor clinically. Psychotropic Medications: 10) Depression/Anxiety Vilazodone, hydroxyzine for anxiety. Continue to monitor prn medication use, s/s depression, for s/s serotonin syndrome such as sweating, agitation, unresolved fever. Unnecessary Medications: None Bowel Regimen: 11) Senna/s, PEG, prn bisacodyl. Continue to monitor prn medication use, for constipation/diarrhea. Date of Note:: 08/23/18 - Provider Comments Provider responsibility: Provider responsible to enter orders to implement recommendations <David Hills Chi - Last Filed: 08/23/18 17:37> Progress Note - Pharmacy Subjective: [] Objective: Allergies amoxicillin trihydrate [From Augmentin] Allergy (Verified 08/17/18 23:43) Rash bisacodyl [From Dulcolax (bisacodyl)] Allergy (Verified 08/17/18 23:43) Anaphylaxis iodine Allergy (Verified 08/17/18 23:43) Rash piperacillin sodium [From Zosyn] Allergy (Verified 08/17/18 23:43) Rash potassium clavulanate [From Augmentin] Allergy (Verified 08/17/18 23:43) Rash tazobactam sodium [From Zosyn] Allergy (Verified 08/17/18 23:43) Rash apixaban [From Eliquis] Adverse Reaction (Verified 08/17/18 23:43) Other azithromycin Adverse Reaction (Verified 08/17/18 23:43) Diarrhea bupropion Adverse Reaction (Verified 08/17/18 23:43) Unknown ciprofloxacin [From Cipro] Adverse Reaction (Verified 08/17/18 23:43) Other ciprofloxacin HCl [From Cipro] Adverse Reaction (Verified 07/22/18 09:28) Other diazepam [From Valium] Adverse Reaction (Verified 08/17/18 23:43) Other hallucinations duloxetine Adverse Reaction (Verified 08/17/18 23:43) Unknown gabapentin Adverse Reaction (Verified 08/17/18 23:43) Other heparin Adverse Reaction (Verified 08/17/18 23:43) Unknown Iodinated Contrast- Oral and IV Dye [CONTRASTS] Adverse Reaction (Verified 08/17/18 23:43) Rash nitroglycerin Adverse Reaction (Verified 08/17/18 23:43) Other headaches and extreme hyperactivity paroxetine Adverse Reaction (Verified 08/17/18 23:43) Unknown tetracycline [Tetracycline] Adverse Reaction (Verified 08/17/18 23:43) Vomiting plastics Adverse Reaction (Uncoded 08/17/18 23:43) Rash Current Medications Generic Name Dose Route Start Last Admin Trade Name Freq PRN Reason Stop Dose Admin Acetaminophen/Butalbital/Caffeine 1 tablet 08/20/18 16:48 Fioricet PO BID PRN HEADACHE Albuterol Sulfate 2.5 mg 08/20/18 16:48 Ventolin Aerosols INHALATION Q4H PRN PRN CHRONIC BRONCHITIS Allopurinol 200 mg 08/23/18 08:00 08/23/18 08:48 Zyloprim PO 200 mg DAILY@0800 [facility] Administration Amiodarone HCl 200 mg 08/21/18 06:00 08/23/18 06:51 Cordarone PO 200 mg DAILY [facility] Administration Amitriptyline HCl 25 mg 08/20/18 22:00 08/22/18 21:12 Elavil PO 25 mg QHS [facility] Administration Amlodipine Besylate 5 mg 08/21/18 06:00 08/23/18 06:51 Norvasc PO 5 mg DAILY [facility] Administration Bisacodyl 10 mg 08/21/18 06:00 08/23/18 06:49 Dulcolax PO 10 mg DAILY [facility] Administration Calamine/Phenol 1 applic 08/20/18 18:00 08/23/18 17:03 Calmoseptine Ointment TOPICAL 1 applicatio BID [facility] Administration Protocol Carbidopa/Levodopa 1 tablet 08/20/18 22:00 08/23/18 16:05 Sinemet PO 1 tablet ACHS [facility] Administration Cephalexin 500 mg 08/20/18 22:00 08/23/18 14:12 Keflex PO 08/25/18 22:01 500 mg Q8 [facility] Administration Cholecalciferol 5,000 unit 08/23/18 08:00 08/23/18 08:48 Vitamin D PO 5,000 unit DAILY@0800 [facility] Administration Codeine Sulfate 30 mg 08/20/18 16:48 Codeine PO QODAY PRN HEADACHE Cyanocobalamin 1,000 mcg 08/21/18 06:00 08/21/18 05:42 Vitamin B12 IM 1,000 mcg Q30D [facility] Administration Diphenhydramine HCl 25 mg 08/20/18 16:48 Benadryl PO Q4H PRN PRN ITCHING Entacapone 200 mg 08/20/18 22:00 08/23/18 16:05 Comtan PO 200 mg ACHS [facility] Administration Furosemide 20 mg 08/21/18 06:00 08/23/18 06:51 Lasix PO 20 mg DAILY [facility] Administration Hydromorphone HCl 4 mg 08/20/18 16:48 08/21/18 11:37 Dilaudid Tablet PO 4 mg DAILY PRN Administration BREAKTHROUGH PAIN (>4/10) Hydroxyzine Pamoate 50 mg 08/20/18 16:48 Vistaril Pamoate Capsule PO TID PRN PRN ANXIETY Lactobacillus Acidophilus 2 tablet 08/23/18 18:00 08/23/18 17:01 Acidophilus PO 2 tablet BID [facility] Administration Levothyroxine Sodium 274 mcg 08/23/18 06:00 08/23/18 06:50 Synthroid PO 274 mcg MoTh@0600 [facility] Administration Levothyroxine Sodium 137 mcg 08/21/18 06:00 08/22/18 05:04 Synthroid PO 137 mcg SUTUWEFRSA [facility] Administration Metoprolol Succinate 25 mg 08/21/18 06:00 08/23/18 06:50 Toprol Xl (Beta Pb) PO 25 mg DAILY [facility] Administration Morphine Sulfate 30 mg 08/20/18 22:00 08/23/18 14:12 Ms Contin PO 30 mg Q8 [facility] Administration Non-Formulary Medication 2 lpm 08/20/18 16:48 Oxygen, Home [Home Oxygen] NASAL DAILY PRN SHORTNESS OF BREATH Nystatin 1 applic 08/22/18 06:00 08/23/18 07:00 Mycostatin Powder TOPICAL 1 applicatio 0600,2200 [facility] Administration Protocol Pantoprazole Sodium 40 mg 08/21/18 06:00 08/23/18 06:50 Protonix PO 40 mg DAILY [facility] Administration Polyethylene Glycol 17 gm 08/21/18 17:27 Miralax PO BID PRN Constipation Pramipexole Dihydrochloride 1 mg 08/20/18 22:00 08/22/18 21:12 Mirapex PO 1 mg QHS [facility] Administration Promethazine HCl 25 mg 08/20/18 16:48 Phenergan Tablet PO Q4H PRN PRN NAUSEA Senna/Docusate Sodium 2 tablet 08/21/18 17:27 Senokot-S, Alanna-Colace PO BID PRN Constipation Tuberculin PPD 5 tu 08/28/18 10:00 Tubersol, Aplisol, Ppd ID 08/28/18 10:01 X1 ONE Vilazodone HCl 40 mg 08/21/18 06:00 08/23/18 06:50 Viibryd PO 40 mg DAILY [facility] Administration Zinc Sulfate 220 mg 08/23/18 08:00 08/23/18 08:48 Zinc Sulfate PO 220 mg DAILY@0800 [facility] Administration Problem List Cellulitis of leg (Acute) Venous stasis dermatitis (Chronic) Fever (Acute) Stroke (Chronic) Coronary artery disease (Chronic) Hypertension (Chronic) Hyperlipidemia (Chronic) Chronic kidney disease (Chronic) Anemia of chronic disease (Chronic) Diabetes mellitus (Chronic) Gout (Chronic) Chronic pain (Chronic) Hypogonadism (Chronic) Depression (Chronic) GERD (gastroesophageal reflux disease) (Chronic) Vital Signs Temp Pulse Resp BP Pulse Ox 97.8 F 62 16 119/58 L 99 08/23/18 15:21 08/23/18 15:21 08/23/18 15:21 08/23/18 15:21 08/23/18 15:21 Oxygen Flow Rate (L/min) 2 Oxygen Delivery Method Nasal Cannula Weight: 79.01 kg Body Mass Index (BMI) 28.0 Finger Stick Blood Glucose 203 Sodium 147 mmol/L (136-145) H 08/21/18 05:25 Potassium 4.8 mmol/L (3.5-5.1) 08/21/18 05:25 Chloride 119 mmol/L (98-107) H 08/21/18 05:25 Carbon Dioxide 22.0 mmol/L (21.0-32.0) 08/21/18 05:25 Anion Gap 6 (5-15) 08/21/18 05:25 BUN 28 mg/dL (7-18) H 08/21/18 05:25 Creatinine 2.05 mg/dL (0.70-1.30) H 08/21/18 05:25 Est GFR (MDRD) Af Amer 41 mL/min (>60) L 08/21/18 05:25 Est GFR (MDRD) Non-Af 34 mL/min (>60) L 08/21/18 05:25 BUN/Creatinine Ratio 13.7 RATIO (10-20) 08/21/18 05:25 Glucose 98 mg/dL (74-106) 08/21/18 05:25 Assessment/Plan: Psychotropic Medications: Unnecessary Medications: Bowel Regimen: - Provider Comments Provider responsibility: Provider responsible to enter orders to implement recommendations Provider Comments to Recommendations by Pharmacy: Agree
--- NOTE | 2018-08-23 15:09 | NURSING ---
Spoke with [facility] Gastroenterology regarding esophageal stricture dilation procedure, pt was scheduled to have done on Aug 20, but was in hospital. Rescheduled for September [address] Escobar. Pt aware.
[2018-08-23 15:21] VITALS: BP 119/58; PULSE 62; RESP 16; TEMP 36.6; O2SAT 99
[2018-08-23] MEDS: Pramipexole Di-HCl 1 MG Tablet PO (20:48)
[2018-08-23] MEDS: Amitriptyline 25 MG Tablet PO (20:49)
[2018-08-24] MEDS: Menthol/Lanolin/Calamine/Znox 113 GM Tube 1 APPLIC TOPICAL ×2 (05:19→16:06)
[2018-08-24] MEDS: Pantoprazole Sodium 40 MG Tablet PO (05:25)
[2018-08-24 05:26] VITALS: BP 140/65; PULSE 66
[2018-08-24] MEDS: Metoprolol(XL)Succ 25 MG Tablet PO (05:26)
[2018-08-24] MEDS: Levothyroxine 137 MCG Tablet PO (05:26)
[2018-08-24] MEDS: VILAZODONE HYDROCHLORIDE 40 MG TABLET PO (05:26)
[2018-08-24] MEDS: Cephalexin 500 MG Capsule PO ×3 (05:27→21:28)
[2018-08-24] MEDS: Furosemide 20 MG Tablet PO (05:27)
[2018-08-24] MEDS: amLODIPine 5 MG Tablet PO (05:27)
[2018-08-24] MEDS: Amiodarone 200 MG Tablet PO (05:27)
[2018-08-24] MEDS: Carbidopa/Levodopa 25/100 Tablet PO ×4 (05:27→21:28)
[2018-08-24] MEDS: Bisacodyl 5 MG Tablet 10 MG PO (05:27)
[2018-08-24] MEDS: Nystatin Powder 15gm Bottle 1 APPLIC TOPICAL ×2 (05:29→21:28)
[2018-08-24] MEDS: Allopurinol 100 MG Tablet 200 MG PO (08:36)
[2018-08-24 10:00] VITALS: PULSE 72; RESP 18; O2SAT 94
[2018-08-24] MEDS: HYDROmorphone 2 MG TABLET 4 MG PO (10:35)
--- NOTE | 2018-08-24 11:39 | CASEMGMT ---
BIMS and PHQ9 interviews completed on this date for MDS assessment. Pt presents with flat affect and does not make eye contact throughout conversation. Presence of depression indicated. PT states he has had thoughts of hurting himself but mostly when he and his get in an argument. When asked if pt has a plan, he states he would drive his car off of a bridge SW inquired if he has thought about harming himself while in the hospital and pt declines that he has thought of that. SW will notify physician of pt PHQ9 results and conversation with SW. At this time, pt declines to be a threat to himself. SW to follow. NAM Oliver
--- NOTE | 2018-08-24 13:07 | PCM.PN.ID ---
Patient Problems: Active and Suspected Problems Cellulitis of leg (Acute) Fever (Acute) Subjective: Leg still with some swelling and soreness. Not feeling any better. No fever. - Physical Exam General: Alert, Cooperative, No apparent distress Lungs: Clear to auscultation, Normal air movement Cardiovascular: Regular rate, Regular Rhythm Abdomen: Soft, Non Tender, Non-Distended Extremities: Edema Skin: Rash Present - LLE redness much improved. Vital Signs Temp Pulse Resp BP Pulse Ox 97.8 F 72 18 140/65 H 94 08/23/18 15:21 08/24/18 10:00 08/24/18 10:00 08/24/18 05:26 08/24/18 10:00 Oxygen Flow Rate (L/min) 2 Oxygen Delivery Method Nasal Cannula Weight: 79.01 kg Body Mass Index (BMI) 28.0 Finger Stick Blood Glucose 203 Intake and Output for Last 24 Hours 08/22/18 08/23/18 08/24/18 23:59 23:59 23:59 Intake Total 540 / 540 960 / 960 240 / 240 Output Total 1000 / 1000 1095 / 1095 175 / 175 Balance -460 / -460 -135 / -135 65 / 65 Medical Necessity - Tobacco Use Smoking Status: Former smoker Tobacco Use: Non-smoker Route of nutrition/ use of supplements: [] Nutritional Intake: [] IV Site: [] Saravia Catheter: [] - Assessment/Plan Antibiotics: [] Assessment/Plan: [] Active and Suspected Problems Cellulitis of leg (Acute) Fever (Acute) LLE cellulitis with prior surgery to that leg - discussed typical course with cellulitis, will take time for inflammation to resolve. Wrapping it should help as it seems like most of his sx are related to edema, and will continue keflex as planned with stop date tomorrow. Redness much better. will follow
--- NOTE | 2018-08-24 13:53 | NURSING ---
Dr. Randolph here to see patient, continue with current antibiotic orders. Continue to wrap patient's legs with TIMMY wraps and elevate in chair and bed.
[2018-08-24 15:49] VITALS: BP 126/67; PULSE 73; RESP 18; TEMP 36.7; O2SAT 100
[2018-08-24] MEDS: Amitriptyline 25 MG Tablet PO (21:27)
[2018-08-24] MEDS: Pramipexole Di-HCl 1 MG Tablet PO (21:28)
[2018-08-25] MEDS: Menthol/Lanolin/Calamine/Znox 113 GM Tube 1 APPLIC TOPICAL ×2 (05:22→16:57)
[2018-08-25] MEDS: Nystatin Powder 15gm Bottle 1 APPLIC TOPICAL ×2 (05:23→22:14)
[2018-08-25] MEDS: Bisacodyl 5 MG Tablet 10 MG PO (05:23)
[2018-08-25] MEDS: Cephalexin 500 MG Capsule PO ×3 (05:23→22:00)
[2018-08-25] MEDS: Furosemide 20 MG Tablet PO (05:23)
[2018-08-25] MEDS: amLODIPine 5 MG Tablet PO (05:23)
[2018-08-25] MEDS: Pantoprazole Sodium 40 MG Tablet PO (05:23)
[2018-08-25] MEDS: Amiodarone 200 MG Tablet PO (05:23)
[2018-08-25 05:24] VITALS: BP 121/61; PULSE 65
[2018-08-25] MEDS: Carbidopa/Levodopa 25/100 Tablet PO ×4 (05:24→22:03)
[2018-08-25] MEDS: Metoprolol(XL)Succ 25 MG Tablet PO (05:24)
[2018-08-25] MEDS: VILAZODONE HYDROCHLORIDE 40 MG TABLET PO (05:24)
[2018-08-25] MEDS: Levothyroxine 137 MCG Tablet PO (05:24)
[2018-08-25 08:39] VITALS: O2SAT 95
[2018-08-25] MEDS: Allopurinol 100 MG Tablet 200 MG PO (09:19)
[2018-08-25 09:35] VITALS: PULSE 70; O2SAT 92
[2018-08-25] MEDS: HYDROmorphone 2 MG TABLET 4 MG PO (11:46)
[2018-08-25 15:32] VITALS: BP 114/52; PULSE 62; RESP 18; TEMP 36.7; O2SAT 99
[2018-08-25] MEDS: Amitriptyline 25 MG Tablet PO (22:00)
[2018-08-25] MEDS: Pramipexole Di-HCl 1 MG Tablet PO (22:01)
[2018-08-26 05:39] VITALS: BP 137/68; PULSE 82
[2018-08-26] MEDS: Metoprolol(XL)Succ 25 MG Tablet PO (05:39)
[2018-08-26] MEDS: Pantoprazole Sodium 40 MG Tablet PO (05:40)
[2018-08-26] MEDS: amLODIPine 5 MG Tablet PO (05:40)
[2018-08-26] MEDS: Furosemide 20 MG Tablet PO (05:40)
[2018-08-26] MEDS: Amiodarone 200 MG Tablet PO (05:40)
[2018-08-26] MEDS: VILAZODONE HYDROCHLORIDE 40 MG TABLET PO (05:41)
[2018-08-26] MEDS: Levothyroxine 137 MCG Tablet PO (05:41)
[2018-08-26] MEDS: Carbidopa/Levodopa 25/100 Tablet PO ×4 (05:41→20:58)
[2018-08-26] MEDS: Nystatin Powder 15gm Bottle 1 APPLIC TOPICAL ×2 (05:41→21:01)
[2018-08-26] MEDS: Menthol/Lanolin/Calamine/Znox 113 GM Tube 1 APPLIC TOPICAL ×2 (05:43→16:49)
[2018-08-26] MEDS: Allopurinol 100 MG Tablet 200 MG PO (08:09)
[2018-08-26 15:41] VITALS: BP 126/62; PULSE 51; RESP 14; TEMP 36.9; O2SAT 95
[2018-08-26] MEDS: Pramipexole Di-HCl 1 MG Tablet PO (21:00)
[2018-08-26] MEDS: Amitriptyline 25 MG Tablet PO (21:00)
[2018-08-27] MEDS: Amiodarone 200 MG Tablet PO (05:38)
[2018-08-27] MEDS: Furosemide 20 MG Tablet PO (05:38)
[2018-08-27] MEDS: Carbidopa/Levodopa 25/100 Tablet PO ×4 (05:38→21:35)
[2018-08-27] MEDS: Pantoprazole Sodium 40 MG Tablet PO (05:38)
[2018-08-27 05:39] VITALS: BP 140/58; PULSE 71
[2018-08-27] MEDS: VILAZODONE HYDROCHLORIDE 40 MG TABLET PO (05:39)
[2018-08-27] MEDS: amLODIPine 5 MG Tablet PO (05:39)
[2018-08-27] MEDS: Levothyroxine 137 MCG Tablet 274 MCG PO (05:39)
[2018-08-27] MEDS: Metoprolol(XL)Succ 25 MG Tablet PO (05:39)
[2018-08-27] MEDS: Nystatin Powder 15gm Bottle 1 APPLIC TOPICAL ×2 (05:41→21:38)
[2018-08-27] MEDS: Menthol/Lanolin/Calamine/Znox 113 GM Tube 1 APPLIC TOPICAL ×2 (05:42→16:58)
[2018-08-27] MEDS: Allopurinol 100 MG Tablet 200 MG PO (08:38)
[2018-08-27 10:00] VITALS: PULSE 67; O2SAT 98
--- NOTE | 2018-08-27 10:54 | CASEMGMT ---
Social Work Spoke with resident in room per resident request to discharge to home on 08/29/18. Resident reporting to be wanting to discharge to home with spouse on 08/29/18 and that resident spouse is aware of this and also agreeable. Resident is agreeable to this director social welfare contacting resident spouse to collaborate on a discharge plan. Spoke with resident spouse, Yolanda on phone. Yolanda reporting to not be aware of resident desire to discharge to home on Monday and to need to collaborate further with resident to come up with a discharge date that works for resident and the family. This director social welfare voicing understanding and encouraging Yolanda to speak with resident in regards to a discharge plan. Will continue to follow as needed. Jennifer BROWNING, ELECTRICAL LINESWORKER
--- NOTE | 2018-08-27 10:57 | NURSING ---
Ileostomy appliance intact. appliance was changed on 08/25/18. pouch emptied for 300 cc's light brown liquid stool. lots of flatus noted. will continue to monitor. patient normally does care at home, but has not done much here. recommend patient continues care as much as possible.
--- NOTE | 2018-08-27 15:17 | CASEMGMT ---
Social Work Spoke with resident and resident spouse again. Resident is choosing to discharge to home on 08/29/18, resident spouse is agreeable to this. Spoke with team, 08/29/18 is an agreeable date at this time. Nursing recommending for resident to continue with further care and services within the home at time of discharge. Resident is agreeable to recommendation and requesting for home health services to be set up through [facility] in [place]. Resident also active with [facility] services and plans to resume these services (meals, aide x1 hour a week, and transportation to medical appointments). Resident reporting to have all needed durable medical equipment already set up within the home. Resident spouse to provide transportation home for resident at time of discharge. Resident reporting no further needs at this time. Support given. [facility] call to [facility]. This director of social work making referral for halfway. Clinical information faxed. Will fax order when obtained. Telephone call to Leeanna VELASCO [phone] xt. [phone]. Voicemail left informing resident discharge date and plan. Proposed discharge date: 08/29/18 PLAN: Discharge to home with spouse, home health care, and PASSPORT services. Jennifer BROWNING, BALL ENDER
[2018-08-27 15:19] VITALS: BP 124/62; PULSE 63; RESP 18; TEMP 36.8; O2SAT 92
--- NOTE | 2018-08-27 16:12 | PCM.PN.ID ---
Patient Problems: Active and Suspected Problems Cellulitis of leg (Acute) Fever (Acute) Subjective: Not feeling any better, leg still swollen. No fever. - Physical Exam General: Alert, Cooperative, No apparent distress Lungs: Clear to auscultation, Normal air movement Cardiovascular: Regular rate, Regular Rhythm Abdomen: Soft, Non Tender, Non-Distended Extremities: Edema - improved Vital Signs Temp Pulse Resp BP Pulse Ox 98.3 F 63 18 124/62 H 92 08/27/18 15:19 08/27/18 15:19 08/27/18 15:19 08/27/18 15:19 08/27/18 15:19 Oxygen Flow Rate (L/min) 2 Oxygen Delivery Method Room Air Weight: 79.01 kg Body Mass Index (BMI) 28.0 Finger Stick Blood Glucose 203 Intake and Output for Last 24 Hours 08/25/18 08/26/18 08/27/18 23:59 23:59 23:59 Intake Total 900 / 900 580 / 580 600 / 600 Output Total 900 / 900 650 / 650 1400 / 1400 Balance 0 / 0 -70 / -70 -800 / -800 Medical Necessity - Tobacco Use Smoking Status: Former smoker Tobacco Use: Non-smoker Route of nutrition/ use of supplements: [] Nutritional Intake: [] IV Site: [] Saravia Catheter: [] - Assessment/Plan Antibiotics: [] Assessment/Plan: [] Active and Suspected Problems Cellulitis of leg (Acute) Fever (Acute) LLE cellulitis with prior surgery to that leg - discussed typical course with cellulitis, will take time for inflammation to resolve. Wrapping it should help as it seems like most of his sx are related to edema. Stable since completing keflex. will follow as needed, please call with any ?s.
--- NOTE | 2018-08-27 19:30 | DCINST_ITS ---
- Discharge Diagnoses Current Active Problems: Current Active and Chronic Problems Cellulitis of leg (Acute) Venous stasis dermatitis (Chronic) Fever (Acute) Stroke (Chronic) Coronary artery disease (Chronic) Hypertension (Chronic) Hyperlipidemia (Chronic) Chronic kidney disease (Chronic) Anemia of chronic disease (Chronic) Diabetes mellitus (Chronic) Gout (Chronic) Chronic pain (Chronic) Hypogonadism (Chronic) Depression (Chronic) GERD (gastroesophageal reflux disease) (Chronic) You will use the following diet at home:: No restrictions, Regular Your food should be the consistency of: Regular Your liquids should be the consistency of: Regular/Thin Discharge Activity: Return to Normal Activity, May Shower, Use Walker Weight Bearing Status: Weight bearing as tolerated Call your doctor if you observe: Fever of 101 or Higher, Inability to urinate, Inability to have a bowel movement, Shortness of breath, Chest pain, Uncontrolled pain Allergies/Adverse Reactions: Allergies amoxicillin trihydrate [From Augmentin] Allergy (Verified 08/17/18 23:43) Rash bisacodyl [From Dulcolax (bisacodyl)] Allergy (Verified 08/17/18 23:43) Anaphylaxis iodine Allergy (Verified 08/17/18 23:43) Rash piperacillin sodium [From Zosyn] Allergy (Verified 08/17/18 23:43) Rash potassium clavulanate [From Augmentin] Allergy (Verified 08/17/18 23:43) Rash tazobactam sodium [From Zosyn] Allergy (Verified 08/17/18 23:43) Rash apixaban [From Eliquis] Adverse Reaction (Verified 08/17/18 23:43) Other azithromycin Adverse Reaction (Verified 08/17/18 23:43) Diarrhea bupropion Adverse Reaction (Verified 08/17/18 23:43) Unknown ciprofloxacin [From Cipro] Adverse Reaction (Verified 08/17/18 23:43) Other ciprofloxacin HCl [From Cipro] Adverse Reaction (Verified 07/22/18 09:28) Other diazepam [From Valium] Adverse Reaction (Verified 08/17/18 23:43) Other hallucinations duloxetine Adverse Reaction (Verified 08/17/18 23:43) Unknown gabapentin Adverse Reaction (Verified 08/17/18 23:43) Other heparin Adverse Reaction (Verified 08/17/18 23:43) Unknown Iodinated Contrast- Oral and IV Dye [CONTRASTS] Adverse Reaction (Verified 08/17/18 23:43) Rash nitroglycerin Adverse Reaction (Verified 08/17/18 23:43) Other headaches and extreme hyperactivity paroxetine Adverse Reaction (Verified 08/17/18 23:43) Unknown tetracycline [Tetracycline] Adverse Reaction (Verified 08/17/18 23:43) Vomiting plastics Adverse Reaction (Uncoded 08/17/18 23:43) Rash Medications to take at Discharge Acetaminophen/Butalbital/Caffe [Fioricet] 1 tablet PO BID PRN 06/06/17 Allopurinol 200 mg PO DAILY 06/06/17 Amiodarone HCl [Pacerone] 200 mg PO DAILY 06/06/17 Diphenhydramine HCl [Benadryl Allergy] 25 mg PO PRN PRN 06/06/17 Hydromorphone HCl [Dilaudid] 4 mg PO DAILY PRN 06/06/17 Levothyroxine [Synthroid] 137 mcg PO SUTUWEFRSA 06/06/17 Morphine Sulfate [Morphine Sulfate ER] 30 mg PO Q8H 06/06/17 Pramipexole Di-HCl [Mirapex] 1 mg PO QHS 06/06/17 Testosterone Cypionate [Depo-Testosterone] 200 mg IM Q14D 06/06/17 Vilazodone Hydrochloride [Viibryd] 40 mg PO DAILY 06/06/17 proMETHazine tablet [Phenergan tablet] 25 mg PO Q4H PRN PRN 06/06/17 Amitriptyline HCl 25 mg PO QHS 12/11/17 Entacapone [Comtan] 200 mg PO 4X/DAY 12/11/17 Carbidopa/Levodopa [Carbidopa-Levo 25-100 mg Odt] 1 tab PO 4X/DAY 01/02/18 Furosemide [Lasix] 20 mg PO DAILY 01/02/18 Levothyroxine [Synthroid] 274 mcg PO MOTH 01/02/18 Apremilast [Otezla] 30 mg PO BID 02/19/18 Aspirin [Aspir-Low] 81 mg PO DAILY 02/19/18 Cholecalciferol (Vitamin D3) [Vitamin D3] 5,000 unit PO DAILY 02/19/18 Ciclopirox 1 applic TOPICAL DAILY 02/19/18 Cyanocobalamin [Vitamin B12] 1,000 mcg IM Q30D 02/19/18 Dextran 70/He-Cell [Tears Naturale, Artificial Tears] 1 drop EACH EYE Q1H PRN OK N 02/19/18 Metoprolol Succinate 25 mg PO DAILY 02/19/18 Oxygen, Home [Home Oxygen] 2 lpm NASAL DAILY PRN 02/19/18 Zinc Sulfate (50mg elemental) [Zinc Sulfate] 220 mg PO DAILY 02/19/18 hydrOXYzine pamoate capsule [Vistaril pamoate capsule] 50 mg PO TID PRN PRN #30 cap 07/22/18 Amlodipine [Norvasc] 5 mg PO DAILY 08/17/18 Codeine 30 mg PO PRN PRN 08/17/18 Levalbuterol HCl [Xopenex] 3 ml INHALATION Q4H PRN PRN 08/17/18 Omeprazole 40 mg PO DAILY 08/17/18 Menthol/Lanolin/Calamine/Znox [Calmoseptine Ointment] 1 applic TOPICAL BID tube 08/27/18 Nystatin Powder [Mycostatin Powder] 1 applic TOPICAL 0600,2200 bottle 08/27/18 Polyethylene Glycol 3350 [Miralax] 17 gm PO BID PRN packet 08/27/18 Primary Care Physician: Durga Brandt MD [Primary Care Provider] - Please follow up with your Primary Care Physician in: 1 week post discharge Test Results: Test results from this visit will be discussed in further detail at your follow- up appointment, if applicable. Please Follow Up With: Durga Brandt MD Please Follow Up With: Dr Escobar When: [facility] Proposed Discharge Date: 08/29/18
--- NOTE | 2018-08-27 19:30 | PCM.DC.SUM ---
Discharge Date and Diagnosis - Problem List Patient Problems: Active and Suspected Problems Cellulitis of leg (Acute) Fever (Acute) Date of Admission: 08/20/18 Date of Discharge: 08/29/18 - Primary Discharge Diagnosis Active and Suspected Problems Cellulitis of leg (Acute) Fever (Acute) - Secondary Discharge Diagnosis Chronic Problems Venous stasis dermatitis (Chronic) Stroke (Chronic) Coronary artery disease (Chronic) Hypertension (Chronic) Hyperlipidemia (Chronic) Chronic kidney disease (Chronic) Anemia of chronic disease (Chronic) Diabetes mellitus (Chronic) Gout (Chronic) Chronic pain (Chronic) Hypogonadism (Chronic) Depression (Chronic) GERD (gastroesophageal reflux disease) (Chronic) Paroxysmal atrial flutter (Chronic) Thrombocytopenia (Chronic) Anemia of chronic disorder (Chronic) Atrial flutter (Chronic) Benign essential hypertension (Chronic) Chronic diarrhea (Chronic) History of coronary artery bypass graft (Chronic) Diabetes mellitus, type 2 (Chronic) Hypothyroidism (Chronic) Parkinson's disease (Chronic) Rheumatoid arthritis (Chronic) Edema of lower extremity (Chronic) Opiate dependence (Chronic) Personality disorder (Chronic) Chronic obstructive lung disease (Chronic) 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, arteriosclerotic, post-stroke (Chronic) Migraines (Chronic) Peptic ulcer disease (Chronic) CKD (chronic kidney disease) stage 3, GFR 30-59 ml/min (Chronic) Esophagitis (Chronic) Ankylosing spondylitis (Chronic) Psoriatic arthritis (Chronic) Hospital Course and Treatment Imaging Results: 08/20/18 16:41 Diet: Regular Diet Food consistency:: Regular Liquid Consistency:: Regular/Thin Is pt able to select menu?: Yes Diet Comments: Ground meats; add gravy or sauce when able; distant supervision Consultations 08/21/18 13:36 Consult: Onc/Wound/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 Discharge home with spouse, home health services, and PASSPORT services. Discharge Diet: No Restrictions Discharge Activity: Return to Normal Activity, May Shower, Use Walker Weight Bearing Status: Weight bearing as tolerated Call your doctor if you observe: Fever of 101 or Higher, Inability to urinate, Inability to have a bowel movement, Shortness of breath, Chest pain, Uncontrolled pain Home Medications: Medications to take at Discharge Acetaminophen/Butalbital/Caffe [Fioricet] 1 tablet PO BID PRN 06/06/17 Allopurinol 200 mg PO DAILY 06/06/17 Amiodarone HCl [Pacerone] 200 mg PO DAILY 06/06/17 Diphenhydramine HCl [Benadryl Allergy] 25 mg PO PRN PRN 06/06/17 Hydromorphone HCl [Dilaudid] 4 mg PO DAILY PRN 06/06/17 Levothyroxine [Synthroid] 137 mcg PO SUTUWEFRSA 06/06/17 Morphine Sulfate [Morphine Sulfate ER] 30 mg PO Q8H 06/06/17 Pramipexole Di-HCl [Mirapex] 1 mg PO QHS 06/06/17 Testosterone Cypionate [Depo-Testosterone] 200 mg IM Q14D 06/06/17 Vilazodone Hydrochloride [Viibryd] 40 mg PO DAILY 06/06/17 proMETHazine tablet [Phenergan tablet] 25 mg PO Q4H PRN PRN 06/06/17 Amitriptyline HCl 25 mg PO QHS 12/11/17 Entacapone [Comtan] 200 mg PO 4X/DAY 12/11/17 Carbidopa/Levodopa [Carbidopa-Levo 25-100 mg Odt] 1 tab PO 4X/DAY 01/02/18 Furosemide [Lasix] 20 mg PO DAILY 01/02/18 Levothyroxine [Synthroid] 274 mcg PO MOTH 01/02/18 Apremilast [Otezla] 30 mg PO BID 02/19/18 Aspirin [Aspir-Low] 81 mg PO DAILY 02/19/18 Cholecalciferol (Vitamin D3) [Vitamin D3] 5,000 unit PO DAILY 02/19/18 Ciclopirox 1 applic TOPICAL DAILY 02/19/18 Cyanocobalamin [Vitamin B12] 1,000 mcg IM Q30D 02/19/18 Dextran 70/He-Cell [Tears Naturale, Artificial Tears] 1 drop EACH EYE Q1H PRN PRN 02/19/18 Metoprolol Succinate 25 mg PO DAILY 02/19/18 Oxygen, Home [Home Oxygen] 2 lpm NASAL DAILY PRN 02/19/18 Zinc Sulfate (50mg elemental) [Zinc Sulfate] 220 mg PO DAILY 02/19/18 hydrOXYzine pamoate capsule [Vistaril pamoate capsule] 50 mg PO TID PRN PRN #30 cap 07/22/18 Amlodipine [Norvasc] 5 mg PO DAILY 08/17/18 Codeine 30 mg PO PRN PRN 08/17/18 Levalbuterol HCl [Xopenex] 3 ml INHALATION Q4H PRN PRN 08/17/18 Omeprazole 40 mg PO DAILY 08/17/18 Menthol/Lanolin/Calamine/Znox [Calmoseptine Ointment] 1 applic TOPICAL BID tube 08/27/18 Nystatin Powder [Mycostatin Powder] 1 applic TOPICAL 0600,2200 bottle 08/27/18 Polyethylene Glycol 3350 [Miralax] 17 gm PO BID PRN packet 08/27/18 Primary Care Physician: Durga Brandt MD [Primary Care Provider] - Please follow up with your Primary Care Physician in: 1 week post discharge Please Follow Up With: Durga Brandt MD Please Follow Up With: Dr Escobar When: [facility] Disposition: Home with Home Health Minutes spent on discharge:: 35 Patient Condition:: Stable Medical Necessity - Tobacco Use Smoking Status: Former smoker Tobacco Use: Non-smoker Meaningful Use Info Meaningful Use Diagnoses (Choose all that apply): None applicable
--- NOTE | 2018-08-27 19:32 | PCM.PN.HH ---
Home Health Note - Plan Overview of reason of hospitalization: The patient is a 72 year old Male with below past medical history hospitalized for left lower extremity cellulitis, admitted to TCU with debility, here for rehabilitation, strengthening, prior to discharge home with spouse. Discharge home with spouse, home health services, and PASSPORT services. Problems: Patient was seen for Cellulitis of leg (Acute) Venous stasis dermatitis (Chronic) Fever (Acute) Stroke (Chronic) Coronary artery disease (Chronic) Hypertension (Chronic) Hyperlipidemia (Chronic) Chronic kidney disease (Chronic) Anemia of chronic disease (Chronic) Diabetes mellitus (Chronic) Gout (Chronic) Chronic pain (Chronic) Hypogonadism (Chronic) Depression (Chronic) GERD (gastroesophageal reflux disease) (Chronic) Complete List of Medical Problems Cellulitis of leg (Acute) Venous stasis dermatitis (Chronic) Fever (Acute) Stroke (Chronic) Coronary artery disease (Chronic) Hypertension (Chronic) Hyperlipidemia (Chronic) Chronic kidney disease (Chronic) Anemia of chronic disease (Chronic) Diabetes mellitus (Chronic) Gout (Chronic) Chronic pain (Chronic) Hypogonadism (Chronic) Depression (Chronic) GERD (gastroesophageal reflux disease) (Chronic) Cellulitis (Acute) Paroxysmal atrial flutter (Chronic) Thrombocytopenia (Chronic) Anemia of chronic disorder (Chronic) Atrial flutter (Chronic) Benign essential hypertension (Chronic) Chronic diarrhea (Chronic) History of coronary artery bypass graft (Chronic) Diabetes mellitus, type 2 (Chronic) Hypothyroidism (Chronic) Parkinson's disease (Chronic) Rheumatoid arthritis (Chronic) Edema of lower extremity (Chronic) Opiate dependence (Chronic) Personality disorder (Chronic) Chronic obstructive lung disease (Chronic) 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, arteriosclerotic, post-stroke (Chronic) Migraines (Chronic) Peptic ulcer disease (Chronic) CKD (chronic kidney disease) stage 3, GFR 30-59 ml/min (Chronic) Esophagitis (Chronic) Ankylosing spondylitis (Chronic) Psoriatic arthritis (Chronic) - Requirements and Reasons Disciplines Needed/Ordered: [facility] Reason for Disciplines: Disease Specific Monitoring/education, Medication Management/Knowledge Deficit, Observation Assessment Related To: Limited/Poor Endurance, Shortness of Breath with Activity, Physical Impairments, Unsteady Gait/Balance, Fall Risk Patient is unable to leave the home: Without Aid of Supportive Devices (crutches, cane, wheelchair, walker), Without the assistance of another person
[2018-08-27] MEDS: Pramipexole Di-HCl 1 MG Tablet PO (21:35)
[2018-08-27] MEDS: Amitriptyline 25 MG Tablet PO (21:35)
[2018-08-28 05:57] LABS: Anion Gap 7 (5-15); BUN 43 mg/dL (7-18); BUN/Creat Ratio 15.4 RATIO (10-20); Calcium,Total 8.4 mg/dL (8.5-10.1); Chloride 110 mmol/L (98-107); EST Glomerular Filtration Rate 24 mL/min (>60); Est Glom Filt Rate - Afr Amer 29 mL/min (>60); Estimated Creatinine Clearance 22.15 ml/min; Glucose 131 mg/dL (74-106); Potassium 5.2 mmol/L (3.5-5.1); Sodium Level 144 mmol/L (136-145)
[2018-08-28 06:01] LABS: Hemoglobin 10.1 g/dl (13.0-16.5); Mean Corp Hgb Conc 29.7 g/gl (32-36); Mean Corpuscular Hgb 28.7 pg (27.0-32.0); Mean Corpuscular Volume 96.6 fL (80-94); Mean Platelet Vol. 9.2 fl (6.2-12.0); Platelet Count 122 K/mm3 (150-450); RBC Distribution Width CV 15.5 % (11.6-14.6); RBC Distribution Width SD 51.5 fl (35.1-43.9); Red Blood Count 3.52 M/mm3 (4.6-6.2); White Blood Count 4.8 K/mm3 (4.4-11.0)
[2018-08-28 06:02] LABS: Differential Indicated MANUAL DIFF; POSITIVE COUNT YES; POSITIVE DIFFERENTIAL NO; POSITIVE MORPHOLOGY YES
[2018-08-28] MEDS: Carbidopa/Levodopa 25/100 Tablet PO ×4 (06:09→21:32)
[2018-08-28] MEDS: Pantoprazole Sodium 40 MG Tablet PO (06:09)
[2018-08-28] MEDS: amLODIPine 5 MG Tablet PO (06:09)
[2018-08-28] MEDS: VILAZODONE HYDROCHLORIDE 40 MG TABLET PO (06:09)
[2018-08-28] MEDS: Furosemide 20 MG Tablet PO (06:10)
[2018-08-28] MEDS: Levothyroxine 137 MCG Tablet PO (06:10)
[2018-08-28] MEDS: Amiodarone 200 MG Tablet PO (06:10)
[2018-08-28] MEDS: Menthol/Lanolin/Calamine/Znox 113 GM Tube 1 APPLIC TOPICAL ×2 (06:15→16:51)
[2018-08-28] MEDS: Nystatin Powder 15gm Bottle 1 APPLIC TOPICAL ×2 (06:15→21:33)
[2018-08-28 07:00] LABS: Anisocytosis 1+; Basophil 1 % (0-1); Eosinophil 3 % (0-5); Lymphocyte 31 % (19-41); Metamyelocyte 2 % (0-1); Monocyte 3 % (0-10); Neutrophil-Band 4 % (0-5); Neutrophil-Segmented 56 % (47-70); Total Cells Counted 100 (MANUAL DIFF)
[2018-08-28 07:01] LABS: Macrocytosis 1+; Platelet Estimate SLT DEC (ADEQ); Polychromasia 1+
[2018-08-28 07:02] LABS: Absolute Neutrophil Count 2.8 X10^3/uL (2.0-7.7)
[2018-08-28 07:03] LABS: Absolute Lymphocyte Count 1.49 X10^3/ul (0.83-4.51)
[2018-08-28] MEDS: Allopurinol 100 MG Tablet 200 MG PO (09:15)
[2018-08-28] MEDS: HYDROmorphone 2 MG TABLET 4 MG PO (09:15)
[2018-08-28 09:16] VITALS: BP 139/77; PULSE 88
[2018-08-28] MEDS: Metoprolol(XL)Succ 25 MG Tablet PO (09:16)
[2018-08-28] MEDS: Sodium Polystyrene Sulfonate 15 GM/60 ML UDC 30 GM PO (10:42)
[2018-08-28] MEDS: 0.9% Normal Saline 1,000 ML 999 ML IV (11:58)
[2018-08-28 15:44] VITALS: BP 117/67; PULSE 77; RESP 18; TEMP 36.7; O2SAT 97
[2018-08-28] MEDS: Amitriptyline 25 MG Tablet PO (21:32)
[2018-08-28] MEDS: Pramipexole Di-HCl 1 MG Tablet PO (21:32)
[2018-08-29] MEDS: amLODIPine 5 MG Tablet PO (06:00)
[2018-08-29] MEDS: Pantoprazole Sodium 40 MG Tablet PO (06:00)
[2018-08-29] MEDS: Carbidopa/Levodopa 25/100 Tablet PO ×2 (06:00→10:59)
[2018-08-29 06:01] VITALS: BP 148/50; PULSE 54
[2018-08-29] MEDS: Furosemide 20 MG Tablet PO (06:01)
[2018-08-29] MEDS: Amiodarone 200 MG Tablet PO (06:01)
[2018-08-29] MEDS: Metoprolol(XL)Succ 25 MG Tablet PO (06:01)
[2018-08-29] MEDS: VILAZODONE HYDROCHLORIDE 40 MG TABLET PO (06:01)
[2018-08-29] MEDS: Levothyroxine 137 MCG Tablet PO (06:04)
[2018-08-29] MEDS: Nystatin Powder 15gm Bottle 1 APPLIC TOPICAL (06:06)
[2018-08-29] MEDS: Menthol/Lanolin/Calamine/Znox 113 GM Tube 1 APPLIC TOPICAL (06:06)
[2018-08-29 06:52] LABS: Anion Gap 6 (5-15); BUN 37 mg/dL (7-18); Calcium,Total 8.1 mg/dL (8.5-10.1); Chloride 111 mmol/L (98-107); Creatinine, Serum 2.47 mg/dL (0.70-1.30); EST Glomerular Filtration Rate 28 mL/min (>60); Est Glom Filt Rate - Afr Amer 33 mL/min (>60); Estimated Creatinine Clearance 25.11 ml/min; Glucose 107 mg/dL (74-106); Potassium 5.2 mmol/L (3.5-5.1); Sodium Level 142 mmol/L (136-145)
[2018-08-29] MEDS: Allopurinol 100 MG Tablet 200 MG PO (08:41)
[2018-08-29 09:12] LABS: Pathologist Review Reviewed
[2018-08-29 09:30] VITALS: PULSE 98; RESP 18; O2SAT 98
--- NOTE | 2018-08-29 10:47 | CASEMGMT ---
Plan of care meeting held. Resident present as well as resident spouse. Discharge date set for 08/29/18. Resident plans to discharge to home with spouse with home health for care home only. Resident spouse to provide transportation home for resident at time of discharge. Resident reporting to have all needed durable medical equipment needs already set up within the home. Resident to continue with PASSPORT services at time of discharge as well. Support given. Proposed discharge date: 08/29/18 PLAN: Discharge to home with spouse, home health, and PASSPORT services. Jennifer BROWNING, COMPLIANCE MANAGER
[2018-08-29 11:15] VITALS: BP 128/74; PULSE 76; RESP 18; TEMP 37.1; O2SAT 96
[2018-08-29] MEDS: Sodium Polystyrene Sulfonate 15 GM/60 ML UDC 30 GM PO (11:15)
--- NOTE | 2018-08-30 14:03 | MDS.RN ---
Information for the mds was obtained from review of the clinical record, interview of resident, staff, and direct observation of resident's care.
== END 2018-08-29 11:30 | disposition home health service (06) | DRG 948 ==
PROVIDERS: Admitting Provider Family Medicine Geriatric Medicine; Family Provider Family Medicine; PCP Family Medicine; Visit Provider Family Medicine Geriatric Medicine
DX: R53.81 Other malaise (principal); L03.116 Cellulitis of left lower limb; F11.20 Opioid dependence, uncomplicated; E03.9 Hypothyroidism, unspecified; K21.9 Gastro-esophageal reflux disease without esophagitis; M10.9 Gout, unspecified; I12.9 Hypertensive chronic kidney disease with stage 1 through stage 4 chronic kidney disease, or unspecified chronic kidney disease; N18.3 Chronic kidney disease, stage 3 (moderate); I25.10 Atherosclerotic heart disease of native coronary artery without angina pectoris; M06.9 Rheumatoid arthritis, unspecified; G20 Parkinson's disease; F32.9 Major depressive disorder, single episode, unspecified; E78.5 Hyperlipidemia, unspecified; D63.8 Anemia in other chronic diseases classified elsewhere; E11.22 Type 2 diabetes mellitus with diabetic chronic kidney disease; G89.29 Other chronic pain; Z95.1 Presence of aortocoronary bypass graft; J44.9 Chronic obstructive pulmonary disease, unspecified; Z87.891 Personal history of nicotine dependence; F60.9 Personality disorder, unspecified; L40.50 Arthropathic psoriasis, unspecified
CPT/HCPCS: 36415; 80048; 85025; 92526; 92610; 97110; 97116; 97162; 97166; 97530; 97535; J7030; J3420

== ENCOUNTER 2018-09-30 10:04 | Inpatient (IN) | payer MEDICARE, OTHER, MEDICAID, SELFPAY ==
[2018-09-30] VITALS (16 sets, daily range): BP systolic 77–159; BP diastolic 48–74; PULSE 75–94; RESP 15–55; TEMP 36.8–36.9; O2SAT 94–100; BMI 25.8; BMI 23.8
--- NOTE | 2018-09-30 10:21 | EKG12_ITS ---
Test Reason : CP Blood Pressure : / mmHG Vent. Rate : 083 BPM Atrial Rate : 083 BPM P-R Int : 266 ms QRS Dur : 142 ms QT Int : 374 ms P-R-T Axes : -13 006 -42 degrees QTc Int : 439 ms Sinus rhythm with 1st degree A-V block Left bundle branch block Abnormal ECG Confirmed by MATHEW ALCARAZ, ANGELICA ([id number]), clinical editor HARJINDER PARSONS ([id number]) on 10/03/2018 11:26:41 AM Referred By: DOMITILA Confirmed By:ANGELICA CARMONA MD
--- NOTE | 2018-09-30 10:21 | RAD_ITS ---
STUDY: X-RAY CHEST REASON FOR EXAM: Male, 73 years old. Weakness chest pain TECHNIQUE: PA and lateral views of the chest. February 19, 2018 chest x-ray COMPARISON: None. FINDINGS: Lung markings appear relatively stable. There is no demonstrated pleural abnormality. Sternal cerclage wires and vascular clips are present from a prior sternotomy and coronary artery bypass graft procedure (CABG). There is moderate cardiac enlargement. Normal mediastinum and sherry. Normal visualized pulmonary arteries. Normal visualized aortic arch and descending thoracic aorta. Normal visualized thoracic spine. Normal visualized ribs, clavicles, and shoulders. There is no demonstrated abnormality of the visualized soft tissue structures of the upper abdomen. RAD/Chest PA and Lateral IMPRESSION: Stable chest moderate cardiac enlargement status post sternotomy. Electronically Signed: Xin Bills MD at 11:35 EST Tel , Service support ,
--- NOTE | 2018-09-30 10:31 | ED.VISSUMM ---
- ER Visit Summary Date of Service: 09/30/18 Chief Complaint: Decreased oral intake History of Present Illness: The patient is a [address] of Parkinson's disease, CVA, CAD, OR, quadruple bypass, COPD, stage III renal insufficiency. Patient states he had upper endoscopy done at [facility] approximately 2 weeks ago and had esophageal dilatation. Since that time is had trouble swallowing and pain with swallowing. He denies any fever. He is also had some intermittent nonexertional chest pain often with swallowing. He said he has had a prior esophageal dilatation earlier this year that he did not have any problem with. He also complains of some epigastric abdominal discomfort. He has had mild nausea and vomiting. No melena. No dysuria. No obvious fever. He does have a ileostomy states he is having output. Physical Examination: Older male no acute distress. Vital signs are stable afebrile. By his . H EENT exam unremarkable. Moist mucous membranes. Neck nontender. No lymphadenopathy. Lungs clear to auscultation bilaterally. Heart regular rhythm. Chest wall well-healed prior sternotomy. Abdomen soft. Nondistended. Normal bowel sounds. No peritoneal signs. Mild epigastric tenderness. Left sided ostomy bag. Patient is moving all 4 extremities. Neurovascularly intact. Neurologically he is awake and alert with no focal motor deficits. Test Results: Chest x-ray showed sternotomy which are both chronic. EKG is a sinus rhythm rate 88 with a left bundle branch block. CBC showed a white count 8. Hemoglobin of 15. Platelet count 113,000 patient has chronic thrombocytopenia. Chemistry shows sodium 129. Potassium is 7.3 CO2 is 16. Gap 11. BUN of 118 and creatinine is 7.12 previously 2.5. Liver enzymes were unremarkable. Lipase was elevated 1388 consistent with acute pancreatitis. Emergency Department Course and Treatment: Patient be treated with a liter of normal saline. Patient has acute dehydration causing renal failure causing hyperkalemia. He also has acute pancreatitis. He will be given a second liter of normal saline. IV bicarbonate and IV calcium chloride for his elevated potassium. Along with IV insulin and IV dextrose. On repeat exam he is doing well at 1146. I discussed all test results and reason for admission with both he and his . They are comfortable with the plan. Treatment Plan: I have spoken to the hospitalist and the patient will be admitted to the PCU. Disposition: Admission Impression: Acute dehydration. Acute renal failure Acute hyperkalemia Acute pancreatitis Acute difficulty and painful swallowing. Status post recent esophageal dilatation This note was generated with [employer] dictation software. It may contain incorrect words, spelling, and punctuation that were not noted in review of the chart prior to signing ED Disposition - Plan for ED Patient: Chief Complaint: Weakness Referrals: Yovani Cantu MD [Primary Care Provider] -
--- NOTE | 2018-09-30 10:35 | ED.DCSUM_ITS ---
- ER Visit Summary Date of Service: 09/30/18 Chief Complaint: Decreased oral intake History of Present Illness: The patient is a [address] of Parkinson's disease, CVA, CAD, MS, quadruple bypass, COPD, stage III renal insufficiency. Patient states he had upper endoscopy done at [facility] approximately 2 weeks ago and had esophageal dilatation. Since that time is had trouble swallowing and pain with swallowing. He denies any fever. He is also had some intermittent nonexertional chest pain often with swallowing. He said he has had a prior esophageal dilatation earlier this year that he did not have any problem with. He also complains of some epigastric abdominal discomfort. He has had mild nausea and vomiting. No melena. No dysuria. No obvious fever. He does have a ileostomy states he is having output. Physical Examination: Older male no acute distress. Vital signs are stable afebrile. By his . H EENT exam unremarkable. Moist mucous membranes. Neck nontender. No lymphadenopathy. Lungs clear to auscultation bilaterally. Heart regular rhythm. Chest wall well-healed prior sternotomy. Abdomen soft. Nondistended. Normal bowel sounds. No peritoneal signs. Mild epigastric tenderness. Left sided ostomy bag. Patient is moving all 4 extremities. Neurovascularly intact. Neurologically he is awake and alert with no focal motor deficits. Test Results: Chest x-ray showed sternotomy which are both chronic. EKG is a sinus rhythm rate 88 with a left bundle branch block. CBC showed a white count 8. Hemoglobin of 15. Platelet count 113,000 patient has chronic thrombocytopenia. Chemistry shows sodium 129. Potassium is 7.3 CO2 is 16. Gap 11. BUN of 118 and creatinine is 7.12 previously 2.5. Liver enzymes were unremarkable. Lipase was elevated 1388 consistent with acute pancreatitis. Emergency Department Course and Treatment: Patient be treated with a liter of normal saline. Patient has acute dehydration causing renal failure causing hyperkalemia. He also has acute pancreatitis. He will be given a second liter of normal saline. IV bicarbonate and IV calcium chloride for his elevated potassium. Along with IV insulin and IV dextrose. On repeat exam he is doing well at 1146. I discussed all test results and reason for admission with both he and his . They are comfortable with the plan. Treatment Plan: I have spoken to the hospitalist and the patient will be admitted to the PCU. Disposition: Admission Impression: Acute dehydration. Acute renal failure Acute hyperkalemia Acute pancreatitis Acute difficulty and painful swallowing. Status post recent esophageal dilatation This note was generated with [employer] dictation software. It may contain incorrect words, spelling, and punctuation that were not noted in review of the chart prior to signing ED Disposition - Plan for ED Patient: Chief Complaint: Weakness Referrals: Yovani Cantu MD [Primary Care Provider] -
[2018-09-30 11:06] LABS: Absolute Lymphocyte Count 1.52 X10^3/ul (0.83-4.51); Absolute Neutrophil Count 6.2 X10^3/uL (2.0-7.7); Basophil# 0.02 X10^3/uL; Basophil% 0.2 % (0-1); Eosinophil# 0.13 X10^3/uL; Eosinophils% 1.6 % (0-5); Hematocrit 47.5 % (40-54); Hemoglobin 15.4 g/dl (13.0-16.5); Lymphocyte # 1.52 X10^3/ul (4.0); Lymphocyte % 18.2 % (19-41); Mean Corp Hgb Conc 32.4 g/gl (32-36); Mean Corpuscular Hgb 29.1 pg (27.0-32.0); Mean Corpuscular Volume 89.8 fL (80-94); Mean Platelet Vol. 10.1 fl (6.2-12.0); Monocyte# 0.32 X10^3/uL; Monocyte% 3.8 % (0-10); Neutrophil # 6.21 X10^3/uL (2.7-7.7); Neutrophil % 74.3 % (47-70); Platelet Count 113 K/mm3 (150-450); RBC Distribution Width CV 15.2 % (11.6-14.6); Red Blood Count 5.29 M/mm3 (4.6-6.2); White Blood Count 8.4 K/mm3 (4.4-11.0)
[2018-09-30 11:07] LABS: POSITIVE COUNT NO; POSITIVE DIFFERENTIAL NO; POSITIVE MORPHOLOGY NO
[2018-09-30] MEDS: 0.9% Normal Saline 1,000 ML 1000 ML IV (11:15)
--- NOTE | 2018-09-30 11:36 | ED.RN ---
LAB RESULTED POTASSIUM 7.3, BUN 118. PHYSICIAN NOTIFIED
[2018-09-30 11:37] LABS: AST(SGOT) 34 U/L (15-37); Alanine Aminotransfer ALT/SGPT 11 U/L (16-61); Albumin, Serum 3.9 g/dL (3.2-5.0); Alkaline Phosphatase 114 U/L (45-117); Anion Gap 11 (5-15); BUN 118 mg/dL (7-18); BUN/Creat Ratio 16.6 RATIO (10-20); Bilirubin, Direct 0.15 mg/dL (0.00-0.30); Calcium,Total 9.1 mg/dL (8.5-10.1); Chloride 102 mmol/L (98-107); Creatinine, Serum 7.12 mg/dL (0.70-1.30); EST Glomerular Filtration Rate 8 mL/min (>60); Est Glom Filt Rate - Afr Amer 10 mL/min (>60); Estimated Creatinine Clearance 8.59 ml/min; Globulin 4.5 g/dL (2.2-4.2); Glucose 138 mg/dL (74-106); Lipase 1388 U/L (73-393); Potassium 7.3 mmol/L (3.5-5.1); Protein, Total 8.4 g/dL (6.4-8.2); Sodium Level 129 mmol/L (136-145)
--- NOTE | 2018-09-30 11:54 | HP.PCM_ITS ---
History of Present Illness Date of Admission: 09/30/18 Chief Complaint: Worsening generalized weakness, pain with swallowing. The patient is a 73 year old M with an extensive past medical history as listed below. He was admitted through the ED on 1118 with a complaint of worsening generalized weakness for 1 week. He also had associated pain and difficulty with swallowing and some nausea and vomiting. Patient has a history of esophageal stricture due to GERD and recently had esophageal dilatation done at [facility] ~ 2 weeks ago. However he has still had persistent difficulty with swallowing and so has not been eating or drinking much since he had the procedure. Patient also had nausea and had a few episodes of vomiting. Of note, he says he has barely been passing gas and does not remember whether he is passed gas today. He denied any fever or chills any cough shortness of breath or diarrhea. He has an ileostomy bag after hemicolectomy for diverticulosis and also had recent abdominal hernia repair up in [facility]. In the ED, EKG shows sinus rhythm with heart rate of 88 and a left bundle branch block which is chronic. CBC showed platelets of [id number] which is chronic. BMP showed Na of 129, potassium of 7.3 (moderately hemolysed) and Cr of 7.12 (baseline of ~ 2). Initial troponin was 0.041 nad lipase was 1388. He is being admitted to be managed for KENDALL on CKD, hyponatremia, hyperkalemia and pancreatitis.[] Past Medical History Past Medical History (Chronic Problems): Chronic Problems Venous stasis dermatitis (Chronic) Stroke (Chronic) Coronary artery disease (Chronic) Hypertension (Chronic) Hyperlipidemia (Chronic) Chronic kidney disease (Chronic) Anemia of chronic disease (Chronic) Diabetes mellitus (Chronic) Gout (Chronic) Chronic pain (Chronic) Hypogonadism (Chronic) Depression (Chronic) GERD (gastroesophageal reflux disease) (Chronic) Paroxysmal atrial flutter (Chronic) Thrombocytopenia (Chronic) Anemia of chronic disorder (Chronic) Atrial flutter (Chronic) Benign essential hypertension (Chronic) Chronic diarrhea (Chronic) History of coronary artery bypass graft (Chronic) Diabetes mellitus, type 2 (Chronic) Hypothyroidism (Chronic) Parkinson's disease (Chronic) Rheumatoid arthritis (Chronic) Edema of lower extremity (Chronic) Opiate dependence (Chronic) Personality disorder (Chronic) Chronic obstructive lung disease (Chronic) 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, arteriosclerotic, post-stroke (Chronic) Migraines (Chronic) Peptic ulcer disease (Chronic) CKD (chronic kidney disease) stage 3, GFR 30-59 ml/min (Chronic) Esophagitis (Chronic) Ankylosing spondylitis (Chronic) Psoriatic arthritis (Chronic) Allergies amoxicillin trihydrate [From Augmentin] Allergy (Verified 09/30/18 10:07) Rash bisacodyl [From Dulcolax (bisacodyl)] Allergy (Verified 09/30/18 10:07) Anaphylaxis iodine Allergy (Verified 09/30/18 10:07) Rash piperacillin sodium [From Zosyn] Allergy (Verified 09/30/18 10:07) Rash potassium clavulanate [From Augmentin] Allergy (Verified 09/30/18 10:07) Rash tazobactam sodium [From Zosyn] Allergy (Verified 09/30/18 10:07) Rash apixaban [From Eliquis] Adverse Reaction (Verified 09/30/18 10:07) Other azithromycin Adverse Reaction (Verified 09/30/18 10:07) Diarrhea bupropion Adverse Reaction (Verified 09/30/18 10:07) Unknown ciprofloxacin [From Cipro] Adverse Reaction (Verified 09/30/18 10:07) Other ciprofloxacin HCl [From Cipro] Adverse Reaction (Verified 09/30/18 10:07) Other diazepam [From Valium] Adverse Reaction (Verified 09/30/18 10:07) Other hallucinations duloxetine Adverse Reaction (Verified 09/30/18 10:07) Unknown gabapentin Adverse Reaction (Verified 09/30/18 10:07) Other heparin Adverse Reaction (Verified 09/30/18 10:07) Unknown Iodinated Contrast- Oral and IV Dye [CONTRASTS] Adverse Reaction (Verified 09/30/18 10:07) Rash nitroglycerin Adverse Reaction (Verified 09/30/18 10:07) Other headaches and extreme hyperactivity paroxetine Adverse Reaction (Verified 09/30/18 10:07) Unknown tetracycline [Tetracycline] Adverse Reaction (Verified 09/30/18 10:07) Vomiting plastics Adverse Reaction (Uncoded 09/30/18 10:07) Rash Home Medications: Ambulatory Orders Medication Instructions Recorded Acetaminophen/Butalbital/Caffe 1 tablet PO BID PRN 06/06/17 [Fioricet] Allopurinol 200 mg PO DAILY 06/06/17 Amiodarone HCl [Pacerone] 200 mg PO DAILY 06/06/17 Diphenhydramine HCl [Benadryl 25 mg PO PRN PRN 06/06/17 Allergy] Hydromorphone HCl [Dilaudid] 4 mg PO DAILY PRN 06/06/17 Levothyroxine [Synthroid] 137 mcg PO MOTUWETHFR 06/06/17 Morphine Sulfate [Morphine Sulfate 30 mg PO Q8H PRN 06/06/17 ER] Pramipexole Di-HCl [Mirapex] 1 mg PO QHS 06/06/17 Testosterone Cypionate 200 mg IM Q14D 06/06/17 [Depo-Testosterone] Vilazodone Hydrochloride [Viibryd] 40 mg PO DAILY 06/06/17 proMETHazine tablet [Phenergan 25 mg PO Q4H PRN PRN 06/06/17 tablet] Amitriptyline HCl 25 mg PO QHS 12/11/17 Entacapone [Comtan] 200 mg PO 4X/DAY 12/11/17 Carbidopa/Levodopa [Carbidopa-Levo 1 tab PO 4X/DAY 01/02/18 25-100 mg Odt] Furosemide [Lasix] 20 mg PO DAILY 01/02/18 Levothyroxine [Synthroid] 274 mcg PO SUSA 01/02/18 Apremilast [Otezla] 30 mg PO BID 02/19/18 Aspirin [Aspir-Low] 81 mg PO DAILY 02/19/18 Cholecalciferol (Vitamin D3) 5,000 unit PO DAILY 02/19/18 [Vitamin D3] Cyanocobalamin [Vitamin B12] 1,000 mcg IM Q30D 02/19/18 Metoprolol Succinate 25 mg PO DAILY 02/19/18 Oxygen, Home [Home Oxygen] 2 lpm NASAL DAILY PRN 02/19/18 Zinc Sulfate (50mg elemental) 220 mg PO DAILY 02/19/18 [Zinc Sulfate] hydrOXYzine pamoate capsule 50 mg PO TID PRN PRN #30 cap 07/22/18 [Vistaril pamoate capsule] Amlodipine [Norvasc] 5 mg PO DAILY 08/17/18 Codeine 30 mg PO PRN PRN 08/17/18 Levalbuterol HCl [Xopenex] 3 ml INHALATION Q4H PRN PRN 08/17/18 Omeprazole 40 mg PO DAILY 08/17/18 Menthol/Lanolin/Calamine/Znox 1 applic TOPICAL BID tube 08/27/18 [Calmoseptine Ointment] Nystatin Powder [Mycostatin Powder] 1 applic TOPICAL 0600,2200 bottle 08/27/18 Polyethylene Glycol 3350 [Miralax] 17 gm PO BID PRN packet 08/27/18 Fluticasone 220 Mcg [Flovent (SP)] 2 puff INHALATION BID 09/30/18 Surgical History: appendectomy, coronary bypass surgery, total hip arthroplasty, tonsillectomy, - - multiple abdominal surgeries with removal of entire colon, placement of abdominal wall mesh, ileostomy, surgery for bowel abscess, lumbar back surgery, right shoulder surgery, foot surgery, cervical neck surgery, prostate surgery Psychiatric History: Depression, - - Personality disorder Lives: Spouse/ Significant Other Smoking Status: Former smoker - *Family History Maternal History Items: Hypertension Paternal History Items: Heart Disease Sibling History Items: Diabetes Review of Systems Constitutional: Reports: Anorexia, Malaise, Weakness, Fatigue. Denies: Chills, Fever Eyes: Denies: Blurred vision HEENT: Reports: Difficulty Swallowing. Denies: Head Aches, Sinus Congestion, Sinus Drainage Cardiovascular: Denies: Chest Pain, Chest Pressure, Chest Tightness, Edema, Heaviness, Light Headedness, Orthopnea, Palpitations Respiratory: Denies: Cough, Shortness of Breath, Shortness of breath at rest, Sputum production Gastrointestinal: Reports: Abdominal Pain, Nausea, Vomiting, - - hasnt passed gas. Denies: Constipation, Diarrhea, Dyspepsia Genitourinary: Denies: Dysuria Musculoskeletal: Denies: Joint Pain, Joint Tenderness Skin: Denies: Rash, Wounds Neurological: Denies: Numbness, Tingling, Focal weakness Psychiatric: Denies: Anxiety, Depression, Homicidal Ideations, Suicidal Ideations Hematologic/ Lymphatic: Denies: Easy Bruising, Easy Bleeding VTE Information - Inpt Only VTE Present on Admission: No VTE Pharm Prophylaxis ordered?: Yes - Physical Exam General: Alert, Oriented x3, Cooperative, No apparent distress HEENT: Atraumatic, PERRLA, EOMI, Normocephalic Oral: Dry Mucosa Neck: Supple, No JVD, Negative Carotid Bruits Lungs: Clear to auscultation, Normal air movement, No rhonchi, No wheeze, No rales Cardiovascular: Regular rate, Regular Rhythm, Normal S1, Normal S2, No murmurs Abdomen: Hyperactive Bowel Sounds, - - mild periumbilical and right lower qu adrant tenderness, with no guarding or rebound tenderness. Ileostomy bag in place. Numerous surgical scars on abdomen. Extremities: No clubbing, No cyanosis, No edema, Capillary Refill Less than 3 Seconds Skin: No rashes, No breakdown Musculoskeletal: No Tenderness to Palpation of Joints or Extremities Lymphatic: No Cervical, Supraclavicular, or Inguinal Adenopathy Neurological: Cranial nerves II-XII grossly intact Psych/Mental Status: Normal Affect, Appropriate, Alert and oriented to time, place, person, mood and affect Vital Signs Temp Pulse Resp BP Pulse Ox 98.5 F 82 16 159/71 H 100 09/30/18 10:05 09/30/18 10:05 09/30/18 10:05 09/30/18 10:05 09/30/18 10:05 Weight: 160 lb Body Mass Index (BMI) 25.8 Finger Stick Blood Glucose 203 Laboratory Tests Past 24 Hrs 09/30/18 09/30/18 10:54 10:54 WBC 8.4 RBC 5.29 Hgb 15.4 Hct 47.5 MCV 89.8 MCH 29.1 MCHC 32.4 RDW 15.2 H RDW Differential 50.0 H Plt Count 113 L MPV 10.1 Immature Gran % (Auto) 1.900 H Neut % (Auto) 74.3 H Lymph % (Auto) 18.2 L [place] % (Auto) 3.8 Eos % (Auto) 1.6 Baso % (Auto) 0.2 Absolute Neuts (auto) 6.2 Absolute Lymphs (auto) 1.52 Total Counted Not Reportable Sodium 129 L Potassium 7.3 H* Chloride 102 Carbon Dioxide 16.0 L Anion Gap 11 BUN 118 H* Creatinine 7.12 H Estim Creat Clear Calc 8.59 Est GFR (MDRD) Af Amer 10 L Est GFR (MDRD) Non-Af 8 L BUN/Creatinine Ratio 16.6 Glucose 138 H Calcium 9.1 Total Bilirubin 0.60 Direct Bilirubin 0.15 AST 34 ALT 11 L Alkaline Phosphatase 114 Troponin I 0.041 Total Protein 8.4 H Albumin 3.9 Globulin 4.5 H Lipase 1388 H Diagnostic Data Chest X-Ray 09/30/18 10:21 IMPRESSION: Stable chest moderate cardiac enlargement status post sternotomy. Electronically Signed: Xin Bills MD at 11:35 EST Tel , Service support , Assessment/Plan All Active Problems Cellulitis of leg (Acute) Fever (Acute) Cellulitis (Acute) Superficial thrombophlebitis of left upper extremity (Resolved) Unstable angina (Resolved) DVT of upper extremity (deep vein thrombosis) (Ruled-out) Hyperkalemia (Resolved) Small Bowel Enterocut Fistula (Resolved) 74y/o male admitted with a complaint of worsening generalised weakness, nausea and vomiting. 1. Small bowel ileus vs obstruction * has been having nausea and vomiting; not passing gas * has very hyperactive bowel sounds * stat CT abdomen: distended small bowel loops, consider ileus vs early partial small bowel obstruction, s/o colectomy and post left lower colostomy. Bilateral stable renal cysts. * keep NPO; pass NG tube * admit to PCU with telemetry * urgent general surgery consult * hydrate with IVF NS * 2. KENDALL on CKD * baseline Cr ~ 2; Cr on admission is 7.12 * likely pre-renal due to dehydration and decreased intake, nausea and vomiting * get renal USG; check urine electrolytes to check FeNA/FeURea * hydrate with IVF NS * urgent nephrology consult * 3. Hyperkalemia * due to KENDALL. K is 7.3 (moderately hemolysed) * will repeat K; received potassium depleting cocktail in ED. * EKG showed no changes consistent with hyperkalemia * will give rectal kayexalate * nephrology consult * 4. Hyponatremia: * sodium is 129; likely a hypotonic hypovolemic hyponatremia from dehydration. * Will check serum osmolality. * Check urine sodium as well. Will hydrate with IV fluids and monitor sodiium level * 5. Acute pancreatitis: Lipase is 1388. Has periumbilical abdominal pain. getting CT abdomen. NPO; IVF; IV morphine prn 6. History of esophageal stricture due to GERD * s/p esophageal dilatation 2 weeks ago at [facility] * still complains of pain with swallowing * keep NPO for now * give iVF NS * general surgery consult * 7. Hypertension: On metoprolol 8. History of A. fib: On metoprolol and amiodarone. Not on any blood thinners per med rec. Unsure why. 9. Hypothyroidism: On Synthroid 10. Parkinson;s disease: on levodopa-carbidopa and entacapone 11. Depression: on vilazodone DVT prophylaxis: SCDs; allergic to heparin GI prophylaxis: IV PPI Code status: full code * Patient and ounseled extensively about different types of CODE STATUS including full code, DNR CCA and DNR CCA. Patient elects to be full code. Total [id number] time 16 minutes. Code Visit Inpatient E&M: 76744 Init Hosp L3 Procedures: 13988 Advncd Care Plan 30 Min
[2018-09-30] MEDS: Dextrose 50%-Water 25 GM/50 ML DISP.SYRIN IV ×2 (12:28→16:02)
[2018-09-30] MEDS: Sodium Bicarbonate 8.4% 50 ML Syringe 50 MEQ IV (12:39)
[2018-09-30] MEDS: Sodium Polystyrene Sulfonate 15 GM/60 ML UDC 30 GM PO (12:50)
[2018-09-30 13:03] LABS: Potassium 6.7 mmol/L (3.5-5.1)
--- NOTE | 2018-09-30 13:15 | CT_ITS ---
STUDY: CT ABDOMEN AND PELVIS WITHOUT CONTRAST REASON FOR EXAM: Male, 73 years old. Pain and weakness history of ileostomy appendectomy renal failure Parkinson's history of esophageal dilatation COPD RADIATION DOSAGE (If Supplied By Facility): CTDIvol = ( 14.95 ) mGy, DLP = ( 653.73 ) mGycm TECHNIQUE: Transaxial images were obtained from the dome of the diaphragm to the symphysis pubis without oral contrast, and without intravenous contrast. Sagittal and coronal images were reconstructed. Individualized dose optimization techniques were used for this CT. COMPARISON: January 02, 2018 CT scan abdomen and pelvis FINDINGS: There is trace lower lobe atelectasis. There are coronary calcifications sternotomy wires are seen midline. Normal liver. There may be a lateral single gallstone within the gallbladder. Normal spleen. Normal pancreas. Normal bilateral adrenal glands. There are multiple cysts involving the right kidney. Overall the right kidney appears mildly atrophied with multiple cysts which are stable since prior study. There multiple cysts in the left kidney stable since prior study the largest of which measures 6.5 x 2.8 cm. There is a small amount of radiopaque material within the stomach. There multiple loops of mildly distended small bowel. This is lesser than the prior study. There is postoperative change in the left midline abdomen.. There is a rectal stump demonstrated without added evidence of inflammation. There is a left lower colostomy which appears to be patent. There is non-visualization of the appendix. There is partial calcification of the aorta. There is partial calcification takeoff of the renal arteries. Normal inferior vena cava. Normal retroperitoneum. The bladder is distended. There is a low-lying diminutive appearance of the prostate. There is a left lower colostomy. There is a atrophy appearance of the rectus muscles. There is straightening of the physiologic lordosis. There is a lumbar fusion at the level of L3-L4. There is been a multilevel laminectomy. There is a right hip arthroplasty. At the level of L2-L3 there is severe neural foramina narrowing and severe central stenosis. CT/Abdomen/Pelvis without Cont IMPRESSION: Distended loops of small bowel consider ileus versus early partial small bowel obstruction. Status post colectomy. Status post left lower colostomy. Stable bilateral renal cysts Status post sternotomy. Lumbar spine fusion right hip arthroplasty. Possible gallstone in the dependent portion of the gallbladder versus artifact. Advanced degenerative change L2-3 Electronically Signed: Xin Bills MD at 14:21 EST Tel , Service support ,
--- NOTE | 2018-09-30 15:00 | NURSING ---
Patient refusing arias catheter and NG tube insertion. Dr. Gutierrez made aware and in to talk with patient and .
[2018-09-30] MEDS: 0.9% Normal Saline 1,000 ML 250 ML IV ×2 (15:38→20:28)
[2018-09-30] MEDS: Furosemide 100 MG/10 ML Vial 80 MG IV (16:00)
[2018-09-30] MEDS: 0.9% NaCl Peripheral Flush Adult/Peds IV (16:00)
[2018-09-30] MEDS: Morphine 2 MG/ML Syringe 1 MG IV ×2 (16:01→20:18)
[2018-09-30] MEDS: BENZOCAINE/MENTHOL 1 LOZENGE MUCOUS MEM ×2 (16:02→20:27)
[2018-09-30 16:10] LABS: Urea Nitrogen, Urine 577 mg/dL (NO RANGE EST.)
[2018-09-30] MEDS: Amiodarone 200 MG Tablet PO (16:14)
[2018-09-30 16:35] LABS: Bedside Glucose 147 mg/dL (70-110)
[2018-09-30 19:44] LABS: Anion Gap 11 (5-15); BUN 108 mg/dL (7-18); BUN/Creat Ratio 16.7 RATIO (10-20); Calcium,Total 9.6 mg/dL (8.5-10.1); Chloride 108 mmol/L (98-107); Creatinine, Serum 6.46 mg/dL (0.70-1.30); EST Glomerular Filtration Rate 9 mL/min (>60); Est Glom Filt Rate - Afr Amer 11 mL/min (>60); Estimated Creatinine Clearance 9.46 ml/min; Glucose 122 mg/dL (74-106); Potassium 5.3 mmol/L (3.5-5.1); Sodium Level 136 mmol/L (136-145)
[2018-09-30 19:45] LABS: CPK Total, Creatine Kinase 88 U/L (39-308)
--- NOTE | 2018-09-30 19:45 | NURSING ---
Critical BUN result 108; Notified SEAN Durán
[2018-09-30 21:13] LABS: Osmolality, Urine 378 mOsm/KG
[2018-09-30 21:19] LABS: Urine Chloride 16 mmol/L (Not Establ.); Urine Sodium 10 mmol/L (Not Establ.)
[2018-09-30 21:21] LABS: Osmolality, Serum 327 mOsm/KG (280-301)
[2018-09-30] MEDS: Menthol/Lanolin/Calamine/Znox 113 GM Tube 1 APPLIC TOPICAL (22:00)
[2018-10-01] VITALS (23 sets, daily range): BP systolic 80–136; BP diastolic 38–102; PULSE 76–95; RESP 14–18; TEMP 36.7–36.8; O2SAT 97–100
[2018-10-01] MEDS: BENZOCAINE/MENTHOL 1 LOZENGE MUCOUS MEM ×3 (00:19→13:38)
[2018-10-01] MEDS: 0.9% Normal Saline 1,000 ML 250 ML IV (00:19)
[2018-10-01] MEDS: fentaNYL 100 MCG/2 ML Ampul 50 MCG IV (02:09)
[2018-10-01] MEDS: 0.9% NaCl Peripheral Flush Adult/Peds IV ×4 (02:10→22:43)
[2018-10-01] MEDS: 0.9% Normal Saline 1,000 ML 150 ML IV (03:49)
[2018-10-01] MEDS: Acetaminophen/Butalbital/Caffe 1 Tablet PO ×2 (03:49→09:55)
[2018-10-01] MEDS: DiphenhydrAMINE 50 MG/ML Syringe 25 MG IV ×3 (03:49→19:54)
--- NOTE | 2018-10-01 05:07 | RAD_ITS ---
STUDY: X-RAY - ABDOMEN/PELVIS REASON FOR EXAM: Male, 73 years old. Diarrhea. TECHNIQUE: AP supine and decubitus views of the abdomen and pelvis. COMPARISON: Comparison is made with prior study dated January 04, 2018. FINDINGS: Mild degree of increased markings at the left lung base suggestive of left basilar atelectasis. There is an unremarkable bowel gas pattern. There is no demonstrated free abdominal air. The visualized liver, spleen and kidneys are grossly normal in size and morphology. Normal soft tissue structures. The patient is status post laminectomy at the L2-L3 L3-L4 and L4-L5 levels with interpedicular screw fixation at the L2-L3 level. Mild dextroscoliosis. RAD/Abd Inc Decub and/or Erect IMPRESSION: Nonspecific bowel gas pattern. Electronically Signed: Xander Doe MD at 8:43 EST Tel [phone], Service support ,
--- NOTE | 2018-10-01 06:16 | NURSING ---
attempted to obtain pts blood glucose at this time. Pt denies any finger sticks. Refused and stated he is no longer considered diabetic.
[2018-10-01 06:34] LABS: Absolute Lymphocyte Count 0.89 X10^3/ul (0.83-4.51); Absolute Neutrophil Count 2.9 X10^3/uL (2.0-7.7); Basophil# 0.01 X10^3/uL; Basophil% 0.2 % (0-1); Eosinophil# 0.12 X10^3/uL; Eosinophils% 2.8 % (0-5); Hematocrit 35.2 % (40-54); Hemoglobin 11.4 g/dl (13.0-16.5); Lymphocyte # 0.89 X10^3/ul (4.0); Mean Corp Hgb Conc 32.4 g/gl (32-36); Mean Corpuscular Hgb 29.3 pg (27.0-32.0); Mean Corpuscular Volume 90.5 fL (80-94); Mean Platelet Vol. 10.3 fl (6.2-12.0); Monocyte# 0.23 X10^3/uL; Monocyte% 5.4 % (0-10); Neutrophil # 2.88 X10^3/uL (2.7-7.7); Platelet Count 97 K/mm3 (150-450); RBC Distribution Width CV 15.2 % (11.6-14.6); RBC Distribution Width SD 50.1 fl (35.1-43.9); Red Blood Count 3.89 M/mm3 (4.6-6.2); White Blood Count 4.2 K/mm3 (4.4-11.0)
[2018-10-01 06:38] LABS: POSITIVE COUNT YES; POSITIVE DIFFERENTIAL NO; POSITIVE MORPHOLOGY YES
[2018-10-01 06:44] LABS: BUN 106 mg/dL (7-18); Creatinine, Serum 5.46 mg/dL (0.70-1.30); Glucose 79 mg/dL (74-106)
[2018-10-01 06:45] LABS: Anion Gap 11 (5-15); BUN/Creat Ratio 19.4 RATIO (10-20); Chloride 115 mmol/L (98-107); EST Glomerular Filtration Rate 11 mL/min (>60); Est Glom Filt Rate - Afr Amer 13 mL/min (>60); Magnesium 1.2 mg/dL (1.6-2.6); Potassium 5.3 mmol/L (3.5-5.1); Sodium Level 144 mmol/L (136-145)
--- NOTE | 2018-10-01 06:45 | NURSING ---
Critical BUN result of 106. Leeanna ESTRADA notified.
--- NOTE | 2018-10-01 07:17 | PCM.CONS.GEN ---
Reason for Consult Date of Consultation: 09/30/18 Reason for Consultation: dysphagia, ileus versus SBO History of Present Illness: The patient is a 73 year old M with a complex past medical history outlined below. The patient noted a history of dysphagia - He has undergone esophageal dilation twice, most recently last month. He has noted dysphagia, along with nausea since that procedure. He states his oral intake has been poor for the past few weeks. His presenting complaint is worsening fatiguw to the point that he could not stand up on the day of admission. He presented to the ER and was found to have significant electrolyte abnormalities - K+ = 7.3 BUN 118, Cr 7.[address] scan of the abdomen and pelvis. THis demonstrated multiple post surgical changes, s/p total colectomy with mildly dilated small bowel interpreted as ileus versus obstruction. The patient notes increased liquid stoma output over the past few days in spite of decreased oral intake. He has undergone multiple surgical procedures, including total colectomy, prior lysis of adhesions, hernia repairs. Most recently this spring he had repair of incisional hernia, parastomal hernia with relocation of his ileostomy. his issues began in 2010 when he had complicated diverticulitis necessitating transfer to [facility]. surgical procedure performed was- Exploratory laparotomy with extensive lysis of ?adhesions, greater than 3 hours, total abdominal colectomy with end ?ileostomy, repair of iliac vein injury and ureteral stents, and left ?ureter repair will be dictated by Dr. Carrasquillo and extensive hernia ?repair requiring mesh. 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 on August 26, 2014 his procedure was- Exploratory laparotomy with extensive lysis of adhesions, takedown of ?enterocutaneous fistula, small bowel resection with creation of end loop ileostomy ?and drainage of subcutaneous abscess with complex abdominal wall repair using ?SurgiMend biologic mesh. Later procedures included an additional incisional hernia repair and jejunostomy closure. throughout this he ultimately had a total colectomy and end ileostomy. I performed upper endoscopy in November of this year for which she was found to have mild gastritis, distal erosive esophagitis in the mid esophageal diverticulum. H. pylori testing was negative. Biopsy returned as chronic inflammation. on January 13, 2018 he underwent surgical procedure by Dr. Percy Arellano [facility]. This procedure was: 1. ?Right open myofascial advancement flap. ?2. ?Left open myofascial advancement flap. 3. ??Repair ?of ?recurrent ?parastomal ?hernia repair, ?complex, ?with ?small ?bowel ?resection. 4. ?Repair of recurrent incarcerated incisional hernia. ?5. ?Implantation of 30 x 30 cm of Strattice biologic mesh. the patient continued to complain of epigastric and dysphasia type issues. He had been seen twice in [place] and underwent EGD and esophageal dilatation. he underwent EGD and esophageal dilatation both on April 25 and September 17, 2018. Dilators up to a [id number] Lao dilator were used. The patient was noted a small tear at the GE junction which was felt to be superficial. again, the patient is noted issues of dysphagia to solids and discomfort since that time. Past Medical History Past Medical History (Chronic Problems): Chronic Problems Venous stasis dermatitis (Chronic) Stroke (Chronic) Coronary artery disease (Chronic) Hypertension (Chronic) Hyperlipidemia (Chronic) Chronic kidney disease (Chronic) Anemia of chronic disease (Chronic) Diabetes mellitus (Chronic) Gout (Chronic) Chronic pain (Chronic) Hypogonadism (Chronic) Depression (Chronic) GERD (gastroesophageal reflux disease) (Chronic) Acute kidney injury superimposed on chronic kidney disease (Chronic) Paroxysmal atrial flutter (Chronic) Thrombocytopenia (Chronic) Anemia of chronic disorder (Chronic) Atrial flutter (Chronic) Benign essential hypertension (Chronic) Chronic diarrhea (Chronic) History of coronary artery bypass graft (Chronic) Diabetes mellitus, type 2 (Chronic) Hypothyroidism (Chronic) Parkinson's disease (Chronic) Rheumatoid arthritis (Chronic) Edema of lower extremity (Chronic) Opiate dependence (Chronic) Personality disorder (Chronic) Chronic obstructive lung disease (Chronic) 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, arteriosclerotic, post-stroke (Chronic) Migraines (Chronic) Peptic ulcer disease (Chronic) CKD (chronic kidney disease) stage 3, GFR 30-59 ml/min (Chronic) Esophagitis (Chronic) Ankylosing spondylitis (Chronic) Psoriatic arthritis (Chronic) Allergies amoxicillin trihydrate [From Augmentin] Allergy (Verified 09/30/18 10:07) Rash bisacodyl [From Dulcolax (bisacodyl)] Allergy (Verified 09/30/18 10:07) Anaphylaxis iodine Allergy (Verified 09/30/18 10:07) Rash piperacillin sodium [From Zosyn] Allergy (Verified 09/30/18 10:07) Rash potassium clavulanate [From Augmentin] Allergy (Verified 09/30/18 10:07) Rash ranolazine [From Ranexa] Allergy (Verified 09/30/18 14:17) Rash tazobactam sodium [From Zosyn] Allergy (Verified 09/30/18 10:07) Rash apixaban [From Eliquis] Adverse Reaction (Verified 09/30/18 10:07) Other azithromycin Adverse Reaction (Verified 09/30/18 10:07) Diarrhea bupropion Adverse Reaction (Verified 09/30/18 10:07) Unknown ciprofloxacin [From Cipro] Adverse Reaction (Verified 09/30/18 10:07) Other ciprofloxacin HCl [From Cipro] Adverse Reaction (Verified 09/30/18 10:07) Other diazepam [From Valium] Adverse Reaction (Verified 09/30/18 10:07) Other hallucinations duloxetine Adverse Reaction (Verified 09/30/18 10:07) Unknown ferrous sulfate Adverse Reaction (Verified 09/30/18 14:16) Upset Stomach gabapentin Adverse Reaction (Verified 09/30/18 10:07) Other heparin Adverse Reaction (Verified 09/30/18 10:07) Unknown Iodinated Contrast- Oral and IV Dye [CONTRASTS] Adverse Reaction (Verified 09/30/18 10:07) Rash nitroglycerin Adverse Reaction (Verified 09/30/18 10:07) Other headaches and extreme hyperactivity paroxetine Adverse Reaction (Verified 09/30/18 10:07) Unknown tetracycline [Tetracycline] Adverse Reaction (Verified 09/30/18 10:07) Vomiting plastics Adverse Reaction (Uncoded 09/30/18 10:07) Rash Home Medications: Ambulatory Orders Medication Instructions Recorded Acetaminophen/Butalbital/Caffe 1 tablet PO BID PRN 06/06/17 [Fioricet] Allopurinol 200 mg PO DAILY 06/06/17 Amiodarone HCl [Pacerone] 200 mg PO DAILY 06/06/17 Diphenhydramine HCl [Benadryl 25 mg PO Q6H PRN 06/06/17 Allergy] Hydromorphone HCl [Dilaudid] 4 mg PO DAILY PRN 06/06/17 Levothyroxine [Synthroid] 137 mcg PO [id number] 06/06/17 Morphine Sulfate [Morphine Sulfate 30 mg PO Q8H PRN 06/06/17 ER] Pramipexole Di-HCl [Mirapex] 1 mg PO QHS 06/06/17 Testosterone Cypionate 200 mg IM Q14D 06/06/17 [Depo-Testosterone] Vilazodone Hydrochloride [Viibryd] 40 mg PO DAILY 06/06/17 proMETHazine tablet [Phenergan 25 mg PO Q4H PRN PRN 06/06/17 tablet] Amitriptyline HCl 25 mg PO QHS 12/11/17 Entacapone [Comtan] 200 mg PO Q6H 12/11/17 Furosemide [Lasix] 10 mg PO DAILY 01/02/18 Levothyroxine [Synthroid] 274 mcg PO MOTH 01/02/18 Apremilast [Otezla] 30 mg PO BID 02/19/18 Cholecalciferol (Vitamin D3) 5,000 unit PO DAILY 02/19/18 [Vitamin D3] Cyanocobalamin [Vitamin B12] 1,000 mcg IM Q30D 02/19/18 Metoprolol Succinate 25 mg PO DAILY 02/19/18 Oxygen, Home [Home Oxygen] 2 lpm NASAL DAILY PRN 02/19/18 Zinc Sulfate (50mg elemental) 220 mg PO DAILY 02/19/18 [Zinc Sulfate] hydrOXYzine pamoate capsule 50 mg PO TID PRN PRN #30 cap 07/22/18 [Vistaril pamoate capsule] Amlodipine [Norvasc] 5 - 10 mg PO DAILY 08/17/18 Codeine 30 mg PO QODAY 08/17/18 Levalbuterol HCl [Xopenex] 3 ml INHALATION Q4H PRN PRN 08/17/18 Omeprazole 40 mg PO DAILY 08/17/18 Menthol/Lanolin/Calamine/Znox 1 applic TOPICAL BID tube 08/27/18 [Calmoseptine Ointment] Polyethylene Glycol 3350 [Miralax] 17 gm PO BID PRN packet 08/27/18 Aspirin [Aspirin EC] 81 mg PO DAILY 09/30/18 Carbidopa/Levodopa [Carbidopa-Levo 1 each PO 4X/DAY 09/30/18 25-100 mg Odt] Fluticasone 220 Mcg [Flovent (SP)] 2 puff INHALATION BID 09/30/18 Magnesium Chloride [Slow-Mag] 71.5 mg PO BID 09/30/18 Nystatin Powder [Mycostatin Powder] 1 applic TOPICAL 4X/DAY 09/30/18 Triamcinolone 0.1% Cream [Kenalog] 1 applic TP DAILY PRN 09/30/18 Surgical History: appendectomy, coronary bypass surgery, total hip arthroplasty, tonsillectomy, - - multiple abdominal surgeries with removal of entire colon, placement of abdominal wall mesh, ileostomy, surgery for bowel abscess, lumbar back surgery, right shoulder surgery, foot surgery, cervical neck surgery, prostate surgery Psychiatric History: Depression, - - Personality disorder Lives: Spouse/ Significant Other Smoking Status: Former smoker - *Family History Maternal History Items: Hypertension Paternal History Items: Heart Disease Sibling History Items: Diabetes Patient Problems: Active and Suspected Problems Hyperkalemia (Acute) - Physical Exam General: Alert, Oriented x3 Lungs: Clear to auscultation, Normal air movement Cardiovascular: Regular rate, Regular Rhythm Abdomen: Bowel Sounds Present, Soft, Tender - mild diffusely tender, left lower quadrant ileostomy in place very distended with air and liquid likely secondary to kayelate. Multiple complex incisions questionable small hernia Vital Signs Temp Pulse Resp BP Pulse Ox 98.2 F 85 16 136/102 H 100 10/01/18 06:00 10/01/18 06:00 10/01/18 06:00 10/01/18 06:00 10/01/18 06:00 Oxygen Delivery Method Room Air Weight: 66.9 kg Body Mass Index (BMI) 23.8 Finger Stick Blood Glucose 203 Intake and Output for Last 24 Hours 09/29/18 09/30/18 10/01/18 23:59 23:59 23:59 Intake Total 576 / 576 2617 / 2617 Output Total 1580 / 1580 1575 / 1575 Balance -1004 / -1004 1042 / 1042 Laboratory Tests Past 24 Hrs 09/30/18 09/30/18 09/30/18 10:54 10:54 12:37 WBC 8.4 RBC 5.29 Hgb 15.4 Hct 47.5 MCV 89.8 MCH 29.1 MCHC 32.4 RDW 15.2 H RDW Differential 50.0 H Plt Count 113 L MPV 10.1 Immature Gran % (Auto) 1.900 H Neut % (Auto) 74.3 H Lymph % (Auto) 18.2 L [place] % (Auto) 3.8 Eos % (Auto) 1.6 Baso % (Auto) 0.2 Absolute Neuts (auto) 6.2 Absolute Lymphs (auto) 1.52 Total Counted Not Reportable Diff Path Review Sodium 129 L Potassium 7.3 H* 6.7 H* Chloride 102 Carbon Dioxide 16.0 L Anion Gap 11 BUN 118 H* Creatinine 7.12 H Estim Creat Clear Calc 8.59 Est GFR (MDRD) Af Amer 10 L Est GFR (MDRD) Non-Af 8 L BUN/Creatinine Ratio 16.6 Glucose 138 H Hemoglobin A1c Serum Osmolality Calcium 9.1 Magnesium Total Bilirubin 0.60 Direct Bilirubin 0.15 AST 34 ALT 11 L Alkaline Phosphatase 114 Total Creatine Kinase Troponin I 0.041 Total Protein 8.4 H Albumin 3.9 Globulin 4.5 H Lipase 1388 H Urine Osmolality U Random Total Protein Ur Random Sodium Urine Creatinine Urine Potassium Urine Chloride Urine Urea Nitrogen 09/30/18 09/30/18 09/30/18 15:44 15:44 15:44 WBC RBC Hgb Hct MCV MCH MCHC RDW RDW Differential Plt Count MPV Immature Gran % (Auto) Neut % (Auto) Lymph % (Auto) [place] % (Auto) Eos % (Auto) Baso % (Auto) Absolute Neuts (auto) Absolute Lymphs (auto) Total Counted Diff Path Review Sodium Potassium Chloride Carbon Dioxide Anion Gap BUN Creatinine Estim Creat Clear Calc Est GFR (MDRD) Af Amer Est GFR (MDRD) Non-Af BUN/Creatinine Ratio Glucose Hemoglobin A1c Serum Osmolality 327 H Calcium Magnesium Total Bilirubin Direct Bilirubin AST ALT Alkaline Phosphatase Total Creatine Kinase Troponin I Total Protein Albumin Globulin Lipase Urine Osmolality U Random Total Protein Ur Random Sodium Urine Creatinine 167.00 Urine Potassium Urine Chloride Urine Urea Nitrogen 577 09/30/18 09/30/18 09/30/18 15:44 15:44 15:44 WBC RBC Hgb Hct MCV MCH MCHC RDW RDW Differential Plt Count MPV Immature Gran % (Auto) Neut % (Auto) Lymph % (Auto) [place] % (Auto) Eos % (Auto) Baso % (Auto) Absolute Neuts (auto) Absolute Lymphs (auto) Total Counted Diff Path Review Sodium Potassium Chloride Carbon Dioxide Anion Gap BUN Creatinine Estim Creat Clear Calc Est GFR (MDRD) Af Amer Est GFR (MDRD) Non-Af BUN/Creatinine Ratio Glucose Hemoglobin A1c Serum Osmolality Calcium Magnesium Total Bilirubin Direct Bilirubin AST ALT Alkaline Phosphatase Total Creatine Kinase Troponin I Total Protein Albumin Globulin Lipase Urine Osmolality 378 U Random Total Protein 31.0 H Ur Random Sodium 10 Urine Creatinine Urine Potassium 48.0 Urine Chloride 16 Urine Urea Nitrogen 09/30/18 09/30/18 10/01/18 17:25 17:25 05:20 WBC 4.2 L RBC 3.89 L Hgb 11.4 L Hct 35.2 L MCV 90.5 MCH 29.3 MCHC 32.4 RDW 15.2 H RDW Differential 50.1 H Plt Count 97 L MPV 10.3 Immature Gran % (Auto) 2.600 H Neut % (Auto) 68.0 Lymph % (Auto) 21.0 Duc[place]ne % (Auto) 5.4 Eos % (Auto) 2.8 Baso % (Auto) 0.2 Absolute Neuts (auto) 2.9 Absolute Lymphs (auto) 0.89 Total Counted Not Reportable Diff Path Review May foll Sodium 136 Potassium 5.3 H Chloride 108 H Carbon Dioxide 17.0 L Anion Gap 11 BUN 108 H* Creatinine 6.46 H Estim Creat Clear Calc 9.46 Est GFR (MDRD) Af Amer 11 L Est GFR (MDRD) Non-Af 9 L BUN/Creatinine Ratio 16.7 Glucose 122 H Hemoglobin A1c Serum Osmolality Calcium 9.6 Magnesium Total Bilirubin Direct Bilirubin AST ALT Alkaline Phosphatase Total Creatine Kinase 88 Troponin I Total Protein Albumin Globulin Lipase Urine Osmolality U Random Total Protein Ur Random Sodium Urine Creatinine Urine Potassium Urine Chloride Urine Urea Nitrogen 10/01/18 10/01/18 05:20 05:20 WBC RBC Hgb Hct MCV MCH MCHC RDW RDW Differential Plt Count MPV Immature Gran % (Auto) Neut % (Auto) Lymph % (Auto) [place] % (Auto) Eos % (Auto) Baso % (Auto) Absolute Neuts (auto) Absolute Lymphs (auto) Total Counted Diff Path Review Sodium 144 Potassium 5.3 H Chloride 115 H Carbon Dioxide 18.0 L Anion Gap 11 BUN 106 H* Creatinine 5.46 H Estim Creat Clear Calc 11.20 Est GFR (MDRD) Af Amer 13 L Est GFR (MDRD) Non-Af 11 L BUN/Creatinine Ratio 19.4 Glucose 79 Hemoglobin A1c Pending Serum Osmolality Calcium 8.0 L Magnesium 1.2 L Total Bilirubin Direct Bilirubin AST ALT Alkaline Phosphatase Total Creatine Kinase Troponin I Total Protein Albumin Globulin Lipase Urine Osmolality U Random Total Protein Ur Random Sodium Urine Creatinine Urine Potassium Urine Chloride Urine Urea Nitrogen POC Glucose 09/30/18 16:00 POC Glucose 147 H Assessment/Plan All Active Problems Cellulitis of leg (Acute) Fever (Acute) Hyperkalemia (Acute) Cellulitis (Acute) Superficial thrombophlebitis of left upper extremity (Resolved) Unstable angina (Resolved) DVT of upper extremity (deep vein thrombosis) (Ruled-out) Hyperkalemia (Resolved) Small Bowel Enterocut Fistula (Resolved) abnormal bowel gas pattern, dysphagia, acute on chronic renal failure, electrolyte abnormalities. Dysphagia - patient was told by his lever miller to stop Carafate. But per discussion, he stopped his Carafate following his last dilatation. While trying to re-feed the patient, if he notes a repeat symptoms I would consider adding Carafate and/or obtaining an esophagram. SBO vs ileus - patient with multiple abdominal procedures - unsure how different from baseline imaging would appear. currently high output. we will follow clinically serial abdominal exams and abdominal multiview to assess bowel gas pattern. Given the patient's very complex past abdominal surgical history and extensive lysis of adhesions, in the event of a true higher grade bowel obstruction, patient required transfer to tertiary care center.. Anchors hiatus-electrode abnormalities. Patient currently receiving Kayexalate and support to improve both his electrolytes and elevated BUN and creatinine. We will follow him clinically for presumed pancreatitis possibly secondary electrode abnormalities or low flow state?
[2018-10-01] MEDS: Morphine 2 MG/ML Syringe 1 MG IV ×3 (07:57→22:43)
--- NOTE | 2018-10-01 08:00 | US_ITS ---
STUDY: RENAL ULTRASOUND - LIMITED REASON FOR EXAM: Male, 73 years old. Renal failure TECHNIQUE: Real-time ultrasound was utilized to evaluate both kidneys static images are provided for review. COMPARISON: CT scan abdomen and pelvis September 30, 2018, June 06, 2017 FINDINGS: RIGHT KIDNEY: Normal lo. Cation of the right kidney which is normal in size. The right kidney measures 11.5 x 5.9 x 5.7 cm. The renal cortex measures 1.4 cm. There are multiple cysts in the right kidney, the largest of which measures 2.1 x 2.7 x 2.8 cm. There are no right renal calculi there is a 6.0 mm calcification in the right kidney. There is a stone in the right kidney measuring 7.2 x 4.2 mm.. There is no right hydronephrosis. LEFT KIDNEY: Normal location of the left kidney which is normal in size. The left kidney measures 11.1 x 4.4 x 5.6 cm. There is a normal cortex of the left kidney. The renal cortex measures 1.1 cm. Multiple cysts in the left kidney the largest of which measures 3.7 x 3.1 x 3.4 cm. There are no left renal calculi. There is no left hydronephrosis. A Saravia catheter is present within the bladder. US/Kidney and Bladder IMPRESSION: Bilateral renal cysts. Stable since prior studies. Nonobstructing right renal stone. Electronically Signed: Xin Bills MD at 16:06 EST Tel , Service support ,
--- NOTE | 2018-10-01 09:55 | CASEMGMT ---
Addendum entered by Lizz French 10/01/18 13:48: This RN CM to room and pt is on phone at this time. Will attempt later. Maribell ESTRADA CM Original Note: Addendum entered by Lizz French 10/01/18 11:26: 1125 This RN CM to room to complete CM assessment and pt is out of the dept for US at this time. Will attempt later. Maribell ESTRADA CM Original Note: Addendum entered by Lizz French 10/01/18 11:24: 1040 This RN CM back to room to complete CM assessment and pt has [facility] staff at bedside. Will attempt later. Maribell ESTRADA CM Original Note: This RN CM to room to complete CM assessment and pt is getting care at this time. Will attempt later. Maribell ESTRADA CM
[2018-10-01] MEDS: Menthol/Lanolin/Calamine/Znox 113 GM Tube 1 APPLIC TOPICAL ×2 (09:56→22:44)
--- NOTE | 2018-10-01 10:27 | PCM.CONS.R ---
Problem List (1) Acute kidney injury superimposed on chronic kidney disease Status: Chronic (2) Hyperkalemia Status: Acute Consultation - Renal PCP/ Referring MD: Requesting physician: [] Primary care physician: Yovani Cantu, - History of Present Illness History of Present Illness: The patient is a 73 year old M PMH of diverticulitis s/p colectomy and colostomy , GRED with esophageal stricture s/p dilation at [facility] one week ago, CKD stage 3 with baseline Cr ~ 2.0-2.4 mg/dl. Pt presented with generalized weakness, nausea/vomiting for a week. In ED, CT abdomen and Pelvis showed small bowel obstruction Vs ileus. Lab work showed Cr of 7.12 mg/dL along hyperkalemia with K 7.3. Pt was start on IV NS at 150 cc/hour/ hyperkalemia was treated medically with one dose of lasix 80 mg IV along with 30 g PO of kayexalate and D50/IV insulin. Cr today is better at 5.4 and K is also better at 5.3 Saravia cath was placed yesterday. pt made about 1.1 L UOP Pt denied IV contrast exposure. No NSAIDs ROS : 12 systems review is negative except generalized tenderness . No nausea /vomiting today [] - Allergies Allergies: Allergies amoxicillin trihydrate [From Augmentin] Allergy (Verified 09/30/18 10:07) Rash bisacodyl [From Dulcolax (bisacodyl)] Allergy (Verified 09/30/18 10:07) Anaphylaxis iodine Allergy (Verified 09/30/18 10:07) Rash piperacillin sodium [From Zosyn] Allergy (Verified 09/30/18 10:07) Rash potassium clavulanate [From Augmentin] Allergy (Verified 09/30/18 10:07) Rash ranolazine [From Ranexa] Allergy (Verified 09/30/18 14:17) Rash tazobactam sodium [From Zosyn] Allergy (Verified 09/30/18 10:07) Rash apixaban [From Eliquis] Adverse Reaction (Verified 09/30/18 10:07) Other azithromycin Adverse Reaction (Verified 09/30/18 10:07) Diarrhea bupropion Adverse Reaction (Verified 09/30/18 10:07) Unknown ciprofloxacin [From Cipro] Adverse Reaction (Verified 09/30/18 10:07) Other ciprofloxacin HCl [From Cipro] Adverse Reaction (Verified 09/30/18 10:07) Other diazepam [From Valium] Adverse Reaction (Verified 09/30/18 10:07) Other hallucinations duloxetine Adverse Reaction (Verified 09/30/18 10:07) Unknown ferrous sulfate Adverse Reaction (Verified 09/30/18 14:16) Upset Stomach gabapentin Adverse Reaction (Verified 09/30/18 10:07) Other heparin Adverse Reaction (Verified 09/30/18 10:07) Unknown Iodinated Contrast- Oral and IV Dye [CONTRASTS] Adverse Reaction (Verified 09/30/18 10:07) Rash nitroglycerin Adverse Reaction (Verified 09/30/18 10:07) Other headaches and extreme hyperactivity paroxetine Adverse Reaction (Verified 09/30/18 10:07) Unknown tetracycline [Tetracycline] Adverse Reaction (Verified 09/30/18 10:07) Vomiting plastics Adverse Reaction (Uncoded 09/30/18 10:07) Rash - Current Medications Current Medications: Current Medications Acetaminophen/Butalbital/Caffeine (Fioricet) 1 tablet PO Q4H PRN PRN PRN Reason: migraine Last Admin: 10/01/18 09:55 Dose: 1 tablet Albuterol Sulfate (Ventolin Aerosols) 2.5 mg INHALATION Q4H PRN PRN Reason: CHRONIC BRONCHITIS [facility] Last Admin: 10/01/18 09:15 Dose: Not Given Amiodarone HCl (Cordarone) 200 mg PO DAILY [facility] Last Admin: 09/30/18 16:14 Dose: 200 mg Amitriptyline HCl (Elavil) 25 mg PO QHS [facility] Last Admin: 09/30/18 22:00 Dose: Not Given Amlodipine Besylate (Norvasc) 5 mg PO DAILY [facility] Aspirin (Ecotrin) 81 mg PO DAILY@0800 [facility] Last Admin: 10/01/18 09:14 Dose: Not Given Budesonide (Pulmicort Aerosol) 0.5 mg INHALATION Q12H.RT [facility] Last Admin: 10/01/18 07:10 Dose: Not Given Calamine/Phenol (Calmoseptine Ointment) 1 applic TOPICAL BID [facility]; Protocol Last Admin: 10/01/18 09:56 Dose: 1 applic Carbidopa/Levodopa (Sinemet) 1 tablet PO ACHS [facility] Last Admin: 10/01/18 05:28 Dose: Not Given Cholecalciferol (Vitamin D) 5,000 unit [facility] Last Admin: 10/01/18 09:14 Dose: Not Given Codeine Sulfate (Codeine) 30 mg PO QODAY PRN PRN Reason: HEADACHE Cyanocobalamin (Vitamin B12) 1,000 mcg IM Q30D [facility] Dextrose (D50w Syringe) 0 gm IV X1 PRN; Protocol PRN Reason: Hypoglycemia Diphenhydramine HCl (Benadryl) 25 mg PO Q6H PRN PRN Reason: ITCHING Diphenhydramine HCl (Benadryl) 25 mg IV Q4H PRN PRN PRN Reason: rash Diphenhydramine HCl (Benadryl) 25 mg IV Q6H PRN PRN PRN Reason: ITCHING Last Admin: 10/01/18 03:49 Dose: 25 mg Entacapone (Comtan) 200 mg PO [facility] Last Admin: 10/01/18 05:28 Dose: Not Given Glucagon () 1 mg IM .X1 PRN PRN Reason: Hypoglycemia Hydroxyzine Pamoate (Vistaril Pamoate Capsule) 50 mg PO TID PRN PRN PRN Reason: ANXIETY Pantoprazole Sodium 40 mg/ (Sodium Chloride) 110 mls @ 330 mls/hr IV Q24 [facility] Last Admin: 10/01/18 09:57 Dose: 330 mls/hr Sodium Chloride () 1,000 mls @ 150 mls/hr IV .Q6H40M [facility] Last Admin: 10/01/18 03:49 Dose: 150 mls/hr Insulin Human Lispro (Humalog Kwikpen (Bkc)) 0 unit SQ Q6 [facility]; Protocol Last Admin: 10/01/18 05:58 Dose: Not Given Levothyroxine Sodium (Synthroid) 274 mcg PO MoTh@0600 [facility] Last Admin: 10/01/18 05:28 Dose: Not Given Levothyroxine Sodium (Synthroid) 137 mcg PO SuTuWeFrSa@0600 [facility] Magnesium Hydroxide (Milk Of Magnesia) 30 ml PO DAILY PRN PRN PRN Reason: Constipation Metoprolol Succinate (Toprol Xl (Beta Pb)) 25 mg PO DAILY [facility] Morphine Sulfate () 1 mg IV Q4H PRN PRN PRN Reason: SEVERE PAIN (6-10/10) Last Admin: 10/01/18 07:57 Dose: 1 mg Non-Formulary Medication (Testosterone Cypionate [Depo-Testosterone]) 200 mg IM Q14D [facility] Non-Formulary Medication (Apremilast) 30 mg PO BID [facility] Pramipexole Dihydrochloride (Mirapex) 1 mg PO QHS [facility] Last Admin: 09/30/18 22:00 Dose: Not Given Sodium Chloride () 5 - 30 ml IV UD PRN PRN Reason: SALINE FLUSH Last Admin: 10/01/18 07:57 Dose: 10 ml Throat Lozenges (Cepacol Sore Throat Lozenge) 1 lozenge MUCOUS MEM Q2H PRN PRN PRN Reason: SORE THROAT Last Admin: 10/01/18 03:49 Dose: 1 lozenge Vilazodone HCl (Viibryd) 40 mg PO DAILY [facility] Zinc Sulfate (Zinc Sulfate) 220 [facility] Last Admin: 10/01/18 09:15 Dose: Not Given - Past Medical History Past Medical History (Chronic Problems): Chronic Problems Venous stasis dermatitis (Chronic) Stroke (Chronic) Coronary artery disease (Chronic) Hypertension (Chronic) Hyperlipidemia (Chronic) Chronic kidney disease (Chronic) Anemia of chronic disease (Chronic) Diabetes mellitus (Chronic) Gout (Chronic) Chronic pain (Chronic) Hypogonadism (Chronic) Depression (Chronic) GERD (gastroesophageal reflux disease) (Chronic) Acute kidney injury superimposed on chronic kidney disease (Chronic) Paroxysmal atrial flutter (Chronic) Thrombocytopenia (Chronic) Anemia of chronic disorder (Chronic) Atrial flutter (Chronic) Benign essential hypertension (Chronic) Chronic diarrhea (Chronic) History of coronary artery bypass graft (Chronic) Diabetes mellitus, type 2 (Chronic) Hypothyroidism (Chronic) Parkinson's disease (Chronic) Rheumatoid arthritis (Chronic) Edema of lower extremity (Chronic) Opiate dependence (Chronic) Personality disorder (Chronic) Chronic obstructive lung disease (Chronic) 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, arteriosclerotic, post-stroke (Chronic) Migraines (Chronic) Peptic ulcer disease (Chronic) CKD (chronic kidney disease) stage 3, GFR 30-59 ml/min (Chronic) Esophagitis (Chronic) Ankylosing spondylitis (Chronic) Psoriatic arthritis (Chronic) - Past Surgical History Surgical History: appendectomy, coronary bypass surgery, total hip arthroplasty, tonsillectomy, - - multiple abdominal surgeries with removal of entire colon, placement of abdominal wall mesh, ileostomy, surgery for bowel abscess, lumbar back surgery, right shoulder surgery, foot surgery, cervical neck surgery, prostate surgery - Social History Smoking Status: Former smoker - Family History Maternal History Items: Hypertension Paternal History Items: Heart Disease Sibling History Items: Diabetes Patient Problems: Active and Suspected Problems Hyperkalemia (Acute) - Physical Exam General: Alert, Oriented x3 HEENT: Atraumatic Oral: Moist Mucosa Neck: Supple, No JVD Lungs: Clear to auscultation, Normal air movement, No rhonchi, No wheeze, No rales Cardiovascular: Regular rate, Normal S1, Normal S2 Abdomen: Bowel Sounds Present, Soft Extremities: No clubbing, No cyanosis, No edema Skin: No rashes Musculoskeletal: No Tenderness to Palpation of Joints or Extremities Lymphatic: Cervical Adenopathy Neurological: Cranial nerves II-XII grossly intact, Neuro grossly intact Psych/Mental Status: Normal Affect Vital Signs Temp Pulse Resp BP Pulse Ox 98.2 F 82 16 118/52 L 100 10/01/18 08:02 10/01/18 08:02 10/01/18 08:02 10/01/18 08:02 10/01/18 08:27 Oxygen Delivery Method Room Air Weight: 66.9 kg Body Mass Index (BMI) 23.8 Finger Stick Blood Glucose 203 Intake and Output for Last 24 Hours 09/29/18 09/30/18 10/01/18 23:59 23:59 23:59 Intake Total 576 / 576 2617 / 2617 Output Total 1580 / 1580 1575 / 1575 Balance -1004 / -1004 1042 / 1042 Laboratory Tests Past 24 Hrs 09/30/18 09/30/18 09/30/18 10:54 10:54 12:37 WBC 8.4 RBC 5.29 Hgb 15.4 Hct 47.5 MCV 89.8 MCH 29.1 MCHC 32.4 RDW 15.2 H RDW Differential 50.0 H Plt Count 113 L MPV 10.1 Immature Gran % (Auto) 1.900 H Neut % (Auto) 74.3 H Lymph % (Auto) 18.2 L Barnes % (Auto) 3.8 Eos % (Auto) 1.6 Baso % (Auto) 0.2 Absolute Neuts (auto) 6.2 Absolute Lymphs (auto) 1.52 Total Counted Not Reportable Diff Path Review Sodium 129 L Potassium 7.3 H* 6.7 H* Chloride 102 Carbon Dioxide 16.0 L Anion Gap 11 BUN 118 H* Creatinine 7.12 H Estim Creat Clear Calc 8.59 Est GFR (MDRD) Af Amer 10 L Est GFR (MDRD) Non-Af 8 L BUN/Creatinine Ratio 16.6 Glucose 138 H Hemoglobin A1c Serum Osmolality Calcium 9.1 Magnesium Total Bilirubin 0.60 Direct Bilirubin 0.15 AST 34 ALT 11 L Alkaline Phosphatase 114 Total Creatine Kinase Troponin I 0.041 Total Protein 8.4 H Albumin 3.9 Globulin 4.5 H Lipase 1388 H Urine Osmolality U Random Total Protein Ur Random Sodium Urine Creatinine Urine Potassium Urine Chloride Urine Urea Nitrogen 09/30/18 09/30/18 09/30/18 15:44 15:44 15:44 WBC RBC Hgb Hct MCV MCH MCHC RDW RDW Differential Plt Count MPV Immature Gran % (Auto) Neut % (Auto) Lymph % (Auto) Barnes % (Auto) Eos % (Auto) Baso % (Auto) Absolute Neuts (auto) Absolute Lymphs (auto) Total Counted Diff Path Review Sodium Potassium Chloride Carbon Dioxide Anion Gap BUN Creatinine Estim Creat Clear Calc Est GFR (MDRD) Af Amer Est GFR (MDRD) Non-Af BUN/Creatinine Ratio Glucose Hemoglobin A1c Serum Osmolality 327 H Calcium Magnesium Total Bilirubin Direct Bilirubin AST ALT Alkaline Phosphatase Total Creatine Kinase Troponin I Total Protein Albumin Globulin Lipase Urine Osmolality U Random Total Protein Ur Random Sodium Urine Creatinine 167.00 Urine Potassium Urine Chloride Urine Urea Nitrogen 577 09/30/18 09/30/18 09/30/18 15:44 15:44 15:44 WBC RBC Hgb Hct MCV MCH MCHC RDW RDW Differential Plt Count MPV Immature Gran % (Auto) Neut % (Auto) Lymph % (Auto) Barnes % (Auto) Eos % (Auto) Baso % (Auto) Absolute Neuts (auto) Absolute Lymphs (auto) Total Counted Diff Path Review Sodium Potassium Chloride Carbon Dioxide Anion Gap BUN Creatinine Estim Creat Clear Calc Est GFR (MDRD) Af Amer Est GFR (MDRD) Non-Af BUN/Creatinine Ratio Glucose Hemoglobin A1c Serum Osmolality Calcium Magnesium Total Bilirubin Direct Bilirubin AST ALT Alkaline Phosphatase Total Creatine Kinase Troponin I Total Protein Albumin Globulin Lipase Urine Osmolality 378 U Random Total Protein 31.0 H Ur Random Sodium 10 Urine Creatinine Urine Potassium 48.0 Urine Chloride 16 Urine Urea Nitrogen 09/30/18 09/30/18 10/01/18 17:25 17:25 05:20 WBC 4.2 L RBC 3.89 L Hgb 11.4 L Hct 35.2 L MCV 90.5 MCH 29.3 MCHC 32.4 RDW 15.2 H RDW Differential 50.1 H Plt Count 97 L MPV 10.3 Immature Gran % (Auto) 2.600 H Neut % (Auto) 68.0 Lymph % (Auto) 21.0 Barnes % (Auto) 5.4 Eos % (Auto) 2.8 Baso % (Auto) 0.2 Absolute Neuts (auto) 2.9 Absolute Lymphs (auto) 0.89 Total Counted Not Reportable Diff Path Review May foll Sodium 136 Potassium 5.3 H Chloride 108 H Carbon Dioxide 17.0 L Anion Gap 11 BUN 108 H* Creatinine 6.46 H Estim Creat Clear Calc 9.46 Est GFR (MDRD) Af Amer 11 L Est GFR (MDRD) Non-Af 9 L BUN/Creatinine Ratio 16.7 Glucose 122 H Hemoglobin A1c Serum Osmolality Calcium 9.6 Magnesium Total Bilirubin Direct Bilirubin AST ALT Alkaline Phosphatase Total Creatine Kinase 88 Troponin I Total Protein Albumin Globulin Lipase Urine Osmolality U Random Total Protein Ur Random Sodium Urine Creatinine Urine Potassium Urine Chloride Urine Urea Nitrogen 10/01/18 10/01/18 05:20 05:20 WBC RBC Hgb Hct MCV MCH MCHC RDW RDW Differential Plt Count MPV Immature Gran % (Auto) Neut % (Auto) Lymph % (Auto) Barnes % (Auto) Eos % (Auto) Baso % (Auto) Absolute Neuts (auto) Absolute Lymphs (auto) Total Counted Diff Path Review Sodium 144 Potassium 5.3 H Chloride 115 H Carbon Dioxide 18.0 L Anion Gap 11 BUN 106 H* Creatinine 5.46 H Estim Creat Clear Calc 11.20 Est GFR (MDRD) Af Amer 13 L Est GFR (MDRD) Non-Af 11 L BUN/Creatinine Ratio 19.4 Glucose 79 Hemoglobin A1c Pending Serum Osmolality Calcium 8.0 L Magnesium 1.2 L Total Bilirubin Direct Bilirubin AST ALT Alkaline Phosphatase Total Creatine Kinase Troponin I Total Protein Albumin Globulin Lipase Urine Osmolality U Random Total Protein Ur Random Sodium Urine Creatinine Urine Potassium Urine Chloride Urine Urea Nitrogen POC Glucose 09/30/18 16:00 POC Glucose 147 H Assessment/Plan All Active Problems Cellulitis of leg (Acute) Fever (Acute) Hyperkalemia (Acute) Cellulitis (Acute) Superficial thrombophlebitis of left upper extremity (Resolved) Unstable angina (Resolved) DVT of upper extremity (deep vein thrombosis) (Ruled-out) Hyperkalemia (Resolved) Small Bowel Enterocut Fistula (Resolved) 1- KENDALL on CKD. Baseline Cr seems around 2.0-2.4 mg/dL KENDALL is from prerenal due to nausea/vomiting and decreased oral intake Cr peaked at 7.3. Cr is improving with IVF. Continue IVF at 150 cc/hour. 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 k is better at 5.3 Will repeat BMP at 5 pm 3- Hypomagnesemia : Mg is 1.2. I will give IV Mg 4- SBO Vs ileus. NPO for now. refusing NGT Management is as per the GS team Thank you for the consult. Renal team will continue to follow D/W Dr. Brenda FLYNN MD
--- NOTE | 2018-10-01 10:36 | CON.PCM_ITS ---
Problem List (1) Acute kidney injury superimposed on chronic kidney disease Status: Chronic (2) Hyperkalemia Status: Acute Consultation - Renal PCP/ Referring MD: Requesting physician: [] Primary care physician: Yovani Cantu, - History of Present Illness History of Present Illness: The patient is a 73 year old M PMH of diverticulitis s/p colectomy and colostomy , GRED with esophageal stricture s/p dilation at [facility] one week ago, CKD stage 3 with baseline Cr ~ 2.0-2.4 mg/dl. Pt presented with generalized weakness, nausea/vomiting for a week. In ED, CT abdomen and Pelvis showed small bowel obstruction Vs ileus. Lab work showed Cr of 7.12 mg/dL along hyperkalemia with K 7.3. Pt was start on IV NS at 150 cc/hour/ hyperkalemia was treated medically with one dose of lasix 80 mg IV along with 30 g PO of kayexalate and D50/IV insulin. Cr today is better at 5.4 and K is also better at 5.3 [place] cath was placed yesterday. pt made about 1.1 L UOP Pt denied IV contrast exposure. No NSAIDs ROS : 12 systems review is negative except generalized tenderness . No nausea /vomiting today [] - Allergies Allergies: Allergies amoxicillin trihydrate [From Augmentin] Allergy (Verified 09/30/18 10:07) Rash bisacodyl [From Dulcolax (bisacodyl)] Allergy (Verified 09/30/18 10:07) Anaphylaxis iodine Allergy (Verified 09/30/18 10:07) Rash piperacillin sodium [From Zosyn] Allergy (Verified 09/30/18 10:07) Rash potassium clavulanate [From Augmentin] Allergy (Verified 09/30/18 10:07) Rash ranolazine [From Ranexa] Allergy (Verified 09/30/18 14:17) Rash tazobactam sodium [From Zosyn] Allergy (Verified 09/30/18 10:07) Rash apixaban [From Eliquis] Adverse Reaction (Verified 09/30/18 10:07) Other azithromycin Adverse Reaction (Verified 09/30/18 10:07) Diarrhea bupropion Adverse Reaction (Verified 09/30/18 10:07) Unknown ciprofloxacin [From Cipro] Adverse Reaction (Verified 09/30/18 10:07) Other ciprofloxacin HCl [From Cipro] Adverse Reaction (Verified 09/30/18 10:07) Other diazepam [From Valium] Adverse Reaction (Verified 09/30/18 10:07) Other hallucinations duloxetine Adverse Reaction (Verified 09/30/18 10:07) Unknown ferrous sulfate Adverse Reaction (Verified 09/30/18 14:16) Upset Stomach gabapentin Adverse Reaction (Verified 09/30/18 10:07) Other heparin Adverse Reaction (Verified 09/30/18 10:07) Unknown Iodinated Contrast- Oral and IV Dye [CONTRASTS] Adverse Reaction (Verified 09/30/18 10:07) Rash nitroglycerin Adverse Reaction (Verified 09/30/18 10:07) Other headaches and extreme hyperactivity paroxetine Adverse Reaction (Verified 09/30/18 10:07) Unknown tetracycline [Tetracycline] Adverse Reaction (Verified 09/30/18 10:07) Vomiting plastics Adverse Reaction (Uncoded 09/30/18 10:07) Rash - Current Medications Current Medications: Current Medications Acetaminophen/Butalbital/Caffeine (Fioricet) 1 tablet PO Q4H PRN PRN PRN Reason: migraine Last Admin: 10/01/18 09:55 Dose: 1 tablet Albuterol Sulfate (Ventolin Aerosols) 2.5 mg INHALATION Q4H PRN PRN Reason: CHRONIC BRONCHITIS [facility] Last Admin: 10/01/18 09:15 Dose: Not Given Amiodarone HCl (Cordarone) 200 mg PO DAILY [facility] Last Admin: 09/30/18 16:14 Dose: 200 mg Amitriptyline HCl (Elavil) 25 mg PO QHS [facility] Last Admin: 09/30/18 22:00 Dose: Not Given Amlodipine Besylate (Norvasc) 5 mg PO DAILY [facility] Aspirin (Ecotrin) 81 mg PO DAILY@0800 [facility] Last Admin: 10/01/18 09:14 Dose: Not Given Budesonide (Pulmicort Aerosol) 0.5 mg INHALATION Q12H.RT [facility] Last Admin: 10/01/18 07:10 Dose: Not Given Calamine/Phenol (Calmoseptine Ointment) 1 applic TOPICAL BID [facility]; Protocol Last Admin: 10/01/18 09:56 Dose: 1 applic Carbidopa/Levodopa (Sinemet) 1 tablet PO ACHS [facility] Last Admin: 10/01/18 05:28 Dose: Not Given Cholecalciferol (Vitamin D) 5,000 [facility] Last Admin: 10/01/18 09:14 Dose: Not Given Codeine Sulfate (Codeine) 30 mg PO QODAY PRN PRN Reason: HEADACHE Cyanocobalamin (Vitamin B12) 1,000 mcg IM Q30D [facility] Dextrose (D50w Syringe) 0 gm IV X1 PRN; Protocol PRN Reason: Hypoglycemia Diphenhydramine HCl (Benadryl) 25 mg PO Q6H PRN PRN Reason: ITCHING Diphenhydramine HCl (Benadryl) 25 mg IV Q4H PRN PRN PRN Reason: rash Diphenhydramine HCl (Benadryl) 25 mg IV Q6H PRN PRN PRN Reason: ITCHING Last Admin: 10/01/18 03:49 Dose: 25 mg Entacapone (Comtan) 200 mg PO [facility] Last Admin: 10/01/18 05:28 Dose: Not Given Glucagon () 1 mg IM .X1 PRN PRN Reason: Hypoglycemia Hydroxyzine Pamoate (Vistaril Pamoate Capsule) 50 mg PO TID PRN PRN PRN Reason: ANXIETY Pantoprazole Sodium 40 mg/ (Sodium Chloride) 110 mls @ 330 mls/hr IV Q24 [facility] Last Admin: 10/01/18 09:57 Dose: 330 mls/hr Sodium Chloride () 1,000 mls @ 150 mls/hr IV .Q6H40M [facility] Last Admin: 10/01/18 03:49 Dose: 150 mls/hr Insulin Human Lispro (Humalog Kwikpen (Bkc)) 0 unit SQ Q6 [facility]; Protocol Last Admin: 10/01/18 05:58 Dose: Not Given Levothyroxine Sodium (Synthroid) 274 mcg PO MoTh@0600 [facility] Last Admin: 10/01/18 05:28 Dose: Not Given Levothyroxine Sodium (Synthroid) 137 mcg PO SuTuWeFrSa@0600 [facility] Magnesium Hydroxide (Milk Of Magnesia) 30 ml PO DAILY PRN PRN PRN Reason: Constipation Metoprolol Succinate (Toprol Xl (Beta Pb)) 25 mg PO DAILY [facility] Morphine Sulfate () 1 mg IV Q4H PRN PRN PRN Reason: SEVERE PAIN (6-10/10) Last Admin: 10/01/18 07:57 Dose: 1 mg Non-Formulary Medication (Testosterone Cypionate [Depo-Testosterone]) 200 mg IM Q14D [facility] Non-Formulary Medication (Apremilast) 30 mg PO BID [facility] Pramipexole Dihydrochloride (Mirapex) 1 mg PO QHS [facility] Last Admin: 09/30/18 22:00 Dose: Not Given Sodium Chloride () 5 - 30 ml IV UD PRN PRN Reason: SALINE FLUSH Last Admin: 10/01/18 07:57 Dose: 10 ml Throat Lozenges (Cepacol Sore Throat Lozenge) 1 lozenge MUCOUS MEM Q2H PRN PRN PRN Reason: SORE THROAT Last Admin: 10/01/18 03:49 Dose: 1 lozenge Vilazodone HCl (Viibryd) 40 mg PO DAILY [facility] Zinc Sulfate (Zinc Sulfate) [facility] Last Admin: 10/01/18 09:15 Dose: Not Given - Past Medical History Past Medical History (Chronic Problems): Chronic Problems Venous stasis dermatitis (Chronic) Stroke (Chronic) Coronary artery disease (Chronic) Hypertension (Chronic) Hyperlipidemia (Chronic) Chronic kidney disease (Chronic) Anemia of chronic disease (Chronic) Diabetes mellitus (Chronic) Gout (Chronic) Chronic pain (Chronic) Hypogonadism (Chronic) Depression (Chronic) GERD (gastroesophageal reflux disease) (Chronic) Acute kidney injury superimposed on chronic kidney disease (Chronic) Paroxysmal atrial flutter (Chronic) Thrombocytopenia (Chronic) Anemia of chronic disorder (Chronic) Atrial flutter (Chronic) Benign essential hypertension (Chronic) Chronic diarrhea (Chronic) History of coronary artery bypass graft (Chronic) Diabetes mellitus, type 2 (Chronic) Hypothyroidism (Chronic) Parkinson's disease (Chronic) Rheumatoid arthritis (Chronic) Edema of lower extremity (Chronic) Opiate dependence (Chronic) Personality disorder (Chronic) Chronic obstructive lung disease (Chronic) 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, arteriosclerotic, post-stroke (Chronic) Migraines (Chronic) Peptic ulcer disease (Chronic) CKD (chronic kidney disease) stage 3, GFR 30-59 ml/min (Chronic) Esophagitis (Chronic) Ankylosing spondylitis (Chronic) Psoriatic arthritis (Chronic) - Past Surgical History Surgical History: appendectomy, coronary bypass surgery, total hip arthroplasty, tonsillectomy, - - multiple abdominal surgeries with removal of entire colon, placement of abdominal wall mesh, ileostomy, surgery for bowel abscess, lumbar back surgery, right shoulder surgery, foot surgery, cervical neck surgery, prostate surgery - Social History Smoking Status: Former smoker - Family History Maternal History Items: Hypertension Paternal History Items: Heart Disease Sibling History Items: Diabetes Patient Problems: Active and Suspected Problems Hyperkalemia (Acute) - Physical Exam General: Alert, Oriented x3 HEENT: Atraumatic Oral: Moist Mucosa Neck: Supple, No JVD Lungs: Clear to auscultation, Normal air movement, No rhonchi, No wheeze, No rales Cardiovascular: Regular rate, Normal S1, Normal S2 Abdomen: Bowel Sounds Present, Soft Extremities: No clubbing, No cyanosis, No edema Skin: No rashes Musculoskeletal: No Tenderness to Palpation of Joints or Extremities Lymphatic: Cervical Adenopathy Neurological: Cranial nerves II-XII grossly intact, Neuro grossly intact Psych/Mental Status: Normal Affect Vital Signs Temp Pulse Resp BP Pulse Ox 98.2 F 82 16 118/52 L 100 10/01/18 08:02 10/01/18 08:02 10/01/18 08:02 10/01/18 08:02 10/01/18 08:27 Oxygen Delivery Method Room Air Weight: 66.9 kg Body Mass Index (BMI) 23.8 Finger Stick Blood Glucose 203 Intake and Output for Last 24 Hours 09/29/18 09/30/18 10/01/18 23:59 23:59 23:59 Intake Total 576 / 576 2617 / 2617 Output Total 1580 / 1580 1575 / 1575 Balance -1004 / -1004 1042 / 1042 Laboratory Tests Past 24 Hrs 09/30/18 09/30/18 09/30/18 10:54 10:54 12:37 WBC 8.4 RBC 5.29 Hgb 15.4 Hct 47.5 MCV 89.8 MCH 29.1 MCHC 32.4 RDW 15.2 H RDW Differential 50.0 H Plt Count 113 L MPV 10.1 Immature Gran % (Auto) 1.900 H Neut % (Auto) 74.3 H Lymph % (Auto) 18.2 L [place] % (Auto) 3.8 Eos % (Auto) 1.6 Baso % (Auto) 0.2 Absolute Neuts (auto) 6.2 Absolute Lymphs (auto) 1.52 Total Counted Not Reportable Diff Path Review Sodium 129 L Potassium 7.3 H* 6.7 H* Chloride 102 Carbon Dioxide 16.0 L Anion Gap 11 BUN 118 H* Creatinine 7.12 H Estim Creat Clear Calc 8.59 Est GFR (MDRD) Af Amer 10 L Est GFR (MDRD) Non-Af 8 L BUN/Creatinine Ratio 16.6 Glucose 138 H Hemoglobin A1c Serum Osmolality Calcium 9.1 Magnesium Total Bilirubin 0.60 Direct Bilirubin 0.15 AST 34 ALT 11 L Alkaline Phosphatase 114 Total Creatine Kinase Troponin I 0.041 Total Protein 8.4 H Albumin 3.9 Globulin 4.5 H Lipase 1388 H Urine Osmolality U Random Total Protein Ur Random Sodium Urine Creatinine Urine Potassium Urine Chloride Urine Urea Nitrogen 09/30/18 09/30/18 09/30/18 15:44 15:44 15:44 WBC RBC Hgb Hct MCV MCH MCHC RDW RDW Differential Plt Count MPV Immature Gran % (Auto) Neut % (Auto) Lymph % (Auto) [place] % (Auto) Eos % (Auto) Baso % (Auto) Absolute Neuts (auto) Absolute Lymphs (auto) Total Counted Diff Path Review Sodium Potassium Chloride Carbon Dioxide Anion Gap BUN Creatinine Estim Creat Clear Calc Est GFR (MDRD) Af Amer Est GFR (MDRD) Non-Af BUN/Creatinine Ratio Glucose Hemoglobin A1c Serum Osmolality 327 H Calcium Magnesium Total Bilirubin Direct Bilirubin AST ALT Alkaline Phosphatase Total Creatine Kinase Troponin I Total Protein Albumin Globulin Lipase Urine Osmolality U Random Total Protein Ur Random Sodium Urine Creatinine 167.00 Urine Potassium Urine Chloride Urine Urea Nitrogen 577 09/30/18 09/30/18 09/30/18 15:44 15:44 15:44 WBC RBC Hgb Hct MCV MCH MCHC RDW RDW Differential Plt Count MPV Immature Gran % (Auto) Neut % (Auto) Lymph % (Auto) [place] % (Auto) Eos % (Auto) Baso % (Auto) Absolute Neuts (auto) Absolute Lymphs (auto) Total Counted Diff Path Review Sodium Potassium Chloride Carbon Dioxide Anion Gap BUN Creatinine Estim Creat Clear Calc Est GFR (MDRD) Af Amer Est GFR (MDRD) Non-Af BUN/Creatinine Ratio Glucose Hemoglobin A1c Serum Osmolality Calcium Magnesium Total Bilirubin Direct Bilirubin AST ALT Alkaline Phosphatase Total Creatine Kinase Troponin I Total Protein Albumin Globulin Lipase Urine Osmolality 378 U Random Total Protein 31.0 H Ur Random Sodium 10 Urine Creatinine Urine Potassium 48.0 Urine Chloride 16 Urine Urea Nitrogen 09/30/18 09/30/18 10/01/18 17:25 17:25 05:20 WBC 4.2 L RBC 3.89 L Hgb 11.4 L Hct 35.2 L MCV 90.5 MCH 29.3 MCHC 32.4 RDW 15.2 H RDW Differential 50.1 H Plt Count 97 L MPV 10.3 Immature Gran % (Auto) 2.600 H Neut % (Auto) 68.0 Lymph % (Auto) 21.0 [place] % (Auto) 5.4 Eos % (Auto) 2.8 Baso % (Auto) 0.2 Absolute Neuts (auto) 2.9 Absolute Lymphs (auto) 0.89 Total Counted Not Reportable Diff Path Review May foll Sodium 136 Potassium 5.3 H Chloride 108 H Carbon Dioxide 17.0 L Anion Gap 11 BUN 108 H* Creatinine 6.46 H Estim Creat Clear Calc 9.46 Est GFR (MDRD) Af Amer 11 L Est GFR (MDRD) Non-Af 9 L BUN/Creatinine Ratio 16.7 Glucose 122 H Hemoglobin A1c Serum Osmolality Calcium 9.6 Magnesium Total Bilirubin Direct Bilirubin AST ALT Alkaline Phosphatase Total Creatine Kinase 88 Troponin I Total Protein Albumin Globulin Lipase Urine Osmolality U Random Total Protein Ur Random Sodium Urine Creatinine Urine Potassium Urine Chloride Urine Urea Nitrogen 10/01/18 10/01/18 05:20 05:20 WBC RBC Hgb Hct MCV MCH MCHC RDW RDW Differential Plt Count MPV Immature Gran % (Auto) Neut % (Auto) Lymph % (Auto) [place] % (Auto) Eos % (Auto) Baso % (Auto) Absolute Neuts (auto) Absolute Lymphs (auto) Total Counted Diff Path Review Sodium 144 Potassium 5.3 H Chloride 115 H Carbon Dioxide 18.0 L Anion Gap 11 BUN 106 H* Creatinine 5.46 H Estim Creat Clear Calc 11.20 Est GFR (MDRD) Af Amer 13 L Est GFR (MDRD) Non-Af 11 L BUN/Creatinine Ratio 19.4 Glucose 79 Hemoglobin A1c Pending Serum Osmolality Calcium 8.0 L Magnesium 1.2 L Total Bilirubin Direct Bilirubin AST ALT Alkaline Phosphatase Total Creatine Kinase Troponin I Total Protein Albumin Globulin Lipase Urine Osmolality U Random Total Protein Ur Random Sodium Urine Creatinine Urine Potassium Urine Chloride Urine Urea Nitrogen POC Glucose 09/30/18 16:00 POC Glucose 147 H Assessment/Plan All Active Problems Cellulitis of leg (Acute) Fever (Acute) Hyperkalemia (Acute) Cellulitis (Acute) Superficial thrombophlebitis of left upper extremity (Resolved) Unstable angina (Resolved) DVT of upper extremity (deep vein thrombosis) (Ruled-out) Hyperkalemia (Resolved) Small Bowel Enterocut Fistula (Resolved) 1- KENDALL on CKD. Baseline Cr seems around 2.0-2.4 mg/dL KENDALL is from prerenal due to nausea/vomiting and decreased oral intake Cr peaked at 7.3. Cr is improving with IVF. Continue IVF at 150 cc/hour. No need for CT TECHNOLOGIST Avoid ACEI/ARB Avoid diuretics for now Check renal function in am 2- Hyperkalemia: treated medically with kayexalate, IV lasix and D50/ IV insulin K peaked at 7.1. k is better at 5.3 Will repeat BMP at 5 pm 3- Hypomagnesemia : Mg is 1.2. I will give IV Mg 4- SBO Vs ileus. NPO for now. refusing NGT Management is as per the GS team Thank you for the consult. Renal team will continue to follow D/W Dr. Brenda FLYNN MD
--- NOTE | 2018-10-01 11:15 | PCM.PN.HOSP ---
Patient Problems: Active and Suspected Problems Hyperkalemia (Acute) Subjective: Patient seen and examined. He still complains of abdominal pain. He finally agreed to have the Saravia catheter passed overnight to monitor his urine output. HE denies any nausea or vomiting, fever or chills, as of breath or chest pain or diarrhea. Review of systems otherwise negative. General surgery and nephrology on board. Vitals/I&O's: Vital Signs Temp Pulse Resp BP Pulse Ox 98.2 F 82 16 118/52 L 100 10/01/18 08:02 10/01/18 08:02 10/01/18 08:02 10/01/18 08:02 10/01/18 08:27 Oxygen Delivery Method Room Air Weight: 147 lb 7.828 oz Body Mass Index (BMI) 23.8 Finger Stick Blood Glucose 203 Intake and Output for Last 24 Hours 09/29/18 09/30/18 10/01/18 23:59 23:59 23:59 Intake Total 576 / 576 2617 / 2617 Output Total 1580 / 1580 1575 / 1575 Balance -1004 / -1004 1042 / 1042 General: Alert, Oriented x3, Cooperative, No apparent distress HEENT: Atraumatic, PERRLA, EOMI, Normocephalic Oral: Moist Mucosa Neck: Supple, No JVD, Negative Carotid Bruits Lungs: Clear to auscultation, Normal air movement, No rhonchi, No wheeze, No rales Cardiovascular: Regular rate, Regular Rhythm, Normal S1, Normal S2, No murmurs Abdomen: Bowel Sounds Present, Soft, Non-Distended, - - moderate tenderness in epigastrum, with no guarding or rebound tenderness. Ileostomy in place Extremities: No clubbing, No cyanosis, No edema, Capillary Refill Less than 3 Seconds Skin: No rashes, No breakdown Musculoskeletal: No Tenderness to Palpation of Joints or Extremities Lymphatic: No Cervical, Supraclavicular, or Inguinal Adenopathy Neurological: Cranial nerves II-XII grossly intact Psych/Mental Status: Normal Affect, Appropriate, Alert and oriented to time, place, person, mood and affect Laboratory Results 09/30/18 10:54: Sodium 129 L, Potassium 7.3 H*, Chloride 102, Carbon Dioxide 16.0 L, Anion Gap 11, BUN 118 H*, Creatinine 7.12 H, Estim Creat Clear Calc 8.59, Est GFR (MDRD) Af Amer 10 L, Est GFR (MDRD) Non-Af 8 L, BUN/Creatinine Ratio 16.6, Glucose 138 H, Calcium 9.1, Total Bilirubin 0.60, Direct Bilirubin 0.15, AST 34, ALT 11 L, Alkaline Phosphatase 114, Troponin I 0.041, Total Protein 8.4 H, Albumin 3.9, Globulin 4.5 H, Lipase 1388 H 09/30/18 12:37: Potassium 6.7 H* 09/30/18 15:44: Serum Osmolality 327 H 09/30/18 15:44: Urine Creatinine 167.00 09/30/18 15:44: Urine Urea Nitrogen 577 09/30/18 15:44: Urine Osmolality 378 09/30/18 15:44: Ur Random Sodium 10, Urine Potassium 48.0, Urine Chloride 16 09/30/18 15:44: U Random Total Protein 31.0 H 09/30/18 16:00: POC Glucose 147 H 09/30/18 17:25: Sodium 136, Potassium 5.3 H, Chloride 108 H, Carbon Dioxide 17.0 L, Anion Gap 11, BUN 108 H*, Creatinine 6.46 H, Estim Creat Clear Calc 9.46, Est GFR (MDRD) Af Amer 11 L, Est GFR (MDRD) Non-Af 9 L, BUN/Creatinine Ratio 16.7, Glucose 122 H, Calcium 9.6 09/30/18 17:25: Total Creatine Kinase 88 10/01/18 05:20: WBC 4.2 L, RBC 3.89 L, Hgb 11.4 L, Hct 35.2 L, MCV 90.5, MCH 29.3, MCHC 32.4, RDW 15.2 H, RDW Differential 50.1 H, Plt Count 97 L, MPV 10.3, Immature Gran % (Auto) 2.600 H, Neut % (Auto) 68.0, Lymph % (Auto) 21.0, [place] % (Auto) 5.4, Eos % (Auto) 2.8, Baso % (Auto) 0.2, Absolute Neuts (auto) 2.9, Absolute Lymphs (auto) 0.89, Total Counted Not Reportable, Diff Path Review March10/01/18 05:20: Sodium 144, Potassium 5.3 H, Chloride 115 H, Carbon Dioxide 18.0 L, Anion Gap 11, BUN 106 H*, Creatinine 5.46 H, Estim Creat Clear Calc 11.20, Est GFR (MDRD) Af Amer 13 L, Est GFR (MDRD) Non-Af 11 L, BUN/Creatinine Ratio 19.4, Glucose 79, Calcium 8.0 L, Magnesium 1.2 L 10/01/18 05:20: Hemoglobin A1c Pending Diagnostic Data Chest X-Ray 09/30/18 10:21 IMPRESSION: Stable chest moderate cardiac enlargement status post sternotomy. Electronically Signed: Xin Bills MD at 11:35 EST Tel , Service support , Abdomen/Pelvis CT 09/30/18 13:15 IMPRESSION: Distended loops of small bowel consider ileus versus early partial small bowel obstruction. Status post colectomy. Status post left lower colostomy. Stable bilateral renal cysts Status post sternotomy. Lumbar spine fusion right hip arthroplasty. Possible gallstone in the dependent portion of the gallbladder versus artifact. Advanced degenerative change L2-3 Electronically Signed: Xin Bills MD at 14:21 EST Tel , Service support , Abdomen X-Ray 10/01/18 05:07 IMPRESSION: Nonspecific bowel gas pattern. Electronically Signed: Xander Doe MD at 8:43 EST Tel [phone], Service support , Current Medications Acetaminophen/Butalbital/Caffeine (Fioricet) 1 tablet PO Q4H PRN PRN PRN Reason: migraine Last Admin: 10/01/18 09:55 Dose: 1 tablet Albuterol Sulfate (Ventolin Aerosols) 2.5 mg INHALATION Q4H PRN PRN Reason: CHRONIC BRONCHITIS [facility] Last Admin: 10/01/18 09:15 Dose: Not Given Amiodarone HCl (Cordarone) 200 mg PO DAILY [facility] Last Admin: 09/30/18 16:14 Dose: 200 mg Amitriptyline HCl (Elavil) 25 mg PO QHS [facility] Last Admin: 09/30/18 22:00 Dose: Not Given Amlodipine Besylate (Norvasc) 5 mg PO DAILY [facility] Aspirin (Ecotrin) 81 mg PO DAILY@0800 [facility] Last Admin: 10/01/18 09:14 Dose: Not Given Budesonide (Pulmicort Aerosol) 0.5 mg INHALATION Q12H.RT [facility] Last Admin: 10/01/18 07:10 Dose: Not Given Calamine/Phenol (Calmoseptine Ointment) 1 applic TOPICAL BID [facility]; Protocol Last Admin: 10/01/18 09:56 Dose: 1 applic Carbidopa/Levodopa (Sinemet) 1 tablet PO [facility] Last Admin: 10/01/18 05:28 Dose: Not Given Cholecalciferol (Vitamin D) 5,000 [facility] Last Admin: 10/01/18 09:14 Dose: Not Given Codeine Sulfate (Codeine) 30 mg PO QODAY PRN PRN Reason: HEADACHE Cyanocobalamin (Vitamin B12) 1,000 mcg IM Q30D [facility] Dextrose (D50w Syringe) 0 gm IV X1 PRN; Protocol PRN Reason: Hypoglycemia Diphenhydramine HCl (Benadryl) 25 mg PO Q6H PRN PRN Reason: ITCHING Diphenhydramine HCl (Benadryl) 25 mg IV Q4H PRN PRN PRN Reason: rash Diphenhydramine HCl (Benadryl) 25 mg IV Q6H PRN PRN PRN Reason: ITCHING Last Admin: 10/01/18 03:49 Dose: 25 mg Entacapone (Comtan) 200 mg PO ACHS [facility] Last Admin: 10/01/18 05:28 Dose: Not Given Glucagon () 1 mg IM .X1 PRN PRN Reason: Hypoglycemia Hydroxyzine Pamoate (Vistaril Pamoate Capsule) 50 mg PO TID PRN PRN PRN Reason: ANXIETY Pantoprazole Sodium 40 mg/ (Sodium Chloride) 110 mls @ 330 mls/hr IV Q24 [facility] Last Admin: 10/01/18 09:57 Dose: 330 mls/hr Magnesium Sulfate 2 gm/ Sodium (Chloride) 104 mls @ 52 mls/hr IV X1 ONE Stop: 10/01/18 13:29 Sodium Chloride () 1,000 mls @ 150 mls/hr IV .Q6H40M [facility] Insulin Human Lispro (Humalog Kwikpen (Bkc)) 0 unit SQ Q6 [facility]; Protocol Last Admin: 10/01/18 05:58 Dose: Not Given Levothyroxine Sodium (Synthroid) 274 mcg PO MoTh@0600 [facility] Last Admin: 10/01/18 05:28 Dose: Not Given Levothyroxine Sodium (Synthroid) 137 mcg PO SuTuWeFrSa@0600 [facility] Magnesium Hydroxide (Milk Of Magnesia) 30 ml PO DAILY PRN PRN PRN Reason: Constipation Metoprolol Succinate (Toprol Xl (Beta Pb)) 25 mg PO DAILY [facility] Morphine Sulfate () 1 mg IV Q4H PRN PRN PRN Reason: SEVERE PAIN (6-1010) Last Admin: 10/01/18 07:57 Dose: 1 mg Non-Formulary Medication (Apremilast) 30 mg PO BID [facility] Pramipexole Dihydrochloride (Mirapex) 1 mg PO QHS [facility] Last Admin: 09/30/18 22:00 Dose: Not Given Sodium Chloride () 5 - 30 ml IV UD PRN PRN Reason: SALINE FLUSH Last Admin: 10/01/18 07:57 Dose: 10 ml Testosterone Cypionate (Depo-Testosterone) 200 mg IM Q14D [facility] Throat Lozenges (Cepacol Sore Throat Lozenge) 1 lozenge MUCOUS MEM Q2H PRN PRN PRN Reason: SORE THROAT Last Admin: 10/01/18 03:49 Dose: 1 lozenge Vilazodone HCl (Viibryd) 40 mg PO DAILY [facility] Zinc Sulfate (Zinc Sulfate) [facility] Last Admin: 10/01/18 09:15 Dose: Not Given Medical Necessity - Tobacco Use Smoking Status: Former smoker Assessment/Plan All Active Problems Cellulitis of leg (Acute) Fever (Acute) Hyperkalemia (Acute) Cellulitis (Acute) Superficial thrombophlebitis of left upper extremity (Resolved) Unstable angina (Resolved) DVT of upper extremity (deep vein thrombosis) (Ruled-out) Hyperkalemia (Resolved) Small Bowel Enterocut Fistula (Resolved) 74y/o male admitted with a complaint of worsening generalised weakness, nausea and vomiting. 1. Small bowel ileus nausea and vomiting have resolved. still has moderate epigastric pain, but that is likely due to pancreatitis CT abdomen on admission: distended small bowel loops, consider ileus vs early partial small bowel obstruction, s/o colectomy and post left lower colostomy. Bilateral stable renal cysts. refused to allow NG tube to be passed Abdominal xray today showed nonspecific bowel gas pattern general surgery on board continue IVF 2. KENDALL on CKD baseline Cr ~ 2; Cr on admission was 7.12 Cr down to 5.46 today being hydrated with IVF NS @ 250cc/hr received one dose of iV lasix 80mg yesterday o/a of hyperkalemia FeUrea was 20.8%, indicating pre-renal cause nephrology on board kidney USG pending. continue IVF hydration with NS ~ 250cc/hr 3. Hyperkalemia due to KENDALL. K was 7.3 (moderately hemolysed) on admission; repeat K was 6.7 receivecd 30gram of kayexalate in ED,a nd received potassium depleting cocktail given one dose of IV lasix 80mg once to help with potassium depletion nephrology on board continue hydration. Currently NPO so cannot give kayexalate 4. Hyponatremia: Resolved. Sodium was 129 on admission and is up to 144 after being resuscitated with IV fluids. Serum osmolality T was 326, which did not go with a hypovolemic hyponatremic picture. continue IVF 5. Acute pancreatitis: Lipase was 1388 on admission. still complains of epigastric pain. had abdominal CT: no mention of pancreas in CT. on IVF and IV morphine prn 6. History of esophageal stricture due to GERD s/p esophageal dilatation 2 weeks ago at [facility] still complains of pain with swallowing keep NPO for now give iVF NS general surgery on board 7. ANion gap metabolic acidosis due to KENDALL bicarb is now 18; anion gap is 11 now. 7. Hypertension: On metoprolol 8. History of A. fib: On metoprolol and amiodarone. Not on any blood thinners per med rec. Unsure why. 9. Hypothyroidism: On Synthroid 10. Parkinson;s disease: on levodopa-carbidopa and entacapone 11. Depression: on vilazodone DVT prophylaxis: SCDs; allergic to heparin GI prophylaxis: IV PPI Code status: full code Code Visit Inpatient E&M: 55113 Subs Hosp L3
--- NOTE | 2018-10-01 11:19 | PN_ITS ---
Patient Problems: Active and Suspected Problems Hyperkalemia (Acute) Subjective: Patient seen and examined. He still complains of abdominal pain. He finally agreed to have the Saravia catheter passed overnight to monitor his urine output. HE denies any nausea or vomiting, fever or chills, as of breath or chest pain or diarrhea. Review of systems otherwise negative. General surgery and nephrology on board. Vitals/I&O's: Vital Signs Temp Pulse Resp BP Pulse Ox 98.2 F 82 16 118/52 L 100 10/01/18 08:02 10/01/18 08:02 10/01/18 08:02 10/01/18 08:02 10/01/18 08:27 Oxygen Delivery Method Room Air Weight: 147 lb 7.828 oz Body Mass Index (BMI) 23.8 Finger Stick Blood Glucose 203 Intake and Output for Last 24 Hours 09/29/18 09/30/18 10/01/18 23:59 23:59 23:59 Intake Total 576 / 576 2617 / 2617 Output Total 1580 / 1580 1575 / 1575 Balance -1004 / -1004 1042 / 1042 General: Alert, Oriented x3, Cooperative, No apparent distress HEENT: Atraumatic, PERRLA, EOMI, Normocephalic Oral: Moist Mucosa Neck: Supple, No JVD, Negative Carotid Bruits Lungs: Clear to auscultation, Normal air movement, No rhonchi, No wheeze, No rales Cardiovascular: Regular rate, Regular Rhythm, Normal S1, Normal S2, No murmurs Abdomen: Bowel Sounds Present, Soft, Non-Distended, - - moderate tenderness in epigastrum, with no guarding or rebound tenderness. Ileostomy in place Extremities: No clubbing, No cyanosis, No edema, Capillary Refill Less than 3 Seconds Skin: No rashes, No breakdown Musculoskeletal: No Tenderness to Palpation of Joints or Extremities Lymphatic: No Cervical, Supraclavicular, or Inguinal Adenopathy Neurological: Cranial nerves II-XII grossly intact Psych/Mental Status: Normal Affect, Appropriate, Alert and oriented to time, place, person, mood and affect Laboratory Results 09/30/18 10:54: Sodium 129 L, Potassium 7.3 H*, Chloride 102, Carbon Dioxide 1 6.0 L, Anion Gap 11, BUN 118 H*, Creatinine 7.12 H, Estim Creat Clear Calc 8.59, Est GFR (MDRD) Af Amer 10 L, Est GFR (MDRD) Non-Af 8 L, BUN/Creatinine Ratio 16.6, Glucose 138 H, Calcium 9.1, Total Bilirubin 0.60, Direct Bilirubin 0.15, AST 34, ALT 11 L, Alkaline Phosphatase 114, Troponin I 0.041, Total Protein 8.4 H, Albumin 3.9, Globulin 4.5 H, Lipase 1388 H 09/30/18 12:37: Potassium 6.7 H* 09/30/18 15:44: Serum Osmolality 327 H 09/30/18 15:44: Urine Creatinine 167.00 09/30/18 15:44: Urine Urea Nitrogen 577 09/30/18 15:44: Urine Osmolality 378 09/30/18 15:44: Ur Random Sodium 10, Urine Potassium 48.0, Urine Chloride 16 09/30/18 15:44: U Random Total Protein 31.0 H 09/30/18 16:00: POC Glucose 147 H 09/30/18 17:25: Sodium 136, Potassium 5.3 H, Chloride 108 H, Carbon Dioxide 17.0 L, Anion Gap 11, BUN 108 H*, Creatinine 6.46 H, Estim Creat Clear Calc 9.46, Est GFR (MDRD) Af Amer 11 L, Est GFR (MDRD) Non-Af 9 L, BUN/Creatinine Ratio 16.7, Glucose 122 H, Calcium 9.6 09/30/18 17:25: Total Creatine Kinase 88 10/01/18 05:20: WBC 4.2 L, RBC 3.89 L, Hgb 11.4 L, Hct 35.2 L, MCV 90.5, MCH 29.3, MCHC 32.4, RDW 15.2 H, RDW Differential 50.1 H, Plt Count 97 L, MPV 10.3, Immature Gran % (Auto) 2.600 H, Neut % (Auto) 68.0, Lymph % (Auto) 21.0, [place] % (Auto) 5.4, Eos % (Auto) 2.8, Baso % (Auto) 0.2, Absolute Neuts (auto) 2.9, Absolute Lymphs (auto) 0.89, Total Counted Not Reportable, Diff Path Review March10/01/18 05:20: Sodium 144, Potassium 5.3 H, Chloride 115 H, Carbon Dioxide 18.0 L, Anion Gap 11, BUN 106 H*, Creatinine 5.46 H, Estim Creat Clear Calc 11.20, Est GFR (MDRD) Af Amer 13 L, Est GFR (MDRD) Non-Af 11 L, BUN/Creatinine Ratio 19.4, Glucose 79, Calcium 8.0 L, Magnesium 1.2 L 10/01/18 05:20: Hemoglobin A1c Pending Diagnostic Data Chest X-Ray 09/30/18 10:21 IMPRESSION: Stable chest moderate cardiac enlargement status post sternotomy. Electronically Signed: Xin Bills MD at 11:35 EST Tel , Service support , Abdomen/Pelvis CT 09/30/18 13:15 IMPRESSION: Distended loops of small bowel consider ileus versus early partial small bowel obstruction. Status post colectomy. Status post left lower colostomy. Stable bilateral renal cysts Status post sternotomy. Lumbar spine fusion right hip arthroplasty. Possible gallstone in the dependent portion of the gallbladder versus artifact. Advanced degenerative change L2-3 Electronically Signed: Xin Bills MD at 14:21 EST Tel , Service support , Abdomen X-Ray 10/01/18 05:07 IMPRESSION: Nonspecific bowel gas pattern. Electronically Signed: Xander Doe MD at 8:43 EST Tel [phone], Service support , Current Medications Acetaminophen/Butalbital/Caffeine (Fioricet) 1 tablet PO Q4H PRN PRN PRN Reason: migraine Last Admin: 10/01/18 09:55 Dose: 1 tablet Albuterol Sulfate (Ventolin Aerosols) 2.5 mg INHALATION Q4H PRN PRN Reason: CHRONIC BRONCHITIS [facility]) [facility] Last Admin: 10/01/18 09:15 Dose: Not Given Amiodarone HCl (Cordarone) 200 mg PO DAILY [facility] Last Admin: 09/30/18 16:14 Dose: 200 mg Amitriptyline HCl (Elavil) 25 mg PO QHS [facility] Last Admin: 09/30/18 22:00 Dose: Not Given Amlodipine Besylate (Norvasc) 5 mg PO DAILY [facility] Aspirin (Ecotrin) 81 mg PO DAILY@0800 [facility] Last Admin: 10/01/18 09:14 Dose: Not Given Budesonide (Pulmicort Aerosol) 0.5 mg INHALATION Q12H.RT [facility] Last Admin: 10/01/18 07:10 Dose: Not Given Calamine/Phenol (Calmoseptine Ointment) 1 applic TOPICAL BID [facility]; Protocol Last Admin: 10/01/18 09:56 Dose: 1 applic Carbidopa/Levodopa (Sinemet) 1 tablet PO [facility] Last Admin: 10/01/18 05:28 Dose: Not Given Cholecalciferol (Vitamin D) 5,000 [facility] Last Admin: 10/01/18 09:14 Dose: Not Given Codeine Sulfate (Codeine) 30 mg PO QODAY PRN PRN Reason: HEADACHE Cyanocobalamin (Vitamin B12) 1,000 mcg IM Q30D [facility] Dextrose (D50w Syringe) 0 gm IV X1 PRN; Protocol PRN Reason: Hypoglycemia Diphenhydramine HCl (Benadryl) 25 mg PO Q6H PRN PRN Reason: ITCHING Diphenhydramine HCl (Benadryl) 25 mg IV Q4H PRN PRN PRN Reason: rash Diphenhydramine HCl (Benadryl) 25 mg IV Q6H PRN PRN PRN Reason: ITCHING Last Admin: 10/01/18 03:49 Dose: 25 mg Entacapone (Comtan) 200 mg PO ACHS [facility] Last Admin: 10/01/18 05:28 Dose: Not Given Glucagon () 1 mg IM .X1 PRN PRN Reason: Hypoglycemia Hydroxyzine Pamoate (Vistaril Pamoate Capsule) 50 mg PO TID PRN PRN PRN Reason: ANXIETY Pantoprazole Sodium 40 mg/ (Sodium Chloride) 110 mls @ 330 mls/hr IV Q24 [facility] Last Admin: 10/01/18 09:57 Dose: 330 mls/hr Magnesium Sulfate 2 gm/ Sodium (Chloride) 104 mls @ 52 mls/hr IV X1 ONE Stop: 10/01/18 13:29 Sodium Chloride () 1,000 mls @ 150 mls/hr IV .Q6H40M [facility] Insulin Human Lispro (Humalog Kwikpen (Bkc)) 0 unit SQ Q6 [facility]; Protocol Last Admin: 10/01/18 05:58 Dose: Not Given Levothyroxine Sodium (Synthroid) 274 mcg PO MoTh@0600 [facility] Last Admin: 10/01/18 05:28 Dose: Not Given Levothyroxine Sodium (Synthroid) 137 mcg PO SuTuWeFrSa@0600 [facility] Magnesium Hydroxide (Milk Of Magnesia) 30 ml PO DAILY PRN PRN PRN Reason: Constipation Metoprolol Succinate (Toprol Xl (Beta Pb)) 25 mg PO DAILY [facility] Morphine Sulfate () 1 mg IV Q4H PRN PRN PRN Reason: SEVERE PAIN (6-10) Last Admin: 10/01/18 07:57 Dose: 1 mg Non-Formulary Medication (Apremilast) 30 mg PO BID [facility] Pramipexole Dihydrochloride (Mirapex) 1 mg PO QHS [facility] Last Admin: 09/30/18 22:00 Dose: Not Given Sodium Chloride () 5 - 30 ml IV UD PRN PRN Reason: SALINE FLUSH Last Admin: 10/01/18 07:57 Dose: 10 ml Testosterone Cypionate (Depo-Testosterone) 200 mg IM Q14D [facility] Throat Lozenges (Cepacol Sore Throat Lozenge) 1 lozenge MUCOUS MEM Q2H PRN PRN PRN Reason: SORE THROAT Last Admin: 10/01/18 03:49 Dose: 1 lozenge Vilazodone HCl (Viibryd) 40 mg PO DAILY [facility] Zinc Sulfate (Zinc Sulfate) [facility] Last Admin: 10/01/18 09:15 Dose: Not Given Medical Necessity - Tobacco Use Smoking Status: Former smoker Assessment/Plan All Active Problems Cellulitis of leg (Acute) Fever (Acute) Hyperkalemia (Acute) Cellulitis (Acute) Superficial thrombophlebitis of left upper extremity (Resolved) Unstable angina (Resolved) DVT of upper extremity (deep vein thrombosis) (Ruled-out) Hyperkalemia (Resolved) Small Bowel Enterocut Fistula (Resolved) 74y/o male admitted with a complaint of worsening generalised weakness, nausea and vomiting. 1. Small bowel ileus * nausea and vomiting have resolved. still has moderate epigastric pain, but that is likely due to pancreatitis * CT abdomen on admission: distended small bowel loops, consider ileus vs early partial small bowel obstruction, s/o colectomy and post left lower colostomy. Bilateral stable renal cysts. * refused to allow NG tube to be passed * Abdominal xray today showed nonspecific bowel gas pattern * general surgery on board * continue IVF * 2. KENDALL on CKD * baseline Cr ~ 2; Cr on admission was 7.12 * Cr down to 5.46 today * being hydrated with IVF NS @ 250cc/hr * received one dose of iV lasix 80mg yesterday o/a of hyperkalemia * FeUrea was 20.8%, indicating pre-renal cause * nephrology on board * kidney USG pending. * continue IVF hydration with NS ~ 250cc/hr * 3. Hyperkalemia * due to KENDALL. K was 7.3 (moderately hemolysed) on admission; repeat K was 6.7 * receivecd 30gram of kayexalate in ED,a nd received potassium depleting cocktail * given one dose of IV lasix 80mg once to help with potassium depletion * nephrology on board * continue hydration. Currently NPO so cannot give kayexalate * * 4. Hyponatremia: * Resolved. Sodium was 129 on admission and is up to 144 after being resuscitated with IV fluids. * Serum osmolality T was 326, which did not go with a hypovolemic hyponatremic picture. * continue IVF * 5. Acute pancreatitis: * Lipase was 1388 on admission. * still complains of epigastric pain. * had abdominal CT: no mention of pancreas in CT. * on IVF and IV morphine prn * 6. History of esophageal stricture due to GERD * s/p esophageal dilatation 2 weeks ago at [facility] * still complains of pain with swallowing * keep NPO for now * give iVF NS * general surgery on board * 7. ANion gap metabolic acidosis due to KENDALL * bicarb is now 18; anion gap is 11 now. 7. Hypertension: On metoprolol 8. History of A. fib: On metoprolol and amiodarone. Not on any blood thinners per med rec. Unsure why. 9. Hypothyroidism: On Synthroid 10. Parkinson;s disease: on levodopa-carbidopa and entacapone 11. Depression: on vilazodone DVT prophylaxis: SCDs; allergic to heparin GI prophylaxis: IV PPI Code status: full code * Code Visit Inpatient E&M: 76922 Subs Hosp L3
[2018-10-01] MEDS: 0.45% Normal Saline 1,000 ML 150 ML IV ×2 (12:04→19:53)
[2018-10-01 13:37] LABS: Cholesterol 86 mg/dL (200); High Density Lipoprotein 20 mg/dL; Triglycerides 300 mg/dL; Very Low Density Lipoprotein 60 mg/dL (5-40)
[2018-10-01 14:09] LABS: Pathologist Review Reviewed
--- NOTE | 2018-10-01 14:45 | CASEMGMT ---
SEAN MELVIN assessment: Face to Face with patient for initial transition planning/care coordination assessment. RN OLEGARIO introduced self and role at [facility], pt voices understanding and consents to assessment at this time. Pt is lying in bed in no distress at this time. Pt is A/Ox4 at this time and answers all questions appropriately at this time. Care providers, pharmacy, and demographics verified at this time. PCP: Alondra Specialists: JORDYN Lockwood in [facility]; Shayne, cardio; John, rheumatology; Tomi, neuro; Apolinar GI at [facility]; Marimar, hernia surgeon at [facility]; Radha nephro in [place] Preferred Pharmacy: [facility] Insurance: MCR A/B, [place] Prescription Benefit: [employer] Living Will/HPOA: Pt states does not have LW/HPOA at this time and declines further AD info at this time. LNOK: Yolanda Richter, Living Arrangements: Pt lives with in mobile home with 7 steps in and states no concerns at home at this time. Pt states that takes care of him and helps him complete ADL's. Pt states used to have an aide coming in but decided to do all care instead. Transportation: Pt states drives him or they use [employer] and states no transportation concerns at this time. DME/HHC: Pt states has the following DME: grab bars, shower chair, raised toilet seat, walker, w/c x2(1-regular, 1-electric), crutches, lift chair, nebulizer, and home oxygen 2 liters prn through [employer]. Pt states has had [facility] in the past and has been to [facility] twice in the past. Pt is unsure of needs at discharge at this time. CM to follow for therapy notes and any further discharge planning/needs. Pt states does not smoke or drink ETOH. Pt voices no further concerns/needs at this time. Advised pt to ask for CM if any further questions/concerns/needs arise, voices understanding. Plan: [place] MELVIN
[2018-10-01 15:11] LABS: Hemoglobin A1c 5.8 % (4.2-6.3)
[2018-10-01] MEDS: Carbidopa/Levodopa 25/100 Tablet PO ×2 (17:16→22:45)
[2018-10-01 17:26] LABS: Anion Gap 13 (5-15); BUN 94 mg/dL (7-18); BUN/Creat Ratio 19.9 RATIO (10-20); Chloride 115 mmol/L (98-107); Creatinine, Serum 4.73 mg/dL (0.70-1.30); EST Glomerular Filtration Rate 13 mL/min (>60); Est Glom Filt Rate - Afr Amer 16 mL/min (>60); Estimated Creatinine Clearance 12.93 ml/min; Glucose 68 mg/dL (74-106); Potassium 4.8 mmol/L (3.5-5.1); Sodium Level 144 mmol/L (136-145)
[2018-10-01] MEDS: Budesonide Respules 0.5 MG/2 ML AMPUL.NEB. INHALATION (19:45)
--- NOTE | 2018-10-01 20:41 | PN.SURG_ITS ---
Patient Problems: Active and Suspected Problems Hyperkalemia (Acute) Subjective: continued abdominal pain, decreased stoma output throughout day - Physical Exam General: Alert, Oriented x3 Lungs: Clear to auscultation, Normal air movement Cardiovascular: Regular rate, Regular Rhythm Abdomen: Bowel Sounds Present, Soft, Tender - mild diffusely tender, ileostomy with more concentrated material in bag less air than yesterday. Vital Signs Temp Pulse Resp BP Pulse Ox 98.1 F 95 18 130/71 H 97 10/01/18 17:46 10/01/18 19:01 10/01/18 17:46 10/01/18 17:46 10/01/18 17:46 Oxygen Delivery Method Room Air Weight: 66.9 kg Body Mass Index (BMI) 23.8 Finger Stick Blood Glucose 203 Intake and Output for Last 24 Hours 09/29/18 09/30/18 10/01/18 23:59 23:59 23:59 Intake Total 576 / 576 4198 / 4198 Output Total 1580 / 1580 2475 / 2475 Balance -1004 / -1004 1723 / 1723 Laboratory Tests Past 24 Hrs 09/30/18 09/30/18 09/30/18 15:44 15:44 15:44 WBC RBC Hgb Hct MCV MCH MCHC RDW RDW Differential Plt Count MPV Immature Gran % (Auto) Neut % (Auto) Lymph % (Auto) [place] % (Auto) Eos % (Auto) Baso % (Auto) Absolute Neuts (auto) Absolute Lymphs (auto) Total Counted Diff Path Review Sodium Potassium Chloride Carbon Dioxide Anion Gap BUN Creatinine Estim Creat Clear Calc Est GFR (MDRD) Af Amer Est GFR (MDRD) Non-Af BUN/Creatinine Ratio Glucose Hemoglobin A1c Serum Osmolality 327 H Calcium Magnesium Triglycerides Cholesterol LDL Cholesterol VLDL Cholesterol HDL Cholesterol Urine Osmolality 378 U Random Total Protein Ur Random Sodium 10 Urine Potassium 48.0 Urine Chloride 16 09/30/18 10/01/18 10/01/18 15:44 05:20 05:20 WBC 4.2 L RBC 3.89 L Hgb 11.4 L Hct 35.2 L MCV 90.5 MCH 29.3 MCHC 32.4 RDW 15.2 H RDW Differential 50.1 H Plt Count 97 L MPV 10.3 Immature Gran % (Auto) 2.600 H Neut % (Auto) 68.0 Lymph % (Auto) 21.0 [place] % (Auto) 5.4 Eos % (Auto) 2.8 Baso % (Auto) 0.2 Absolute Neuts (auto) 2.9 Absolute Lymphs (auto) 0.89 Total Counted Not Reportable Diff Path Review Reviewed Sodium 144 Potassium 5.3 H Chloride 115 H Carbon Dioxide 18.0 L Anion Gap 11 BUN 106 H* Creatinine 5.46 H Estim Creat Clear Calc 11.20 Est GFR (MDRD) Af Amer 13 L Est GFR (MDRD) Non-Af 11 L BUN/Creatinine Ratio 19.4 Glucose 79 Hemoglobin A1c Serum Osmolality Calcium 8.0 L Magnesium 1.2 L Triglycerides Cholesterol LDL Cholesterol VLDL Cholesterol HDL Cholesterol Urine Osmolality U Random Total Protein 31.0 H Ur Random Sodium Urine Potassium Urine Chloride 10/01/18 10/01/18 10/01/18 05:20 05:20 16:42 WBC RBC Hgb Hct MCV MCH MCHC RDW RDW Differential Plt Count MPV Immature Gran % (Auto) Neut % (Auto) Lymph % (Auto) [place] % (Auto) Eos % (Auto) Baso % (Auto) Absolute Neuts (auto) Absolute Lymphs (auto) Total Counted Diff Path Review Sodium 144 Potassium 4.8 Chloride 115 H Carbon Dioxide 16.0 L Anion Gap 13 BUN 94 H Creatinine 4.73 H Estim Creat Clear Calc 12.93 Est GFR (MDRD) Af Amer 16 L Est GFR (MDRD) Non-Af 13 L BUN/Creatinine Ratio 19.9 Glucose 68 L Hemoglobin A1c 5.8 Serum Osmolality Calcium 8.0 L Magnesium Triglycerides 300 H Cholesterol 86 LDL Cholesterol 6 VLDL Cholesterol 60 H HDL Cholesterol 20 L Urine Osmolality U Random Total Protein Ur Random Sodium Urine Potassium Urine Chloride Medical Necessity - Tobacco Use Smoking Status: Former smoker Assessment/Plan All Active Problems Cellulitis of leg (Acute) Fever (Acute) Hyperkalemia (Acute) Cellulitis (Acute) Superficial thrombophlebitis of left upper extremity (Resolved) Unstable angina (Resolved) DVT of upper extremity (deep vein thrombosis) (Ruled-out) Hyperkalemia (Resolved) Small Bowel Enterocut Fistula (Resolved) abnormal bowel gas pattern, dysphagia, acute on chronic renal failure, electrolyte abnormalities. Dysphagia - patient was told by his solutions developer to stop Carafate. But per discussion, he stopped his Carafate following his last dilatation. While trying to re-feed the patient, if he notes a repeat symptoms I would consider adding Carafate and/or obtaining an esophagram. SBO vs ileus - patient with multiple abdominal procedures - unsure how different from baseline imaging would appear. now decreasing output and continued discomfort. KUB this morning demonstrated a nonspecific bowel gas pattern. we will follow clinically serial abdominal exams and abdominal multiview to assess bowel gas pattern. Given the patient's very complex past abdominal surgical history and extensive lysis of adhesions, in the event of a true higher grade bowel obstruction, patient required transfer to tertiary care center.. pancreatitis,electrode abnormalities. Patient currently receiving Kayexalate and support to improve both his electrolytes and elevated BUN and creatinine. We will follow him clinically for presumed pancreatitis possibly secondary electrode abnormalities or low flow state?
[2018-10-01] MEDS: Amitriptyline 25 MG Tablet PO (22:44)
[2018-10-01] MEDS: Pramipexole Di-HCl 1 MG Tablet PO (22:45)
--- NOTE | 2018-10-01 22:49 | NURSING ---
patient refusing accu checks at this time.
[2018-10-02] VITALS (12 sets, daily range): BP systolic 101–134; BP diastolic 47–78; PULSE 65–86; RESP 18–20; TEMP 36.3–37.1; O2SAT 94–100
[2018-10-02] MEDS: 0.45% Normal Saline 1,000 ML 150 ML IV ×4 (02:33→20:11)
[2018-10-02] MEDS: Acetaminophen/Butalbital/Caffe 1 Tablet PO ×2 (02:36→23:22)
--- NOTE | 2018-10-02 05:07 | RAD_ITS ---
STUDY: X-RAY - ABDOMEN/PELVIS REASON FOR EXAM: Male, 73 years old. Small bowel obstruction TECHNIQUE: Supine and left lateral decubitus views COMPARISON: 10/01/2018 FINDINGS: Right hip arthroplasty. Lumbar fusions and laminectomies. Median sternotomy wires. Left hip osteoarthritis. Nonobstructive bowel gas pattern. No free air is seen. Left sided colostomy. RAD/Abd Inc Decub and/or Erect IMPRESSION: Nonobstructive bowel gas pattern. No free air is seen. Electronically Signed: Christoph Henry MD at 5:34 EST Tel , Service support ,
[2018-10-02] MEDS: Levothyroxine 137 MCG Tablet PO (06:18)
[2018-10-02] MEDS: Carbidopa/Levodopa 25/100 Tablet PO ×4 (06:19→23:05)
--- NOTE | 2018-10-02 06:22 | PN.SURG_ITS ---
Patient Problems: Active and Suspected Problems Hyperkalemia (Acute) Subjective: still abdominal pain, intermittent stoma output - Physical Exam General: Alert, Oriented x3 Lungs: Clear to auscultation, Normal air movement Cardiovascular: Regular rate, Regular Rhythm Abdomen: Soft, Hypoactive Bowel Sounds, Tender - left side Vital Signs Temp Pulse Resp BP Pulse Ox 97.4 F L 72 18 123/63 H 100 10/02/18 04:45 10/02/18 04:45 10/02/18 04:45 10/02/18 04:45 10/02/18 04:45 Oxygen Delivery Method Room Air Weight: 66.9 kg Body Mass Index (BMI) 23.8 Finger Stick Blood Glucose 203 Intake and Output for Last 24 Hours 09/30/18 10/01/18 10/02/18 23:59 23:59 23:59 Intake Total 576 / 576 5178 / 5178 Output Total 1580 / 1580 4400 / 4400 Balance -1004 / -1004 778 / 778 Laboratory Tests Past 24 Hrs 10/01/18 10/01/18 10/01/18 05:20 05:20 05:20 WBC 4.2 L RBC 3.89 L Hgb 11.4 L Hct 35.2 L MCV 90.5 MCH 29.3 MCHC 32.4 RDW 15.2 H RDW Differential 50.1 H Plt Count 97 L MPV 10.3 Immature Gran % (Auto) 2.600 H Neut % (Auto) 68.0 Lymph % (Auto) 21.0 [place] % (Auto) 5.4 Eos % (Auto) 2.8 Baso % (Auto) 0.2 Absolute Neuts (auto) 2.9 Absolute Lymphs (auto) 0.89 Total Counted Not Reportable Diff Path Review Reviewed Sodium 144 Potassium 5.3 H Chloride 115 H Carbon Dioxide 18.0 L Anion Gap 11 BUN 106 H* Creatinine 5.46 H Estim Creat Clear Calc 11.20 Est GFR (MDRD) Af Amer 13 L Est GFR (MDRD) Non-Af 11 L BUN/Creatinine Ratio 19.4 Glucose 79 Hemoglobin A1c 5.8 Calcium 8.0 L Magnesium 1.2 L Triglycerides Cholesterol LDL Cholesterol VLDL Cholesterol HDL Cholesterol 10/01/18 10/01/18 10/02/18 05:20 16:42 05:50 WBC Pending RBC Pending Hgb Pending Hct Pending MCV Pending MCH Pending MCHC Pending RDW Pending RDW Differential Pending Plt Count Pending MPV Immature Gran % (Auto) Neut % (Auto) Pending Lymph % (Auto) [place] % (Auto) Eos % (Auto) Baso % (Auto) Absolute Neuts (auto) Pending Absolute Lymphs (auto) Total Counted Pending Diff Path Review Sodium 144 Potassium 4.8 Chloride 115 H Carbon Dioxide 16.0 L Anion Gap 13 BUN 94 H Creatinine 4.73 H Estim Creat Clear Calc 12.93 Est GFR (MDRD) Af Amer 16 L Est GFR (MDRD) Non-Af 13 L BUN/Creatinine Ratio 19.9 Glucose 68 L Hemoglobin A1c Calcium 8.0 L Magnesium Triglycerides 300 H Cholesterol 86 LDL Cholesterol 6 VLDL Cholesterol 60 H HDL Cholesterol 20 L 10/02/18 05:50 WBC RBC Hgb Hct MCV MCH MCHC RDW RDW Differential Plt Count MPV Immature Gran % (Auto) Neut % (Auto) Lymph % (Auto) [place] % (Auto) Eos % (Auto) Baso % (Auto) Absolute Neuts (auto) Absolute Lymphs (auto) Total Counted Diff Path Review Sodium Pending Potassium Pending Chloride Pending Carbon Dioxide Pending Anion Gap Pending BUN Pending Creatinine Pending Estim Creat Clear Calc Est GFR (MDRD) Af Amer Pending Est GFR (MDRD) Non-Af Pending BUN/Creatinine Ratio Pending Glucose Pending Hemoglobin A1c Calcium Pending Magnesium Triglycerides Cholesterol LDL Cholesterol VLDL Cholesterol HDL Cholesterol Medical Necessity - Tobacco Use Smoking Status: Former smoker Assessment/Plan All Active Problems Cellulitis of leg (Acute) Fever (Acute) Hyperkalemia (Acute) Cellulitis (Acute) Superficial thrombophlebitis of left upper extremity (Resolved) Unstable angina (Resolved) DVT of upper extremity (deep vein thrombosis) (Ruled-out) Hyperkalemia (Resolved) Small Bowel Enterocut Fistula (Resolved) abnormal bowel gas pattern, dysphagia, acute on chronic renal failure, electrolyte abnormalities. Dysphagia - patient was told by his community recreation coordinator to stop Carafate. But per discussion, he stopped his Carafate following his last dilatation. While trying to re-feed the patient, if he notes a repeat symptoms I would consider adding Carafate and/or obtaining an esophagram. SBO vs ileus - patient with multiple abdominal procedures - unsure how different from baseline imaging would appear. now decreasing output and continued discom fort. KUB this morning demonstrated a nonspecific bowel gas pattern. we will follow clinically serial abdominal exams and abdominal multiview to assess bowel gas pattern. Given the patient's very complex past abdominal surgical history and extensive lysis of adhesions, in the event of a true higher grade bowel obstruction, patient required transfer to tertiary care center.. Given his dysphagia and stomach symptoms - I will order an upper Gi with SBFT. WIll change to dilaudid pancreatitis,electrode abnormalities. Patient currently receiving Kayexalate and support to improve both his electrolytes and elevated BUN and creatinine. We will follow him clinically for presumed pancreatitis possibly secondary electrode abnormalities or low flow state?
[2018-10-02] MEDS: BENZOCAINE/MENTHOL 1 LOZENGE MUCOUS MEM ×2 (06:24→20:32)
[2018-10-02 06:26] LABS: Absolute Lymphocyte Count 0.81 X10^3/ul (0.83-4.51); Absolute Neutrophil Count 2.3 X10^3/uL (2.0-7.7); Basophil# 0.02 X10^3/uL; Basophil% 0.6 % (0-1); Eosinophil# 0.19 X10^3/uL; Eosinophils% 5.3 % (0-5); Hematocrit 33.6 % (40-54); Hemoglobin 10.8 g/dl (13.0-16.5); Lymphocyte # 0.81 X10^3/ul (4.0); Lymphocyte % 22.5 % (19-41); Mean Corp Hgb Conc 32.1 g/gl (32-36); Mean Corpuscular Hgb 29.3 pg (27.0-32.0); Mean Corpuscular Volume 91.1 fL (80-94); Mean Platelet Vol. 9.7 fl (6.2-12.0); Monocyte# 0.18 X10^3/uL; Neutrophil # 2.32 X10^3/uL (2.7-7.7); Neutrophil % 64.4 % (47-70); Platelet Count 93 K/mm3 (150-450); RBC Distribution Width CV 15.2 % (11.6-14.6); RBC Distribution Width SD 49.5 fl (35.1-43.9); Red Blood Count 3.69 M/mm3 (4.6-6.2); White Blood Count 3.6 K/mm3 (4.4-11.0)
[2018-10-02 06:28] LABS: POSITIVE COUNT YES; POSITIVE DIFFERENTIAL NO; POSITIVE MORPHOLOGY YES
[2018-10-02 06:34] LABS: Anion Gap 11 (5-15); BUN 79 mg/dL (7-18); BUN/Creat Ratio 20.3 RATIO (10-20); Calcium,Total 7.8 mg/dL (8.5-10.1); Chloride 112 mmol/L (98-107); EST Glomerular Filtration Rate 16 mL/min (>60); Est Glom Filt Rate - Afr Amer 20 mL/min (>60); Estimated Creatinine Clearance 15.68 ml/min; Glucose 86 mg/dL (74-106); Potassium 4.4 mmol/L (3.5-5.1); Sodium Level 141 mmol/L (136-145)
[2018-10-02] MEDS: Aspirin E.C. 81 MG Tablet PO (08:35)
[2018-10-02] MEDS: Allopurinol 100 MG Tablet 200 MG PO (08:36)
[2018-10-02] MEDS: Menthol/Lanolin/Calamine/Znox 113 GM Tube 1 APPLIC TOPICAL ×2 (08:37→23:00)
[2018-10-02] MEDS: Amiodarone 200 MG Tablet PO (08:37)
[2018-10-02] MEDS: Metoprolol(XL)Succ 25 MG Tablet PO (08:38)
[2018-10-02] MEDS: amLODIPine 5 MG Tablet PO (08:38)
[2018-10-02] MEDS: VILAZODONE HYDROCHLORIDE 40 MG TABLET PO (08:38)
[2018-10-02] MEDS: HYDROmorphone 0.5 MG/0.5 ML SYRINGE IV ×3 (08:41→20:29)
--- NOTE | 2018-10-02 11:25 | PCM.PN.REN ---
Patient Problems: Active and Suspected Problems Hyperkalemia (Acute) Subjective: Pt is still complaining of abdominal pain No nausea No vomiting Pt said he has been having watery stool from the colostomy bag No nausea No vomiting No SOB. No CP - Physical Exam General: Alert, Oriented x3 HEENT: Atraumatic Oral: Moist Mucosa Neck: Supple, No JVD Lungs: Clear to auscultation, Normal air movement, No rhonchi, No wheeze Cardiovascular: Regular rate, Regular Rhythm, Normal S1, Normal S2 Abdomen: Bowel Sounds Present, - - periumbilical tenderness Extremities: No clubbing, No cyanosis, Edema - trace edema of LE Skin: No rashes Musculoskeletal: No Tenderness to Palpation of Joints or Extremities Neurological: Cranial nerves II-XII grossly intact, Neuro grossly intact Psych/Mental Status: Normal Affect Vital Signs Temp Pulse Resp BP Pulse Ox 97.4 F L 70 18 123/63 H 100 10/02/18 04:45 10/02/18 08:38 10/02/18 04:45 10/02/18 04:45 10/02/18 04:45 Oxygen Delivery Method Room Air Weight: 66.9 kg Body Mass Index (BMI) 23.8 Finger Stick Blood Glucose 203 Intake and Output for Last 24 Hours 09/30/18 10/01/18 10/02/18 23:59 23:59 23:59 Intake Total 576 / 576 5178 / 5178 60 / 60 Output Total 1580 / 1580 4400 / 4400 300 / 300 Balance -1004 / -1004 778 / 778 -240 / -240 Laboratory Tests Past 24 Hrs 10/01/18 10/01/18 10/01/18 05:20 05:20 05:20 WBC RBC Hgb Hct MCV MCH MCHC RDW RDW Differential Plt Count MPV Immature Gran % (Auto) Neut % (Auto) Lymph % (Auto) [place] % (Auto) Eos % (Auto) Baso % (Auto) Absolute Neuts (auto) Absolute Lymphs (auto) Total Counted Diff Path Review Reviewed Sodium Potassium Chloride Carbon Dioxide Anion Gap BUN Creatinine Estim Creat Clear Calc Est GFR (MDRD) Af Amer Est GFR (MDRD) Non-Af BUN/Creatinine Ratio Glucose Hemoglobin A1c 5.8 Calcium Triglycerides 300 H Cholesterol 86 LDL Cholesterol 6 VLDL Cholesterol 60 H HDL Cholesterol 20 L 11/11/0610/02/18 10/02/18 16:42 05:50 05:50 WBC 3.6 L RBC 3.69 L Hgb 10.8 L Hct 33.6 L MCV 91.1 MCH 29.3 MCHC 32.1 RDW 15.2 H RDW Differential 49.5 H Plt Count 93 L MPV 9.7 Immature Gran % (Auto) 2.200 H Neut % (Auto) 64.4 Lymph % (Auto) 22.5 [place] % (Auto) 5.0 Eos % (Auto) 5.3 H Baso % (Auto) 0.6 Absolute Neuts (auto) 2.3 Absolute Lymphs (auto) 0.81 L Total Counted Not Reportable Diff Path Review March Sodium 144 141 Potassium 4.8 4.4 Chloride 115 H 112 H Carbon Dioxide 16.0 L 18.0 L Anion Gap 13 11 BUN 94 H 79 H Creatinine 4.73 H 3.90 H Estim Creat Clear Calc 12.93 15.68 Est GFR (MDRD) Af Amer 16 L 20 L Est GFR (MDRD) Non-Af 13 L 16 L BUN/Creatinine Ratio 19.9 20.3 H Glucose 68 L 86 Hemoglobin A1c Calcium 8.0 L 7.8 L Triglycerides Cholesterol LDL Cholesterol VLDL Cholesterol HDL Cholesterol Medical Necessity - Tobacco Use Smoking Status: Former smoker Assessment/Plan All Active Problems Cellulitis of leg (Acute) Fever (Acute) Hyperkalemia (Acute) Cellulitis (Acute) Superficial thrombophlebitis of left upper extremity (Resolved) Unstable angina (Resolved) DVT of upper extremity (deep vein thrombosis) (Ruled-out) Hyperkalemia (Resolved) Small Bowel Enterocut Fistula (Resolved) 1- KENDALL on CKD. Baseline Cr seems around 2.0-2.4 mg/dL KENDALL is from prerenal due to nausea/vomiting and decreased oral intake. FeNa ais less than 1% Cr peaked at 7.3. Cr/BUN are improving with IVF. Continue IVF at 150 cc/hour since the patient is still NPO No need for AGRICULTURAL RESEARCH DIRECTOR Avoid ACEI/ARB Avoid diuretics for now Check renal function in am 2- Hyperkalemia: Resolved treated medically with kayexalate, IV lasix and D50/ IV insulin Will repeat K in am 3- Hypomagnesemia : Received IV Mg 2 g yesterday. Check Mg in am 4- SBO Vs ileus. NPO for now. refusing NGT Monitor with serial KUB Management as per the GS team 5- Pancreatitis : NPO for now. as per the primary service Renal team will continue to follow KIM FLYNN MD
[2018-10-02 14:49] LABS: Pathologist Review Reviewed
--- NOTE | 2018-10-02 14:51 | PCM.PN.HOSP ---
Patient Problems: Active and Suspected Problems Hyperkalemia (Acute) KENDALL (acute kidney injury) (Acute) Subjective: Still with nausea. Suprapubic abdominal pain. Vitals/I&O's: Vital Signs Temp Pulse Resp BP Pulse Ox 36.9 C 81 18 134/78 H 94 10/02/18 10:45 10/02/18 12:46 10/02/18 10:45 10/02/18 10:45 10/02/18 10:45 Oxygen Delivery Method Room Air Weight: 66.9 kg Body Mass Index (BMI) 23.8 Finger Stick Blood Glucose 203 Intake and Output for Last 24 Hours 09/30/18 10/01/18 10/02/18 23:59 23:59 23:59 Intake Total 576 / 576 5178 / 5178 687 / 687 Output Total 1580 / 1580 4400 / 4400 650 / 650 Balance -1004 / -1004 778 / 778 37 / 37 General: Alert, Cooperative, No apparent distress HEENT: Atraumatic, Normocephalic Oral: Moist Mucosa, No Gingival or Mucosal Lesions/ Ulcerations Neck: No Nodes, Thyroid Normal Size and Texture Lungs: Clear to auscultation, Normal air movement, No rhonchi, No wheeze Cardiovascular: Regular rate, Regular Rhythm, Normal S1, Normal S2, No murmurs Abdomen: Bowel Sounds Present, Soft, Non Tender, Non-Distended, No Hepato-splenomegaly Extremities: No edema, No Calf Tenderness Skin: No rashes, No breakdown Psych/Mental Status: Normal Affect, Appropriate Laboratory Results 10/01/18 05:20: Hemoglobin A1c 5.8 10/01/18 16:42: Sodium 144, Potassium 4.8, Chloride 115 H, Carbon Dioxide 16.0 L, Anion Gap 13, BUN 94 H, Creatinine 4.73 H, Estim Creat Clear Calc 12.93, Est GFR (MDRD) Af Amer 16 L, Est GFR (MDRD) Non-Af 13 L, BUN/Creatinine Ratio 19.9, Glucose 68 L, Calcium 8.0 L 10/02/18 05:50: WBC 3.6 L, RBC 3.69 L, Hgb 10.8 L, Hct 33.6 L, MCV 91.1, MCH 29.3, MCHC 32.1, RDW 15.2 H, RDW Differential 49.5 H, Plt Count 93 L, MPV 9.7, Immature Gran % (Auto) 2.200 H, Neut % (Auto) 64.4, Lymph % (Auto) 22.5, [place] % (Auto) 5.0, Eos % (Auto) 5.3 H, Baso % (Auto) 0.6, Absolute Neuts (auto) 2.3, Absolute Lymphs (auto) 0.81 L, Total Counted Not Reportable, Diff Path Review Reviewed 10/02/18 05:50: Sodium 141, Potassium 4.4, Chloride 112 H, Carbon Dioxide 18.0 L, Anion Gap 11, BUN 79 H, Creatinine 3.90 H, Estim Creat Clear Calc 15.68, Est GFR (MDRD) Af Amer 20 L, Est GFR (MDRD) Non-Af 16 L, BUN/Creatinine Ratio 20.3 H, Glucose 86, Calcium 7.8 L Current Medications Acetaminophen/Butalbital/Caffeine (Fioricet) 1 tablet PO Q4H PRN PRN PRN Reason: migraine Last Admin: 10/02/18 02:36 Dose: 1 tablet Albuterol Sulfate (Ventolin Aerosols) 2.5 mg INHALATION Q4H PRN PRN Reason: CHRONIC BRONCHITIS [facility] Last Admin: 10/02/18 08:36 Dose: 200 mg Amiodarone HCl (Cordarone) 200 mg PO DAILY [facility] Last Admin: 10/02/18 08:37 Dose: 200 mg Amitriptyline HCl (Elavil) 25 mg PO QHS [facility] Last Admin: 10/01/18 22:44 Dose: 25 mg Amlodipine Besylate (Norvasc) 5 mg PO DAILY [facility] Last Admin: 10/02/18 08:38 Dose: 5 mg Aspirin (Ecotrin) 81 mg PO DAILY@0800 [facility] Last Admin: 10/02/18 08:35 Dose: 81 mg Budesonide (Pulmicort Aerosol) 0.5 mg INHALATION Q12H.RT [facility] Last Admin: 10/02/18 10:22 Dose: Not Given Calamine/Phenol (Calmoseptine Ointment) 1 applic TOPICAL BID [facility]; Protocol Last Admin: 10/02/18 08:37 Dose: 1 applic Carbidopa/Levodopa (Sinemet) 1 tablet PO ACHS [facility] Last Admin: 10/02/18 11:01 Dose: 1 tablet Cholecalciferol (Vitamin D) 5,000 unit PO DAILYCM [facility] Last Admin: 10/02/18 08:36 Dose: 5,000 unit Codeine Sulfate (Codeine) 30 mg PO QODAY PRN PRN Reason: HEADACHE Cyanocobalamin (Vitamin B12) 1,000 mcg IM Q30D [facility] Dextrose (D50w Syringe) 0 gm IV X1 PRN; Protocol PRN Reason: Hypoglycemia Diphenhydramine HCl (Benadryl) 25 mg PO Q6H PRN PRN Reason: ITCHING Diphenhydramine HCl (Benadryl) 25 mg IV Q4H PRN PRN PRN Reason: rash Last Admin: 10/01/18 19:54 Dose: 25 mg Diphenhydramine HCl (Benadryl) 25 mg IV Q6H PRN PRN PRN Reason: ITCHING Last Admin: 10/01/18 03:49 Dose: 25 mg Entacapone (Comtan) 200 mg PO [facility] Last Admin: 10/02/18 11:01 Dose: 200 mg Glucagon () 1 mg IM .X1 PRN PRN Reason: Hypoglycemia Hydromorphone HCl (Dilaudid Inj) 0.5 - 2 mg IV Q2H PRN PRN PRN Reason: SEVERE PAIN (6-10/10) Last Admin: 10/02/18 14:13 Dose: 2 mg Hydroxyzine Pamoate (Vistaril Pamoate Capsule) 50 mg PO TID PRN PRN PRN Reason: ANXIETY Pantoprazole Sodium 40 mg/ (Sodium Chloride) 110 mls @ 330 mls/hr IV Q24 [facility] Last Admin: 10/02/18 11:00 Dose: 330 mls/hr Sodium Chloride () 1,000 mls @ 150 mls/hr IV .Q6H40M [facility] Last Admin: 10/02/18 10:49 Dose: 150 mls/hr Levothyroxine Sodium (Synthroid) 274 mcg PO MoTh@0600 [facility] Last Admin: 10/01/18 05:28 Dose: Not Given Levothyroxine Sodium (Synthroid) 137 mcg PO SuTuWeFrSa@0600 [facility] Last Admin: 10/02/18 06:18 Dose: 137 mcg Magnesium Hydroxide (Milk Of Magnesia) 30 ml PO DAILY PRN PRN PRN Reason: Constipation Metoprolol Succinate (Toprol Xl (Beta Pb)) 25 mg PO DAILY [facility] Last Admin: 10/02/18 08:38 Dose: 25 mg Non-Formulary Medication (Apremilast) 30 mg PO BID [facility] Pramipexole Dihydrochloride (Mirapex) 1 mg PO QHS [facility] Last Admin: 10/01/18 22:45 Dose: 1 mg Sodium Chloride () 5 - 30 ml IV UD PRN PRN Reason: SALINE FLUSH Last Admin: 10/01/18 22:43 Dose: 10 ml Testosterone Cypionate (Depo-Testosterone) 200 mg IM Q14D [facility] Throat Lozenges (Cepacol Sore Throat Lozenge) 1 lozenge MUCOUS MEM Q2H PRN PRN PRN Reason: SORE THROAT Last Admin: 10/02/18 06:24 Dose: 1 lozenge Vilazodone HCl (Viibryd) 40 mg PO DAILY [facility] Last Admin: 10/02/18 08:38 Dose: 40 mg Zinc Sulfate (Zinc Sulfate) [facility] Last Admin: 10/02/18 08:36 Dose: 220 mg Medical Necessity - Tobacco Use Smoking Status: Former smoker Assessment/Plan All Active Problems Hyperkalemia (Acute) KENDALL (acute kidney injury) (Acute) DVT of upper extremity (deep vein thrombosis) (Ruled-out) Hyperkalemia (Resolved) Small Bowel Enterocut Fistula (Resolved) 1. KENDALL improving Cr 3.09, down from 7.12 baseline around 2.5 continue IVF nephrology following. 2. Hyperkalemia resolved likely d/t above monitor 3. chronic abdominal pain AXR x2, CT A/P have been negative. UGI on 10/03 in the abscess of obvious abdominal pathology will decrease dilaudid dose and frequency in this 73 year old consider GES if UGI is negative and still with severe symptoms for evaluation of gastroparesis add bentyl continue IV PPI 4. DVT proph: SCDs Code Visit Inpatient E&M: 14455 Subs Hosp L2
--- NOTE | 2018-10-02 15:05 | PN_ITS ---
Patient Problems: Active and Suspected Problems Hyperkalemia (Acute) KENDALL (acute kidney injury) (Acute) Subjective: Still with nausea. Suprapubic abdominal pain. Vitals/I&O's: Vital Signs Temp Pulse Resp BP Pulse Ox 36.9 C 81 18 134/78 H 94 10/02/18 10:45 10/02/18 12:46 10/02/18 10:45 10/02/18 10:45 10/02/18 10:45 Oxygen Delivery Method Room Air Weight: 66.9 kg Body Mass Index (BMI) 23.8 Finger Stick Blood Glucose 203 Intake and Output for Last 24 Hours 09/30/18 10/01/18 10/02/18 23:59 23:59 23:59 Intake Total 576 / 576 5178 / 5178 687 / 687 Output Total 1580 / 1580 4400 / 4400 650 / 650 Balance -1004 / -1004 778 / 778 37 / 37 General: Alert, Cooperative, No apparent distress HEENT: Atraumatic, Normocephalic Oral: Moist Mucosa, No Gingival or Mucosal Lesions/ Ulcerations Neck: No Nodes, Thyroid Normal Size and Texture Lungs: Clear to auscultation, Normal air movement, No rhonchi, No wheeze Cardiovascular: Regular rate, Regular Rhythm, Normal S1, Normal S2, No murmurs Abdomen: Bowel Sounds Present, Soft, Non Tender, Non-Distended, No Hepato- splenomegaly Extremities: No edema, No Calf Tenderness Skin: No rashes, No breakdown Psych/Mental Status: Normal Affect, Appropriate Laboratory Results 10/01/18 05:20: Hemoglobin A1c 5.8 10/01/18 16:42: Sodium 144, Potassium 4.8, Chloride 115 H, Carbon Dioxide 16.0 L , Anion Gap 13, BUN 94 H, Creatinine 4.73 H, Estim Creat Clear Calc 12.93, Est GFR (MDRD) Af Amer 16 L, Est GFR (MDRD) Non-Af 13 L, BUN/Creatinine Ratio 19.9, Glucose 68 L, Calcium 8.0 L 10/02/18 05:50: WBC 3.6 L, RBC 3.69 L, Hgb 10.8 L, Hct 33.6 L, MCV 91.1, MCH 29.3, MCHC 32.1, RDW 15.2 H, RDW Differential 49.5 H, Plt Count 93 L, MPV 9.7, Immature Gran % (Auto) 2.200 H, Neut % (Auto) 64.4, Lymph % (Auto) 22.5, [place] % (Auto) 5.0, Eos % (Auto) 5.3 H, Baso % (Auto) 0.6, Absolute Neuts (auto) 2.3, Absolute Lymphs (auto) 0.81 L, Total Counted Not Reportable, Diff Path Review Reviewed 10/02/18 05:50: Sodium 141, Potassium 4.4, Chloride 112 H, Carbon Dioxide 18.0 L , Anion Gap 11, BUN 79 H, Creatinine 3.90 H, Estim Creat Clear Calc 15.68, Est GFR (MDRD) Af Amer 20 L, Est GFR (MDRD) Non-Af 16 L, BUN/Creatinine Ratio 20.3 H , Glucose 86, Calcium 7.8 L Current Medications Acetaminophen/Butalbital/Caffeine (Fioricet) 1 tablet PO Q4H PRN PRN PRN Reason: migraine Last Admin: 10/02/18 02:36 Dose: 1 tablet Albuterol Sulfate (Ventolin Aerosols) 2.5 mg INHALATION Q4H PRN PRN Reason: CHRONIC BRONCHITIS [facility] Last Admin: 10/02/18 08:36 Dose: 200 mg Amiodarone HCl (Cordarone) 200 mg PO DAILY [facility] Last Admin: 10/02/18 08:37 Dose: 200 mg Amitriptyline HCl (Elavil) 25 mg PO QHS [facility] Last Admin: 10/01/18 22:44 Dose: 25 mg Amlodipine Besylate (Norvasc) 5 mg PO DAILY [facility] Last Admin: 10/02/18 08:38 Dose: 5 mg Aspirin (Ecotrin) 81 mg PO DAILY@0800 [facility] Last Admin: 10/02/18 08:35 Dose: 81 mg Budesonide (Pulmicort Aerosol) 0.5 mg INHALATION Q12H.RT [facility] Last Admin: 10/02/18 10:22 Dose: Not Given Calamine/Phenol (Calmoseptine Ointment) 1 applic TOPICAL BID [facility]; Protocol Last Admin: 10/02/18 08:37 Dose: 1 applic Carbidopa/Levodopa (Sinemet) 1 tablet PO ACHS [facility] Last Admin: 10/02/18 11:01 Dose: 1 tablet Cholecalciferol (Vitamin D) 5,000 unit PO DAILYCM [facility] Last Admin: 10/02/18 08:36 Dose: 5,000 unit Codeine Sulfate (Codeine) 30 mg PO QODAY PRN PRN Reason: HEADACHE Cyanocobalamin (Vitamin B12) 1,000 mcg IM Q30D [facility] Dextrose (D50w Syringe) 0 gm IV X1 PRN; Protocol PRN Reason: Hypoglycemia Diphenhydramine HCl (Benadryl) 25 mg PO Q6H PRN PRN Reason: ITCHING Diphenhydramine HCl (Benadryl) 25 mg IV Q4H PRN PRN PRN Reason: rash Last Admin: 10/01/18 19:54 Dose: 25 mg Diphenhydramine HCl (Benadryl) 25 mg IV Q6H PRN PRN PRN Reason: ITCHING Last Admin: 10/01/18 03:49 Dose: 25 mg Entacapone (Comtan) 200 [facility] Last Admin: 10/02/18 11:01 Dose: 200 mg Glucagon () 1 mg IM .X1 PRN PRN Reason: Hypoglycemia Hydromorphone HCl (Dilaudid Inj) 0.5 - 2 mg IV Q2H PRN PRN PRN Reason: SEVERE PAIN (6-10/10) Last Admin: 10/02/18 14:13 Dose: 2 mg Hydroxyzine Pamoate (Vistaril Pamoate Capsule) 50 mg PO TID PRN PRN PRN Reason: ANXIETY Pantoprazole Sodium 40 mg/ (Sodium Chloride) 110 mls @ 330 mls/hr IV Q24 [facility] Last Admin: 10/02/18 11:00 Dose: 330 mls/hr Sodium Chloride () 1,000 mls @ 150 mls/hr IV .Q6H40M [facility] Last Admin: 10/02/18 10:49 Dose: 150 mls/hr Levothyroxine Sodium (Synthroid) 274 mcg PO MoTh@0600 [facility] Last Admin: 10/01/18 05:28 Dose: Not Given Levothyroxine Sodium (Synthroid) 137 mcg PO SuTuWeFrSa@0600 [facility] Last Admin: 10/02/18 06:18 Dose: 137 mcg Magnesium Hydroxide (Milk Of Magnesia) 30 ml PO DAILY PRN PRN PRN Reason: Constipation Metoprolol Succinate (Toprol Xl (Beta Pb)) 25 mg PO DAILY [facility] Last Admin: 10/02/18 08:38 Dose: 25 mg Non-Formulary Medication (Apremilast) 30 mg PO BID [facility] Pramipexole Dihydrochloride (Mirapex) 1 mg PO QHS [facility] Last Admin: 10/01/18 22:45 Dose: 1 mg Sodium Chloride () 5 - 30 ml IV UD PRN PRN Reason: SALINE FLUSH Last Admin: 10/01/18 22:43 Dose: 10 ml Testosterone Cypionate (Depo-Testosterone) 200 mg IM Q14D [facility] Throat Lozenges (Cepacol Sore Throat Lozenge) 1 lozenge MUCOUS MEM Q2H PRN PRN PRN Reason: SORE THROAT Last Admin: 10/02/18 06:24 Dose: 1 lozenge Vilazodone HCl (Viibryd) 40 mg PO DAILY [facility] Last Admin: 10/02/18 08:38 Dose: 40 mg Zinc Sulfate (Zinc Sulfate) [facility] Last Admin: 10/02/18 08:36 Dose: 220 mg Medical Necessity - Tobacco Use Smoking Status: Former smoker Assessment/Plan All Active Problems Hyperkalemia (Acute) KENDALL (acute kidney injury) (Acute) DVT of upper extremity (deep vein thrombosis) (Ruled-out) Hyperkalemia (Resolved) Small Bowel Enterocut Fistula (Resolved) 1. KENDALL * improving * Cr 3.09, down from 7.12 * baseline around 2.5 * continue IVF * nephrology following. 2. Hyperkalemia * resolved * likely d/t above * monitor 3. chronic abdominal pain * AXR x2, CT A/P have been negative. * UGI on 10/03 * in the abscess of obvious abdominal pathology * will decrease dilaudid dose and frequency in this 73 year old * consider GES if UGI is negative and still with severe symptoms for evaluation of gastroparesis * add bentyl * continue IV PPI 4. DVT proph: SCDs Code Visit Inpatient E&M: 17767 Subs Hosp L2
[2018-10-02] MEDS: Budesonide Respules 0.5 MG/2 ML AMPUL.NEB. INHALATION (19:50)
[2018-10-02] MEDS: DiphenhydrAMINE 25 MG Capsule PO (23:04)
[2018-10-02] MEDS: Pramipexole Di-HCl 1 MG Tablet PO (23:05)
[2018-10-02] MEDS: Amitriptyline 25 MG Tablet PO (23:23)
[2018-10-03] VITALS (14 sets, daily range): BP systolic 93–150; BP diastolic 34–80; PULSE 56–77; RESP 16–18; TEMP 36.5–36.9; O2SAT 97–100
[2018-10-03] MEDS: 0.45% Normal Saline 1,000 ML 150 ML IV ×2 (02:52→12:37)
[2018-10-03 06:06] LABS: Absolute Lymphocyte Count 0.86 X10^3/ul (0.83-4.51); Absolute Neutrophil Count 3.1 X10^3/uL (2.0-7.7); Basophil# 0.01 X10^3/uL; Basophil% 0.2 % (0-1); Eosinophil# 0.27 X10^3/uL; Hemoglobin 10.8 g/dl (13.0-16.5); Lymphocyte # 0.86 X10^3/ul (4.0); Mean Corp Hgb Conc 31.8 g/gl (32-36); Mean Corpuscular Volume 91.4 fL (80-94); Mean Platelet Vol. 9.9 fl (6.2-12.0); Monocyte# 0.24 X10^3/uL; Monocyte% 5.3 % (0-10); Neutrophil # 3.08 X10^3/uL (2.7-7.7); Neutrophil % 68.2 % (47-70); Platelet Count 100 K/mm3 (150-450); RBC Distribution Width CV 15.2 % (11.6-14.6); RBC Distribution Width SD 49.8 fl (35.1-43.9); Red Blood Count 3.72 M/mm3 (4.6-6.2); White Blood Count 4.5 K/mm3 (4.4-11.0)
[2018-10-03 06:09] LABS: POSITIVE COUNT NO; POSITIVE DIFFERENTIAL NO; POSITIVE MORPHOLOGY NO
[2018-10-03 06:18] LABS: Anion Gap 8 (5-15); BUN 55 mg/dL (7-18); BUN/Creat Ratio 19.7 RATIO (10-20); Calcium,Total 7.9 mg/dL (8.5-10.1); Chloride 117 mmol/L (98-107); Creatinine, Serum 2.79 mg/dL (0.70-1.30); EST Glomerular Filtration Rate 24 mL/min (>60); Est Glom Filt Rate - Afr Amer 29 mL/min (>60); Estimated Creatinine Clearance 21.91 ml/min; Glucose 79 mg/dL (74-106); Potassium 4.9 mmol/L (3.5-5.1); Sodium Level 144 mmol/L (136-145)
[2018-10-03] MEDS: 0.9% NaCl Peripheral Flush Adult/Peds IV ×3 (07:59→23:05)
[2018-10-03] MEDS: HYDROmorphone 0.5 MG/0.5 ML SYRINGE IV ×3 (07:59→23:05)
--- NOTE | 2018-10-03 08:58 | NURSING ---
Was asked to see patient for leaking ostomy appliance. According to the nursing staff, the appliance was changed 3 times last evening and is still leaking. pt typically uses a convex appliance at home. removed appliance. there was a large amount of stoma paste and powder noted. peristomal skin is intact. stoma sits at skin level and is in a skin fold. cleansed skin with warm water and pat dry. applied a convex appliance with an Stephanie ring. pt requested tape be applied to the edges of the appliance as well. pt tolerated well. will monitor as needed.
--- NOTE | 2018-10-03 09:15 | RAD_ITS ---
STUDY: UPPER GI SERIES AND SMALL BOWEL FOLLOW-THROUGH EXAMINATION. REASON FOR EXAM: Male, 73 years old. Abdominal distention and dysphasia following recent esophageal dilatation. Patient also has a history of total colectomy with ileostomy. FLUOROSCOPY TIME (if supplied): (1:03) minutes/seconds TECHNIQUE: The patient ingested barium. Imaging of the esophagus stomach and duodenum was obtained. Following this, a small bowel follow-through examination was performed. COMPARISON: Comparison is made with prior small bowel examination dated December 07, 2011. FINDINGS: There is evidence of a moderate degree of gastroesophageal reflux. Is evidence of a traction diverticulum in the right mid esophagus. Stomach and duodenum are unremarkable. A small bowel follow-through examination was then obtained. Once again, there is evidence of multiple small bowel diverticula more prominent in the second portion of the duodenum and jejunum. There is no evidence of bowel obstruction. No mass lesion is seen. Status post right total hip replacement. Moderate degree of osteoarthritis of the left hip joint. RAD/Upper GI/w Small Bowel IMPRESSION: Gastroesophageal reflux. 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 Multiple small bowel diverticula more prominent in the jejunum. Electronically Signed: Xander Doe MD at 12:40 EST Tel [phone], Service support ,
--- NOTE | 2018-10-03 09:20 | PCM.PN.REN ---
Patient Problems: Active and Suspected Problems Hyperkalemia (Acute) KENDALL (acute kidney injury) (Acute) Subjective: Still has periumbilical pain. No nausea No vomiting Going for barium swallow study today - Physical Exam General: Alert, Oriented x3 HEENT: Atraumatic Oral: Moist Mucosa Neck: Supple, No JVD Lungs: Clear to auscultation, Normal air movement, No rhonchi, No wheeze, No rales Cardiovascular: Regular rate, Regular Rhythm, Normal S1, Normal S2 Abdomen: Bowel Sounds Present, Soft, Tender Extremities: No clubbing Skin: No rashes Musculoskeletal: No Tenderness to Palpation of Joints or Extremities Lymphatic: No Cervical, Supraclavicular, or Inguinal Adenopathy Neurological: Cranial nerves II-XII grossly intact, Neuro grossly intact Psych/Mental Status: Normal Affect Vital Signs Temp Pulse Resp BP Pulse Ox 97.7 F L 56 L 18 114/59 L 99 10/03/18 04:45 10/03/18 06:54 10/03/18 09:02 10/03/18 04:45 10/03/18 06:35 Oxygen Delivery Method Room Air Weight: 66.9 kg Body Mass Index (BMI) 23.8 Finger Stick Blood Glucose 203 Intake and Output for Last 24 Hours 10/01/18 10/02/18 10/03/18 23:59 23:59 23:59 Intake Total 5178 / 5178 3094 / 3094 994 / 994 Output Total 4400 / 4400 3550 / 3550 800 / 800 Balance 778 / 778 -456 / -456 194 / 194 Laboratory Tests Past 24 Hrs 10/02/18 10/03/18 10/03/18 05:50 05:35 05:35 WBC 4.5 RBC 3.72 L Hgb 10.8 L Hct 34.0 L MCV 91.4 MCH 29.0 MCHC 31.8 L RDW 15.2 H RDW Differential 49.8 H Plt Count 100 L MPV 9.9 Immature Gran % (Auto) 1.300 H Neut % (Auto) 68.2 Lymph % (Auto) 19.0 [place] % (Auto) 5.3 Eos % (Auto) 6.0 H Baso % (Auto) 0.2 Absolute Neuts (auto) 3.1 Absolute Lymphs (auto) 0.86 Total Counted Not Reportable Diff Path Review Reviewed Sodium 144 Potassium 4.9 Chloride 117 H Carbon Dioxide 19.0 L Anion Gap 8 BUN 55 H Creatinine 2.79 H Estim Creat Clear Calc 21.91 Est GFR (MDRD) Af Amer 29 L Est GFR (MDRD) Non-Af 24 L BUN/Creatinine Ratio 19.7 Glucose 79 Calcium 7.9 L Medical Necessity - Tobacco Use Smoking Status: Former smoker Assessment/Plan All Active Problems Hyperkalemia (Acute) KENDALL (acute kidney injury) (Acute) DVT of upper extremity (deep vein thrombosis) (Ruled-out) Hyperkalemia (Resolved) Small Bowel Enterocut Fistula (Resolved) 1- KENDALL on CKD. Baseline Cr seems around 2.0-2.4 mg/dL KENDALL is from prerenal due to nausea/vomiting and decreased oral intake. FeNa ais less than 1% Cr peaked at 7.3. Cr/BUN are improving with IVF. Continue IVF at 150 cc/hour since the patient is still NPO No need for ORTHOTIST PROSTHETIST Avoid ACEI/ARB Avoid diuretics for now Check renal function in am 2- Hyperkalemia: Resolved treated medically with kayexalate, IV lasix and D50/ IV insulin Will repeat K in am 3- Hypomagnesemia : Received IV Mg 2 g yesterday. Check Mg in am 4- SBO Vs ileus. G Surgery is on board 5- Pancreatitis : NPO for now. as per the primary service Renal team will continue to follow KIM FLYNN MD
[2018-10-03] MEDS: Amiodarone 200 MG Tablet PO (11:22)
[2018-10-03] MEDS: amLODIPine 5 MG Tablet PO (11:22)
[2018-10-03] MEDS: Metoprolol(XL)Succ 25 MG Tablet PO (11:23)
[2018-10-03] MEDS: oxyCODONE 5 MG Tablet PO ×2 (11:29→17:19)
[2018-10-03] MEDS: Menthol/Lanolin/Calamine/Znox 113 GM Tube 1 APPLIC TOPICAL ×2 (11:31→22:58)
--- NOTE | 2018-10-03 12:35 | PCM.PN.HOSP ---
Patient Problems: Active and Suspected Problems SBO (small bowel obstruction) (Acute) Hyperkalemia (Acute) KENDALL (acute kidney injury) (Acute) Subjective: back pain from lying on the table for the UGI. Still with high-output from ostomy. Vitals/I&O's: Vital Signs Temp Pulse Resp BP Pulse Ox 36.6 C 76 18 150/80 H 100 10/03/18 11:20 10/03/18 11:23 10/03/18 11:20 10/03/18 11:20 10/03/18 11:20 Oxygen Delivery Method Room Air Weight: 66.9 kg Body Mass Index (BMI) 23.8 Finger Stick Blood Glucose 203 Intake and Output for Last 24 Hours 10/01/18 10/02/18 10/03/18 23:59 23:59 23:59 Intake Total 5178 / 5178 3094 / 3094 1543 / 1543 Output Total 4400 / 4400 3550 / 3550 1175 / 1175 Balance 778 / 778 -456 / -456 368 / 368 General: Alert, No apparent distress HEENT: Atraumatic, Normocephalic Oral: Moist Mucosa, No Gingival or Mucosal Lesions/ Ulcerations Neck: No Nodes, Thyroid Normal Size and Texture Lungs: Clear to auscultation, Normal air movement, No rhonchi, No wheeze Cardiovascular: Regular rate, Regular Rhythm, Normal S1, Normal S2, No murmurs Abdomen: Non-Distended, Tender, - - ostomy in LLQ with light brown stool. Extremities: No edema, No Calf Tenderness Skin: - - venous stasis dermatitis of LE Psych/Mental Status: Normal Affect, Appropriate Laboratory Results 10/02/18 05:50: Diff Path Review Reviewed 10/03/18 05:35: WBC 4.5, RBC 3.72 L, Hgb 10.8 L, Hct 34.0 L, MCV 91.4, MCH 29.0, MCHC 31.8 L, RDW 15.2 H, RDW Differential 49.8 H, Plt Count 100 L, MPV 9.9, Immature Gran % (Auto) 1.300 H, Neut % (Auto) 68.2, Lymph % (Auto) 19.0, [place] % (Auto) 5.3, Eos % (Auto) 6.0 H, Baso % (Auto) 0.2, Absolute Neuts (auto) 3.1, Absolute Lymphs (auto) 0.86, Total Counted Not Reportable 10/03/18 05:35: Sodium 144, Potassium 4.9, Chloride 117 H, Carbon Dioxide 19.0 L, Anion Gap 8, BUN 55 H, Creatinine 2.79 H, Estim Creat Clear Calc 21.91, Est GFR (MDRD) Af Amer 29 L, Est GFR (MDRD) Non-Af 24 L, BUN/Creatinine Ratio 19.7, Glucose 79, Calcium 7.9 L Current Medications Acetaminophen/Butalbital/Caffeine (Fioricet) 1 tablet PO Q4H PRN PRN PRN Reason: migraine Last Admin: 10/02/18 23:22 Dose: 1 tablet Albuterol Sulfate (Ventolin Aerosols) 2.5 mg INHALATION Q4H PRN PRN Reason: CHRONIC BRONCHITIS [facility] Last Admin: 10/02/18 08:36 Dose: 200 mg Amiodarone HCl (Cordarone) 200 mg PO DAILY [facility] Last Admin: 10/03/18 11:22 Dose: 200 mg Amitriptyline HCl (Elavil) 25 mg PO QHS [facility] Last Admin: 10/02/18 23:23 Dose: 25 mg Amlodipine Besylate (Norvasc) 5 mg PO DAILY [facility] Last Admin: 10/03/18 11:22 Dose: 5 mg Aspirin (Ecotrin) 81 mg PO DAILY@0800 [facility] Last Admin: 10/02/18 08:35 Dose: 81 mg Budesonide (Pulmicort Aerosol) 0.5 mg INHALATION Q12H.RT [facility] Last Admin: 10/03/18 06:35 Dose: Not Given Calamine/Phenol (Calmoseptine Ointment) 1 applic TOPICAL BID [facility]; Protocol Last Admin: 10/03/18 11:31 Dose: 1 applic Carbidopa/Levodopa (Sinemet) 1 tablet PO ACHS [facility] Last Admin: 10/03/18 11:11 Dose: Not Given Cholecalciferol (Vitamin D) [facility] Last Admin: 10/02/18 08:36 Dose: 5,000 unit Codeine Sulfate (Codeine) 30 mg PO QODAY PRN PRN Reason: HEADACHE Cyanocobalamin (Vitamin B12) 1,000 mcg IM Q30D [facility] Dextrose (D50w Syringe) 0 gm IV X1 PRN; Protocol PRN Reason: Hypoglycemia Dicyclomine HCl (Bentyl) 10 mg PO TID PRN PRN Reason: abdominal cramping Diphenhydramine HCl (Benadryl) 25 mg PO Q6H PRN PRN Reason: ITCHING Last Admin: 10/02/18 23:04 Dose: 25 mg Entacapone (Comtan) 200 mg PO ACHS [facility] Last Admin: 10/03/18 11:11 Dose: Not Given Glucagon () 1 mg IM .X1 PRN PRN Reason: Hypoglycemia Hydromorphone HCl (Dilaudid Inj) 0.5 mg IV Q6H PRN PRN Reason: SEVERE PAIN (6-08/29) Last Admin: 10/03/18 07:59 Dose: 0.5 mg Hydroxyzine Pamoate (Vistaril Pamoate Capsule) 50 mg PO TID PRN PRN PRN Reason: ANXIETY Pantoprazole Sodium 40 mg/ (Sodium Chloride) 110 mls @ 330 mls/hr IV Q24 [facility] Last Admin: 10/03/18 11:18 Dose: 330 mls/hr Sodium Chloride () 1,000 mls @ 150 mls/hr IV .Q6H40M [facility] Last Admin: 10/03/18 02:52 Dose: 150 mls/hr Levothyroxine Sodium (Synthroid) 274 mcg PO MoTh@0600 [facility] Last Admin: 10/01/18 05:28 Dose: Not Given Levothyroxine Sodium (Synthroid) 137 mcg PO SuTuWeFrSa@0600 [facility] Last Admin: 10/03/18 07:00 Dose: Not Given Magnesium Hydroxide (Milk Of Magnesia) 30 ml PO DAILY PRN PRN PRN Reason: Constipation Metoprolol Succinate (Toprol Xl (Beta Pb)) 25 mg PO DAILY [facility] Last Admin: 10/03/18 11:23 Dose: 25 mg Non-Formulary Medication (Apremilast) 30 mg PO BID [facility] Oxycodone HCl (Oxyir) 5 mg PO Q4H PRN PRN PRN Reason: SEVERE PAIN (6-08/29) Last Admin: 10/03/18 11:29 Dose: 5 mg Pramipexole Dihydrochloride (Mirapex) 1 mg PO QHS [facility] Last Admin: 11/13/18 23:05 Dose: 1 mg Sodium Chloride () 5 - 30 ml IV UD PRN PRN Reason: SALINE FLUSH Last Admin: 10/03/18 07:59 Dose: 10 ml Throat Lozenges (Cepacol Sore Throat Lozenge) 1 lozenge MUCOUS MEM Q2H PRN PRN PRN Reason: SORE THROAT Last Admin: 10/02/18 20:32 Dose: 1 lozenge Vilazodone HCl (Viibryd) 40 mg PO DAILY [facility] Last Admin: 10/02/18 08:38 Dose: 40 mg Zinc Sulfate (Zinc Sulfate) 220 mg PO DAILYCM [facility] Last Admin: 10/02/18 08:36 Dose: 220 mg Medical Necessity - Tobacco Use Smoking Status: Former smoker Assessment/Plan All Active Problems SBO (small bowel obstruction) (Acute) Hyperkalemia (Acute) KENDALL (acute kidney injury) (Acute) DVT of upper extremity (deep vein thrombosis) (Ruled-out) Hyperkalemia (Resolved) Small Bowel Enterocut Fistula (Resolved) 1. KENDALL improving Cr 2.79, down from 7.12 baseline around 2.5 continue IVF nephrology following. 2. Hyperkalemia resolved likely d/t above monitor 3. chronic abdominal pain AXR x2, correction of 10/02 note: CT A/P was not negative, but showing SBO v ileus UGI on 10/03 will decrease dilaudid dose and frequency in this 73 year old consider GES if UGI is negative and still with severe symptoms for evaluation of gastroparesis add bentyl continue IV PPI 4. DVT proph: SCDs Code Visit Inpatient E&M: 20467 Subs Hosp L2
[2018-10-03] MEDS: Acetaminophen/Butalbital/Caffe 1 Tablet PO ×2 (12:39→22:57)
--- NOTE | 2018-10-03 12:39 | PN_ITS ---
Patient Problems: Active and Suspected Problems SBO (small bowel obstruction) (Acute) Hyperkalemia (Acute) KENDALL (acute kidney injury) (Acute) Subjective: back pain from lying on the table for the UGI. Still with high-output from ostomy. Vitals/I&O's: Vital Signs Temp Pulse Resp BP Pulse Ox 36.6 C 76 18 150/80 H 100 10/03/18 11:20 10/03/18 11:23 10/03/18 11:20 10/03/18 11:20 10/03/18 11:20 Oxygen Delivery Method Room Air Weight: 66.9 kg Body Mass Index (BMI) 23.8 Finger Stick Blood Glucose 203 Intake and Output for Last 24 Hours 10/01/18 10/02/18 10/03/18 23:59 23:59 23:59 Intake Total 5178 / 5178 3094 / 3094 1543 / 1543 Output Total 4400 / 4400 3550 / 3550 1175 / 1175 Balance 778 / 778 -456 / -456 368 / 368 General: Alert, No apparent distress HEENT: Atraumatic, Normocephalic Oral: Moist Mucosa, No Gingival or Mucosal Lesions/ Ulcerations Neck: No Nodes, Thyroid Normal Size and Texture Lungs: Clear to auscultation, Normal air movement, No rhonchi, No wheeze Cardiovascular: Regular rate, Regular Rhythm, Normal S1, Normal S2, No murmurs Abdomen: Non-Distended, Tender, - - ostomy in LLQ with light brown stool. Extremities: No edema, No Calf Tenderness Skin: - - venous stasis dermatitis of LE Psych/Mental Status: Normal Affect, Appropriate Laboratory Results 10/02/18 05:50: Diff Path Review Reviewed 10/03/18 05:35: WBC 4.5, RBC 3.72 L, Hgb 10.8 L, Hct 34.0 L, MCV 91.4, MCH 29.0, MCHC 31.8 L, RDW 15.2 H, RDW Differential 49.8 H, Plt Count 100 L, MPV 9.9, Immature Gran % (Auto) 1.300 H, Neut % (Auto) 68.2, Lymph % (Auto) 19.0, [place] % (Auto) 5.3, Eos % (Auto) 6.0 H, Baso % (Auto) 0.2, Absolute Neuts (auto) 3.1, Absolute Lymphs (auto) 0.86, Total Counted Not Reportable 10/03/18 05:35: Sodium 144, Potassium 4.9, Chloride 117 H, Carbon Dioxide 19.0 L , Anion Gap 8, BUN 55 H, Creatinine 2.79 H, Estim Creat Clear Calc 21.91, Est GFR (MDRD) Af Amer 29 L, Est GFR (MDRD) Non-Af 24 L, BUN/Creatinine Ratio 19.7, Glucose 79, Calcium 7.9 L Current Medications Acetaminophen/Butalbital/Caffeine (Fioricet) 1 tablet PO Q4H PRN PRN PRN Reason: migraine Last Admin: 10/02/18 23:22 Dose: 1 tablet Albuterol Sulfate (Ventolin Aerosols) 2.5 mg INHALATION Q4H PRN PRN Reason: CHRONIC BRONCHITIS [facility] Last Admin: 10/02/18 08:36 Dose: 200 mg Amiodarone HCl (Cordarone) 200 mg PO DAILY [facility] Last Admin: 10/03/18 11:22 Dose: 200 mg Amitriptyline HCl (Elavil) 25 mg PO QHS [facility] Last Admin: 10/02/18 23:23 Dose: 25 mg Amlodipine Besylate (Norvasc) 5 mg PO DAILY [facility] Last Admin: 10/03/18 11:22 Dose: 5 mg Aspirin (Ecotrin) 81 mg PO DAILY@0800 [facility] Last Admin: 10/02/18 08:35 Dose: 81 mg Budesonide (Pulmicort Aerosol) 0.5 mg INHALATION Q12H.RT [facility] Last Admin: 10/03/18 06:35 Dose: Not Given Calamine/Phenol (Calmoseptine Ointment) 1 applic TOPICAL BID [facility]; Protocol Last Admin: 10/03/18 11:31 Dose: 1 applic Carbidopa/Levodopa (Sinemet) 1 tablet PO ACHS [facility] Last Admin: 10/03/18 11:11 Dose: Not Given Cholecalciferol (Vitamin D) [facility] Last Admin: 10/02/18 08:36 Dose: 5,000 unit Codeine Sulfate (Codeine) 30 mg PO QODAY PRN PRN Reason: HEADACHE Cyanocobalamin (Vitamin B12) 1,000 mcg IM Q30D [facility] Dextrose (D50w Syringe) 0 gm IV X1 PRN; Protocol PRN Reason: Hypoglycemia Dicyclomine HCl (Bentyl) 10 mg PO TID PRN PRN Reason: abdominal cramping Diphenhydramine HCl (Benadryl) 25 mg PO Q6H PRN PRN Reason: ITCHING Last Admin: 10/02/18 23:04 Dose: 25 mg Entacapone (Comtan) 200 mg PO ACHS [facility] Last Admin: 10/03/18 11:11 Dose: Not Given Glucagon () 1 mg IM .X1 PRN PRN Reason: Hypoglycemia Hydromorphone HCl (Dilaudid Inj) 0.5 mg IV Q6H PRN PRN Reason: SEVERE PAIN (6-08/29) Last Admin: 10/03/18 07:59 Dose: 0.5 mg Hydroxyzine Pamoate (Vistaril Pamoate Capsule) 50 mg PO TID PRN PRN PRN Reason: ANXIETY Pantoprazole Sodium 40 mg/ (Sodium Chloride) 110 mls @ 330 mls/hr IV Q24 [facility] Last Admin: 10/03/18 11:18 Dose: 330 mls/hr Sodium Chloride () 1,000 mls @ 150 mls/hr IV .Q6H40M [facility] Last Admin: 10/03/18 02:52 Dose: 150 mls/hr Levothyroxine Sodium (Synthroid) 274 mcg PO MoTh@0600 [facility] Last Admin: 10/01/18 05:28 Dose: Not Given Levothyroxine Sodium (Synthroid) 137 mcg PO SuTuWeFrSa@0600 [facility] Last Admin: 10/03/18 07:00 Dose: Not Given Magnesium Hydroxide (Milk Of Magnesia) 30 ml PO DAILY PRN PRN PRN Reason: Constipation Metoprolol Succinate (Toprol Xl (Beta Pb)) 25 mg PO DAILY [facility] Last Admin: 10/03/18 11:23 Dose: 25 mg Non-Formulary Medication (Apremilast) 30 mg PO BID [facility] Oxycodone HCl (Oxyir) 5 mg PO Q4H PRN PRN PRN Reason: SEVERE PAIN (6-08/29) Last Admin: 10/03/18 11:29 Dose: 5 mg Pramipexole Dihydrochloride (Mirapex) 1 mg PO QHS [facility] Last Admin: 11/13/18 23:05 Dose: 1 mg Sodium Chloride () 5 - 30 ml IV UD PRN PRN Reason: SALINE FLUSH Last Admin: 10/03/18 07:59 Dose: 10 ml Throat Lozenges (Cepacol Sore Throat Lozenge) 1 lozenge MUCOUS MEM Q2H PRN PRN PRN Reason: SORE THROAT Last Admin: 10/02/18 20:32 Dose: 1 lozenge Vilazodone HCl (Viibryd) 40 mg PO DAILY [facility] Last Admin: 10/02/18 08:38 Dose: 40 mg Zinc Sulfate (Zinc Sulfate) 220 mg PO DAILYCM [facility] Last Admin: 10/02/18 08:36 Dose: 220 mg Medical Necessity - Tobacco Use Smoking Status: Former smoker Assessment/Plan All Active Problems SBO (small bowel obstruction) (Acute) Hyperkalemia (Acute) KENDALL (acute kidney injury) (Acute) DVT of upper extremity (deep vein thrombosis) (Ruled-out) Hyperkalemia (Resolved) Small Bowel Enterocut Fistula (Resolved) 1. KENDALL * improving * Cr 2.79, down from 7.12 * baseline around 2.5 * continue IVF * nephrology following. 2. Hyperkalemia * resolved * likely d/t above * monitor 3. chronic abdominal pain * AXR x2, * correction of 10/02 note: CT A/P was not negative, but showing SBO v ileus * UGI on 10/03 * will decrease dilaudid dose and frequency in this 73 year old * consider GES if UGI is negative and still with severe symptoms for evaluation of gastroparesis * add bentyl * continue IV PPI 4. DVT proph: SCDs Code Visit Inpatient E&M: 63162 Subs Hosp L2
--- NOTE | 2018-10-03 16:02 | PCM.PN.SRG ---
Patient Problems: Active and Suspected Problems SBO (small bowel obstruction) (Acute) Hyperkalemia (Acute) KENDALL (acute kidney injury) (Acute) Subjective: still discomfort and nausea after eating 3-4 bites of food, still some right-sided abdominal pain - Physical Exam General: Alert, Oriented x3, Cooperative Abdomen: Soft Vital Signs Temp Pulse Resp BP Pulse Ox 97.9 F 76 18 150/80 H 100 10/03/18 11:20 10/03/18 15:02 10/03/18 11:20 10/03/18 11:20 10/03/18 11:20 Oxygen Delivery Method Room Air Weight: 66.9 kg Body Mass Index (BMI) 23.8 Finger Stick Blood Glucose 203 Intake and Output for Last 24 Hours 10/01/18 10/02/18 10/03/18 23:59 23:59 23:59 Intake Total 5178 / 5178 3094 / 3094 1543 / 1543 Output Total 4400 / 4400 3550 / 3550 1175 / 1175 Balance 778 / 778 -456 / -456 368 / 368 Laboratory Tests Past 24 Hrs 10/03/18 10/03/18 05:35 05:35 WBC 4.5 RBC 3.72 L Hgb 10.8 L Hct 34.0 L MCV 91.4 MCH 29.0 MCHC 31.8 L RDW 15.2 H RDW Differential 49.8 H Plt Count 100 L MPV 9.9 Immature Gran % (Auto) 1.300 H Neut % (Auto) 68.2 Lymph % (Auto) 19.0 [place] % (Auto) 5.3 Eos % (Auto) 6.0 H Baso % (Auto) 0.2 Absolute Neuts (auto) 3.1 Absolute Lymphs (auto) 0.86 Total Counted Not Reportable Sodium 144 Potassium 4.9 Chloride 117 H Carbon Dioxide 19.0 L Anion Gap 8 BUN 55 H Creatinine 2.79 H Estim Creat Clear Calc 21.91 Est GFR (MDRD) Af Amer 29 L Est GFR (MDRD) Non-Af 24 L BUN/Creatinine Ratio 19.7 Glucose 79 Calcium 7.9 L Medical Necessity - Tobacco Use Smoking Status: Former smoker Assessment/Plan All Active Problems SBO (small bowel obstruction) (Acute) Hyperkalemia (Acute) KENDALL (acute kidney injury) (Acute) DVT of upper extremity (deep vein thrombosis) (Ruled-out) Hyperkalemia (Resolved) Small Bowel Enterocut Fistula (Resolved) abnormal bowel gas pattern, dysphagia, acute on chronic renal failure, electrolyte abnormalities. Dysphagia - patient was told by his installation drafter to stop Carafate. But per discussion, he stopped his Carafate following his last dilatation. If he notes a repeat symptoms I would consider adding Carafate and/or obtaining an esophagram. SBO vs ileus - patient with multiple abdominal procedures - unsure how different from baseline imaging would appear. now decreasing output and continued discomfort. KUB this morning demonstrated a nonspecific bowel gas pattern. we will follow clinically serial abdominal exams and abdominal multiview to assess bowel gas pattern. Given the patient's very complex past abdominal surgical history and extensive lysis of adhesions, in the event of a true higher grade bowel obstruction, patient required transfer to tertiary care center.. Given his dysphagia and stomach symptoms - I will order an upper Gi with SBFT. 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 there is no signs of small bowel obstruction on the upper GI but the patient does have significant small bowel diverticulum. at this point in time, I would recommend refeeding the patient. If his early upper symptoms recur I would add Carafate. If the patient seems to have abdominal pain 20-30 minutes after eating would consider small intestinal bacterial overgrowth as a possible etiology. We can try empiric oral antibiotics if we feel this is a possibility or order a carbohydrate breath test if we feel that appropriate. Will change to dilaudid electrolytes now normalized
[2018-10-03] MEDS: Carbidopa/Levodopa 25/100 Tablet PO ×2 (17:13→22:57)
[2018-10-03] MEDS: Allopurinol 100 MG Tablet 200 MG PO (17:13)
[2018-10-03] MEDS: Aspirin E.C. 81 MG Tablet PO (17:14)
[2018-10-03] MEDS: VILAZODONE HYDROCHLORIDE 40 MG TABLET PO (17:14)
[2018-10-03] MEDS: DiphenhydrAMINE 25 MG Capsule PO (17:19)
[2018-10-03] MEDS: Budesonide Respules 0.5 MG/2 ML AMPUL.NEB. INHALATION (19:17)
[2018-10-03] MEDS: Pramipexole Di-HCl 1 MG Tablet PO (22:57)
[2018-10-03] MEDS: Amitriptyline 25 MG Tablet PO (22:58)
[2018-10-04] VITALS (12 sets, daily range): BP systolic 104–128; BP diastolic 41–58; PULSE 56–81; RESP 16–20; TEMP 36.8–37.4; O2SAT 96–100
[2018-10-04] MEDS: HYDROmorphone 0.5 MG/0.5 ML SYRINGE IV ×3 (06:36→23:01)
[2018-10-04] MEDS: Levothyroxine 137 MCG Tablet 274 MCG PO (06:38)
[2018-10-04] MEDS: Carbidopa/Levodopa 25/100 Tablet PO ×4 (06:38→22:40)
[2018-10-04 06:47] LABS: Anion Gap 7 (5-15); BUN 50 mg/dL (7-18); BUN/Creat Ratio 16.2 RATIO (10-20); Calcium,Total 7.7 mg/dL (8.5-10.1); Chloride 119 mmol/L (98-107); Creatinine, Serum 3.08 mg/dL (0.70-1.30); EST Glomerular Filtration Rate 21 mL/min (>60); Est Glom Filt Rate - Afr Amer 26 mL/min (>60); Estimated Creatinine Clearance 19.85 ml/min; Glucose 132 mg/dL (74-106); Potassium 5.2 mmol/L (3.5-5.1); Sodium Level 145 mmol/L (136-145)
[2018-10-04] MEDS: 0.45% Normal Saline 1,000 ML 125 ML IV ×2 (09:30→17:50)
[2018-10-04] MEDS: Metoprolol(XL)Succ 25 MG Tablet PO (09:35)
[2018-10-04] MEDS: Allopurinol 100 MG Tablet 200 MG PO (09:36)
[2018-10-04] MEDS: Aspirin E.C. 81 MG Tablet PO (09:36)
[2018-10-04] MEDS: Menthol/Lanolin/Calamine/Znox 113 GM Tube 1 APPLIC TOPICAL ×2 (09:36→22:42)
[2018-10-04] MEDS: VILAZODONE HYDROCHLORIDE 40 MG TABLET PO (09:36)
[2018-10-04] MEDS: rifAXIMin 550 MG Tablet PO ×2 (09:36→22:40)
[2018-10-04] MEDS: Amiodarone 200 MG Tablet PO (09:36)
--- NOTE | 2018-10-04 09:54 | PN.RENAL_ITS ---
Patient Problems: Active and Suspected Problems SBO (small bowel obstruction) (Acute) Hyperkalemia (Acute) KENDALL (acute kidney injury) (Acute) Subjective: Pt still has dysphagia. No nausea No vomiting Still has some abdominal pain Off IVF. Still has high stool output from the colostomy bag - Physical Exam General: Alert, Oriented x3 HEENT: Atraumatic Oral: Moist Mucosa Neck: Supple, No JVD Lungs: Clear to auscultation Cardiovascular: Regular rate, Regular Rhythm, Normal S1, Normal S2 Abdomen: Bowel Sounds Present, Soft Extremities: No clubbing, No cyanosis, No edema Skin: No rashes Musculoskeletal: No Tenderness to Palpation of Joints or Extremities Lymphatic: No Cervical, Supraclavicular, or Inguinal Adenopathy Neurological: Cranial nerves II-XII grossly intact, Neuro grossly intact Psych/Mental Status: Normal Affect Vital Signs Temp Pulse Resp BP Pulse Ox 98.3 F 77 16 128/57 H 97 10/04/18 09:37 10/04/18 09:37 10/04/18 09:37 10/04/18 09:37 10/04/18 09:37 Oxygen Delivery Method Room Air Weight: 66.9 kg Body Mass Index (BMI) 23.8 Finger Stick Blood Glucose 203 Intake and Output for Last 24 Hours 10/02/18 10/03/18 10/04/18 23:59 23:59 23:59 Intake Total 3094 / 3094 3192 / 3192 100 / 100 Output Total 3550 / 3550 2675 / 2675 650 / 650 Balance -456 / -456 517 / 517 -550 / -550 Laboratory Tests Past 24 Hrs 10/04/18 06:00 Sodium 145 Potassium 5.2 H Chloride 119 H Carbon Dioxide 19.0 L Anion Gap 7 BUN 50 H Creatinine 3.08 H Estim Creat Clear Calc 19.85 Est GFR (MDRD) Af Amer 26 L Est GFR (MDRD) Non-Af 21 L BUN/Creatinine Ratio 16.2 Glucose 132 H Calcium 7.7 L Medical Necessity - Tobacco Use Smoking Status: Former smoker Assessment/Plan All Active Problems SBO (small bowel obstruction) (Acute) Hyperkalemia (Acute) KENDALL (acute kidney injury) (Acute) DVT of upper extremity (deep vein thrombosis) (Ruled-out) Hyperkalemia (Resolved) Small Bowel Enterocut Fistula (Resolved) 1- KENDALL on CKD. Baseline Cr seems around 2.0-2.4 mg/dL KENDALL is from prerenal due to nausea/vomiting and decreased oral intake. FeNa ais less than 1% Cr peaked at 7.3. Cr improved to 2.79 on 10/03 with IVF. IVF was stopped yesterday. Cr is up slightly yo 3.08 mg/dL I will resume IVF 0.45% NaCl at 125 cc/hour Encouraged oral H2O intake No need for MANAGER [employer] Avoid ACEI/ARB Avoid diuretics Check renal function in am 2- Hyperkalemia: K is slightly high at 5.[address] the patient on renal diet Check K in am 3- Hypomagnesemia : Received IV Mg 2 g on 10/02. I ordered Mg in am 4-Abdominal pain with N/V. Might be to bacterial overgrowth. Management as per the primary service Renal team will continue to follow KIM FLYNN MD
--- NOTE | 2018-10-04 11:04 | NURSING ---
Pt states that nursing just changed ileostomy appliance again d/t leak. this nurse had just changed appliance yesterday. pt states appliance filled up with gas and just started leaking. appliance intact at this time. will monitor.
[2018-10-04] MEDS: Sucralfate 1 GM Tablet PO ×3 (12:15→23:00)
--- NOTE | 2018-10-04 14:31 | PCM.PROGNOTE ---
<Izaiah Dobbs - Last Filed: 10/04/18 14:31> Patient Problems: Active and Suspected Problems Hyperkalemia (Acute) KENDALL (acute kidney injury) (Acute) Subjective: Pt c/o abdominal pain in the umbilical region. Also complains of persistent heartburn. No irritation with ostomy. Still high ostomy output. Some nausea no vomiting this AM. No fever or chills. No arias discomfort. - Physical Exam General: Alert, Oriented x3, Cooperative HEENT: Atraumatic, PERRLA, EOMI, Normocephalic Neck: Supple, No JVD, Negative Carotid Bruits Lungs: Clear to auscultation, Normal air movement Cardiovascular: Regular rate, No murmurs Abdomen: Bowel Sounds Present, Soft, Tender Extremities: No edema, Capillary Refill Less than 3 Seconds Skin: No rashes, No breakdown Musculoskeletal: No Tenderness to Palpation of Joints or Extremities Neurological: Cranial nerves II-XII grossly intact Psych/Mental Status: Normal Affect, Appropriate, Alert and oriented to time, place, person, mood and affect Vital Signs Temp Pulse Resp BP Pulse Ox 98.3 F 66 16 128/57 H 97 10/04/18 09:37 10/04/18 11:20 10/04/18 09:37 10/04/18 09:37 10/04/18 09:37 Oxygen Delivery Method Room Air Weight: 147 lb 7.828 oz Body Mass Index (BMI) 23.8 Finger Stick Blood Glucose 203 Intake and Output for Last 24 Hours 10/02/18 10/03/18 10/04/18 23:59 23:59 23:59 Intake Total 3094 / 3094 3192 / 3192 340 / 340 Output Total 3550 / 3550 2675 / 2675 1000 / 1000 Balance -456 / -456 517 / 517 -660 / -660 Laboratory Tests Past 24 Hrs 10/04/18 06:00 Sodium 145 Potassium 5.2 H Chloride 119 H Carbon Dioxide 19.0 L Anion Gap 7 BUN 50 H Creatinine 3.08 H Estim Creat Clear Calc 19.85 Est GFR (MDRD) Af Amer 26 L Est GFR (MDRD) Non-Af 21 L BUN/Creatinine Ratio 16.2 Glucose 132 H Calcium 7.7 L Medical Necessity - Tobacco Use Smoking Status: Former smoker Assessment/Plan All Active Problems SBO (small bowel obstruction) (Acute) Hyperkalemia (Acute) KENDALL (acute kidney injury) (Acute) DVT of upper extremity (deep vein thrombosis) (Ruled-out) Hyperkalemia (Resolved) Small Bowel Enterocut Fistula (Resolved) 1. KENDALL - restarted on fluids for bump. Still high ostomy output. Check stool studies. Renal following. 2. Chronic abdominal pain - [place] following. possibly ileus, gastroparesis. SBFT per surgery - mild esophageal diverticulum. Carafate with eating. 3. Hyperkalemia - recheck this afternoon. 4. GERD - carafate, PPI. 5. Pancytopenia - trend. 6. Hypothyroidism - synthroid 7. Prediabetes - a1c 5.8. Card controlled diet. DVT ppx: SCDs This patient was seen by Izaiah Dobbs PA-C under the supervision of Dr. Loyd <Juan C Loyd - Last Filed: 10/04/18 15:44> Subjective: still with high-output from ostomy. eating well. still with abdominal pain. - Physical Exam General: Alert, Cooperative HEENT: Atraumatic, Normocephalic Oral: Moist Mucosa, No Gingival or Mucosal Lesions/ Ulcerations Lungs: Clear to auscultation, Normal air movement, No rhonchi, No wheeze Cardiovascular: Regular rate, Regular Rhythm, Normal S1, Normal S2, No murmurs Abdomen: Bowel Sounds Present, Soft, Non-Distended, Tender Extremities: No edema, No Calf Tenderness Skin: No rashes, No breakdown Psych/Mental Status: Normal Affect, Appropriate Vital Signs Temp Pulse Resp BP Pulse Ox 37.0 C 81 18 112/50 L 96 10/04/18 15:25 10/04/18 15:25 10/04/18 15:25 10/04/18 15:25 10/04/18 15:25 Oxygen Delivery Method Room Air Weight: 66.9 kg Body Mass Index (BMI) 23.8 Finger Stick Blood Glucose 203 Intake and Output for Last 24 Hours 10/02/18 10/03/18 10/04/18 23:59 23:59 23:59 Intake Total 3094 / 3094 3192 / 3192 340 / 340 Output Total 3550 / 3550 2675 / 2675 1000 / 1000 Balance -456 / -456 517 / 517 -660 / -660 Laboratory Tests Past 24 Hrs 10/04/18 10/04/18 06:00 14:45 Sodium 145 Potassium 5.2 H 4.8 Chloride 119 H Carbon Dioxide 19.0 L Anion Gap 7 BUN 50 H Creatinine 3.08 H Estim Creat Clear Calc 19.85 Est GFR (MDRD) Af Amer 26 L Est GFR (MDRD) Non-Af 21 L BUN/Creatinine Ratio 16.2 Glucose 132 H Calcium 7.7 L Assessment/Plan Patient seen and examined independently. Data reviewed. I agree with the above note by the physician speech and language assistant. 1. KENDALL Worse today but overall improved Cr 3.08 baseline around 2.5 continue IVF nephrology following. Likely prerenal with patient's high output 2. Hyperkalemia slightly worse likely d/t above monitor 3. chronic abdominal pain AXR x2, correction of 10/02 note: CT A/P was not negative, but showing SBO v ileus UGI on 10/03 will decrease dilaudid dose and frequency in this 73 year old consider GES if UGI is negative and still with severe symptoms for evaluation of gastroparesis add bentyl continue IV PPI 4. High output ostomy Likely over the patient's extensive bowel resections including a complete colectomy Discussed with the patient that essentially is very profound inability to reabsorb fluids Will follow up the stool studies and if the C. difficile is negative then can Lomotil and/or Imodium 5. DVT proph: SCDs Code Visit Inpatient E&M: 63618 Subs Hosp L2
--- NOTE | 2018-10-04 14:39 | PN_ITS ---
<Izaiah Dobbs - Last Filed: 10/04/18 14:31> Patient Problems: Active and Suspected Problems Hyperkalemia (Acute) KENDALL (acute kidney injury) (Acute) Subjective: Pt c/o abdominal pain in the umbilical region. Also complains of persistent heartburn. No irritation with ostomy. Still high ostomy output. Some nausea no vomiting this AM. No fever or chills. No arias discomfort. - Physical Exam General: Alert, Oriented x3, Cooperative HEENT: Atraumatic, PERRLA, EOMI, Normocephalic Neck: Supple, No JVD, Negative Carotid Bruits Lungs: Clear to auscultation, Normal air movement Cardiovascular: Regular rate, No murmurs Abdomen: Bowel Sounds Present, Soft, Tender Extremities: No edema, Capillary Refill Less than 3 Seconds Skin: No rashes, No breakdown Musculoskeletal: No Tenderness to Palpation of Joints or Extremities Neurological: Cranial nerves II-XII grossly intact Psych/Mental Status: Normal Affect, Appropriate, Alert and oriented to time, place, person, mood and affect Vital Signs Temp Pulse Resp BP Pulse Ox 98.3 F 66 16 128/57 H 97 10/04/18 09:37 10/04/18 11:20 10/04/18 09:37 10/04/18 09:37 10/04/18 09:37 Oxygen Delivery Method Room Air Weight: 147 lb 7.828 oz Body Mass Index (BMI) 23.8 Finger Stick Blood Glucose 203 Intake and Output for Last 24 Hours 10/02/18 10/03/18 10/04/18 23:59 23:59 23:59 Intake Total 3094 / 3094 3192 / 3192 340 / 340 Output Total 3550 / 3550 2675 / 2675 1000 / 1000 Balance -456 / -456 517 / 517 -660 / -660 Laboratory Tests Past 24 Hrs 10/04/18 06:00 Sodium 145 Potassium 5.2 H Chloride 119 H Carbon Dioxide 19.0 L Anion Gap 7 BUN 50 H Creatinine 3.08 H Estim Creat Clear Calc 19.85 Est GFR (MDRD) Af Amer 26 L Est GFR (MDRD) Non-Af 21 L BUN/Creatinine Ratio 16.2 Glucose 132 H Calcium 7.7 L Medical Necessity - Tobacco Use Smoking Status: Former smoker Assessment/Plan All Active Problems SBO (small bowel obstruction) (Acute) Hyperkalemia (Acute) KENDALL (acute kidney injury) (Acute) DVT of upper extremity (deep vein thrombosis) (Ruled-out) Hyperkalemia (Resolved) Small Bowel Enterocut Fistula (Resolved) 1. KENDALL - restarted on fluids for bump. Still high ostomy output. Check stool studies. Renal following. 2. Chronic abdominal pain - [place] following. possibly ileus, gastroparesis. SBFT per surgery - mild esophageal diverticulum. Carafate with eating. 3. Hyperkalemia - recheck this afternoon. 4. GERD - carafate, PPI. 5. Pancytopenia - trend. 6. Hypothyroidism - synthroid 7. Prediabetes - a1c 5.8. Card controlled diet. DVT ppx: SCDs This patient was seen by Izaiah Dobbs PA-C under the supervision of Dr. Loyd <Juan C Loyd - Last Filed: 10/04/18 15:44> Subjective: still with high-output from ostomy. eating well. still with abdominal pain. - Physical Exam General: Alert, Cooperative HEENT: Atraumatic, Normocephalic Oral: Moist Mucosa, No Gingival or Mucosal Lesions/ Ulcerations Lungs: Clear to auscultation, Normal air movement, No rhonchi, No wheeze Cardiovascular: Regular rate, Regular Rhythm, Normal S1, Normal S2, No murmurs Abdomen: Bowel Sounds Present, Soft, Non-Distended, Tender Extremities: No edema, No Calf Tenderness Skin: No rashes, No breakdown Psych/Mental Status: Normal Affect, Appropriate Vital Signs Temp Pulse Resp BP Pulse Ox 37.0 C 81 18 112/50 L 96 10/04/18 15:25 10/04/18 15:25 10/04/18 15:25 10/04/18 15:25 10/04/18 15:25 Oxygen Delivery Method Room Air Weight: 66.9 kg Body Mass Index (BMI) 23.8 Finger Stick Blood Glucose 203 Intake and Output for Last 24 Hours 10/02/18 10/03/18 10/04/18 23:59 23:59 23:59 Intake Total 3094 / 3094 3192 / 3192 340 / 340 Output Total 3550 / 3550 2675 / 2675 1000 / 1000 Balance -456 / -456 517 / 517 -660 / -660 Laboratory Tests Past 24 Hrs 10/04/18 10/04/18 06:00 14:45 Sodium 145 Potassium 5.2 H 4.8 Chloride 119 H Carbon Dioxide 19.0 L Anion Gap 7 BUN 50 H Creatinine 3.08 H Estim Creat Clear Calc 19.85 Est GFR (MDRD) Af Amer 26 L Est GFR (MDRD) Non-Af 21 L BUN/Creatinine Ratio 16.2 Glucose 132 H Calcium 7.7 L Assessment/Plan Patient seen and examined independently. Data reviewed. I agree with the above note by the physician boiler assistant operator. 1. KENDALL * Worse today but overall improved * Cr 3.08 * baseline around 2.5 * continue IVF * nephrology following. * Likely prerenal with patient's high output 2. Hyperkalemia * slightly worse * likely d/t above * monitor 3. chronic abdominal pain * AXR x2, * correction of 10/02 note: CT A/P was not negative, but showing SBO v ileus * UGI on 10/03 * will decrease dilaudid dose and frequency in this 73 year old * consider GES if UGI is negative and still with severe symptoms for evaluation of gastroparesis * add bentyl * continue IV PPI 4. High output ostomy * Likely over the patient's extensive bowel resections including a complete colectomy * Discussed with the patient that essentially is very profound inability to reabsorb fluids * Will follow up the stool studies and if the C. difficile is negative then can Lomotil and/or Imodium 5. DVT proph: SCDs Code Visit Inpatient E&M: 33572 Subs Hosp L2
[2018-10-04 15:10] LABS: Potassium 4.8 mmol/L (3.5-5.1)
[2018-10-04] MEDS: 0.9% NaCl Peripheral Flush Adult/Peds IV ×2 (16:21→23:01)
[2018-10-04] MEDS: Acetaminophen/Butalbital/Caffe 1 Tablet PO (17:50)
[2018-10-04] MEDS: Amitriptyline 25 MG Tablet PO (22:40)
[2018-10-04] MEDS: Pramipexole Di-HCl 1 MG Tablet PO (22:40)
[2018-10-05] VITALS (10 sets, daily range): BP systolic 100–131; BP diastolic 42–99; PULSE 56–94; RESP 15–20; TEMP 36.8–37.1; O2SAT 97–100
[2018-10-05] MEDS: 0.45% Normal Saline 1,000 ML 125 ML IV ×3 (01:50→20:35)
--- NOTE | 2018-10-05 02:47 | NURSING ---
Pt had low-grade fever this shift. Reports chills. Other VS WNL. Pt denies feeling like he has the flu.
[2018-10-05] MEDS: Levothyroxine 137 MCG Tablet PO (05:45)
[2018-10-05] MEDS: 0.9% NaCl Peripheral Flush Adult/Peds IV ×3 (05:46→14:53)
[2018-10-05] MEDS: Carbidopa/Levodopa 25/100 Tablet PO ×4 (06:51→20:59)
[2018-10-05 07:08] LABS: Absolute Lymphocyte Count 0.78 X10^3/ul (0.83-4.51); Absolute Neutrophil Count 4.5 X10^3/uL (2.0-7.7); Basophil# 0.01 X10^3/uL; Basophil% 0.2 % (0-1); Eosinophil# 0.21 X10^3/uL; Eosinophils% 3.6 % (0-5); Hematocrit 35.9 % (40-54); Lymphocyte # 0.78 X10^3/ul (4.0); Lymphocyte % 13.5 % (19-41); Mean Corp Hgb Conc 30.6 g/gl (32-36); Mean Corpuscular Hgb 28.6 pg (27.0-32.0); Mean Corpuscular Volume 93.5 fL (80-94); Mean Platelet Vol. 9.7 fl (6.2-12.0); Monocyte# 0.24 X10^3/uL; Monocyte% 4.2 % (0-10); Neutrophil # 4.45 X10^3/uL (2.7-7.7); Neutrophil % 77.1 % (47-70); POSITIVE COUNT NO; POSITIVE DIFFERENTIAL NO; POSITIVE MORPHOLOGY NO; Platelet Count 90 K/mm3 (150-450); RBC Distribution Width CV 15.1 % (11.6-14.6); RBC Distribution Width SD 50.2 fl (35.1-43.9); Red Blood Count 3.84 M/mm3 (4.6-6.2); White Blood Count 5.8 K/mm3 (4.4-11.0)
[2018-10-05 07:27] LABS: Anion Gap 9 (5-15); BUN 46 mg/dL (7-18); BUN/Creat Ratio 15.5 RATIO (10-20); Calcium,Total 7.7 mg/dL (8.5-10.1); Chloride 118 mmol/L (98-107); Creatinine, Serum 2.96 mg/dL (0.70-1.30); EST Glomerular Filtration Rate 22 mL/min (>60); Est Glom Filt Rate - Afr Amer 27 mL/min (>60); Estimated Creatinine Clearance 20.66 ml/min; Glucose 99 mg/dL (74-106); Potassium 4.6 mmol/L (3.5-5.1); Sodium Level 144 mmol/L (136-145)
[2018-10-05] MEDS: HYDROmorphone 0.5 MG/0.5 ML SYRINGE IV ×3 (08:40→20:58)
[2018-10-05] MEDS: Aspirin E.C. 81 MG Tablet PO (08:53)
[2018-10-05] MEDS: Allopurinol 100 MG Tablet 200 MG PO (08:53)
[2018-10-05] MEDS: rifAXIMin 550 MG Tablet PO ×2 (08:54→20:59)
[2018-10-05] MEDS: Amiodarone 200 MG Tablet PO (08:54)
[2018-10-05] MEDS: Metoprolol(XL)Succ 25 MG Tablet PO (08:54)
[2018-10-05] MEDS: VILAZODONE HYDROCHLORIDE 40 MG TABLET PO (08:54)
--- NOTE | 2018-10-05 09:21 | PCM.PN.REN ---
Patient Problems: Active and Suspected Problems Hyperkalemia (Acute) KENDALL (acute kidney injury) (Acute) Subjective: Pt is doing well. Pt is able to finish his meals. No nausea No vomiting Still has the periumbilical pain. Still with high stool output - Physical Exam General: Alert, Oriented x3 HEENT: Atraumatic Oral: Moist Mucosa Neck: Supple, No JVD Lungs: Clear to auscultation, Normal air movement, No rhonchi, No wheeze Cardiovascular: Regular rate, Regular Rhythm, Normal S1, Normal S2 Abdomen: Bowel Sounds Present, Soft, Tender - periumbilical Extremities: No clubbing, No cyanosis, No edema Skin: No rashes Musculoskeletal: No Tenderness to Palpation of Joints or Extremities Lymphatic: No Cervical, Supraclavicular, or Inguinal Adenopathy Neurological: Cranial nerves II-XII grossly intact, Neuro grossly intact Psych/Mental Status: Normal Affect Vital Signs Temp Pulse Resp BP Pulse Ox 98.8 F 80 17 126/58 H 97 10/05/18 08:52 10/05/18 08:54 10/05/18 08:52 10/05/18 08:52 10/05/18 08:52 Oxygen Delivery Method Room Air Weight: 66.9 kg Body Mass Index (BMI) 23.8 Finger Stick Blood Glucose 203 Intake and Output for Last 24 Hours 10/03/18 10/04/18 10/05/18 23:59 23:59 23:59 Intake Total 3192 / 3192 3108 / 3108 805 / 805 Output Total 2675 / 2675 2730 / 2730 750 / 750 Balance 517 / 517 378 / 378 55 / 55 Microbiology Past 72 Hours 10/04/18 14:10 C. difficile DNA Amplification - Final Stool Laboratory Tests Past 24 Hrs 10/04/18 10/05/18 10/05/18 14:45 06:30 06:30 WBC 5.8 RBC 3.84 L Hgb 11.0 L Hct 35.9 L MCV 93.5 MCH 28.6 MCHC 30.6 L RDW 15.1 H RDW Differential 50.2 H Plt Count 90 L MPV 9.7 Immature Gran % (Auto) 1.400 H Neut % (Auto) 77.1 H Lymph % (Auto) 13.5 L [place] % (Auto) 4.2 Eos % (Auto) 3.6 Baso % (Auto) 0.2 Absolute Neuts (auto) 4.5 Absolute Lymphs (auto) 0.78 L Total Counted Not Reportable Sodium 144 Potassium 4.8 4.6 Chloride 118 H Carbon Dioxide 17.0 L Anion Gap 9 BUN 46 H Creatinine 2.96 H Estim Creat Clear Calc 20.66 Est GFR (MDRD) Af Amer 27 L Est GFR (MDRD) Non-Af 22 L BUN/Creatinine Ratio 15.5 Glucose 99 Calcium 7.7 L Magnesium 1.0 L Medical Necessity - Tobacco Use Smoking Status: Former smoker Assessment/Plan All Active Problems SBO (small bowel obstruction) (Acute) Hyperkalemia (Acute) KENDALL (acute kidney injury) (Acute) DVT of upper extremity (deep vein thrombosis) (Ruled-out) Hyperkalemia (Resolved) Small Bowel Enterocut Fistula (Resolved) 1- KENDALL on CKD. Baseline Cr seems around 2.0-2.4 mg/dL KENDALL is from prerenal due to nausea/vomiting and decreased oral intake. FeNa ais less than 1% Cr is stable with resuming IVF. Pt is still with high stool output. I will continue IVF 0.45% NaCl at 125 cc/hour Encouraged oral H2O intake No need for GEOTHERMAL TECHNICIAN Avoid ACEI/ARB Avoid diuretics Check renal function in am 2- Hyperkalemia: resolved On renal diet Check K in am 3- Hypomagnesemia : most probably from GI loss. Pt is going to receive IV Mg today. Check Mg in am 4-Abdominal pain with N/V. Better .Might be to bacterial overgrowth. Management as per the primary service. 5- Diarrhea: C diff is negative. Please d/c all laxatives If patient continues to have watery stool with high output, please add imodium Renal team will continue to follow D/W Izaiah FLYNN MD
[2018-10-05 09:51] LABS: Phosphorus 1.7 mg/dL (2.5-4.9); Thyroid Stim Hormone (TSH) 0.06 uIU/mL (0.358-3.74)
--- NOTE | 2018-10-05 10:53 | NURSING ---
In to assess ileostomy appliance. the appliance was changed yesterday d/t leak. appliance intact at this time. no signs of leak. will monitor as needed. patient denies needs.
[2018-10-05] MEDS: Menthol/Lanolin/Calamine/Znox 113 GM Tube 1 APPLIC TOPICAL ×2 (10:54→21:13)
[2018-10-05 11:19] LABS: T4 Free Direct 0.99 ng/dL (0.76-1.46)
[2018-10-05] MEDS: Na Biphos/Potassium Phosphate PACKET 1 PACKET PO ×2 (11:44→14:47)
--- NOTE | 2018-10-05 12:23 | PN.SURG_ITS ---
Patient Problems: Active and Suspected Problems Hyperkalemia (Acute) KENDALL (acute kidney injury) (Acute) Subjective: improved stoma output-still right-sided right lower quadrant discomfort - Physical Exam General: Alert, Oriented x3, Cooperative Lungs: Clear to auscultation, Normal air movement Cardiovascular: Regular rate, Regular Rhythm Abdomen: Bowel Sounds Present, Soft, Tender - right side-minimal, - - ileostomy output normal-appearing Vital Signs Temp Pulse Resp BP Pulse Ox 98.8 F 94 17 126/58 H 97 10/05/18 08:52 10/05/18 11:16 10/05/18 08:52 10/05/18 08:52 10/05/18 08:52 Oxygen Delivery Method Room Air Weight: 66.9 kg Body Mass Index (BMI) 23.8 Finger Stick Blood Glucose 203 Intake and Output for Last 24 Hours 10/03/18 10/04/18 10/05/18 23:59 23:59 23:59 Intake Total 3192 / 3192 3108 / 3108 1850 / 1850 Output Total 2675 / 2675 2730 / 2730 1400 / 1400 Balance 517 / 517 378 / 378 450 / 450 Microbiology Past 72 Hours 10/04/18 14:10 Enteric Bacteriology - Final Stool 10/04/18 14:10 C. difficile DNA Amplification - Final Stool Laboratory Tests Past 24 Hrs 10/04/18 10/05/18 10/05/18 14:45 06:30 06:30 WBC 5.8 RBC 3.84 L Hgb 11.0 L Hct 35.9 L MCV 93.5 MCH 28.6 MCHC 30.6 L RDW 15.1 H RDW Differential 50.2 H Plt Count 90 L MPV 9.7 Immature Gran % (Auto) 1.400 H Neut % (Auto) 77.1 H Lymph % (Auto) 13.5 L [place] % (Auto) 4.2 Eos % (Auto) 3.6 Baso % (Auto) 0.2 Absolute Neuts (auto) 4.5 Absolute Lymphs (auto) 0.78 L Total Counted Not Reportable Sodium 144 Potassium 4.8 4.6 Chloride 118 H Carbon Dioxide 17.0 L Anion Gap 9 BUN 46 H Creatinine 2.96 H Estim Creat Clear Calc 20.66 Est GFR (MDRD) Af Amer 27 L Est GFR (MDRD) Non-Af 22 L BUN/Creatinine Ratio 15.5 Glucose 99 Calcium 7.7 L Phosphorus Magnesium 1.0 L TSH Free T4 10/05/18 10/05/18 06:30 06:30 WBC RBC Hgb Hct MCV MCH MCHC RDW RDW Differential Plt Count MPV Immature Gran % (Auto) Neut % (Auto) Lymph % (Auto) [place] % (Auto) Eos % (Auto) Baso % (Auto) Absolute Neuts (auto) Absolute Lymphs (auto) Total Counted Sodium Potassium Chloride Carbon Dioxide Anion Gap BUN Creatinine Estim Creat Clear Calc Est GFR (MDRD) Af Amer Est GFR (MDRD) Non-Af BUN/Creatinine Ratio Glucose Calcium Phosphorus 1.7 L Magnesium TSH 0.06 L Free T4 0.99 Medical Necessity - Tobacco Use Smoking Status: Former smoker Assessment/Plan All Active Problems SBO (small bowel obstruction) (Acute) Hyperkalemia (Acute) KENDALL (acute kidney injury) (Acute) DVT of upper extremity (deep vein thrombosis) (Ruled-out) Hyperkalemia (Resolved) Small Bowel Enterocut Fistula (Resolved) missed note for 11:15 abnormal bowel gas pattern, dysphagia, acute on chronic renal failure, electrolyte abnormalities. Dysphagia - patient was told by his buyer planner to stop Carafate. But per discussion, he stopped his Carafate following his last dilatation. If he notes a repeat symptoms I would consider adding Carafate and/or obtaining an esophagram. SBO vs ileus - patient with multiple abdominal procedures - unsure how different from baseline imaging would appear. now decreasing output and continued discomfort. KUB this morning demonstrated a nonspecific bowel gas pattern. we will follow clinically serial abdominal exams and abdominal multiview to assess bowel gas pattern. Given the patient's very complex past abdominal surgical history and extensive lysis of adhesions, in the event of a true higher grade bowel obstruction, patient required transfer to tertiary care center.. 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 there is no signs of small bowel obstruction on the upper GI but the patient does have significant small bowel diverticulum. the patient tolerated his diet but still noted some early epigastric discomfort. I will add Carafate. with no obstruction on small bowel series but many small bowel diverticula, I'm wondering of small intestinal bacterial overgrowth to be part of the patient's abdominal difficulties. I don't believe we can get a hydrogen breath test locally. we will trial empiric course of rifaximin. Will change to dilaudid electrolytes now normalized
--- NOTE | 2018-10-05 12:28 | PCM.PN.SRG ---
Patient Problems: Active and Suspected Problems Hyperkalemia (Acute) KENDALL (acute kidney injury) (Acute) Subjective: no real change in symptoms of early discomfort with or without Carafate - Physical Exam General: Alert, Oriented x3 Lungs: Clear to auscultation, Normal air movement Cardiovascular: Regular rate, Regular Rhythm Abdomen: Bowel Sounds Present, Soft, Tender - minimal-significant stoma output Vital Signs Temp Pulse Resp BP Pulse Ox 98.8 F 94 17 126/58 H 97 10/05/18 08:52 10/05/18 11:16 10/05/18 08:52 10/05/18 08:52 10/05/18 08:52 Oxygen Delivery Method Room Air Weight: 66.9 kg Body Mass Index (BMI) 23.8 Finger Stick Blood Glucose 203 Intake and Output for Last 24 Hours 10/03/18 10/04/18 10/05/18 23:59 23:59 23:59 Intake Total 3192 / 3192 3108 / 3108 1850 / 1850 Output Total 2675 / 2675 2730 / 2730 1400 / 1400 Balance 517 / 517 378 / 378 450 / 450 Microbiology Past 72 Hours 10/04/18 14:10 Enteric Bacteriology - Final Stool 10/04/18 14:10 C. difficile DNA Amplification - Final Stool Laboratory Tests Past 24 Hrs 10/04/18 10/05/18 10/05/18 14:45 06:30 06:30 WBC 5.8 RBC 3.84 L Hgb 11.0 L Hct 35.9 L MCV 93.5 MCH 28.6 MCHC 30.6 L RDW 15.1 H RDW Differential 50.2 H Plt Count 90 L MPV 9.7 Immature Gran % (Auto) 1.400 H Neut % (Auto) 77.1 H Lymph % (Auto) 13.5 L [place] % (Auto) 4.2 Eos % (Auto) 3.6 Baso % (Auto) 0.2 Absolute Neuts (auto) 4.5 Absolute Lymphs (auto) 0.78 L Total Counted Not Reportable Sodium 144 Potassium 4.8 4.6 Chloride 118 H Carbon Dioxide 17.0 L Anion Gap 9 BUN 46 H Creatinine 2.96 H Estim Creat Clear Calc 20.66 Est GFR (MDRD) Af Amer 27 L Est GFR (MDRD) Non-Af 22 L BUN/Creatinine Ratio 15.5 Glucose 99 Calcium 7.7 L Phosphorus Magnesium 1.0 L TSH Free T4 10/05/18 10/05/18 06:30 06:30 WBC RBC Hgb Hct MCV MCH MCHC RDW RDW Differential Plt Count MPV Immature Gran % (Auto) Neut % (Auto) Lymph % (Auto) [place] % (Auto) Eos % (Auto) Baso % (Auto) Absolute Neuts (auto) Absolute Lymphs (auto) Total Counted Sodium Potassium Chloride Carbon Dioxide Anion Gap BUN Creatinine Estim Creat Clear Calc Est GFR (MDRD) Af Amer Est GFR (MDRD) Non-Af BUN/Creatinine Ratio Glucose Calcium Phosphorus 1.7 L Magnesium TSH 0.06 L Free T4 0.99 Medical Necessity - Tobacco Use Smoking Status: Former smoker Assessment/Plan All Active Problems SBO (small bowel obstruction) (Acute) Hyperkalemia (Acute) KENDALL (acute kidney injury) (Acute) DVT of upper extremity (deep vein thrombosis) (Ruled-out) Hyperkalemia (Resolved) Small Bowel Enterocut Fistula (Resolved) abnormal bowel gas pattern, dysphagia, acute on chronic renal failure, electrolyte abnormalities. Dysphagia - patient was told by his metrology engineer to stop Carafate. But per discussion, he stopped his Carafate following his last dilatation. he notes no difference in his early epigastric symptoms with or without Carafate. He does state he is able tolerate a diet however. SBO vs ileus - patient with multiple abdominal procedures - unsure how different from baseline imaging would appear. CT scan and plain x-rays were relatively nonspecific. 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 There are no signs of small bowel obstruction on the upper GI but the patient does have a significant number of small bowel diverticula. With no obstruction on small bowel series but many small bowel diverticula, I'm wondering of small intestinal bacterial overgrowth to be part of the patient's abdominal difficulties. I don't believe we can get a hydrogen breath test locally. we will trial empiric course of rifaximin. ileostomy output was negative for C. difficile and enteric pathogens. Unfortunately, SIBO if it is present, really needs to be diagnosed with push upper enteroscopy and aspiration of the diverticulum for culture or hydrogen breath test. At this point I would just recommend a 14 day course of rifaximin.
--- NOTE | 2018-10-05 14:06 | PCM.PROGNOTE ---
<Izaiah Dobbs - Last Filed: 10/05/18 14:06> Patient Problems: Active and Suspected Problems Hyperkalemia (Acute) Subjective: Pt complains ostomy output remains high. He is concerned that he is drinking too much water because at some point he was told not to drink a lot of water because of his ostomy. I have explained to him repeatedly that we are concerned about dehydration and KENDALL and nephrology also advised increased water intake. He has no improvement in GERD symptoms. States he can swallow fine. No fever or chills. No vomiting. - Physical Exam General: Alert, Oriented x3, Cooperative HEENT: Atraumatic, PERRLA, EOMI, Normocephalic Neck: Supple, No JVD, Negative Carotid Bruits Lungs: Clear to auscultation, Normal air movement Cardiovascular: Regular rate, No murmurs Abdomen: Bowel Sounds Present, Soft, Tender - mild diffuse, - - ostomy without obvious irritation. Extremities: No edema, Capillary Refill Less than 3 Seconds Skin: No rashes, No breakdown Musculoskeletal: No Tenderness to Palpation of Joints or Extremities Neurological: Cranial nerves II-XII grossly intact Psych/Mental Status: Normal Affect, Appropriate, Alert and oriented to time, place, person, mood and affect Vital Signs Temp Pulse Resp BP Pulse Ox 98.8 F 94 17 126/58 H 97 10/05/18 08:52 10/05/18 11:16 10/05/18 08:52 10/05/18 08:52 10/05/18 08:52 Oxygen Delivery Method Room Air Weight: 147 lb 7.828 oz Body Mass Index (BMI) 23.8 Finger Stick Blood Glucose 203 Intake and Output for Last 24 Hours 10/03/18 10/04/18 10/05/18 23:59 23:59 23:59 Intake Total 3192 / 3192 3108 / 3108 1850 / 1850 Output Total 2675 / 2675 2730 / 2730 1575 / 1575 Balance 517 / 517 378 / 378 275 / 275 Microbiology Past 72 Hours 10/04/18 14:10 Enteric Bacteriology - Final Stool 10/04/18 14:10 C. difficile DNA Amplification - Final Stool Laboratory Tests Past 24 Hrs 10/04/18 10/05/18 10/05/18 14:45 06:30 06:30 WBC 5.8 RBC 3.84 L Hgb 11.0 L Hct 35.9 L MCV 93.5 MCH 28.6 MCHC 30.6 L RDW 15.1 H RDW Differential 50.2 H Plt Count 90 L MPV 9.7 Immature Gran % (Auto) 1.400 H Neut % (Auto) 77.1 H Lymph % (Auto) 13.5 L [place] % (Auto) 4.2 Eos % (Auto) 3.6 Baso % (Auto) 0.2 Absolute Neuts (auto) 4.5 Absolute Lymphs (auto) 0.78 L Total Counted Not Reportable Sodium 144 Potassium 4.8 4.6 Chloride 118 H Carbon Dioxide 17.0 L Anion Gap 9 BUN 46 H Creatinine 2.96 H Estim Creat Clear Calc 20.66 Est GFR (MDRD) Af Amer 27 L Est GFR (MDRD) Non-Af 22 L BUN/Creatinine Ratio 15.5 Glucose 99 Calcium 7.7 L Phosphorus Magnesium 1.0 L TSH Free T4 10/05/18 10/05/18 06:30 06:30 WBC RBC Hgb Hct MCV MCH MCHC RDW RDW Differential Plt Count MPV Immature Gran % (Auto) Neut % (Auto) Lymph % (Auto) [place] % (Auto) Eos % (Auto) Baso % (Auto) Absolute Neuts (auto) Absolute Lymphs (auto) Total Counted Sodium Potassium Chloride Carbon Dioxide Anion Gap BUN Creatinine Estim Creat Clear Calc Est GFR (MDRD) Af Amer Est GFR (MDRD) Non-Af BUN/Creatinine Ratio Glucose Calcium Phosphorus 1.7 L Magnesium TSH 0.06 L Free T4 0.99 Medical Necessity - Tobacco Use Smoking Status: Former smoker Assessment/Plan All Active Problems SBO (small bowel obstruction) (Acute) Hyperkalemia (Acute) KENDALL (acute kidney injury) (Acute) DVT of upper extremity (deep vein thrombosis) (Ruled-out) Hyperkalemia (Resolved) Small Bowel Enterocut Fistula (Resolved) 1. KENDALL - restarted on fluids for bump. Still high ostomy output. Check stool studies. Renal following. -Hypokalemia and hypophosphatemia suspect 2/2 high volume output. Replete and recheck in AM. 2. Chronic abdominal pain - [place] following. possibly ileus, gastroparesis. SBFT per surgery - mild esophageal diverticulum. he passed Speech therapy eval without issues. Continue Carafate with eating. -High volume ostomy output contributing to #1 -Gen surgery started Xifaxan for possible bacterial overgrowth. No Urea breath test available here. -C diff and empiric panel neg -Pt on multiple agents that can cause diarrhea, Xifaxan, Viibryd, Comtan -trial lomotil -TSH suppressed, but T4 normal. 3. Hyperkalemia - resolved 4. GERD - carafate, PPI. 5. Pancytopenia - trend. Pt states that a purchasing/receiving in [place] wants him to have a bone marrow biopsy for this. 6. Hypothyroidism - Synthroid 7. Prediabetes - a1c 5.8. Carb controlled diet. DVT ppx: SCDs This patient was seen by Izaiah Dobbs PA-C under the supervision of Dr. Loyd <Juan C Loyd - Last Filed: 10/05/18 15:37> Subjective: Still with high output from his ostomy. Still with pain all over. - Physical Exam General: Alert, Cooperative HEENT: Atraumatic, Normocephalic Neck: No Nodes, Thyroid Normal Size and Texture Lungs: Clear to auscultation, Normal air movement, No rhonchi, No wheeze Cardiovascular: Regular rate, Regular Rhythm, Normal S1, Normal S2, No murmurs Abdomen: Bowel Sounds Present, Soft, Non-Distended, Tender, - Extremities: No edema, No Calf Tenderness Skin: No rashes, No breakdown Psych/Mental Status: Appropriate, Flat Affect Vital Signs Temp Pulse Resp BP Pulse Ox 36.9 C 69 18 131/52 H 100 10/05/18 14:42 10/05/18 14:42 10/05/18 14:42 10/05/18 14:42 10/05/18 14:42 Oxygen Delivery Method Room Air Weight: 66.9 kg Body Mass Index (BMI) 23.8 Finger Stick Blood Glucose 203 Intake and Output for Last 24 Hours 10/03/18 10/04/18 10/05/18 23:59 23:59 23:59 Intake Total 3192 / 3192 3108 / 3108 1850 / 1850 Output Total 2675 / 2675 2730 / 2730 1575 / 1575 Balance 517 / 517 378 / 378 275 / 275 Microbiology Past 72 Hours 10/04/18 14:10 Enteric Bacteriology - Final Stool 10/04/18 14:10 C. difficile DNA Amplification - Final Stool Laboratory Tests Past 24 Hrs 10/05/18 10/05/18 10/05/18 06:30 06:30 06:30 WBC 5.8 RBC 3.84 L Hgb 11.0 L Hct 35.9 L MCV 93.5 MCH 28.6 MCHC 30.6 L RDW 15.1 H RDW Differential 50.2 H Plt Count 90 L MPV 9.7 Immature Gran % (Auto) 1.400 H Neut % (Auto) 77.1 H Lymph % (Auto) 13.5 L [place] % (Auto) 4.2 Eos % (Auto) 3.6 Baso % (Auto) 0.2 Absolute Neuts (auto) 4.5 Absolute Lymphs (auto) 0.78 L Total Counted Not Reportable Sodium 144 Potassium 4.6 Chloride 118 H Carbon Dioxide 17.0 L Anion Gap 9 BUN 46 H Creatinine 2.96 H Estim Creat Clear Calc 20.66 Est GFR (MDRD) Af Amer 27 L Est GFR (MDRD) Non-Af 22 L BUN/Creatinine Ratio 15.5 Glucose 99 Calcium 7.7 L Phosphorus 1.7 L Magnesium 1.0 L TSH 0.06 L Free T4 10/05/18 06:30 WBC RBC Hgb Hct MCV MCH MCHC RDW RDW Differential Plt Count MPV Immature Gran % (Auto) Neut % (Auto) Lymph % (Auto) [place] % (Auto) Eos % (Auto) Baso % (Auto) Absolute Neuts (auto) Absolute Lymphs (auto) Total Counted Sodium Potassium Chloride Carbon Dioxide Anion Gap BUN Creatinine Estim Creat Clear Calc Est GFR (MDRD) Af Amer Est GFR (MDRD) Non-Af BUN/Creatinine Ratio Glucose Calcium Phosphorus Magnesium TSH Free T4 0.99 Assessment/Plan Patient seen and examined independently. Data reviewed. I agree with the above note by the physician student assistant. 1. KENDALL improved Cr 2.96 baseline around 2.5 continue IVF nephrology following. Likely prerenal with patient's high output 2. Hyperkalemia resolved likely d/t above monitor 3. chronic abdominal pain AXR x2, correction of 10/02 note: CT A/P was not negative, but showing SBO v ileus UGI on 10/03 will decrease dilaudid dose and frequency in this 73 year old consider GES if UGI is negative and still with severe symptoms for evaluation of gastroparesis add bentyl change PPI to PO 4. High output ostomy Likely over the patient's extensive bowel resections including a complete colectomy Discussed with the patient that essentially is very profound inability to reabsorb fluids C.diff and enteric pathogens negative started on Rifaximin for possible bacterial overgrowth lomotil started--patient states that it has been ineffective in the past. 5. Hypomagnesemia 2/2 #4 replace 6. Hypophosphatemia 2/2 #4 replace 7. DVT proph: SCDs Code Visit Inpatient E&M: 94688 Subs Hosp L2
--- NOTE | 2018-10-05 14:14 | PN_ITS ---
<Izaiah Dobbs - Last Filed: 10/05/18 14:06> Patient Problems: Active and Suspected Problems Hyperkalemia (Acute) Subjective: Pt complains ostomy output remains high. He is concerned that he is drinking too much water because at some point he was told not to drink a lot of water because of his ostomy. I have explained to him repeatedly that we are concerned about dehydration and KENDALL and nephrology also advised increased water intake. He has no improvement in GERD symptoms. States he can swallow fine. No fever or chills. No vomiting. - Physical Exam General: Alert, Oriented x3, Cooperative HEENT: Atraumatic, PERRLA, EOMI, Normocephalic Neck: Supple, No JVD, Negative Carotid Bruits Lungs: Clear to auscultation, Normal air movement Cardiovascular: Regular rate, No murmurs Abdomen: Bowel Sounds Present, Soft, Tender - mild diffuse, - - ostomy without obvious irritation. Extremities: No edema, Capillary Refill Less than 3 Seconds Skin: No rashes, No breakdown Musculoskeletal: No Tenderness to Palpation of Joints or Extremities Neurological: Cranial nerves II-XII grossly intact Psych/Mental Status: Normal Affect, Appropriate, Alert and oriented to time, place, person, mood and affect Vital Signs Temp Pulse Resp BP Pulse Ox 98.8 F 94 17 126/58 H 97 10/05/18 08:52 10/05/18 11:16 10/05/18 08:52 10/05/18 08:52 10/05/18 08:52 Oxygen Delivery Method Room Air Weight: 147 lb 7.828 oz Body Mass Index (BMI) 23.8 Finger Stick Blood Glucose 203 Intake and Output for Last 24 Hours 10/03/18 10/04/18 10/05/18 23:59 23:59 23:59 Intake Total 3192 / 3192 3108 / 3108 1850 / 1850 Output Total 2675 / 2675 2730 / 2730 1575 / 1575 Balance 517 / 517 378 / 378 275 / 275 Microbiology Past 72 Hours 10/04/18 14:10 Enteric Bacteriology - Final Stool 10/04/18 14:10 C. difficile DNA Amplification - Final Stool Laboratory Tests Past 24 Hrs 10/04/18 10/05/18 10/05/18 14:45 06:30 06:30 WBC 5.8 RBC 3.84 L Hgb 11.0 L Hct 35.9 L MCV 93.5 MCH 28.6 MCHC 30.6 L RDW 15.1 H RDW Differential 50.2 H Plt Count 90 L MPV 9.7 Immature Gran % (Auto) 1.400 H Neut % (Auto) 77.1 H Lymph % (Auto) 13.5 L Moca % (Auto) 4.2 Eos % (Auto) 3.6 Baso % (Auto) 0.2 Absolute Neuts (auto) 4.5 Absolute Lymphs (auto) 0.78 L Total Counted Not Reportable Sodium 144 Potassium 4.8 4.6 Chloride 118 H Carbon Dioxide 17.0 L Anion Gap 9 BUN 46 H Creatinine 2.96 H Estim Creat Clear Calc 20.66 Est GFR (MDRD) Af Amer 27 L Est GFR (MDRD) Non-Af 22 L BUN/Creatinine Ratio 15.5 Glucose 99 Calcium 7.7 L Phosphorus Magnesium 1.0 L TSH Free T4 10/05/18 10/05/18 06:30 06:30 WBC RBC Hgb Hct MCV MCH MCHC RDW RDW Differential Plt Count MPV Immature Gran % (Auto) Neut % (Auto) Lymph % (Auto) Moca % (Auto) Eos % (Auto) Baso % (Auto) Absolute Neuts (auto) Absolute Lymphs (auto) Total Counted Sodium Potassium Chloride Carbon Dioxide Anion Gap BUN Creatinine Estim Creat Clear Calc Est GFR (MDRD) Af Amer Est GFR (MDRD) Non-Af BUN/Creatinine Ratio Glucose Calcium Phosphorus 1.7 L Magnesium TSH 0.06 L Free T4 0.99 Medical Necessity - Tobacco Use Smoking Status: Former smoker Assessment/Plan All Active Problems SBO (small bowel obstruction) (Acute) Hyperkalemia (Acute) KENDALL (acute kidney injury) (Acute) DVT of upper extremity (deep vein thrombosis) (Ruled-out) Hyperkalemia (Resolved) Small Bowel Enterocut Fistula (Resolved) 1. KENDALL - restarted on fluids for bump. Still high ostomy output. Check stool studies. Renal following. -Hypokalemia and hypophosphatemia suspect 2/2 high volume output. Replete and recheck in AM. 2. Chronic abdominal pain - [place] following. possibly ileus, gastroparesis. SBFT per surgery - mild esophageal diverticulum. he passed Speech therapy eval without issues. Continue Carafate with eating. -High volume ostomy output contributing to #1 -Gen surgery started Xifaxan for possible bacterial overgrowth. No Urea breath test available here. -C diff and empiric panel neg -Pt on multiple agents that can cause diarrhea, Xifaxan, Viibryd, Comtan -trial lomotil -TSH suppressed, but T4 normal. 3. Hyperkalemia - resolved 4. GERD - carafate, PPI. 5. Pancytopenia - trend. Pt states that a air quality manager in [place] wants him to have a bone marrow biopsy for this. 6. Hypothyroidism - Synthroid 7. Prediabetes - a1c 5.8. Carb controlled diet. DVT ppx: SCDs This patient was seen by Izaiah Dobbs PA-C under the supervision of Dr. Loyd <Juan C Loyd - Last Filed: 10/05/18 15:37> Subjective: Still with high output from his ostomy. Still with pain all over. - Physical Exam General: Alert, Cooperative HEENT: Atraumatic, Normocephalic Neck: No Nodes, Thyroid Normal Size and Texture Lungs: Clear to auscultation, Normal air movement, No rhonchi, No wheeze Cardiovascular: Regular rate, Regular Rhythm, Normal S1, Normal S2, No murmurs Abdomen: Bowel Sounds Present, Soft, Non-Distended, Tender, - Extremities: No edema, No Calf Tenderness Skin: No rashes, No breakdown Psych/Mental Status: Appropriate, Flat Affect Vital Signs Temp Pulse Resp BP Pulse Ox 36.9 C 69 18 131/52 H 100 10/05/18 14:42 10/05/18 14:42 10/05/18 14:42 10/05/18 14:42 10/05/18 14:42 Oxygen Delivery Method Room Air Weight: 66.9 kg Body Mass Index (BMI) 23.8 Finger Stick Blood Glucose 203 Intake and Output for Last 24 Hours 10/03/18 10/04/18 10/05/18 23:59 23:59 23:59 Intake Total 3192 / 3192 3108 / 3108 1850 / 1850 Output Total 2675 / 2675 2730 / 2730 1575 / 1575 Balance 517 / 517 378 / 378 275 / 275 Microbiology Past 72 Hours 10/04/18 14:10 Enteric Bacteriology - Final Stool 10/04/18 14:10 C. difficile DNA Amplification - Final Stool Laboratory Tests Past 24 Hrs 10/05/18 10/05/18 10/05/18 06:30 06:30 06:30 WBC 5.8 RBC 3.84 L Hgb 11.0 L Hct 35.9 L MCV 93.5 MCH 28.6 MCHC 30.6 L RDW 15.1 H RDW Differential 50.2 H Plt Count 90 L MPV 9.7 Immature Gran % (Auto) 1.400 H Neut % (Auto) 77.1 H Lymph % (Auto) 13.5 L Moca % (Auto) 4.2 Eos % (Auto) 3.6 Baso % (Auto) 0.2 Absolute Neuts (auto) 4.5 Absolute Lymphs (auto) 0.78 L Total Counted Not Reportable Sodium 144 Potassium 4.6 Chloride 118 H Carbon Dioxide 17.0 L Anion Gap 9 BUN 46 H Creatinine 2.96 H Estim Creat Clear Calc 20.66 Est GFR (MDRD) Af Amer 27 L Est GFR (MDRD) Non-Af 22 L BUN/Creatinine Ratio 15.5 Glucose 99 Calcium 7.7 L Phosphorus 1.7 L Magnesium 1.0 L TSH 0.06 L Free T4 10/05/18 06:30 WBC RBC Hgb Hct MCV MCH MCHC RDW RDW Differential Plt Count MPV Immature Gran % (Auto) Neut % (Auto) Lymph % (Auto) Moca % (Auto) Eos % (Auto) Baso % (Auto) Absolute Neuts (auto) Absolute Lymphs (auto) Total Counted Sodium Potassium Chloride Carbon Dioxide Anion Gap BUN Creatinine Estim Creat Clear Calc Est GFR (MDRD) Af Amer Est GFR (MDRD) Non-Af BUN/Creatinine Ratio Glucose Calcium Phosphorus Magnesium TSH Free T4 0.99 Assessment/Plan Patient seen and examined independently. Data reviewed. I agree with the above note by the physician speech language pathologist assistant. 1. KENDALL * improved * Cr 2.96 * baseline around 2.5 * continue IVF * nephrology following. * Likely prerenal with patient's high output 2. Hyperkalemia * resolved * likely d/t above * monitor 3. chronic abdominal pain * AXR x2, * correction of 10/02 note: CT A/P was not negative, but showing SBO v ileus * UGI on 10/03 * will decrease dilaudid dose and frequency in this 73 year old * consider GES if UGI is negative and still with severe symptoms for evaluation of gastroparesis * add bentyl * change PPI to PO 4. High output ostomy * Likely over the patient's extensive bowel resections including a complete colectomy * Discussed with the patient that essentially is very profound inability to reabsorb fluids * C.diff and enteric pathogens negative * started on Rifaximin for possible bacterial overgrowth * lomotil started--patient states that it has been ineffective in the past. 5. Hypomagnesemia * 2/2 #4 * replace 6. Hypophosphatemia * 2/ #4 * replace 7. DVT proph: SCDs Code Visit Inpatient E&M: 62044 Subs Hosp L2
[2018-10-05] MEDS: Diphenoxylate/Atrop 1 Tablet PO ×2 (14:47→21:13)
--- NOTE | 2018-10-05 14:51 | CASEMGMT ---
This RN CM to room to speak with pt regarding discharge planning/therapy recommendations. This RN CM recommended HHC to pt per therapy notes at this time and pt actually [facility] and [facility]. Call to [facility] and they verify the same. Resumption of care order placed at this time. Green sheet left on chart. [place] SEAN MELVIN
[2018-10-05] MEDS: proMETHazine 25 MG Tablet 12.5 MG PO (15:42)
[2018-10-05] MEDS: Pramipexole Di-HCl 1 MG Tablet PO (21:13)
[2018-10-05] MEDS: Amitriptyline 25 MG Tablet PO (21:13)
[2018-10-06] VITALS (14 sets, daily range): BP systolic 105–137; BP diastolic 47–61; PULSE 56–83; RESP 15–18; TEMP 36.7–38.3; O2SAT 96–100
[2018-10-06] MEDS: HYDROmorphone 0.5 MG/0.5 ML SYRINGE IV ×2 (03:37→09:20)
[2018-10-06] MEDS: 0.45% Normal Saline 1,000 ML 125 ML IV ×3 (04:00→21:27)
[2018-10-06] MEDS: Diphenoxylate/Atrop 1 Tablet PO ×3 (06:22→21:44)
[2018-10-06] MEDS: Carbidopa/Levodopa 25/100 Tablet PO ×4 (06:22→21:38)
[2018-10-06] MEDS: Levothyroxine 137 MCG Tablet PO (06:22)
[2018-10-06] MEDS: DiphenhydrAMINE 25 MG Capsule PO ×2 (06:22→20:28)
[2018-10-06 06:51] LABS: Anion Gap 10 (5-15); BUN 39 mg/dL (7-18); BUN/Creat Ratio 15.7 RATIO (10-20); Calcium,Total 7.4 mg/dL (8.5-10.1); Chloride 120 mmol/L (98-107); Creatinine, Serum 2.49 mg/dL (0.70-1.30); EST Glomerular Filtration Rate 27 mL/min (>60); Est Glom Filt Rate - Afr Amer 33 mL/min (>60); Estimated Creatinine Clearance 24.55 ml/min; Glucose 116 mg/dL (74-106); Magnesium 1.4 mg/dL (1.6-2.6); Phosphorus 2.3 mg/dL (2.5-4.9); Potassium 4.7 mmol/L (3.5-5.1); Sodium Level 146 mmol/L (136-145)
[2018-10-06] MEDS: Amiodarone 200 MG Tablet PO (09:00)
[2018-10-06] MEDS: Pantoprazole Sodium 40 MG Tablet PO (09:00)
[2018-10-06] MEDS: Metoprolol(XL)Succ 25 MG Tablet PO (09:01)
[2018-10-06] MEDS: Menthol/Lanolin/Calamine/Znox 113 GM Tube 1 APPLIC TOPICAL ×2 (09:03→21:39)
[2018-10-06] MEDS: Aspirin E.C. 81 MG Tablet PO (09:20)
[2018-10-06] MEDS: Allopurinol 100 MG Tablet 200 MG PO (09:21)
[2018-10-06] MEDS: VILAZODONE HYDROCHLORIDE 20 MG TABLET 40 MG PO (09:22)
[2018-10-06] MEDS: Na Biphos/Potassium Phosphate PACKET 1 PACKET PO ×3 (09:23→21:38)
[2018-10-06] MEDS: rifAXIMin 550 MG Tablet PO (09:24)
[2018-10-06] MEDS: oxyCODONE 5 MG Tablet PO ×2 (11:31→20:28)
--- NOTE | 2018-10-06 12:42 | PCM.PROGNOTE ---
<Izaiah Dobbs - Last Filed: 10/06/18 12:42> Patient Problems: Active and Suspected Problems Hyperkalemia (Acute) Subjective: Pt c/o itchy rash distal forearms with erythema that began last night after getting xifaxan. He feels that this is similar to prior antibiotic rashes he has had. He states is ostomy output has not slowed down. He denies further GERD/heartburn. No nausea, no chills. - Physical Exam General: Alert, Oriented x3, Cooperative HEENT: Atraumatic, PERRLA, EOMI, Normocephalic Neck: Supple, No JVD, Negative Carotid Bruits Lungs: Clear to auscultation, Normal air movement Cardiovascular: Regular rate, No murmurs Abdomen: Bowel Sounds Present, Soft, Non Tender Extremities: No edema, Capillary Refill Less than 3 Seconds Skin: No breakdown, - - mild erythematous rash forearms Musculoskeletal: No Tenderness to Palpation of Joints or Extremities Neurological: Cranial nerves II-XII grossly intact Psych/Mental Status: Normal Affect, Appropriate, Alert and oriented to time, place, person, mood and affect Vital Signs Temp Pulse Resp BP Pulse Ox 101.0 F H 68 18 137/52 H 99 10/06/18 08:57 10/06/18 11:09 10/06/18 08:57 10/06/18 09:01 10/06/18 08:57 Oxygen Delivery Method Room Air Weight: 147 lb 7.828 oz Body Mass Index (BMI) 23.8 Finger Stick Blood Glucose 203 Intake and Output for Last 24 Hours 10/04/18 10/05/18 10/06/18 23:59 23:59 23:59 Intake Total 3108 / 3108 3191 / 3191 3103 / 3103 Output Total 2730 / 2730 2275 / 2275 2024 / 202 Balance 378 / 378 916 / 916 1078 / 1078 Microbiology Past 72 Hours 10/04/18 14:10 Enteric Bacteriology - Final Stool 10/04/18 14:10 C. difficile DNA Amplification - Final Stool Laboratory Tests Past 24 Hrs 10/06/18 05:35 Sodium 146 H Potassium 4.7 Chloride 120 H Carbon Dioxide 16.0 L Anion Gap 10 BUN 39 H Creatinine 2.49 H Estim Creat Clear Calc 24.55 Est GFR (MDRD) Af Amer 33 L Est GFR (MDRD) Non-Af 27 L BUN/Creatinine Ratio 15.7 Glucose 116 H Calcium 7.4 L Phosphorus 2.3 L Magnesium 1.4 L Medical Necessity - Tobacco Use Smoking Status: Former smoker Assessment/Plan All Active Problems SBO (small bowel obstruction) (Acute) Hyperkalemia (Acute) KENDALL (acute kidney injury) (Acute) DVT of upper extremity (deep vein thrombosis) (Ruled-out) Hyperkalemia (Resolved) Small Bowel Enterocut Fistula (Resolved) 1. KENDALL - improving. Still high ostomy output. Check stool studies. Renal following. Continue lomotil. -Hypokalemia and hypophosphatemia suspect 2/2 high volume output. Repleted again 2. Chronic abdominal pain - [place] following. possibly ileus, gastroparesis. SBFT per surgery - mild esophageal diverticulum. he passed Speech therapy eval without issues. Continue Carafate with eating. -High volume ostomy output contributing to #1 -DC xifaxan for rash/pruritis -C diff and enteric panel neg -trial lomotil -TSH suppressed, but T4 normal. 3. Hyperkalemia - resolved 4. GERD - carafate, PPI. Improving. 5. Pancytopenia - trend. Pt states that a second cutter in [place] wants him to have a bone marrow biopsy for this. 6. Hypothyroidism - Synthroid 7. Prediabetes - a1c 5.8. Carb controlled diet at dc. 8. Bursitis - xray pending. DVT ppx: SCDs This patient was seen by Izaiah Dobbs PA-C under the supervision of Dr. Loyd <Juan C Loyd - Last Filed: 10/06/18 14:24> Subjective: pain all over. - Physical Exam General: Alert, Cooperative, No apparent distress HEENT: Atraumatic, Normocephalic Oral: Moist Mucosa, No Gingival or Mucosal Lesions/ Ulcerations Neck: No Nodes, Thyroid Normal Size and Texture Lungs: Clear to auscultation, Normal air movement, No rhonchi, No wheeze Cardiovascular: Regular rate, Regular Rhythm, Normal S1, Normal S2 Abdomen: Bowel Sounds Present, Soft, Non Tender, Distended - slight Extremities: No edema, No Calf Tenderness Skin: No breakdown, - Musculoskeletal: No Muscle Wasting, - - swelling and erythema over left elbow. no induration. Psych/Mental Status: Appropriate, Flat Affect Vital Signs Temp Pulse Resp BP Pulse Ox 37.4 C H 71 18 122/49 H 100 10/06/18 14:10 10/06/18 14:10 10/06/18 14:10 10/06/18 14:10 10/06/18 14:10 Oxygen Delivery Method Room Air Weight: 66.9 kg Body Mass Index (BMI) 23.8 Finger Stick Blood Glucose 203 Intake and Output for Last 24 Hours 10/04/18 10/05/18 10/06/18 23:59 23:59 23:59 Intake Total 3108 / 3108 3191 / 3191 3103 / 3103 Output Total 2730 / 2730 2275 / 2275 2725 / 2725 Balance 378 / 378 916 / 916 378 / 378 Microbiology Past 72 Hours 10/04/18 14:10 Enteric Bacteriology - Final Stool 10/04/18 14:10 C. difficile DNA Amplification - Final Stool Laboratory Tests Past 24 Hrs 10/06/18 05:35 Sodium 146 H Potassium 4.7 Chloride 120 H Carbon Dioxide 16.0 L Anion Gap 10 BUN 39 H Creatinine 2.49 H Estim Creat Clear Calc 24.55 Est GFR (MDRD) Af Amer 33 L Est GFR (MDRD) Non-Af 27 L BUN/Creatinine Ratio 15.7 Glucose 116 H Calcium 7.4 L Phosphorus 2.3 L Magnesium 1.4 L Assessment/Plan Patient seen and examined independently. Data reviewed. I agree with the above note by the physician assistant food service manager. 1. KENDALL improved Cr 2.49 baseline around 2.5 continue IVF nephrology following. Likely prerenal with patient's high output 2. Hyperkalemia resolved likely d/t above monitor 3. chronic abdominal pain AXR x2, correction of 10/02 note: CT A/P was not negative, but showing SBO v ileus UGI on 10/03 will decrease dilaudid dose and frequency in this 73 year old consider GES if UGI is negative and still with severe symptoms for evaluation of gastroparesis add bentyl change PPI to PO 4. High output ostomy Likely over the patient's extensive bowel resections including a complete colectomy Discussed with the patient that essentially is very profound inability to reabsorb fluids C.diff and enteric pathogens negative DC rifaxamin given potential drug rash lomotil started--patient states that it has been ineffective in the past. 5. Hypomagnesemia improved 2/2 #4 replace 6. Hypophosphatemia improved 2/2 #4 replace 7. Left elbow bursitis doubt infection check xray 8. DVT proph: SCDs Code Visit Inpatient E&M: 13856 Subs Hosp L2
--- NOTE | 2018-10-06 12:45 | PN_ITS ---
<Izaiah Dobbs - Last Filed: 10/06/18 12:42> Patient Problems: Active and Suspected Problems Hyperkalemia (Acute) Subjective: Pt c/o itchy rash distal forearms with erythema that began last night after getting xifaxan. He feels that this is similar to prior antibiotic rashes he has had. He states is ostomy output has not slowed down. He denies further GERD/heartburn. No nausea, no chills. - Physical Exam General: Alert, Oriented x3, Cooperative HEENT: Atraumatic, PERRLA, EOMI, Normocephalic Neck: Supple, No JVD, Negative Carotid Bruits Lungs: Clear to auscultation, Normal air movement Cardiovascular: Regular rate, No murmurs Abdomen: Bowel Sounds Present, Soft, Non Tender Extremities: No edema, Capillary Refill Less than 3 Seconds Skin: No breakdown, - - mild erythematous rash forearms Musculoskeletal: No Tenderness to Palpation of Joints or Extremities Neurological: Cranial nerves II-XII grossly intact Psych/Mental Status: Normal Affect, Appropriate, Alert and oriented to time, place, person, mood and affect Vital Signs Temp Pulse Resp BP Pulse Ox 101.0 F H 68 18 137/52 H 99 10/06/18 08:57 10/06/18 11:09 10/06/18 08:57 10/06/18 09:01 10/06/18 08:57 Oxygen Delivery Method Room Air Weight: 147 lb 7.828 oz Body Mass Index (BMI) 23.8 Finger Stick Blood Glucose 203 Intake and Output for Last 24 Hours 10/04/18 10/05/18 10/06/18 23:59 23:59 23:59 Intake Total 3108 / 3108 3191 / 3191 3103 / 3103 Output Total 2730 / 2730 2275 / 2275 2024 / 202 Balance 378 / 378 916 / 916 1078 / 1078 Microbiology Past 72 Hours 10/04/18 14:10 Enteric Bacteriology - Final Stool 10/04/18 14:10 C. difficile DNA Amplification - Final Stool Laboratory Tests Past 24 Hrs 10/06/18 05:35 Sodium 146 H Potassium 4.7 Chloride 120 H Carbon Dioxide 16.0 L Anion Gap 10 BUN 39 H Creatinine 2.49 H Estim Creat Clear Calc 24.55 Est GFR (MDRD) Af Amer 33 L Est GFR (MDRD) Non-Af 27 L BUN/Creatinine Ratio 15.7 Glucose 116 H Calcium 7.4 L Phosphorus 2.3 L Magnesium 1.4 L Medical Necessity - Tobacco Use Smoking Status: Former smoker Assessment/Plan All Active Problems SBO (small bowel obstruction) (Acute) Hyperkalemia (Acute) KENDALL (acute kidney injury) (Acute) DVT of upper extremity (deep vein thrombosis) (Ruled-out) Hyperkalemia (Resolved) Small Bowel Enterocut Fistula (Resolved) 1. KENDALL - improving. Still high ostomy output. Check stool studies. Renal following. Continue lomotil. -Hypokalemia and hypophosphatemia suspect 2/2 high volume output. Repleted again 2. Chronic abdominal pain - [place] following. possibly ileus, gastroparesis. SBFT per surgery - mild esophageal diverticulum. he passed Speech therapy eval without issues. Continue Carafate with eating. -High volume ostomy output contributing to #1 -DC xifaxan for rash/pruritis -C diff and enteric panel neg -trial lomotil -TSH suppressed, but T4 normal. 3. Hyperkalemia - resolved 4. GERD - carafate, PPI. Improving. 5. Pancytopenia - trend. Pt states that a office services representative in [place] wants him to have a bone marrow biopsy for this. 6. Hypothyroidism - Synthroid 7. Prediabetes - a1c 5.8. Carb controlled diet at dc. 8. Bursitis - xray pending. DVT ppx: SCDs This patient was seen by Izaiah Dobbs PA-C under the supervision of Dr. Loyd <Juan C Loyd - Last Filed: 10/06/18 14:24> Subjective: pain all over. - Physical Exam General: Alert, Cooperative, No apparent distress HEENT: Atraumatic, Normocephalic Oral: Moist Mucosa, No Gingival or Mucosal Lesions/ Ulcerations Neck: No Nodes, Thyroid Normal Size and Texture Lungs: Clear to auscultation, Normal air movement, No rhonchi, No wheeze Cardiovascular: Regular rate, Regular Rhythm, Normal S1, Normal S2 Abdomen: Bowel Sounds Present, Soft, Non Tender, Distended - slight Extremities: No edema, No Calf Tenderness Skin: No breakdown, - Musculoskeletal: No Muscle Wasting, - - swelling and erythema over left elbow. no induration. Psych/Mental Status: Appropriate, Flat Affect Vital Signs Temp Pulse Resp BP Pulse Ox 37.4 C H 71 18 122/49 H 100 10/06/18 14:10 10/06/18 14:10 10/06/18 14:10 10/06/18 14:10 10/06/18 14:10 Oxygen Delivery Method Room Air Weight: 66.9 kg Body Mass Index (BMI) 23.8 Finger Stick Blood Glucose 203 Intake and Output for Last 24 Hours 10/04/18 10/05/18 10/06/18 23:59 23:59 23:59 Intake Total 3108 / 3108 3191 / 3191 3103 / 3103 Output Total 2730 / 2730 2275 / 2275 2725 / 2725 Balance 378 / 378 916 / 916 378 / 378 Microbiology Past 72 Hours 10/04/18 14:10 Enteric Bacteriology - Final Stool 10/04/18 14:10 C. difficile DNA Amplification - Final Stool Laboratory Tests Past 24 Hrs 10/06/18 05:35 Sodium 146 H Potassium 4.7 Chloride 120 H Carbon Dioxide 16.0 L Anion Gap 10 BUN 39 H Creatinine 2.49 H Estim Creat Clear Calc 24.55 Est GFR (MDRD) Af Amer 33 L Est GFR (MDRD) Non-Af 27 L BUN/Creatinine Ratio 15.7 Glucose 116 H Calcium 7.4 L Phosphorus 2.3 L Magnesium 1.4 L Assessment/Plan Patient seen and examined independently. Data reviewed. I agree with the above note by the physician education assistant. 1. KENDALL * improved * Cr 2.49 * baseline around 2.5 * continue IVF * nephrology following. * Likely prerenal with patient's high output 2. Hyperkalemia * resolved * likely d/t above * monitor 3. chronic abdominal pain * AXR x2, * correction of 10/02 note: CT A/P was not negative, but showing SBO v ileus * UGI on 10/03 * will decrease dilaudid dose and frequency in this 73 year old * consider GES if UGI is negative and still with severe symptoms for evaluation of gastroparesis * add bentyl * change PPI to PO 4. High output ostomy * Likely over the patient's extensive bowel resections including a complete colectomy * Discussed with the patient that essentially is very profound inability to reabsorb fluids * C.diff and enteric pathogens negative * DC rifaxamin given potential drug rash * lomotil started--patient states that it has been ineffective in the past. 5. Hypomagnesemia * improved * 2/2 #4 * replace 6. Hypophosphatemia * improved * 2/2 #4 * replace 7. Left elbow bursitis * doubt infection * check xray 8. DVT proph: SCDs Code Visit Inpatient E&M: 10116 Subs Hosp L2
[2018-10-06] MEDS: Acetaminophen 500 MG Tablet 1000 MG PO ×2 (14:18→21:38)
--- NOTE | 2018-10-06 14:33 | RAD_ITS ---
STUDY: X-RAY - LEFT ELBOW REASON FOR EXAM: Male, 73 years old. Pain and swelling, left elbow bursitis TECHNIQUE: 2 view(s) of the elbow. COMPARISON: None. FINDINGS: Normal visualized humerus, radius and ulna. 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 Focal soft tissue prominence along the dorsal and medial proximal tibial level. No overt effusion detected. Mild subcutaneous stranding distal upper arm. RAD/Elbow 2 Views IMPRESSION: Soft tissue swelling as above may represent bursitis. Mild edema. Mild degenerative changes. Electronically Signed: Shadia Kaiser MD at 2:10 EST , Service support ,
[2018-10-06] MEDS: HYDROmorphone 2 MG TABLET PO (16:39)
[2018-10-06] MEDS: Magnesium Oxide 400 MG Tablet PO (21:38)
[2018-10-06] MEDS: Pramipexole Di-HCl 1 MG Tablet PO (21:38)
[2018-10-06] MEDS: Amitriptyline 25 MG Tablet PO (21:38)
[2018-10-07] VITALS (11 sets, daily range): BP systolic 106–117; BP diastolic 42–57; PULSE 51–80; RESP 16–18; TEMP 36.5–37.1; O2SAT 95–100
[2018-10-07] MEDS: HYDROmorphone 2 MG TABLET PO ×4 (00:26→21:31)
[2018-10-07] MEDS: 0.45% Normal Saline 1,000 ML 125 ML IV (05:22)
[2018-10-07] MEDS: Levothyroxine 137 MCG Tablet PO (05:23)
[2018-10-07] MEDS: Carbidopa/Levodopa 25/100 Tablet PO ×4 (05:23→21:24)
[2018-10-07] MEDS: Acetaminophen 500 MG Tablet 1000 MG PO ×3 (05:23→21:24)
[2018-10-07] MEDS: Diphenoxylate/Atrop 1 Tablet PO (05:27)
[2018-10-07 06:46] LABS: Absolute Lymphocyte Count 1.01 X10^3/ul (0.83-4.51); Absolute Neutrophil Count 2.6 X10^3/uL (2.0-7.7); Basophil# 0.01 X10^3/uL; Basophil% 0.2 % (0-1); Eosinophil# 0.22 X10^3/uL; Eosinophils% 5.3 % (0-5); Hematocrit 35.3 % (40-54); Hemoglobin 10.6 g/dl (13.0-16.5); Lymphocyte # 1.01 X10^3/ul (4.0); Lymphocyte % 24.5 % (19-41); Mean Corpuscular Hgb 28.4 pg (27.0-32.0); Mean Corpuscular Volume 94.6 fL (80-94); Mean Platelet Vol. 9.9 fl (6.2-12.0); Monocyte# 0.21 X10^3/uL; Monocyte% 5.1 % (0-10); Neutrophil # 2.55 X10^3/uL (2.7-7.7); Platelet Count 102 K/mm3 (150-450); RBC Distribution Width SD 49.4 fl (35.1-43.9); Red Blood Count 3.73 M/mm3 (4.6-6.2); White Blood Count 4.1 K/mm3 (4.4-11.0)
[2018-10-07 06:52] LABS: POSITIVE COUNT YES; POSITIVE DIFFERENTIAL NO; POSITIVE MORPHOLOGY YES
[2018-10-07 06:55] LABS: Anion Gap 10 (5-15); BUN 35 mg/dL (7-18); BUN/Creat Ratio 14.1 RATIO (10-20); Calcium,Total 8.1 mg/dL (8.5-10.1); Chloride 119 mmol/L (98-107); Creatinine, Serum 2.49 mg/dL (0.70-1.30); EST Glomerular Filtration Rate 27 mL/min (>60); Est Glom Filt Rate - Afr Amer 33 mL/min (>60); Estimated Creatinine Clearance 24.55 ml/min; Glucose 86 mg/dL (74-106); Potassium 5.2 mmol/L (3.5-5.1); Sodium Level 144 mmol/L (136-145)
[2018-10-07] MEDS: Allopurinol 100 MG Tablet 200 MG PO (08:20)
[2018-10-07] MEDS: Aspirin E.C. 81 MG Tablet PO (08:20)
[2018-10-07] MEDS: DiphenhydrAMINE 25 MG Capsule PO (09:32)
[2018-10-07] MEDS: Magnesium Oxide 400 MG Tablet PO ×2 (09:32→21:24)
[2018-10-07] MEDS: Pantoprazole Sodium 40 MG Tablet PO (09:32)
[2018-10-07] MEDS: Amiodarone 200 MG Tablet PO (09:33)
[2018-10-07] MEDS: Metoprolol(XL)Succ 25 MG Tablet PO (09:33)
[2018-10-07] MEDS: Menthol/Lanolin/Calamine/Znox 113 GM Tube 1 APPLIC TOPICAL ×2 (09:33→21:24)
[2018-10-07] MEDS: VILAZODONE HYDROCHLORIDE 20 MG TABLET 40 MG PO (09:33)
[2018-10-07] MEDS: oxyCODONE 5 MG Tablet PO (11:26)
[2018-10-07] MEDS: Loperamide 2 MG Capsule 4 MG PO (11:48)
[2018-10-07] MEDS: Dicyclomine 10 MG Capsule PO ×2 (15:23→21:24)
--- NOTE | 2018-10-07 15:59 | PCM.PROGNOTE ---
<Izaiah Dobbs - Last Filed: 10/07/18 15:59> Patient Problems: Active and Suspected Problems Hyperkalemia (Acute) Subjective: Patient is resting comfortably in chair at bedside. Today he notes that his ostomy output is still high volume. He continues to have difficulty with food intermittently becoming stuck in his throat with swallowing and he has to cough it back out. He has no GERD/Heartburn symptoms today. Abdominal pain has somewhat improved. No nausea. No fever or chills. BL arm redness and itchiness still somewhat present - using prn vistaril. His left elbow remains swollen, mildly uncomfortable. - Physical Exam General: Alert, Oriented x3, Cooperative HEENT: Atraumatic, PERRLA, EOMI, Normocephalic Neck: Supple, No JVD, Negative Carotid Bruits Lungs: Clear to auscultation, Normal air movement Cardiovascular: Regular rate, No murmurs Abdomen: Bowel Sounds Present, Soft, Non Tender Extremities: No edema, Capillary Refill Less than 3 Seconds Skin: No rashes, No breakdown Musculoskeletal: No Tenderness to Palpation of Joints or Extremities, - - left elbow bursitis, swollen, tender, warm. Neurological: Cranial nerves II-XII grossly intact Psych/Mental Status: Normal Affect, Appropriate Vital Signs Temp Pulse Resp BP Pulse Ox 97.9 F 69 18 112/43 L 98 10/07/18 09:25 10/07/18 15:01 10/07/18 09:25 10/07/18 09:25 10/07/18 09:25 Oxygen Delivery Method Room Air Weight: 147 lb 7.828 oz Body Mass Index (BMI) 23.8 Finger Stick Blood Glucose 203 Intake and Output for Last 24 Hours 10/05/18 10/06/18 10/07/18 23:59 23:59 23:59 Intake Total 3191 / 3191 3583 / 3583 1854 / 1854 Output Total 2275 / 2275 4850 / 4850 1475 / 1475 Balance 916 / 916 -1267 / -1267 379 / 379 Microbiology Past 72 Hours 10/04/18 14:10 Enteric Bacteriology - Final Stool 10/04/18 14:10 C. difficile DNA Amplification - Final Stool Laboratory Tests Past 24 Hrs 10/07/18 10/07/18 05:53 05:53 WBC 4.1 L RBC 3.73 L Hgb 10.6 L Hct 35.3 L MCV 94.6 H MCH 28.4 MCHC 30.0 L RDW 15.0 H RDW Differential 49.4 H Plt Count 102 L MPV 9.9 Immature Gran % (Auto) 2.900 H Neut % (Auto) 62.0 Lymph % (Auto) 24.5 [place] % (Auto) 5.1 Eos % (Auto) 5.3 H Baso % (Auto) 0.2 Absolute Neuts (auto) 2.6 Absolute Lymphs (auto) 1.01 Total Counted Not Reportable Diff Path Review March foll Sodium 144 Potassium 5.2 H Chloride 119 H Carbon Dioxide 15.0 L Anion Gap 10 BUN 35 H Creatinine 2.49 H Estim Creat Clear Calc 24.55 Est GFR (MDRD) Af Amer 33 L Est GFR (MDRD) Non-Af 27 L BUN/Creatinine Ratio 14.1 Glucose 86 Calcium 8.1 L Medical Necessity - Tobacco Use Smoking Status: Former smoker Assessment/Plan All Active Problems SBO (small bowel obstruction) (Acute) Hyperkalemia (Acute) KENDALL (acute kidney injury) (Acute) DVT of upper extremity (deep vein thrombosis) (Ruled-out) Hyperkalemia (Resolved) Small Bowel Enterocut Fistula (Resolved) 1. KENDALL - improving. Still high ostomy output. Check stool studies. Renal following. Continue immodium. 2. Chronic abdominal pain - [place] following. possibly ileus, gastroparesis. SBFT per surgery - mild esophageal diverticulum. he passed Speech therapy eval without issues. Continue Carafate with eating. Still regurgitating. -greater than 3 L output stool yesterday. -High volume ostomy output contributing to #1 -DC'd xifaxan for rash/pruritis -C diff and enteric panel neg -lomotil didnt help, immodium trial -TSH suppressed, but T4 normal. 3. Electrolyte disturbances 2/2 high output - will check in AM. 4. GERD - carafate, PPI. Reflux symptoms resolved. 5. Pancytopenia - trend. Pt states that a metal engineering process worker in [place] wants him to have a bone marrow biopsy for this. 6. Hypothyroidism - Synthroid 7. Prediabetes - a1c 5.8. Carb controlled diet at [place]. 8. Bursitis - xray c/w bursitis. D/w antony, does not appear acutely infected. We will apply TIMMY and Ice, cannot have NSAIDs. He will follow up in the office. No drainage unless infected. DVT ppx: SCDs This patient was seen by Izaiah Dobbs PA-C under the supervision of Dr. Loyd <Juan C Loyd - Last Filed: 10/07/18 16:12> - Physical Exam General: Alert, Cooperative HEENT: Atraumatic, Normocephalic Lungs: Clear to auscultation, Normal air movement, No rhonchi, No wheeze Cardiovascular: Regular rate, Regular Rhythm, Normal S1, Normal S2, No murmurs Abdomen: Bowel Sounds Present, Soft, Non Tender, Non-Distended Extremities: No edema, No Calf Tenderness Skin: No rashes, No breakdown Musculoskeletal: - Neurological: Cranial nerves II-XII grossly intact Psych/Mental Status: Normal Affect, Appropriate Vital Signs Temp Pulse Resp BP Pulse Ox 36.6 C 69 18 112/43 L 98 10/07/18 09:25 10/07/18 15:01 10/07/18 09:25 10/07/18 09:25 10/07/18 09:25 Oxygen Delivery Method Room Air Weight: 66.9 kg Body Mass Index (BMI) 23.8 Finger Stick Blood Glucose 203 Intake and Output for Last 24 Hours 10/05/18 10/06/18 10/07/18 23:59 23:59 23:59 Intake Total 3191 / 3191 3583 / 3583 1854 / 1854 Output Total 2275 / 2275 4850 / 4850 1475 / 1475 Balance 916 / 916 -1267 / -1267 379 / 379 Microbiology Past 72 Hours 10/04/18 14:10 Enteric Bacteriology - Final Stool 10/04/18 14:10 C. difficile DNA Amplification - Final Stool Laboratory Tests Past 24 Hrs 10/07/18 10/07/18 05:53 05:53 WBC 4.1 L RBC 3.73 L Hgb 10.6 L Hct 35.3 L MCV 94.6 H MCH 28.4 MCHC 30.0 L RDW 15.0 H RDW Differential 49.4 H Plt Count 102 L MPV 9.9 Immature Gran % (Auto) 2.900 H Neut % (Auto) 62.0 Lymph % (Auto) 24.5 [place] % (Auto) 5.1 Eos % (Auto) 5.3 H Baso % (Auto) 0.2 Absolute Neuts (auto) 2.6 Absolute Lymphs (auto) 1.01 Total Counted Not Reportable Diff Path Review May foll Sodium 144 Potassium 5.2 H Chloride 119 H Carbon Dioxide 15.0 L Anion Gap 10 BUN 35 H Creatinine 2.49 H Estim Creat Clear Calc 24.55 Est GFR (MDRD) Af Amer 33 L Est GFR (MDRD) Non-Af 27 L BUN/Creatinine Ratio 14.1 Glucose 86 Calcium 8.1 L Assessment/Plan Patient seen and examined independently. Data reviewed. I agree with the above note by the physician assistant general manager. 1. KENDALL improved Cr 2.49 baseline around 2.5 continue IVF nephrology following. Likely prerenal with patient's high output 2. Hyperkalemia resolved likely d/t above monitor 3. chronic abdominal pain AXR x2, correction of 10/02 note: CT A/P was not negative, but showing SBO v ileus UGI on 10/03 will decrease dilaudid dose and frequency in this 73 year old consider GES if UGI is negative and still with severe symptoms for evaluation of gastroparesis add bentyl change PPI to PO 4. High output ostomy Likely over the patient's extensive bowel resections including a complete colectomy Discussed with the patient that essentially is very profound inability to reabsorb fluids C.diff and enteric pathogens negative DC rifaxamin given potential drug rash changed to imodium. if still with high-output, then start octeotide 100 mcg SQ TID 5. Hypomagnesemia improved 2/2 #4 replace 6. Hypophosphatemia improved 2/2 #4 replace 7. Left elbow bursitis doubt infection check xray ortho will follow up as outpt 8. DVT proph: SCDs Code Visit Inpatient E&M: 17985 Subs Hosp L3
--- NOTE | 2018-10-07 16:05 | PN_ITS ---
<Izaiah Dobbs - Last Filed: 10/07/18 15:59> Patient Problems: Active and Suspected Problems Hyperkalemia (Acute) Subjective: Patient is resting comfortably in chair at bedside. Today he notes that his ostomy output is still high volume. He continues to have difficulty with food intermittently becoming stuck in his throat with swallowing and he has to cough it back out. He has no GERD/Heartburn symptoms today. Abdominal pain has somewhat improved. No nausea. No fever or chills. BL arm redness and itchiness still somewhat present - using prn vistaril. His left elbow remains swollen, mildly uncomfortable. - Physical Exam General: Alert, Oriented x3, Cooperative HEENT: Atraumatic, PERRLA, EOMI, Normocephalic Neck: Supple, No JVD, Negative Carotid Bruits Lungs: Clear to auscultation, Normal air movement Cardiovascular: Regular rate, No murmurs Abdomen: Bowel Sounds Present, Soft, Non Tender Extremities: No edema, Capillary Refill Less than 3 Seconds Skin: No rashes, No breakdown Musculoskeletal: No Tenderness to Palpation of Joints or Extremities, - - left elbow bursitis, swollen, tender, warm. Neurological: Cranial nerves II-XII grossly intact Psych/Mental Status: Normal Affect, Appropriate Vital Signs Temp Pulse Resp BP Pulse Ox 97.9 F 69 18 112/43 L 98 10/07/18 09:25 10/07/18 15:01 10/07/18 09:25 10/07/18 09:25 10/07/18 09:25 Oxygen Delivery Method Room Air Weight: 147 lb 7.828 oz Body Mass Index (BMI) 23.8 Finger Stick Blood Glucose 203 Intake and Output for Last 24 Hours 10/05/18 10/06/18 10/07/18 23:59 23:59 23:59 Intake Total 3191 / 3191 3583 / 3583 1854 / 1854 Output Total 2275 / 2275 4850 / 4850 1475 / 1475 Balance 916 / 916 -1267 / -1267 379 / 379 Microbiology Past 72 Hours 10/04/18 14:10 Enteric Bacteriology - Final Stool 10/04/18 14:10 C. difficile DNA Amplification - Final Stool Laboratory Tests Past 24 Hrs 10/07/18 10/07/18 05:53 05:53 WBC 4.1 L RBC 3.73 L Hgb 10.6 L Hct 35.3 L MCV 94.6 H MCH 28.4 MCHC 30.0 L RDW 15.0 H RDW Differential 49.4 H Plt Count 102 L MPV 9.9 Immature Gran % (Auto) 2.900 H Neut % (Auto) 62.0 Lymph % (Auto) 24.5 [place] % (Auto) 5.1 Eos % (Auto) 5.3 H Baso % (Auto) 0.2 Absolute Neuts (auto) 2.6 Absolute Lymphs (auto) 1.01 Total Counted Not Reportable Diff Path Review March foll Sodium 144 Potassium 5.2 H Chloride 119 H Carbon Dioxide 15.0 L Anion Gap 10 BUN 35 H Creatinine 2.49 H Estim Creat Clear Calc 24.55 Est GFR (MDRD) Af Amer 33 L Est GFR (MDRD) Non-Af 27 L BUN/Creatinine Ratio 14.1 Glucose 86 Calcium 8.1 L Medical Necessity - Tobacco Use Smoking Status: Former smoker Assessment/Plan All Active Problems SBO (small bowel obstruction) (Acute) Hyperkalemia (Acute) KENDALL (acute kidney injury) (Acute) DVT of upper extremity (deep vein thrombosis) (Ruled-out) Hyperkalemia (Resolved) Small Bowel Enterocut Fistula (Resolved) 1. KENDALL - improving. Still high ostomy output. Check stool studies. Renal following. Continue immodium. 2. Chronic abdominal pain - [place] following. possibly ileus, gastroparesis. SBFT per surgery - mild esophageal diverticulum. he passed Speech therapy eval without issues. Continue Carafate with eating. Still regurgitating. -greater than 3 L output stool yesterday. -High volume ostomy output contributing to #1 -DC'd xifaxan for rash/pruritis -C diff and enteric panel neg -lomotil didnt help, immodium trial -TSH suppressed, but T4 normal. 3. Electrolyte disturbances 2/2 high output - will check in AM. 4. GERD - carafate, PPI. Reflux symptoms resolved. 5. Pancytopenia - trend. Pt states that a steam drier tender in [place] wants him to have a bone marrow biopsy for this. 6. Hypothyroidism - Synthroid 7. Prediabetes - a1c 5.8. Carb controlled diet at [place]. 8. Bursitis - xray c/w bursitis. D/w antony, does not appear acutely infected. We will apply TIMMY and Ice, cannot have NSAIDs. He will follow up in the office. No drainage unless infected. DVT ppx: SCDs This patient was seen by Izaiah Dobbs PA-C under the supervision of Dr. Loyd <Juan C Loyd - Last Filed: 10/07/18 16:12> - Physical Exam General: Alert, Cooperative HEENT: Atraumatic, Normocephalic Lungs: Clear to auscultation, Normal air movement, No rhonchi, No wheeze Cardiovascular: Regular rate, Regular Rhythm, Normal S1, Normal S2, No murmurs Abdomen: Bowel Sounds Present, Soft, Non Tender, Non-Distended Extremities: No edema, No Calf Tenderness Skin: No rashes, No breakdown Musculoskeletal: - Neurological: Cranial nerves II-XII grossly intact Psych/Mental Status: Normal Affect, Appropriate Vital Signs Temp Pulse Resp BP Pulse Ox 36.6 C 69 18 112/43 L 98 10/07/18 09:25 10/07/18 15:01 10/07/18 09:25 10/07/18 09:25 10/07/18 09:25 Oxygen Delivery Method Room Air Weight: 66.9 kg Body Mass Index (BMI) 23.8 Finger Stick Blood Glucose 203 Intake and Output for Last 24 Hours 10/05/18 10/06/18 10/07/18 23:59 23:59 23:59 Intake Total 3191 / 3191 3583 / 3583 1854 / 1854 Output Total 2275 / 2275 4850 / 4850 1475 / 1475 Balance 916 / 916 -1267 / -1267 379 / 379 Microbiology Past 72 Hours 10/04/18 14:10 Enteric Bacteriology - Final Stool 10/04/18 14:10 C. difficile DNA Amplification - Final Stool Laboratory Tests Past 24 Hrs 10/07/18 10/07/18 05:53 05:53 WBC 4.1 L RBC 3.73 L Hgb 10.6 L Hct 35.3 L MCV 94.6 H MCH 28.4 MCHC 30.0 L RDW 15.0 H RDW Differential 49.4 H Plt Count 102 L MPV 9.9 Immature Gran % (Auto) 2.900 H Neut % (Auto) 62.0 Lymph % (Auto) 24.5 [place] % (Auto) 5.1 Eos % (Auto) 5.3 H Baso % (Auto) 0.2 Absolute Neuts (auto) 2.6 Absolute Lymphs (auto) 1.01 Total Counted Not Reportable Diff Path Review May foll Sodium 144 Potassium 5.2 H Chloride 119 H Carbon Dioxide 15.0 L Anion Gap 10 BUN 35 H Creatinine 2.49 H Estim Creat Clear Calc 24.55 Est GFR (MDRD) Af Amer 33 L Est GFR (MDRD) Non-Af 27 L BUN/Creatinine Ratio 14.1 Glucose 86 Calcium 8.1 L Assessment/Plan Patient seen and examined independently. Data reviewed. I agree with the above note by the physician food and beverage assistant manager. 1. KENDALL * improved * Cr 2.49 * baseline around 2.5 * continue IVF * nephrology following. * Likely prerenal with patient's high output 2. Hyperkalemia * resolved * likely d/t above * monitor 3. chronic abdominal pain * AXR x2, * correction of 10/02 note: CT A/P was not negative, but showing SBO v ileus * UGI on 10/03 * will decrease dilaudid dose and frequency in this 73 year old * consider GES if UGI is negative and still with severe symptoms for evaluation of gastroparesis * add bentyl * change PPI to PO 4. High output ostomy * Likely over the patient's extensive bowel resections including a complete colectomy * Discussed with the patient that essentially is very profound inability to reabsorb fluids * C.diff and enteric pathogens negative * DC rifaxamin given potential drug rash * changed to imodium. if still with high-output, then start octeotide 100 mcg SQ TID 5. Hypomagnesemia * improved * 2/2 #4 * replace 6. Hypophosphatemia * improved * 2/2 #4 * replace 7. Left elbow bursitis * doubt infection * check xray * ortho will follow up as outpt 8. DVT proph: SCDs Code Visit Inpatient E&M: 68487 Subs Hosp L3
[2018-10-07] MEDS: 0.9% Normal Saline 1,000 ML 100 ML IV (17:15)
[2018-10-07] MEDS: 0.9% NaCl Peripheral Flush Adult/Peds IV (17:16)
[2018-10-07] MEDS: Loperamide 2 MG Capsule PO ×2 (17:17→23:50)
[2018-10-07] MEDS: Amitriptyline 25 MG Tablet PO (21:24)
[2018-10-07] MEDS: Pramipexole Di-HCl 1 MG Tablet PO (21:36)
[2018-10-08] VITALS (15 sets, daily range): BP systolic 112–158; BP diastolic 47–71; PULSE 39–78; RESP 16–18; TEMP 36.4–37.1; O2SAT 97–100
[2018-10-08] MEDS: 0.9% Normal Saline 1,000 ML 100 ML IV (02:22)
[2018-10-08] MEDS: Dicyclomine 10 MG Capsule PO ×2 (06:24→13:04)
[2018-10-08] MEDS: Levothyroxine 137 MCG Tablet 274 MCG PO (06:24)
[2018-10-08] MEDS: Acetaminophen 500 MG Tablet 1000 MG PO ×3 (06:25→21:31)
[2018-10-08] MEDS: Carbidopa/Levodopa 25/100 Tablet PO ×4 (06:25→21:30)
[2018-10-08] MEDS: Loperamide 2 MG Capsule PO ×4 (06:25→22:56)
[2018-10-08] MEDS: HYDROmorphone 2 MG TABLET PO ×3 (06:29→21:26)
[2018-10-08 06:57] LABS: Anion Gap 5 (5-15); BUN 31 mg/dL (7-18); BUN/Creat Ratio 13.9 RATIO (10-20); Calcium,Total 7.8 mg/dL (8.5-10.1); Chloride 123 mmol/L (98-107); Creatinine, Serum 2.23 mg/dL (0.70-1.30); EST Glomerular Filtration Rate 31 mL/min (>60); Est Glom Filt Rate - Afr Amer 38 mL/min (>60); Estimated Creatinine Clearance 27.42 ml/min; Glucose 99 mg/dL (74-106); Magnesium 1.6 mg/dL (1.6-2.6); Potassium 5.1 mmol/L (3.5-5.1); Sodium Level 145 mmol/L (136-145)
[2018-10-08 06:59] LABS: Phosphorus 2.5 mg/dL (2.5-4.9)
[2018-10-08] MEDS: Aspirin E.C. 81 MG Tablet PO (08:55)
[2018-10-08] MEDS: Allopurinol 100 MG Tablet 200 MG PO (08:57)
[2018-10-08] MEDS: Menthol/Lanolin/Calamine/Znox 113 GM Tube 1 APPLIC TOPICAL ×2 (08:58→22:26)
[2018-10-08] MEDS: Amiodarone 200 MG Tablet PO (08:59)
[2018-10-08] MEDS: Magnesium Oxide 400 MG Tablet PO ×2 (08:59→21:28)
[2018-10-08] MEDS: Nystatin Powder 15gm Bottle 1 APPLIC TOPICAL ×3 (09:00→21:29)
[2018-10-08] MEDS: Pantoprazole Sodium 40 MG Tablet PO (09:01)
[2018-10-08] MEDS: VILAZODONE HYDROCHLORIDE 20 MG TABLET 40 MG PO (09:02)
[2018-10-08] MEDS: Metoprolol(XL)Succ 25 MG Tablet PO (09:02)
[2018-10-08] MEDS: Sodium Bicarbonate 650 MG Tablet PO (09:02)
[2018-10-08] MEDS: oxyCODONE 5 MG Tablet PO (09:08)
--- NOTE | 2018-10-08 09:37 | PCM.PN.REN ---
Patient Problems: Active and Suspected Problems Hyperkalemia (Acute) Subjective: Pt said he still has watery stool output through colostomy bag No nausea No vomiting. mild abdominal pain - Physical Exam General: Alert, Oriented x3 HEENT: Atraumatic Oral: Moist Mucosa Neck: Supple, No JVD Lungs: Clear to auscultation, Normal air movement, No rhonchi, No wheeze Cardiovascular: Regular rate, Regular Rhythm, Normal S1, Normal S2 Abdomen: Bowel Sounds Present, Soft, Non Tender Extremities: No clubbing, No cyanosis, - - trace edema of LE Musculoskeletal: No Tenderness to Palpation of Joints or Extremities Lymphatic: No Cervical, Supraclavicular, or Inguinal Adenopathy Neurological: Cranial nerves II-XII grossly intact, Neuro grossly intact Psych/Mental Status: Normal Affect Vital Signs Temp Pulse Resp BP Pulse Ox 97.6 F L 66 18 158/71 H 100 10/08/18 08:52 10/08/18 09:02 10/08/18 08:52 10/08/18 09:02 10/08/18 08:52 Oxygen Delivery Method Room Air Weight: 66.9 kg Body Mass Index (BMI) 23.8 Finger Stick Blood Glucose 203 Intake and Output for Last 24 Hours 10/06/18 10/07/18 10/08/18 23:59 23:59 23:59 Intake Total 3583 / 3583 3080 / 3080 686 / 686 Output Total 4850 / 4850 4175 / 4175 1250 / 1250 Balance -1267 / -1267 -1095 / -1095 -564 / -564 Microbiology Past 72 Hours 10/04/18 14:10 Enteric Bacteriology - Final Stool Laboratory Tests Past 24 Hrs 10/08/18 10/08/18 05:52 05:52 Sodium 145 Potassium 5.1 Chloride 123 H Carbon Dioxide 17.0 L Anion Gap 5 BUN 31 H Creatinine 2.23 H Estim Creat Clear Calc 27.42 Est GFR (MDRD) Af Amer 38 L Est GFR (MDRD) Non-Af 31 L BUN/Creatinine Ratio 13.9 Glucose 99 Calcium 7.8 L Phosphorus 2.5 Magnesium 1.6 Medical Necessity - Tobacco Use Smoking Status: Former smoker Assessment/Plan All Active Problems SBO (small bowel obstruction) (Acute) Hyperkalemia (Acute) KENDALL (acute kidney injury) (Acute) DVT of upper extremity (deep vein thrombosis) (Ruled-out) Hyperkalemia (Resolved) Small Bowel Enterocut Fistula (Resolved) 1- KENDALL on CKD. Baseline Cr seems around 2.0-2.4 mg/dL KENDALL is from prerenal due to nausea/vomiting and decreased oral intake. FeNa ais less than 1% Cr is back to baseline. Now on IVF NS at 100 cc/hour. i will continue IVF since the patient still has high stool output Avoid ACEI/ARB Avoid diuretics Check renal function in am 2- Hyperkalemia: resolved On renal diet Check K in am 3- Hypomagnesemia :resolved with replacement 4- metabolic acidosis. due to diarrhea Will start NaCH03 650 mg TID 5- Diarrhea: C diff is negative. due to SBS management is as per the primary service Renal team will continue to follow D/W Dr. Brenda FLYNN MD
[2018-10-08] MEDS: 0.45% Normal Saline 1,000 ML 100 ML IV ×2 (10:28→21:10)
--- NOTE | 2018-10-08 11:04 | PCM.PROGNOTE ---
<Izaiah Dobbs - Last Filed: 10/08/18 11:04> Patient Problems: Active and Suspected Problems Hyperkalemia (Acute) Subjective: Pt resting comfortably in chair NAD. States his abdominal pain continues to improve. He is not nauseous and his heartburn has not returned. He is frustrated that he continues to have high volume output from his ostomy. No fevers or chills. There is swelling of his Left upper extremity. He does have a hx of upper ext DVT. - Physical Exam General: Alert, Oriented x3, Cooperative HEENT: Atraumatic, PERRLA, EOMI, Normocephalic Neck: Supple, No JVD, Negative Carotid Bruits Lungs: Clear to auscultation, Normal air movement Cardiovascular: Regular rate, No murmurs Abdomen: Bowel Sounds Present, Soft, Non Tender Extremities: No edema, Capillary Refill Less than 3 Seconds, Edema - LUE hand, left elbow. Skin: No rashes, No breakdown Musculoskeletal: No Tenderness to Palpation of Joints or Extremities Neurological: Cranial nerves II-XII grossly intact Psych/Mental Status: Normal Affect, Appropriate, Alert and oriented to time, place, person, mood and affect Vital Signs Temp Pulse Resp BP Pulse Ox 97.6 F L 66 18 158/71 H 100 10/08/18 08:52 10/08/18 09:02 10/08/18 08:52 10/08/18 09:02 10/08/18 08:52 Oxygen Delivery Method Room Air Weight: 147 lb 7.828 oz Body Mass Index (BMI) 23.8 Finger Stick Blood Glucose 203 Intake and Output for Last 24 Hours 10/06/18 10/07/18 10/08/18 23:59 23:59 23:59 Intake Total 3583 / 3583 3080 / 3080 686 / 686 Output Total 4850 / 4850 4175 / 4175 1250 / 1250 Balance -1267 / -1267 -1095 / -1095 -564 / -564 Microbiology Past 72 Hours 10/04/18 14:10 Enteric Bacteriology - Final Stool Laboratory Tests Past 24 Hrs 10/08/18 10/08/18 05:52 05:52 Sodium 145 Potassium 5.1 Chloride 123 H Carbon Dioxide 17.0 L Anion Gap 5 BUN 31 H Creatinine 2.23 H Estim Creat Clear Calc 27.42 Est GFR (MDRD) Af Amer 38 L Est GFR (MDRD) Non-Af 31 L BUN/Creatinine Ratio 13.9 Glucose 99 Calcium 7.8 L Phosphorus 2.5 Magnesium 1.6 Medical Necessity - Tobacco Use Smoking Status: Former smoker Assessment/Plan All Active Problems SBO (small bowel obstruction) (Acute) Hyperkalemia (Acute) KENDALL (acute kidney injury) (Acute) DVT of upper extremity (deep vein thrombosis) (Ruled-out) Hyperkalemia (Resolved) Small Bowel Enterocut Fistula (Resolved) 1. KENDALL - improving. Still high ostomy output. Stool studies negative. Renal/Surgery following. Continue immodium and fluids. Unfortunately volume of output remains high. Consider addition of octreotide. 2. Chronic abdominal pain - [place] following. possibly ileus, gastroparesis. SBFT per surgery - mild esophageal diverticulum. he passed Speech therapy eval without issues. Continue Carafate with eating. Still regurgitating. -greater than 3 L output stool yesterday. -High volume ostomy output contributing to #1 -DC'd xifaxan for rash/pruritis -C diff and enteric panel neg -lomotil didnt help, immmodium does not seem to be helping -Consider octreotide, will discuss with surgery. -TSH suppressed, but T4 normal. 3. Electrolyte disturbances 2/2 high output - improved, continue current therapy. 4. GERD - carafate, PPI. Reflux symptoms resolved. 5. Pancytopenia - unclear etiology. Pt states that a dealer sales rep in [place] wants him to have a bone marrow biopsy for this. 6. Hypothyroidism - Synthroid 7. Prediabetes - a1c 5.8. Carb controlled diet at [place]. 8. Bursitis - xray c/w bursitis. D/w antony, does not appear acutely infected. Continue TIMMY/Ice. No NSAIDs. 9. LUE edema - hx UE DVT - will obtain ultrasound. DVT ppx: SCDs This patient was seen by Izaiah Dobbs PA-C under the supervision of Dr. Gutierrez <Selena Gutierrez - Last Filed: 10/08/18 14:04> - Physical Exam Vital Signs Temp Pulse Resp BP Pulse Ox 97.9 F 63 18 134/62 H 100 10/08/18 13:00 10/08/18 13:00 10/08/18 13:00 10/08/18 13:00 10/08/18 13:00 Oxygen Delivery Method Room Air Weight: 147 lb 7.828 oz Body Mass Index (BMI) 23.8 Finger Stick Blood Glucose 203 Intake and Output for Last 24 Hours 10/06/18 10/07/18 10/08/18 23:59 23:59 23:59 Intake Total 3583 / 3583 3080 / 3080 1669 / 1669 Output Total 4850 / 4850 4175 / 4175 1450 / 1450 Balance -1267 / -1267 -1095 / -1095 219 / 219 Microbiology Past 72 Hours 10/04/18 14:10 Enteric Bacteriology - Final Stool Laboratory Tests Past 24 Hrs 10/07/18 10/08/18 10/08/18 05:53 05:52 05:52 Diff [address] Review Reviewed Sodium 145 Potassium 5.1 Chloride 123 H Carbon Dioxide 17.0 L Anion Gap 5 BUN 31 H Creatinine 2.23 H Estim Creat Clear Calc 27.42 Est GFR (MDRD) Af Amer 38 L Est GFR (MDRD) Non-Af 31 L BUN/Creatinine Ratio 13.9 Glucose 99 Calcium 7.8 L Phosphorus 2.5 Magnesium 1.6 Assessment/Plan Patient seen by Izaiah Dobbs PA-C under my supervision. Patient seen and examined. He still complains of high output from his ileostomy. He denies any fever, chills, cough, chest pain, SOB, abdominal pain or vomiting. Review of systems was otherwise negative. Labs and vitals reviewed. o/e: Vital Signs Height 5 ft 6 in Weight: 147 lb 7.828 oz Weight in Pounds 147.5 lbs Pulse Ox 100 Temperature 97.9 F Pulse Rate 63 Respiratory Rate 18 Blood Pressure [BP] 118/52 Blood Pressure 134/62 Blood Pressure Position [BP] Supine Blood Pressure Position Supine General: Alert, Oriented x3, Cooperative HEENT: Atraumatic, PERRLA, EOMI, Normocephalic Neck: Supple, No JVD, Negative Carotid Bruits Lungs: Clear to auscultation, Normal air movement Cardiovascular: Regular rate, No murmurs Abdomen: Bowel Sounds Present, Soft, Non Tender Extremities: No edema, Capillary Refill Less than 3 Seconds, mild edema of left hand (likely from extravasation of IVF in right hand). Skin: No rashes, No breakdown Musculoskeletal: No Tenderness to Palpation of Joints or Extremities Neurological: Cranial nerves II-XII grossly intact Psych/Mental Status: Normal Affect, Appropriate, Alert and oriented to time, place, person, mood and affect Assessment and plan Patient's creatinine has trended back down to his baseline so AK I on CKD has resolved. He still remains on 100 cc of 0.45 normal saline on account of the high output from ileostomy. Output from Ileostomy was 3 L yesterday. General surgery on board. Will await further recs. Bicarb is down to 17, with a normal anion gap, and so he was started on oral sodium bicarb 650 mg 3 times daily per Nephrology. Rest of management as per Izaiah HERNANDEZ-'s note Agree with note, assessment and plan as per Izaiah Dobbs PA-C Code Visit Inpatient E&M: 65707 Subs Hosp L3
--- NOTE | 2018-10-08 11:09 | VDUE_ITS ---
Reason For Study: SWELLING Left Proximal Left jugular vein is spontaneous, widely patent, phasic, with no intraluminal echogenicity noted. Left subclavian vein is spontaneous, widely patent, phasic, with no intraluminal echogenicity noted. Left Arm Left axillary vein is spontaneous, patent, phasic, competent, compressible and demonstrates augmentation. Left brachial vein is compressible. Left cephalic vein is compressible. L Cephalic V is thick-walled. Left basilic vein is compressible. Interpretation Summary Deep veins of the left upper extremity are patent and compressible segmentally. There is no evidence of deep vein thrombosis. The superficial veins of the left upper extremity, the basilic and cephalic veins, are patent and compressible. There is no evidence of left upper extremity superficial thrombophlebitis involving the veins imaged. Chronic vein wall thickening is noted in the left cephalic vein. A heterogeneous structure is noted in the left forearm measuring 1.96 cm x 2.70 cm. This may represent a hematoma. Clinical correlation is advised. Ordering Physician: Izaiah Dobbs Referring Physician: PARRIS LANZA Performed By: Frida Angela, PATY, RVT ?
[2018-10-08 12:59] LABS: Pathologist Review Reviewed
[2018-10-08] MEDS: hydrOXYzine PAM 25 MG Capsule 50 MG PO (13:03)
[2018-10-08] MEDS: Octreotide 0.1 MG/ML ML 0.05 MG IV ×2 (15:15→21:15)
[2018-10-08] MEDS: Dicyclomine 10 MG Capsule 40 MG PO (16:46)
[2018-10-08] MEDS: 0.9% NaCl Peripheral Flush Adult/Peds IV (21:15)
[2018-10-08] MEDS: Amitriptyline 25 MG Tablet PO (21:28)
[2018-10-08] MEDS: Pramipexole Di-HCl 1 MG Tablet PO (21:29)
[2018-10-09] VITALS (12 sets, daily range): BP systolic 114–167; BP diastolic 45–70; PULSE 50–67; RESP 17–20; TEMP 36.7–37.1; O2SAT 96–98
[2018-10-09] MEDS: Loperamide 2 MG Capsule PO ×3 (05:23→18:22)
[2018-10-09] MEDS: HYDROmorphone 2 MG TABLET PO ×3 (05:28→18:22)
[2018-10-09] MEDS: Levothyroxine 137 MCG Tablet PO (06:04)
[2018-10-09] MEDS: Dicyclomine 10 MG Capsule 40 MG PO ×3 (06:45→15:37)
[2018-10-09] MEDS: Acetaminophen 500 MG Tablet 1000 MG PO ×3 (06:45→21:39)
[2018-10-09] MEDS: Carbidopa/Levodopa 25/100 Tablet PO ×4 (06:46→21:38)
[2018-10-09] MEDS: 0.45% Normal Saline 1,000 ML 100 ML IV (07:40)
[2018-10-09 07:52] LABS: Anion Gap 8 (5-15); BUN 29 mg/dL (7-18); Calcium,Total 8.4 mg/dL (8.5-10.1); Chloride 120 mmol/L (98-107); Creatinine, Serum 2.07 mg/dL (0.70-1.30); EST Glomerular Filtration Rate 34 mL/min (>60); Est Glom Filt Rate - Afr Amer 41 mL/min (>60); Estimated Creatinine Clearance 29.54 ml/min; Glucose 84 mg/dL (74-106); Magnesium 1.5 mg/dL (1.6-2.6); Potassium 5.5 mmol/L (3.5-5.1); Sodium Level 145 mmol/L (136-145)
[2018-10-09] MEDS: hydrOXYzine PAM 25 MG Capsule 50 MG PO (10:37)
[2018-10-09] MEDS: Magnesium Oxide 400 MG Tablet PO ×2 (10:37→21:39)
[2018-10-09] MEDS: Aspirin E.C. 81 MG Tablet PO (10:38)
[2018-10-09] MEDS: Amiodarone 200 MG Tablet PO (10:38)
[2018-10-09] MEDS: Pantoprazole Sodium 40 MG Tablet PO (10:39)
[2018-10-09] MEDS: VILAZODONE HYDROCHLORIDE 20 MG TABLET 40 MG PO (10:44)
--- NOTE | 2018-10-09 10:50 | NURSING ---
spoke with christian in pharmacy regarding sandostatin- states he will clarify with md dhara.
--- NOTE | 2018-10-09 11:47 | NURSING ---
In to reassess the stoma. patient states this isn't the right appliance. states he has had quite a few leaks the past few days. states they are cutting the hole too big and using the wrong stuff. Discussed with patient that the hospital does not always have the same appliances that every patient uses. this nurse does have a few of the appliances that the patient uses. stoma measures approx 3/4 and is slightly oval in shape. peristomal skin is slightly macerated from the leaks. cleansed with warm water. pat dry. lightly dusted with stoma powder and applied a Coloplast convex 1 piece appliance with an Stephanie ring. applied Medipore tape to the edges of the appliance per patient request. will monitor.
[2018-10-09] MEDS: Octreotide 0.1 MG/ML ML SC ×2 (12:10→21:55)
--- NOTE | 2018-10-09 12:57 | PCM.PROGNOTE ---
<Izaiah Dobbs - Last Filed: 10/09/18 12:57> Patient Problems: Active and Suspected Problems Hyperkalemia (Acute) Subjective: Pt, , and daughter feels that he needs transferred to [facility]. Request placed. Pt has no new complaints. - Physical Exam General: Alert, Oriented x3, Cooperative HEENT: Atraumatic, PERRLA, EOMI, Normocephalic Neck: Supple, No JVD, Negative Carotid Bruits Lungs: Clear to auscultation, Normal air movement Cardiovascular: Regular rate, No murmurs Abdomen: Bowel Sounds Present, Soft, Non Tender Extremities: No edema, Capillary Refill Less than 3 Seconds Skin: No rashes, No breakdown Musculoskeletal: No Tenderness to Palpation of Joints or Extremities Neurological: Cranial nerves II-XII grossly intact Psych/Mental Status: Normal Affect, Appropriate, Alert and oriented to time, place, person, mood and affect Vital Signs Temp Pulse Resp BP Pulse Ox 98.7 F 63 20 H 144/56 H 96 10/09/18 10:20 10/09/18 11:35 10/09/18 10:20 10/09/18 10:20 10/09/18 10:20 Oxygen Delivery Method Room Air Weight: 147 lb 7.828 oz Body Mass Index (BMI) 23.8 Finger Stick Blood Glucose 203 Intake and Output for Last 24 Hours 10/07/18 10/08/18 10/09/18 23:59 23:59 23:59 Intake Total 3080 / 3080 3645 / 3645 703 / 703 Output Total 4175 / 4175 4925 / 4925 520 / 520 Balance -1095 / -1095 -1280 / -1280 183 / 183 Laboratory Tests Past 24 Hrs 10/07/18 10/09/18 05:53 06:51 Diff Path Review Reviewed Sodium 145 Potassium 5.5 H Chloride 120 H Carbon Dioxide 17.0 L Anion Gap 8 BUN 29 H Creatinine 2.07 H Estim Creat Clear Calc 29.54 Est GFR (MDRD) Af Amer 41 L Est GFR (MDRD) Non-Af 34 L BUN/Creatinine Ratio 14.0 Glucose 84 Calcium 8.4 L Magnesium 1.5 L Medical Necessity - Tobacco Use Smoking Status: Former smoker Assessment/Plan All Active Problems SBO (small bowel obstruction) (Acute) Hyperkalemia (Acute) KENDALL (acute kidney injury) (Acute) DVT of upper extremity (deep vein thrombosis) (Ruled-out) Hyperkalemia (Resolved) Small Bowel Enterocut Fistula (Resolved) 1. KENDALL - improving. Still high ostomy output. Stool studies negative. Renal/Surgery following. Titrate up Octreotide. 2. Chronic abdominal pain - [place] following. possibly ileus, gastroparesis. SBFT per surgery - mild esophageal diverticulum. he passed Speech therapy eval without issues. Continue Carafate with eating. Still regurgitating. -greater than 3 L output stool yesterday. -High volume ostomy output contributing to #1 -DC'd xifaxan for rash/pruritis -C diff and enteric panel neg -lomotil didnt help, immmodium does not seem to be helping -Increase octreotide to 100 sc bid. max dose 670 mcg / day divided 2-3 x per day -TSH suppressed, but T4 normal. 3. Electrolyte disturbances 2/2 high output - improved, continue current therapy. Pt refused albuterol for elevated K. Recheck this afternoon. Patient also refusing bicarb. Gap inc from 5-8. 4. GERD - carafate, PPI. Reflux symptoms resolved. 5. Pancytopenia - unclear etiology. 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 6. Hypothyroidism - Synthroid 7. Prediabetes - a1c 5.8. [place] 8. Bursitis - xray c/w bursitis. D/w antony, does not appear acutely infected. Continue TIMMY/Ice. No NSAIDs. 9. LUE edema - hx UE DVT - ultrasound with compressible veins. DVT ppx: SCDs DC planning: Pt and family insist on transfer to [facility]. Call placed to transfer line, waiting to hear back. This patient was seen by Izaiah Dobbs PA-C under the supervision of Dr. Gutierrez <Selena Gutierrez - Last Filed: 10/09/18 16:48> - Physical Exam Vital Signs Temp Pulse Resp BP Pulse Ox 98.5 F 64 18 167/52 H 98 10/09/18 15:34 10/09/18 15:54 10/09/18 15:34 10/09/18 15:34 10/09/18 15:34 Oxygen Delivery Method Room Air Weight: 147 lb 7.828 oz Body Mass Index (BMI) 23.8 Finger Stick Blood Glucose 203 Intake and Output for Last 24 Hours 10/07/18 10/08/18 10/09/18 23:59 23:59 23:59 Intake Total 3080 / 3080 3645 / 3645 1522 / 1522 Output Total 4175 / 4175 4925 / 4925 1820 / 1820 Balance -1095 / -1095 -1280 / -1280 -298 / -298 Laboratory Tests Past 24 Hrs 10/09/18 10/09/18 10/09/18 06:51 13:37 14:45 Sodium 145 Potassium 5.5 H Cancelled 5.6 H Chloride 120 H Carbon Dioxide 17.0 L Anion Gap 8 BUN 29 H Creatinine 2.07 H Estim Creat Clear Calc 29.54 Est GFR (MDRD) Af Amer 41 L Est GFR (MDRD) Non-Af 34 L BUN/Creatinine Ratio 14.0 Glucose 84 Calcium 8.4 L Magnesium 1.5 L Assessment/Plan Patient seen by Izaiah Dobbs PA-C under my supervision Patient seen and examined. He was concerned about pruritus and his Benadryl being stopped. He denied any fever or chills, cough or chest pain, shortness of breath, abdominal pain, diarrhea vomiting. Review of systems otherwise negative. Labs and vitals reviewed. Family requests transfer to [facility]. Still having 3 L of output from ileostomy o/e: Vitals: Vital Signs Height 5 ft 6 in Weight: 147 lb 7.828 oz Weight in Pounds 147.5 lbs Pulse Ox 96 Temperature 98.7 F Pulse Rate 63 Respiratory Rate 20 Blood Pressure [BP] 114/53 Blood Pressure 144/56 Blood Pressure Position [BP] Semi-Fowlers Blood Pressure Position Sitting [] General: Alert, Oriented x3, Cooperative HEENT: Atraumatic, PERRLA, EOMI, Normocephalic Neck: Supple, No JVD, Negative Carotid Bruits Lungs: Clear to auscultation, Normal air movement Cardiovascular: Regular rate, No murmurs Abdomen: Bowel Sounds Present, Soft, Non Tender Extremities: No edema, Capillary Refill Less than 3 Seconds, edema of left hand had resolved. mild edema of left hand (likely from extravasation of IVF in right hand). Skin: papular rash over torso from excessive scratching. Musculoskeletal: No Tenderness to Palpation of Joints or Extremities Neurological: Cranial nerves II-XII grossly intact Psych/Mental Status: Normal Affect, Appropriate, Alert and oriented to time, place, person, mood and affect Plan is to titrate up octreotide to reduce output. Patient and mom they request transfer to [facility]. [facility] transfer line informed and they accepted patient. Code Visit Inpatient E&M: 60934 Subs Hosp L3
--- NOTE | 2018-10-09 13:05 | PN_ITS ---
<Izaiah Dobbs - Last Filed: 10/09/18 12:57> Patient Problems: Active and Suspected Problems Hyperkalemia (Acute) Subjective: Pt, , and daughter feels that he needs transferred to [facility]. Request placed. Pt has no new complaints. - Physical Exam General: Alert, Oriented x3, Cooperative HEENT: Atraumatic, PERRLA, EOMI, Normocephalic Neck: Supple, No JVD, Negative Carotid Bruits Lungs: Clear to auscultation, Normal air movement Cardiovascular: Regular rate, No murmurs Abdomen: Bowel Sounds Present, Soft, Non Tender Extremities: No edema, Capillary Refill Less than 3 Seconds Skin: No rashes, No breakdown Musculoskeletal: No Tenderness to Palpation of Joints or Extremities Neurological: Cranial nerves II-XII grossly intact Psych/Mental Status: Normal Affect, Appropriate, Alert and oriented to time, place, person, mood and affect Vital Signs Temp Pulse Resp BP Pulse Ox 98.7 F 63 20 H 144/56 H 96 10/09/18 10:20 10/09/18 11:35 10/09/18 10:20 10/09/18 10:20 10/09/18 10:20 Oxygen Delivery Method Room Air Weight: 147 lb 7.828 oz Body Mass Index (BMI) 23.8 Finger Stick Blood Glucose 203 Intake and Output for Last 24 Hours 10/07/18 10/08/18 10/09/18 23:59 23:59 23:59 Intake Total 3080 / 3080 3645 / 3645 703 / 703 Output Total 4175 / 4175 4925 / 4925 520 / 520 Balance -1095 / -1095 -1280 / -1280 183 / 183 Laboratory Tests Past 24 Hrs 10/07/18 10/09/18 05:53 06:51 Diff Path Review Reviewed Sodium 145 Potassium 5.5 H Chloride 120 H Carbon Dioxide 17.0 L Anion Gap 8 BUN 29 H Creatinine 2.07 H Estim Creat Clear Calc 29.54 Est GFR (MDRD) Af Amer 41 L Est GFR (MDRD) Non-Af 34 L BUN/Creatinine Ratio 14.0 Glucose 84 Calcium 8.4 L Magnesium 1.5 L Medical Necessity - Tobacco Use Smoking Status: Former smoker Assessment/Plan All Active Problems SBO (small bowel obstruction) (Acute) Hyperkalemia (Acute) KENDALL (acute kidney injury) (Acute) DVT of upper extremity (deep vein thrombosis) (Ruled-out) Hyperkalemia (Resolved) Small Bowel Enterocut Fistula (Resolved) 1. KENDALL - improving. Still high ostomy output. Stool studies negative. Renal/Surgery following. Titrate up Octreotide. 2. Chronic abdominal pain - [place] following. possibly ileus, gastroparesis. SBFT per surgery - mild esophageal diverticulum. he passed Speech therapy eval without issues. Continue Carafate with eating. Still regurgitating. -greater than 3 L output stool yesterday. -High volume ostomy output contributing to #1 -DC'd xifaxan for rash/pruritis -C diff and enteric panel neg -lomotil didnt help, immmodium does not seem to be helping -Increase octreotide to 100 sc bid. max dose 670 mcg / day divided 2-3 x per day -TSH suppressed, but T4 normal. 3. Electrolyte disturbances 2/2 high output - improved, continue current therapy. Pt refused albuterol for elevated K. Recheck this afternoon. Patient also refusing bicarb. Gap inc from 5-8. 4. GERD - carafate, PPI. Reflux symptoms resolved. 5. Pancytopenia - unclear etiology. 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 6. Hypothyroidism - Synthroid 7. Prediabetes - a1c 5.8. [place] 8. Bursitis - xray c/w bursitis. D/w antony, does not appear acutely infected. Continue TIMMY/Ice. No NSAIDs. 9. LUE edema - hx UE DVT - ultrasound with compressible veins. DVT ppx: SCDs DC planning: Pt and family insist on transfer to [facility]. Call placed to transfer line, waiting to hear back. This patient was seen by Izaiah Dobbs PA-C under the supervision of Dr. Gutierrez <Selena Gutierrez - Last Filed: 10/09/18 16:48> - Physical Exam Vital Signs Temp Pulse Resp BP Pulse Ox 98.5 F 64 18 167/52 H 98 10/09/18 15:34 10/09/18 15:54 10/09/18 15:34 10/09/18 15:34 10/09/18 15:34 Oxygen Delivery Method Room Air Weight: 147 lb 7.828 oz Body Mass Index (BMI) 23.8 Finger Stick Blood Glucose 203 Intake and Output for Last 24 Hours 10/07/18 10/08/18 10/09/18 23:59 23:59 23:59 Intake Total 3080 / 3080 3645 / 3645 1522 / 1522 Output Total 4175 / 4175 4925 / 4925 1820 / 1820 Balance -1095 / -1095 -1280 / -1280 -298 / -298 Laboratory Tests Past 24 Hrs 10/09/18 10/09/18 10/09/18 06:51 13:37 14:45 Sodium 145 Potassium 5.5 H Cancelled 5.6 H Chloride 120 H Carbon Dioxide 17.0 L Anion Gap 8 BUN 29 H Creatinine 2.07 H Estim Creat Clear Calc 29.54 Est GFR (MDRD) Af Amer 41 L Est GFR (MDRD) Non-Af 34 L BUN/Creatinine Ratio 14.0 Glucose 84 Calcium 8.4 L Magnesium 1.5 L Assessment/Plan Patient seen by Izaiah Dobbs PA-C under my supervision Patient seen and examined. He was concerned about pruritus and his Benadryl being stopped. He denied any fever or chills, cough or chest pain, shortness of breath, abdominal pain, diarrhea vomiting. Review of systems otherwise negative. Labs and vitals reviewed. Family requests transfer to [facility]. Still having 3 L of output from ileostomy o/e: Vitals: Vital Signs Height 5 ft 6 in Weight: 147 lb 7.828 oz Weight in Pounds 147.5 lbs Pulse Ox 96 Temperature 98.7 F Pulse Rate 63 Respiratory Rate 20 Blood Pressure [BP] 114/53 Blood Pressure 144/56 Blood Pressure Position [BP] Semi-Fowlers Blood Pressure Position Sitting [] General: Alert, Oriented x3, Cooperative HEENT: Atraumatic, PERRLA, EOMI, Normocephalic Neck: Supple, No JVD, Negative Carotid Bruits Lungs: Clear to auscultation, Normal air movement Cardiovascular: Regular rate, No murmurs Abdomen: Bowel Sounds Present, Soft, Non Tender Extremities: No edema, Capillary Refill Less than 3 Seconds, edema of left hand had resolved. mild edema of left hand (likely from extravasation of IVF in right hand). Skin: papular rash over torso from excessive scratching. Musculoskeletal: No Tenderness to Palpation of Joints or Extremities Neurological: Cranial nerves II-XII grossly intact Psych/Mental Status: Normal Affect, Appropriate, Alert and oriented to time, place, person, mood and affect Plan is to titrate up octreotide to reduce output. Patient and mom they request transfer to [facility]. [facility] transfer line informed and they accepted patient. Code Visit Inpatient E&M: 70020 Subs Hosp L3
[2018-10-09] MEDS: oxyCODONE 5 MG Tablet PO (13:49)
--- NOTE | 2018-10-09 14:08 | PCM.DC.SUM ---
<Izaiah Dobbs - Last Filed: 10/09/18 14:19> Discharge Date and Diagnosis - Problem List Patient Problems: Active and Suspected Problems Hyperkalemia (Acute) Date of Admission: 09/30/18 Date of Discharge: 10/09/18 - Primary Discharge Diagnosis Active and Suspected Problems KENDALL 2/2 High volume ileostomy output Ilestomy 2/2 diverticulitis colon resection 2010 Hyperkalemia (Acute) Hypomagnesemia Hypophosphatemia Chronic abdominal pain GERD Regurgitation of food 2/2 esophageal diverticulum Hx esophageal strictures Paroxysmal Afib Hx CAD Left aseptic bursitis Hypothyroidism Prediabetes a1c 5.8. Depression Hx Gout Questionable COPD hx. - Secondary Discharge Diagnosis Chronic Problems Venous stasis dermatitis (Chronic) Stroke (Chronic) Coronary artery disease (Chronic) Hypertension (Chronic) Hyperlipidemia (Chronic) Chronic kidney disease (Chronic) Anemia of chronic disease (Chronic) Diabetes mellitus (Chronic) Gout (Chronic) Chronic pain (Chronic) Hypogonadism (Chronic) Depression (Chronic) GERD (gastroesophageal reflux disease) (Chronic) Acute kidney injury superimposed on chronic kidney disease (Chronic) Paroxysmal atrial flutter (Chronic) Thrombocytopenia (Chronic) Anemia of chronic disorder (Chronic) Atrial flutter (Chronic) Benign essential hypertension (Chronic) Chronic diarrhea (Chronic) History of coronary artery bypass graft (Chronic) Diabetes mellitus, type 2 (Chronic) Hypothyroidism (Chronic) Parkinson's disease (Chronic) Rheumatoid arthritis (Chronic) Edema of lower extremity (Chronic) Opiate dependence (Chronic) Personality disorder (Chronic) Chronic obstructive lung disease (Chronic) 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 CT/Abdomen/Pelvis without Cont IMPRESSION: Distended loops of small bowel consider ileus versus early partial small bowel obstruction. Status post colectomy. Status post left lower colostomy. Stable bilateral renal cysts Status post sternotomy. Lumbar spine fusion right hip arthroplasty. Possible gallstone in the dependent portion of the gallbladder versus artifact. Advanced degenerative change L2-3 RAD/Abd Inc Decub and/or Erect IMPRESSION: Nonspecific bowel gas pattern. US/Kidney and Bladder IMPRESSION: Bilateral renal cysts. Stable since prior studies. Nonobstructing right renal stone. RAD/Abd Inc Decub and/or Erect IMPRESSION: Nonobstructive bowel gas pattern. No free air is seen. RAD/Upper GI/w Small Bowel IMPRESSION: Gastroesophageal reflux. 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 Multiple small bowel diverticula more prominent in the jejunum. RAD/Elbow 2 Views IMPRESSION: Soft tissue swelling as above may represent bursitis. Mild edema. Mild degenerative changes. Consultations 10/03/18 07:57 Consult: Onc/Wound/roughener Routine Comment: Reason for Consult:: Patient Has Ostomy, has been leaking since admit. 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 CT showed possible ileus, and he had KENDALL with Cr 7.12 with baseline near 2, and hyperkalemia. He was admitted to the PCU on tele with consults to general surgery ([place]) [facility] He was given iv fluids and electrolyte management and his renal function responded well. He underwent an upper gi xray series and was found to have esophageal stricture. Diet was advanced and follow up KUBs did not suggest ileus. He tolerated a diet with decreased abdominal pain. He had regurgitation of food occasionally although he did well with speech therapy, this was felt 2/2 the diverticulum. He had some reflux symptoms and carafate was restarted (had been taken off recently). He had high ostomy output >3L per day. Surgery was concerned he may have small bowel bacterial overgrowth. A hydrogen breath test is not available here. Surgery trialed him on rifaximin, and he developed upper extremity pruritic rash so this was discontinued. Fluids were discontinued, and unfortunately with the high ostomy output his renal function worsened, and he required going back on fluids. We attempted immodium and lomotil with no improvement in ostomy output, and then tried starting titrating up octreotide. During this process he, his , and daughter became frustrated with his lack of progress and requested transfer to the [facility] where he has been treated before. [facility] was contacted and agreed to take the patient for further management. Also of note, at the time of discharge he has been advanced to ad libidum diet, and his abdominal pain is overall improved, he has no nausea, no heartburn, and occsaional regurgitation of food. While here he developed swelling of the left elbow, and xray confirmed bursitis, it appeared aseptic. Ortho Dr. Perez was consulted and he recommended conservative therapy and outpatient follow up - he was provided with ICE and compression via TIMMY wrap with moderate improvement thus far. He had later left hand swelling, and a venous duplex US of the LUE was obtained as he has a hx of DVT/PE, no clot was detected. Prior to DC he was started on bicarb as his gap was decreasing, however he refused to take this. He was discharged to [facility] in stable condition. This patient was seen by Izaiah Dobbs PA-C under the supervision of Dr. Gutierrez. [] Patient Problems: Active and Suspected Problems Hyperkalemia (Acute) - Physical Exam General: Alert, Oriented x3, Cooperative HEENT: Atraumatic, PERRLA, EOMI, Normocephalic Neck: Supple, No JVD, Negative Carotid Bruits Lungs: Clear to auscultation, Normal air movement Cardiovascular: Regular rate, No murmurs Abdomen: Bowel Sounds Present, Soft, Non Tender Extremities: No edema, Capillary Refill Less than 3 Seconds Skin: No rashes, No breakdown Musculoskeletal: No Tenderness to Palpation of Joints or Extremities Neurological: Cranial nerves II-XII grossly intact Psych/Mental Status: Normal Affect, Appropriate Vital Signs Temp Pulse Resp BP Pulse Ox 98.7 F 63 20 H 144/56 H 96 10/09/18 10:20 10/09/18 11:35 10/09/18 10:20 10/09/18 10:20 10/09/18 10:20 Oxygen Delivery Method Room Air Weight: 147 lb 7.828 oz Body Mass Index (BMI) 23.8 Finger Stick Blood Glucose 203 Intake and Output for Last 24 Hours 10/07/18 10/08/18 10/09/18 23:59 23:59 23:59 Intake Total 3080 / 3080 3645 / 3645 1522 / 1522 Output Total 4175 / 4175 4925 / 4925 1120 / 1120 Balance -1095 / -1095 -1280 / -1280 402 / 402 Laboratory Tests Past 24 Hrs 10/09/18 10/09/18 06:51 13:37 Sodium 145 Potassium 5.5 H Pending Chloride 120 H Carbon Dioxide 17.0 L Anion Gap 8 BUN 29 H Creatinine 2.07 H Estim Creat Clear Calc 29.54 Est GFR (MDRD) Af Amer 41 L Est GFR (MDRD) Non-Af 34 L BUN/Creatinine Ratio 14.0 Glucose 84 Calcium 8.4 L Magnesium 1.5 L Discharge Diet: 1800 Calorie Control Diet Discharge Activity: Return to Normal Activity Home Medications: Medications to take at Discharge Acetaminophen/Butalbital/Caffe [Fioricet] 1 tablet PO BID PRN 06/06/17 Allopurinol 200 mg PO DAILY 06/06/17 Amiodarone HCl [Pacerone] 200 mg PO DAILY 06/06/17 Diphenhydramine HCl [Benadryl Allergy] 25 mg PO Q6H PRN 06/06/17 Hydromorphone HCl [Dilaudid] 4 mg PO DAILY PRN 06/06/17 Levothyroxine [Synthroid] 137 mcg PO [id number] 06/06/17 Morphine Sulfate [Morphine Sulfate ER] 30 mg PO Q8H PRN 06/06/17 Pramipexole Di-HCl [Mirapex] 1 mg PO QHS 06/06/17 Testosterone Cypionate [Depo-Testosterone] 200 mg IM Q14D 06/06/17 Vilazodone Hydrochloride [Viibryd] 40 mg PO DAILY 06/06/17 proMETHazine tablet [Phenergan tablet] 25 mg PO Q4H PRN PRN 06/06/17 Amitriptyline HCl 25 mg PO QHS 12/11/17 Entacapone [Comtan] 200 mg PO Q6H 12/11/17 Furosemide [Lasix] 10 mg PO DAILY 01/02/18 Levothyroxine [Synthroid] 274 mcg PO MOTH 01/02/18 Apremilast [Otezla] 30 mg PO BID 02/19/18 Cholecalciferol (Vitamin D3) [Vitamin D3] 5,000 unit PO DAILY 02/19/18 Cyanocobalamin [Vitamin B12] 1,000 mcg IM Q30D 02/19/18 Metoprolol Succinate 25 mg PO DAILY 02/19/18 Oxygen, Home [Home Oxygen] 2 lpm NASAL DAILY PRN 02/19/18 Zinc Sulfate (50mg elemental) [Zinc Sulfate] 220 mg PO DAILY 02/19/18 hydrOXYzine pamoate capsule [Vistaril pamoate capsule] 50 mg PO TID PRN PRN #30 cap 07/22/18 Amlodipine [Norvasc] 5 - 10 mg PO DAILY 08/17/18 Codeine 30 mg PO QODAY 08/17/18 Levalbuterol HCl [Xopenex] 3 ml INHALATION Q4H PRN PRN 08/17/18 Omeprazole 40 mg PO DAILY 08/17/18 Menthol/Lanolin/Calamine/Znox [Calmoseptine Ointment] 1 applic TOPICAL BID tube 08/27/18 Polyethylene Glycol 3350 [Miralax] 17 gm PO BID PRN packet 08/27/18 Aspirin [Aspirin EC] 81 mg PO DAILY 09/30/18 Carbidopa/Levodopa [Carbidopa-Levo 25-100 mg Odt] 1 each PO 4X/DAY 09/30/18 Fluticasone 220 Mcg [Flovent (SP)] 2 puff INHALATION BID 09/30/18 Magnesium Chloride [Slow-Mag] 71.5 mg PO BID 09/30/18 Nystatin Powder [Mycostatin Powder] 1 applic TOPICAL 4X/DAY 09/30/18 Triamcinolone 0.1% Cream [Kenalog] 1 applic TP DAILY PRN 09/30/18 Primary Care Physician: Yovani Cantu MD [Primary Care Provider] - Please follow up with your Primary Care Physician in: 2 weeks Additional Instructions: Additional care and follow up as directed by [facility] main. Disposition: Acute care Hospital Minutes spent on discharge:: 40 Patient Condition:: Stable Medical Necessity - Tobacco Use Smoking Status: Former smoker Meaningful Use Info Meaningful Use Diagnoses (Choose all that apply): None applicable <Selena Gutierrez - Last Filed: 10/09/18 15:35> Discharge Date and Diagnosis - Primary Discharge Diagnosis Active and Suspected Problems Hyperkalemia (Acute) - Secondary Discharge Diagnosis Chronic Problems Venous stasis dermatitis (Chronic) Stroke (Chronic) Coronary artery disease (Chronic) Hypertension (Chronic) Hyperlipidemia (Chronic) Chronic kidney disease (Chronic) Anemia of chronic disease (Chronic) Diabetes mellitus (Chronic) Gout (Chronic) Chronic pain (Chronic) Hypogonadism (Chronic) Depression (Chronic) GERD (gastroesophageal reflux disease) (Chronic) Acute kidney injury superimposed on chronic kidney disease (Chronic) Paroxysmal atrial flutter (Chronic) Thrombocytopenia (Chronic) Anemia of chronic disorder (Chronic) Atrial flutter (Chronic) Benign essential hypertension (Chronic) Chronic diarrhea (Chronic) History of coronary artery bypass graft (Chronic) Diabetes mellitus, type 2 (Chronic) Hypothyroidism (Chronic) Parkinson's disease (Chronic) Rheumatoid arthritis (Chronic) Edema of lower extremity (Chronic) Opiate dependence (Chronic) Personality disorder (Chronic) Chronic obstructive lung disease (Chronic) 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 Summary of Care Provided: Patient seen by Izaiah Dobbs PA-C under my supervision The patient is a 73 year old M with an extensive past medical history as listed above. He was admitted through the ED with a complaint of worsening abdominal pain, weakness and difficulty swallowing. CT of the abdomen showed possible ileus and he had severe KENDALL-on-CKD with creatinine up to 7.12 with a baseline of around 2. He was hydrated with IV fluids and general surgery was consulted on account of possible right history of small bowel obstruction. He was hydrated with IV fluids and will set up an upper GI x-ray series which showed an esophageal stricture. Patient was subsequently noted to have very high output from his ileostomy having up to 3 L output daily. This necessitated constant IV fluid administration as a sinus fluid was tapered off, creatinine trended up. There is a suspicion for small bowel bacterial overgrowth due to short gut syndrome as a consequence of his colectomy. He was started on Imodium and Lomotil but these were not effective in bringing out the output and so he was eventually transitioned to IV octreotide. He had received 1 days course of IV octreotide and output is still not reduced. Plan was to titrate dose of octreotide upwards. However patient insisted on being transferred to [facility] for further management. [facility] was contacted and agreed to take patient. He has been discharged to [facility] and is follow-up with his primary care doctor and general surgeon. Patient seen and examined prior to discharge. He was concerned about pruritus versus Benadryl have been stopped. He denied any fever or chills, cough or chest pain, shortness of breath, abdominal pain, diarrhea vomiting. Review of systems otherwise negative. Labs and vitals reviewed. Home meds reviewed and reconciled. o/e: Vitals: Vital Signs Height 5 ft 6 in Weight: 147 lb 7.828 oz Weight in Pounds 147.5 lbs Pulse Ox 96 Temperature 98.7 F Pulse Rate 63 Respiratory Rate 20 Blood Pressure [BP] 114/53 Blood Pressure 144/56 Blood Pressure Position [BP] Semi-Fowlers Blood Pressure Position Sitting [] General: Alert, Oriented x3, Cooperative HEENT: Atraumatic, PERRLA, EOMI, Normocephalic Neck: Supple, No JVD, Negative Carotid Bruits Lungs: Clear to auscultation, Normal air movement Cardiovascular: Regular rate, No murmurs Abdomen: Bowel Sounds Present, Soft, Non Tender Extremities: No edema, Capillary Refill Less than 3 Seconds, edema of left hand had resolved. mild edema of left hand (likely from extravasation of IVF in right hand). Skin: papular rash over torso from excessive scratching. Musculoskeletal: No Tenderness to Palpation of Joints or Extremities Neurological: Cranial nerves II-XII grossly intact Psych/Mental Status: Normal Affect, Appropriate, Alert and oriented to time, place, person, mood and affect Plan as detailed above. - Physical Exam Vital Signs Temp Pulse Resp BP Pulse Ox 98.7 F 63 20 H 144/56 H 96 10/09/18 10:20 10/09/18 11:35 10/09/18 10:20 10/09/18 10:20 10/09/18 10:20 Oxygen Delivery Method Room Air Weight: 147 lb 7.828 oz Body Mass Index (BMI) 23.8 Finger Stick Blood Glucose 203 Intake and Output for Last 24 Hours 10/07/18 10/08/18 10/09/18 23:59 23:59 23:59 Intake Total 3080 / 3080 3645 / 3645 1522 / 1522 Output Total 4175 / 4175 4925 / 4925 1820 / 1820 Balance -1095 / -1095 -1280 / -1280 -298 / -298 Laboratory Tests Past 24 Hrs 10/09/18 10/09/18 10/09/18 06:51 13:37 14:45 Sodium 145 Potassium 5.5 H Cancelled 5.6 H Chloride 120 H Carbon Dioxide 17.0 L Anion Gap 8 BUN 29 H Creatinine 2.07 H Estim Creat Clear Calc 29.54 Est GFR (MDRD) Af Amer 41 L Est GFR (MDRD) Non-Af 34 L BUN/Creatinine Ratio 14.0 Glucose 84 Calcium 8.4 L Magnesium 1.5 L Code Visit Inpatient E&M: 03323 Disch Hosp
--- NOTE | 2018-10-09 14:11 | DS.PCM_ITS ---
<Izaiah Dobbs - Last Filed: 10/09/18 14:19> Discharge Date and Diagnosis - Problem List Patient Problems: Active and Suspected Problems Hyperkalemia (Acute) Date of Admission: 09/30/18 Date of Discharge: 10/09/18 - Primary Discharge Diagnosis Active and Suspected Problems KENDALL 2/2 High volume ileostomy output Ilestomy 2/2 diverticulitis colon resection 2010 Hyperkalemia (Acute) Hypomagnesemia Hypophosphatemia Chronic abdominal pain GERD Regurgitation of food 2/2 esophageal diverticulum Hx esophageal strictures Paroxysmal Afib Hx CAD Left aseptic bursitis Hypothyroidism Prediabetes a1c 5.8. Depression Hx Gout Questionable COPD hx. - Secondary Discharge Diagnosis Chronic Problems Venous stasis dermatitis (Chronic) Stroke (Chronic) Coronary artery disease (Chronic) Hypertension (Chronic) Hyperlipidemia (Chronic) Chronic kidney disease (Chronic) Anemia of chronic disease (Chronic) Diabetes mellitus (Chronic) Gout (Chronic) Chronic pain (Chronic) Hypogonadism (Chronic) Depression (Chronic) GERD (gastroesophageal reflux disease) (Chronic) Acute kidney injury superimposed on chronic kidney disease (Chronic) Paroxysmal atrial flutter (Chronic) Thrombocytopenia (Chronic) Anemia of chronic disorder (Chronic) Atrial flutter (Chronic) Benign essential hypertension (Chronic) Chronic diarrhea (Chronic) History of coronary artery bypass graft (Chronic) Diabetes mellitus, type 2 (Chronic) Hypothyroidism (Chronic) Parkinson's disease (Chronic) Rheumatoid arthritis (Chronic) Edema of lower extremity (Chronic) Opiate dependence (Chronic) Personality disorder (Chronic) Chronic obstructive lung disease (Chronic) 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 CT/Abdomen/Pelvis without Cont IMPRESSION: Distended loops of small bowel consider ileus versus early partial small bowel obstruction. Status post colectomy. Status post left lower colostomy. Stable bilateral renal cysts Status post sternotomy. Lumbar spine fusion right hip arthroplasty. Possible gallstone in the dependent portion of the gallbladder versus artifact. Advanced degenerative change L2-3 RAD/Abd Inc Decub and/or Erect IMPRESSION: Nonspecific bowel gas pattern. US/Kidney and Bladder IMPRESSION: Bilateral renal cysts. Stable since prior studies. Nonobstructing right renal stone. RAD/Abd Inc Decub and/or Erect IMPRESSION: Nonobstructive bowel gas pattern. No free air is seen. RAD/Upper GI/w Small Bowel IMPRESSION: Gastroesophageal reflux. 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 Multiple small bowel diverticula more prominent in the jejunum. RAD/Elbow 2 Views IMPRESSION: Soft tissue swelling as above may represent bursitis. Mild edema. Mild degenerative changes. Consultations 10/03/18 07:57 Consult: Onc/Wound/nursing coordinator Routine Comment: Reason for Consult:: Patient Has Ostomy, has been leaking since admit. Operations: None Procedures: None Summary of Care Provided: The patient is a 73 year old M with pmhx of CAD, PAfib, GERD, Hypothyroidism, parkinsons, with GI hx significant for colectomy for diverticulitis in 2010 with termination clerk ilesotomy, GERD, esophageal strictures, chronic abdominal pain, who presented to the ER with c/o worsening of chronic abdominal pain, weakness, and difficulty swallowing. CT showed possible ileus, and he had KENDALL with Cr 7.12 with baseline near 2, and hyperkalemia. He was admitted to the PCU on tele with consults to general surgery ([place]) [facility] He was given iv fluids and electrolyte management and his renal function responded well. He underwent an upper gi xray series and was found to have esophageal stricture. Diet was advanced and follow up KUBs did not suggest ileus. He tolerated a diet with decreased abdominal pain. He had regurgitation of food occasionally although he did well with speech therapy, this was felt 2/2 the diverticulum. He had some reflux symptoms and carafate was restarted (had been taken off recently). He had high ostomy output >3L per day. Surgery was concerned he may have small bowel bacterial overgrowth. A hydrogen breath test is not available here. Surgery trialed him on rifaximin, and he developed upper extremity pruriti c rash so this was discontinued. Fluids were discontinued, and unfortunately with the high ostomy output his renal function worsened, and he required going back on fluids. We attempted immodium and lomotil with no improvement in ostomy output, and then tried starting titrating up octreotide. During this process he, his , and daughter became frustrated with his lack of progress and requested transfer to [facility] where he [facility] been [facility] before. [facility] was contacted and agreed to take the patient for further management. Also of note, at the time of discharge he has been advanced to ad libidum diet, and his abdominal pain is overall improved, he has no nausea, no heartburn, and occsaional regurgitation of food. While here he developed swelling of the left elbow, and xray confirmed bursitis, it appeared aseptic. Ortho Dr. Perez was consulted and he recommended conservative therapy and outpatient follow up - he was provided with ICE and compression via TIMMY wrap with moderate improvement thus far. He had later left hand swelling, and a venous duplex US of the LUE was obtained as he has a hx of DVT/PE, no clot was detected. Prior to DC he was started on bicarb as his gap was decreasing, however he refused to take this. He was discharged to [facility] in stable condition. This patient was seen by Izaiah Dobbs PA-C under the supervision of Dr. Gutierrez. [] Patient Problems: Active and Suspected Problems Hyperkalemia (Acute) - Physical Exam General: Alert, Oriented x3, Cooperative HEENT: Atraumatic, PERRLA, EOMI, Normocephalic Neck: Supple, No JVD, Negative Carotid Bruits Lungs: Clear to auscultation, Normal air movement Cardiovascular: Regular rate, No murmurs Abdomen: Bowel Sounds Present, Soft, Non Tender Extremities: No edema, Capillary Refill Less than 3 Seconds Skin: No rashes, No breakdown Musculoskeletal: No Tenderness to Palpation of Joints or Extremities Neurological: Cranial nerves II-XII grossly intact Psych/Mental Status: Normal Affect, Appropriate Vital Signs Temp Pulse Resp BP Pulse Ox 98.7 F 63 20 H 144/56 H 96 10/09/18 10:20 10/09/18 11:35 10/09/18 10:20 10/09/18 10:20 10/09/18 10:20 Oxygen Delivery Method Room Air Weight: 147 lb 7.828 oz Body Mass Index (BMI) 23.8 Finger Stick Blood Glucose 203 Intake and Output for Last 24 Hours 10/07/18 10/08/18 10/09/18 23:59 23:59 23:59 Intake Total 3080 / 3080 3645 / 3645 1522 / 1522 Output Total 4175 / 4175 4925 / 4925 1120 / 1120 Balance -1095 / -1095 -1280 / -1280 402 / 402 Laboratory Tests Past 24 Hrs 10/09/18 10/09/18 06:51 13:37 Sodium 145 Potassium 5.5 H Pending Chloride 120 H Carbon Dioxide 17.0 L Anion Gap 8 BUN 29 H Creatinine 2.07 H Estim Creat Clear Calc 29.54 Est GFR (MDRD) Af Amer 41 L Est GFR (MDRD) Non-Af 34 L BUN/Creatinine Ratio 14.0 Glucose 84 Calcium 8.4 L Magnesium 1.5 L Discharge Diet: 1800 Calorie Control Diet Discharge Activity: Return to Normal Activity Home Medications: Medications to take at Discharge Acetaminophen/Butalbital/Caffe [Fioricet] 1 tablet PO BID PRN 06/06/17 Allopurinol 200 mg PO DAILY 06/06/17 Amiodarone HCl [Pacerone] 200 mg PO DAILY 06/06/17 Diphenhydramine HCl [Benadryl Allergy] 25 mg PO Q6H PRN 06/06/17 Hydromorphone HCl [Dilaudid] 4 mg PO DAILY PRN 06/06/17 Levothyroxine [Synthroid] 137 mcg PO [id number] 06/06/17 Morphine Sulfate [Morphine Sulfate ER] 30 mg PO Q8H PRN 06/06/17 Pramipexole Di-HCl [Mirapex] 1 mg PO QHS 06/06/17 Testosterone Cypionate [Depo-Testosterone] 200 mg IM Q14D 06/06/17 Vilazodone Hydrochloride [Viibryd] 40 mg PO DAILY 06/06/17 proMETHazine tablet [Phenergan tablet] 25 mg PO Q4H PRN PRN 06/06/17 Amitriptyline HCl 25 mg PO QHS 12/11/17 Entacapone [Comtan] 200 mg PO Q6H 12/11/17 Furosemide [Lasix] 10 mg PO DAILY 01/02/18 Levothyroxine [Synthroid] 274 mcg PO MOTH 01/02/18 Apremilast [Otezla] 30 mg PO BID 02/19/18 Cholecalciferol (Vitamin D3) [Vitamin D3] 5,000 unit PO DAILY 02/19/18 Cyanocobalamin [Vitamin B12] 1,000 mcg IM Q30D 02/19/18 Metoprolol Succinate 25 mg PO DAILY 02/19/18 Oxygen, Home [Home Oxygen] 2 lpm NASAL DAILY PRN 02/19/18 Zinc Sulfate (50mg elemental) [Zinc Sulfate] 220 mg PO DAILY 02/19/18 hydrOXYzine pamoate capsule [Vistaril pamoate capsule] 50 mg PO TID PRN PRN #30 cap 07/22/18 Amlodipine [Norvasc] 5 - 10 mg PO DAILY 08/17/18 Codeine 30 mg PO QODAY 08/17/18 Levalbuterol HCl [Xopenex] 3 ml INHALATION Q4H PRN PRN 08/17/18 Omeprazole 40 mg PO DAILY 08/17/18 Menthol/Lanolin/Calamine/Znox [Calmoseptine Ointment] 1 applic TOPICAL BID tube 08/27/18 Polyethylene Glycol 3350 [Miralax] 17 gm PO BID PRN packet 08/27/18 Aspirin [Aspirin EC] 81 mg PO DAILY 09/30/18 Carbidopa/Levodopa [Carbidopa-Levo 25-100 mg Odt] 1 each PO 4X/DAY 09/30/18 Fluticasone 220 Mcg [Flovent (SP)] 2 puff INHALATION BID 09/30/18 Magnesium Chloride [Slow-Mag] 71.5 mg PO BID 09/30/18 Nystatin Powder [Mycostatin Powder] 1 applic TOPICAL 4X/DAY 09/30/18 Triamcinolone 0.1% Cream [Kenalog] 1 applic TP DAILY PRN 09/30/18 Primary Care Physician: Yovani Cantu MD [Primary Care Provider] - Please follow up with your Primary Care Physician in: 2 weeks Additional Instructions: Additional care and follow up as directed by [facility] main. Disposition: Acute care Hospital Minutes spent on discharge:: 40 Patient Condition:: Stable Medical Necessity - Tobacco Use Smoking Status: Former smoker Meaningful Use Info Meaningful Use Diagnoses (Choose all that apply): None applicable <Selena Gutierrez - Last Filed: 10/09/18 15:35> Discharge Date and Diagnosis - Primary Discharge Diagnosis Active and Suspected Problems Hyperkalemia (Acute) - Secondary Discharge Diagnosis Chronic Problems Venous stasis dermatitis (Chronic) Stroke (Chronic) Coronary artery disease (Chronic) Hypertension (Chronic) Hyperlipidemia (Chronic) Chronic kidney disease (Chronic) Anemia of chronic disease (Chronic) Diabetes mellitus (Chronic) Gout (Chronic) Chronic pain (Chronic) Hypogonadism (Chronic) Depression (Chronic) GERD (gastroesophageal reflux disease) (Chronic) Acute kidney injury superimposed on chronic kidney disease (Chronic) Paroxysmal atrial flutter (Chronic) Thrombocytopenia (Chronic) Anemia of chronic disorder (Chronic) Atrial flutter (Chronic) Benign essential hypertension (Chronic) Chronic diarrhea (Chronic) History of coronary artery bypass graft (Chronic) Diabetes mellitus, type 2 (Chronic) Hypothyroidism (Chronic) Parkinson's disease (Chronic) Rheumatoid arthritis (Chronic) Edema of lower extremity (Chronic) Opiate dependence (Chronic) Personality disorder (Chronic) Chronic obstructive lung disease (Chronic) 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 Summary of Care Provided: Patient seen by Izaiah Dobbs PA-C under my supervision The patient is a 73 year old M with an extensive past medical history as listed above. He was admitted through the ED with a complaint of worsening abdominal pain, weakness and difficulty swallowing. CT of the abdomen showed possible ileus and he had severe KENDALL-on-CKD with creatinine up to 7.12 with a baseline of around 2. He was hydrated with IV fluids and general surgery was consulted on account of possible right history of small bowel obstruction. He was hydrated with IV fluids and will set up an upper GI x-ray series which showed an esophageal stricture. Patient was subsequently noted to have very high output from his ileostomy having up to 3 L output daily. This necessitated constant IV fluid administration as a sinus fluid was tapered off, creatinine trended up. There is a suspicion for small bowel bacterial overgrowth due to short gut syndrome as a consequence of his colectomy. He was started on Imodium and Lomotil but these were not effective in bringing out the output and so he was eventually transitioned to IV octreotide. He had received 1 days course of IV octreotide and output is still not reduced. Plan was to titrate dose of octreotide upwards. However patient insisted on being transferred to [facility] for further management. [facility] contacted and agreed to take patient. He has been discharged to [facility] and is follow-up with his primary care doctor and general surgeon. Patient seen and examined prior to discharge. He was concerned about pruritus versus Benadryl have been stopped. He denied any fever or chills, cough or chest pain, shortness of breath, abdominal pain, diarrhea vomiting. Review of systems otherwise negative. Labs and vitals reviewed. Home meds reviewed and reconciled. o/e: Vitals: Vital Signs Height 5 ft 6 in Weight: 147 lb 7.828 oz Weight in Pounds 147.5 lbs Pulse Ox 96 Temperature 98.7 F Pulse Rate 63 Respiratory Rate 20 Blood Pressure [BP] 114/53 Blood Pressure 144/56 Blood Pressure Position [BP] Semi-Fowlers Blood Pressure Position Sitting [] General: Alert, Oriented x3, Cooperative HEENT: Atraumatic, PERRLA, EOMI, Normocephalic Neck: Supple, No JVD, Negative Carotid Bruits Lungs: Clear to auscultation, Normal air movement Cardiovascular: Regular rate, No murmurs Abdomen: Bowel Sounds Present, Soft, Non Tender Extremities: No edema, Capillary Refill Less than 3 Seconds, edema of left hand had resolved. mild edema of left hand (likely from extravasation of IVF in right hand). Skin: papular rash over torso from excessive scratching. Musculoskeletal: No Tenderness to Palpation of Joints or Extremities Neurological: Cranial nerves II-XII grossly intact Psych/Mental Status: Normal Affect, Appropriate, Alert and oriented to time, place, person, mood and affect Plan as detailed above. - Physical Exam Vital Signs Temp Pulse Resp BP Pulse Ox 98.7 F 63 20 H 144/56 H 96 10/09/18 10:20 10/09/18 11:35 10/09/18 10:20 10/09/18 10:20 10/09/18 10:20 Oxygen Delivery Method Room Air Weight: 147 lb 7.828 oz Body Mass Index (BMI) 23.8 Finger Stick Blood Glucose 203 Intake and Output for Last 24 Hours 10/07/18 10/08/18 10/09/18 23:59 23:59 23:59 Intake Total 3080 / 3080 3645 / 3645 1522 / 1522 Output Total 4175 / 4175 4925 / 4925 1820 / 1820 Balance -1095 / -1095 -1280 / -1280 -298 / -298 Laboratory Tests Past 24 Hrs 10/09/18 10/09/18 10/09/18 06:51 13:37 14:45 Sodium 145 Potassium 5.5 H Cancelled 5.6 H Chloride 120 H Carbon Dioxide 17.0 L Anion Gap 8 BUN 29 H Creatinine 2.07 H Estim Creat Clear Calc 29.54 Est GFR (MDRD) Af Amer 41 L Est GFR (MDRD) Non-Af 34 L BUN/Creatinine Ratio 14.0 Glucose 84 Calcium 8.4 L Magnesium 1.5 L Code Visit Inpatient E&M: 84843 Disch Hosp
[2018-10-09 15:00] LABS: Potassium 5.6 mmol/L (3.5-5.1)
--- NOTE | 2018-10-09 20:01 | PCM.PN.SRG ---
Patient Problems: Active and Suspected Problems Hyperkalemia (Acute) Subjective: still high ileostomy output, no real improvement on octreotide - Physical Exam General: Alert, Oriented x3, Cooperative Lungs: Clear to auscultation, Normal air movement Cardiovascular: Regular rate, No murmurs Abdomen: Bowel Sounds Present, Soft, Non Tender Vital Signs Temp Pulse Resp BP Pulse Ox 98.5 F 64 18 167/52 H 98 10/09/18 15:34 10/09/18 15:54 10/09/18 15:34 10/09/18 15:34 10/09/18 15:34 Oxygen Delivery Method Room Air Weight: 66.9 kg Body Mass Index (BMI) 23.8 Finger Stick Blood Glucose 203 Intake and Output for Last 24 Hours 10/07/18 10/08/18 10/09/18 23:59 23:59 23:59 Intake Total 3080 / 3080 3645 / 3645 1942 / 1942 Output Total 4175 / 4175 4925 / 4925 2820 / 2820 Balance -1095 / -1095 -1280 / -1280 -878 / -878 Laboratory Tests Past 24 Hrs 10/09/18 10/09/18 10/09/18 06:51 13:37 14:45 Sodium 145 Potassium 5.5 H Cancelled 5.6 H Chloride 120 H Carbon Dioxide 17.0 L Anion Gap 8 BUN 29 H Creatinine 2.07 H Estim Creat Clear Calc 29.54 Est GFR (MDRD) Af Amer 41 L Est GFR (MDRD) Non-Af 34 L BUN/Creatinine Ratio 14.0 Glucose 84 Calcium 8.4 L Magnesium 1.5 L Medical Necessity - Tobacco Use Smoking Status: Former smoker Assessment/Plan All Active Problems SBO (small bowel obstruction) (Acute) Hyperkalemia (Acute) KENDALL (acute kidney injury) (Acute) DVT of upper extremity (deep vein thrombosis) (Ruled-out) Hyperkalemia (Resolved) Small Bowel Enterocut Fistula (Resolved) abnormal bowel gas pattern, dysphagia, acute on chronic renal failure, electrolyte abnormalities. Dysphagia - patient was told by his prevocational/rehabilitation counselor to stop Carafate. But per discussion, he stopped his Carafate following his last dilatation. he notes no difference in his early epigastric symptoms with or without Carafate. He does state he is able tolerate a diet however. SBO vs ileus - patient with multiple abdominal procedures - unsure how different from baseline imaging would appear. CT scan and plain x-rays were relatively nonspecific. 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 There are no signs of small bowel obstruction on the upper GI but the patient does have a significant number of small bowel diverticula. With no obstruction on small bowel series but many small bowel diverticula, I'm wondering of small intestinal bacterial overgrowth to be part of the patient's abdominal difficulties. I don't believe we can get a hydrogen breath test locally. trial empiric course of rifaximin failed because the patient developed a rash felt to be related to that antibiotic ileostomy output was negative for C. difficile and enteric pathogens. Unfortunately, SIBO if it is present, really needs to be diagnosed with push upper enteroscopy and aspiration of the diverticulum for culture or hydrogen breath test. At this point I would just recommend a 14 day course of rifaximin. since the weekend, the patient had increasing ileostomy output. The patient has been started on octreotide with no decrease in his ileostomy output. At this point with the patient on octreotide and maximal doses of Imodium without improvement along with the fact that the above etiologies are difficult to elucidate, the medicine service is planning to transfer to [facility]. I agree with that decision. I would be interested to see further workup for small intestinal bacterial overgrowth given the fact that the patient had been relatively stable for a prolonged period of time with his ileostomy output until these inciting events.
[2018-10-09] MEDS: Menthol/Lanolin/Calamine/Znox 113 GM Tube 1 APPLIC TOPICAL (21:36)
[2018-10-09] MEDS: Nystatin Powder 15gm Bottle 1 APPLIC TOPICAL (21:37)
[2018-10-09] MEDS: Pramipexole Di-HCl 1 MG Tablet PO (21:40)
[2018-10-09] MEDS: Amitriptyline 25 MG Tablet PO (21:41)
[2018-10-10] VITALS (12 sets, daily range): BP systolic 125–155; BP diastolic 48–71; PULSE 52–75; RESP 15–18; TEMP 36.7–36.8; O2SAT 97–99
[2018-10-10] MEDS: Acetaminophen/Butalbital/Caffe 1 Tablet PO (01:31)
[2018-10-10] MEDS: oxyCODONE 5 MG Tablet PO (01:31)
[2018-10-10] MEDS: Loperamide 2 MG Capsule PO ×4 (01:32→17:19)
[2018-10-10] MEDS: HYDROmorphone 2 MG TABLET PO ×4 (03:40→21:18)
[2018-10-10] MEDS: Levothyroxine 137 MCG Tablet PO (05:06)
[2018-10-10] MEDS: DiphenhydrAMINE 25 MG Capsule PO ×2 (05:08→12:27)
[2018-10-10 06:24] LABS: Absolute Neutrophil Count 2.9 X10^3/uL (2.0-7.7); Basophil# 0.02 X10^3/uL; Basophil% 0.5 % (0-1); Eosinophil# 0.21 X10^3/uL; Eosinophils% 4.7 % (0-5); Hematocrit 32.9 % (40-54); Hemoglobin 9.9 g/dl (13.0-16.5); Lymphocyte % 22.6 % (19-41); Mean Corp Hgb Conc 30.1 g/gl (32-36); Mean Corpuscular Hgb 28.4 pg (27.0-32.0); Mean Corpuscular Volume 94.3 fL (80-94); Mean Platelet Vol. 9.5 fl (6.2-12.0); Monocyte# 0.18 X10^3/uL; Monocyte% 4.1 % (0-10); Neutrophil # 2.89 X10^3/uL (2.7-7.7); Neutrophil % 65.2 % (47-70); Platelet Count 124 K/mm3 (150-450); RBC Distribution Width CV 14.9 % (11.6-14.6); RBC Distribution Width SD 48.5 fl (35.1-43.9); Red Blood Count 3.49 M/mm3 (4.6-6.2); White Blood Count 4.4 K/mm3 (4.4-11.0)
[2018-10-10 06:27] LABS: POSITIVE COUNT YES; POSITIVE DIFFERENTIAL NO; POSITIVE MORPHOLOGY YES
[2018-10-10 06:37] LABS: BUN 29 mg/dL (7-18); Creatinine, Serum 2.13 mg/dL (0.70-1.30); EST Glomerular Filtration Rate 33 mL/min (>60); Estimated Creatinine Clearance 28.71 ml/min; Glucose 192 mg/dL (74-106)
[2018-10-10 06:38] LABS: Anion Gap 11 (5-15); BUN/Creat Ratio 13.6 RATIO (10-20); Calcium,Total 8.4 mg/dL (8.5-10.1); Chloride 118 mmol/L (98-107); Est Glom Filt Rate - Afr Amer 40 mL/min (>60); Magnesium 1.5 mg/dL (1.6-2.6); Sodium Level 144 mmol/L (136-145)
[2018-10-10] MEDS: Carbidopa/Levodopa 25/100 Tablet PO ×4 (06:47→21:09)
[2018-10-10] MEDS: Dicyclomine 10 MG Capsule 40 MG PO ×3 (06:47→15:32)
[2018-10-10] MEDS: Acetaminophen 500 MG Tablet 1000 MG PO ×2 (06:48→14:07)
[2018-10-10] MEDS: Aspirin E.C. 81 MG Tablet PO (07:53)
[2018-10-10] MEDS: VILAZODONE HYDROCHLORIDE 20 MG TABLET 40 MG PO (10:48)
[2018-10-10] MEDS: Amiodarone 200 MG Tablet PO (10:48)
[2018-10-10] MEDS: Metoprolol(XL)Succ 25 MG Tablet PO (10:48)
[2018-10-10] MEDS: Pantoprazole Sodium 40 MG Tablet PO (10:49)
[2018-10-10] MEDS: Nystatin Powder 15gm Bottle 1 APPLIC TOPICAL ×4 (10:50→21:28)
[2018-10-10] MEDS: Menthol/Lanolin/Calamine/Znox 113 GM Tube 1 APPLIC TOPICAL (10:51)
[2018-10-10] MEDS: Octreotide 0.1 MG/ML ML SC (10:59)
[2018-10-10] MEDS: Magnesium Oxide 400 MG Tablet PO ×2 (11:02→17:19)
--- NOTE | 2018-10-10 12:23 | PCM.PROGNOTE ---
<Izaiah Dobbs - Last Filed: 10/10/18 12:23> Patient Problems: Active and Suspected Problems Hyperkalemia (Acute) Subjective: Decreased ostomy output from 3300 to 1200, however patient feels this is not accurate. Abdominal pain remains well controlled. No dizzyiness/LH, no palp, no nausea or vomiting. - Physical Exam General: Alert, Oriented x3, Cooperative HEENT: Atraumatic, PERRLA, EOMI, Normocephalic Neck: Supple, No JVD, Negative Carotid Bruits Lungs: Clear to auscultation, Normal air movement Cardiovascular: Regular rate, No murmurs Abdomen: Bowel Sounds Present, Soft, Non Tender Extremities: No edema, Capillary Refill Less than 3 Seconds Skin: No rashes, No breakdown Musculoskeletal: No Tenderness to Palpation of Joints or Extremities Neurological: Cranial nerves II-XII grossly intact Psych/Mental Status: Normal Affect, Appropriate, Alert and oriented to time, place, person, mood and affect Vital Signs Temp Pulse Resp BP Pulse Ox 98.1 F 75 18 139/52 H 99 10/10/18 10:45 10/10/18 10:48 10/10/18 10:45 10/10/18 10:45 10/10/18 10:45 Oxygen Delivery Method Room Air Weight: 147 lb 7.828 oz Body Mass Index (BMI) 23.8 Finger Stick Blood Glucose 203 Intake and Output for Last 24 Hours 10/08/18 10/09/18 10/10/18 23:59 23:59 23:59 Intake Total 3645 / 3645 1942 / 1942 2867 / 2867 Output Total 4925 / 4925 2820 / 2820 2350 / 2350 Balance -1280 / -1280 -878 / -878 517 / 517 Laboratory Tests Past 24 Hrs 10/09/18 10/09/18 10/10/18 13:37 14:45 05:10 WBC RBC Hgb Hct MCV MCH MCHC RDW RDW Differential Plt Count MPV Immature Gran % (Auto) Neut % (Auto) Lymph % (Auto) [place] % (Auto) Eos % (Auto) Baso % (Auto) Absolute Neuts (auto) Absolute Lymphs (auto) Total Counted Diff Path Review Sodium 144 Potassium Cancelled 5.6 H 5.0 Chloride 118 H Carbon Dioxide 15.0 L Anion Gap 11 BUN 29 H Creatinine 2.13 H Estim Creat Clear Calc 28.71 Est GFR (MDRD) Af Amer 40 L Est GFR (MDRD) Non-Af 33 L BUN/Creatinine Ratio 13.6 Glucose 192 H Calcium 8.4 L Magnesium 1.5 L 10/10/18 05:10 WBC 4.4 RBC 3.49 L Hgb 9.9 L Hct 32.9 L MCV 94.3 H MCH 28.4 MCHC 30.1 L RDW 14.9 H RDW Differential 48.5 H Plt Count 124 L MPV 9.5 Immature Gran % (Auto) 2.900 H Neut % (Auto) 65.2 Lymph % (Auto) 22.6 [place] % (Auto) 4.1 Eos % (Auto) 4.7 Baso % (Auto) 0.5 Absolute Neuts (auto) 2.9 Absolute Lymphs (auto) 1.00 Total Counted Not Reportable Diff Path Review May foll Sodium Potassium Chloride Carbon Dioxide Anion Gap BUN Creatinine Estim Creat Clear Calc Est GFR (MDRD) Af Amer Est GFR (MDRD) Non-Af BUN/Creatinine Ratio Glucose Calcium Magnesium Medical Necessity - Tobacco Use Smoking Status: Former smoker Assessment/Plan All Active Problems SBO (small bowel obstruction) (Acute) Hyperkalemia (Acute) KENDALL (acute kidney injury) (Acute) DVT of upper extremity (deep vein thrombosis) (Ruled-out) Hyperkalemia (Resolved) Small Bowel Enterocut Fistula (Resolved) 1. KENDALL - improving. Still high ostomy output. Stool studies negative. Renal/Surgery following. Titrate up Octreotide. Vastly improved however pt states this is inaccurate. Will monitor overnight. DC fluids tomorrow if ostomy output controlled. 2. Chronic abdominal pain - [place] following. possibly ileus, gastroparesis. SBFT per surgery - mild esophageal diverticulum. he passed Speech therapy eval without issues. Continue Carafate with eating. Still regurgitating. -High volume ostomy output contributing to #1 -DC'd xifaxan for rash/pruritis -C diff and enteric panel neg -lomotil didnt help, immmodium does not seem to be helping -Continue Octreotide at 100 BID unless ostomy output increases, want to avoid slowing him down too much with concern for ileus. -TSH suppressed, but T4 normal. 3. Electrolyte disturbances 2/2 high output - improved, continue current therapy. Pt refused albuterol for elevated K. Recheck this afternoon. Patient also refusing bicarb. Gap improved. 4. GERD - carafate, PPI. Reflux symptoms resolved. 5. Pancytopenia - unclear etiology. 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 6. Hypothyroidism - Synthroid 7. Prediabetes - a1c 5.8. [place] 8. Bursitis - xray c/w bursitis. D/w antony, does not appear acutely infected. Continue TIMMY/Ice. No NSAIDs. 9. LUE edema - hx UE DVT - ultrasound with compressible veins. DVT ppx: SCDs DC planning: Pt and family insist on transfer to [facility]. He has been accepted but there is no bed available. He is improving with octreotide. This patient was seen by Izaiah Dobbs PA-C under the supervision of Dr. Gutierrez <Selena Gutierrez - Last Filed: 10/10/18 15:19> - Physical Exam Vital Signs Temp Pulse Resp BP Pulse Ox 98.1 F 68 18 139/52 H 99 10/10/18 10:45 10/10/18 15:00 10/10/18 10:45 10/10/18 10:45 10/10/18 10:45 Oxygen Delivery Method Room Air Weight: 147 lb 7.828 oz Body Mass Index (BMI) 23.8 Finger Stick Blood Glucose 203 Intake and Output for Last 24 Hours 10/08/18 10/09/18 10/10/18 23:59 23:59 23:59 Intake Total 3645 / 3645 1942 / 1942 4069.5 / 4069.5 Output Total 4925 / 4925 2820 / 2820 4075 / 4075 Balance -1280 / -1280 -878 / -878 -5.5 / -5.5 Laboratory Tests Past 24 Hrs 10/10/18 10/10/18 05:10 05:10 WBC 4.4 RBC 3.49 L Hgb 9.9 L Hct 32.9 L MCV 94.3 H MCH 28.4 MCHC 30.1 L RDW 14.9 H RDW Differential 48.5 H Plt Count 124 L MPV 9.5 Immature Gran % (Auto) 2.900 H Neut % (Auto) 65.2 Lymph % (Auto) 22.6 [place] % (Auto) 4.1 Eos % (Auto) 4.7 Baso % (Auto) 0.5 Absolute Neuts (auto) 2.9 Absolute Lymphs (auto) 1.00 Total Counted Not Reportable Diff Path Review Reviewed Sodium 144 Potassium 5.0 Chloride 118 H Carbon Dioxide 15.0 L Anion Gap 11 BUN 29 H Creatinine 2.13 H Estim Creat Clear Calc 28.71 Est GFR (MDRD) Af Amer 40 L Est GFR (MDRD) Non-Af 33 L BUN/Creatinine Ratio 13.6 Glucose 192 H Calcium 8.4 L Magnesium 1.5 L Assessment/Plan Patient seen by Izaiah Dobbs PA-C under my supervision Patient seen and examined. He still complains of the increased output from his ostomy. Because, he had about 1.6 L of output of stool the patient states that this is not accurate as he thinks this was way more. Itching has improved. Creatinine is down to about 2.07. He denies any fever or chills, any cough or chest pain or shortness of breath or abdominal pain. He still awaiting a bed at [facility]. o/e Vitals: Vital Signs Height 5 ft 6 in Weight: 147 lb 7.828 oz Weight in Pounds 147.5 lbs Pulse Ox 99 Temperature 98.1 F Pulse Rate 68 Respiratory Rate 18 Blood Pressure [BP] 114/53 Blood Pressure 139/52 Blood Pressure Position [BP] Semi-Fowlers Blood Pressure Position Semi-Fowlers General: Alert, Oriented x3, Cooperative HEENT: Atraumatic, PERRLA, EOMI, Normocephalic Neck: Supple, No JVD, Negative Carotid Bruits Lungs: Clear to auscultation, Normal air movement Cardiovascular: Regular rate, No murmurs Abdomen: Bowel Sounds Present, Soft, Non Tender Extremities: No edema, Capillary Refill Less than 3 Seconds, edema of left hand had resolved. Skin: papular rash has resolved. Musculoskeletal: No Tenderness to Palpation of Joints or Extremities Neurological: Cranial nerves II-XII grossly intact Psych/Mental Status: Normal Affect, Appropriate, Alert and oriented to time, place, person, mood and affect Plan is to titrate up octreotide to help decrease ostomy output. Awaiting transfer to [facility] when there is a bed available. Rest of management as per Izaiah Dobbs PA-C's note. Code Visit Inpatient E&M: 25011 Subs Hosp L3
--- NOTE | 2018-10-10 12:26 | PN_ITS ---
<Izaiah Dobbs - Last Filed: 10/10/18 12:23> Patient Problems: Active and Suspected Problems Hyperkalemia (Acute) Subjective: Decreased ostomy output from 3300 to 1200, however patient feels this is not accurate. Abdominal pain remains well controlled. No dizzyiness/LH, no palp, no nausea or vomiting. - Physical Exam General: Alert, Oriented x3, Cooperative HEENT: Atraumatic, PERRLA, EOMI, Normocephalic Neck: Supple, No JVD, Negative Carotid Bruits Lungs: Clear to auscultation, Normal air movement Cardiovascular: Regular rate, No murmurs Abdomen: Bowel Sounds Present, Soft, Non Tender Extremities: No edema, Capillary Refill Less than 3 Seconds Skin: No rashes, No breakdown Musculoskeletal: No Tenderness to Palpation of Joints or Extremities Neurological: Cranial nerves II-XII grossly intact Psych/Mental Status: Normal Affect, Appropriate, Alert and oriented to time, place, person, mood and affect Vital Signs Temp Pulse Resp BP Pulse Ox 98.1 F 75 18 139/52 H 99 10/10/18 10:45 10/10/18 10:48 10/10/18 10:45 10/10/18 10:45 10/10/18 10:45 Oxygen Delivery Method Room Air Weight: 147 lb 7.828 oz Body Mass Index (BMI) 23.8 Finger Stick Blood Glucose 203 Intake and Output for Last 24 Hours 10/08/18 10/09/18 10/10/18 23:59 23:59 23:59 Intake Total 3645 / 3645 1942 / 1942 2867 / 2867 Output Total 4925 / 4925 2820 / 2820 2350 / 2350 Balance -1280 / -1280 -878 / -878 517 / 517 Laboratory Tests Past 24 Hrs 10/09/18 10/09/18 10/10/18 13:37 14:45 05:10 WBC RBC Hgb Hct MCV MCH MCHC RDW RDW Differential Plt Count MPV Immature Gran % (Auto) Neut % (Auto) Lymph % (Auto) [place] % (Auto) Eos % (Auto) Baso % (Auto) Absolute Neuts (auto) Absolute Lymphs (auto) Total Counted Diff Path Review Sodium 144 Potassium Cancelled 5.6 H 5.0 Chloride 118 H Carbon Dioxide 15.0 L Anion Gap 11 BUN 29 H Creatinine 2.13 H Estim Creat Clear Calc 28.71 Est GFR (MDRD) Af Amer 40 L Est GFR (MDRD) Non-Af 33 L BUN/Creatinine Ratio 13.6 Glucose 192 H Calcium 8.4 L Magnesium 1.5 L 10/10/18 05:10 WBC 4.4 RBC 3.49 L Hgb 9.9 L Hct 32.9 L MCV 94.3 H MCH 28.4 MCHC 30.1 L RDW 14.9 H RDW Differential 48.5 H Plt Count 124 L MPV 9.5 Immature Gran % (Auto) 2.900 H Neut % (Auto) 65.2 Lymph % (Auto) 22.6 [place] % (Auto) 4.1 Eos % (Auto) 4.7 Baso % (Auto) 0.5 Absolute Neuts (auto) 2.9 Absolute Lymphs (auto) 1.00 Total Counted Not Reportable Diff Path Review May foll Sodium Potassium Chloride Carbon Dioxide Anion Gap BUN Creatinine Estim Creat Clear Calc Est GFR (MDRD) Af Amer Est GFR (MDRD) Non-Af BUN/Creatinine Ratio Glucose Calcium Magnesium Medical Necessity - Tobacco Use Smoking Status: Former smoker Assessment/Plan All Active Problems SBO (small bowel obstruction) (Acute) Hyperkalemia (Acute) KENDALL (acute kidney injury) (Acute) DVT of upper extremity (deep vein thrombosis) (Ruled-out) Hyperkalemia (Resolved) Small Bowel Enterocut Fistula (Resolved) 1. [place] - improving. Still high ostomy output. Stool studies negative. Renal /Surgery following. Titrate up Octreotide. Vastly improved however pt states this is inaccurate. Will monitor overnight. DC fluids tomorrow if ostomy output controlled. 2. Chronic abdominal pain - [place] following. possibly ileus, gastroparesis. SBFT per surgery - mild esophageal diverticulum. he passed Speech therapy eval without issues. Continue Carafate with eating. Still regurgitating. -High volume ostomy output contributing to #1 -DC'd xifaxan for rash/pruritis -C diff and enteric panel neg -lomotil didnt help, immmodium does not seem to be helping -Continue Octreotide at 100 BID unless ostomy output increases, want to avoid slowing him down too much with concern for ileus. -TSH suppressed, but T4 normal. 3. Electrolyte disturbances 2/2 high output - improved, continue current therapy. Pt refused albuterol for elevated K. Recheck this afternoon. Patient also refusing bicarb. Gap improved. 4. GERD - carafate, PPI. Reflux symptoms resolved. 5. Pancytopenia - unclear etiology. 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 6. Hypothyroidism - Synthroid 7. Prediabetes - a1c 5.8. Carb controlled diet at [place]. 8. Bursitis - xray c/w bursitis. D/w antony, does not appear acutely infected. Continue TIMMY/Ice. No NSAIDs. 9. LUE edema - hx UE DVT - ultrasound with compressible veins. DVT ppx: SCDs DC planning: Pt and family insist on transfer to [facility]. He has been accepted but there is no bed available. He is improving with octreotide. This patient was seen by Izaiah Dobbs PA-C under the supervision of Dr. Gutierrez <Selena Gutierrez - Last Filed: 10/10/18 15:19> - Physical Exam Vital Signs Temp Pulse Resp BP Pulse Ox 98.1 F 68 18 139/52 H 99 10/10/18 10:45 10/10/18 15:00 10/10/18 10:45 10/10/18 10:45 10/10/18 10:45 Oxygen Delivery Method Room Air Weight: 147 lb 7.828 oz Body Mass Index (BMI) 23.8 Finger Stick Blood Glucose 203 Intake and Output for Last 24 Hours 10/08/18 10/09/18 10/10/18 23:59 23:59 23:59 Intake Total 3645 / 3645 1942 / 1942 4069.5 / 4069.5 Output Total 4925 / 4925 2820 / 2820 4075 / 4075 Balance -1280 / -1280 -878 / -878 -5.5 / -5.5 Laboratory Tests Past 24 Hrs 10/10/18 10/10/18 05:10 05:10 WBC 4.4 RBC 3.49 L Hgb 9.9 L Hct 32.9 L MCV 94.3 H MCH 28.4 MCHC 30.1 L RDW 14.9 H RDW Differential 48.5 H Plt Count 124 L MPV 9.5 Immature Gran % (Auto) 2.900 H Neut % (Auto) 65.2 Lymph % (Auto) 22.6 [place] % (Auto) 4.1 Eos % (Auto) 4.7 Baso % (Auto) 0.5 Absolute Neuts (auto) 2.9 Absolute Lymphs (auto) 1.00 Total Counted Not Reportable Diff Path Review Reviewed Sodium 144 Potassium 5.0 Chloride 118 H Carbon Dioxide 15.0 L Anion Gap 11 BUN 29 H Creatinine 2.13 H Estim Creat Clear Calc 28.71 Est GFR (MDRD) Af Amer 40 L Est GFR (MDRD) Non-Af 33 L BUN/Creatinine Ratio 13.6 Glucose 192 H Calcium 8.4 L Magnesium 1.5 L Assessment/Plan Patient seen by Izaiah Dobbs PA-C under my supervision Patient seen and examined. He still complains of the increased output from his ostomy. Because, he had about 1.6 L of output of stool the patient states that this is not accurate as he thinks this was way more. Itching has improved. Creatinine is down to about 2.07. He denies any fever or chills, any cough or chest pain or shortness of breath or abdominal pain. He still awaiting a bed at [facility]. o/e Vitals: Vital Signs Height 5 ft 6 in Weight: 147 lb 7.828 oz Weight in Pounds 147.5 lbs Pulse Ox 99 Temperature 98.1 F Pulse Rate 68 Respiratory Rate 18 Blood Pressure [BP] 114/53 Blood Pressure 139/52 Blood Pressure Position [BP] Semi-Fowlers Blood Pressure Position Semi-Fowlers General: Alert, Oriented x3, Cooperative HEENT: Atraumatic, PERRLA, EOMI, Normocephalic Neck: Supple, No JVD, Negative Carotid Bruits Lungs: Clear to auscultation, Normal air movement Cardiovascular: Regular rate, No murmurs Abdomen: Bowel Sounds Present, Soft, Non Tender Extremities: No edema, Capillary Refill Less than 3 Seconds, edema of left hand had resolved. Skin: papular rash has resolved. Musculoskeletal: No Tenderness to Palpation of Joints or Extremities Neurological: Cranial nerves II-XII grossly intact Psych/Mental Status: Normal Affect, Appropriate, Alert and oriented to time, place, person, mood and affect Plan is to titrate up octreotide to help decrease ostomy output. Awaiting transfer to [facility] when there is a bed available. Rest of management as per Izaiah Dobbs PA-C's note. Code Visit Inpatient E&M: 72014 Subs Hosp L3
--- NOTE | 2018-10-10 12:49 | PCM.PN.SRG ---
Patient Problems: Active and Suspected Problems Hyperkalemia (Acute) Subjective: still high output - Physical Exam Lungs: Clear to auscultation, Normal air movement Cardiovascular: Regular rate, No murmurs Abdomen: Bowel Sounds Present, Soft, Non Tender, - - liquid ileostomy output Vital Signs Temp Pulse Resp BP Pulse Ox 98.1 F 73 18 139/52 H 99 10/10/18 10:45 10/10/18 11:00 10/10/18 10:45 10/10/18 10:45 10/10/18 10:45 Oxygen Delivery Method Room Air Weight: 66.9 kg Body Mass Index (BMI) 23.8 Finger Stick Blood Glucose 203 Intake and Output for Last 24 Hours 10/08/18 10/09/18 10/10/18 23:59 23:59 23:59 Intake Total 3645 / 3645 1942 / 1942 4069.5 / 4069.5 Output Total 4925 / 4925 2820 / 2820 4075 / 4075 Balance -1280 / -1280 -878 / -878 -5.5 / -5.5 Laboratory Tests Past 24 Hrs 10/09/18 10/09/18 10/10/18 13:37 14:45 05:10 WBC RBC Hgb Hct MCV MCH MCHC RDW RDW Differential Plt Count MPV Immature Gran % (Auto) Neut % (Auto) Lymph % (Auto) [place] % (Auto) Eos % (Auto) Baso % (Auto) Absolute Neuts (auto) Absolute Lymphs (auto) Total Counted Diff Path Review Sodium 144 Potassium Cancelled 5.6 H 5.0 Chloride 118 H Carbon Dioxide 15.0 L Anion Gap 11 BUN 29 H Creatinine 2.13 H Estim Creat Clear Calc 28.71 Est GFR (MDRD) Af Amer 40 L Est GFR (MDRD) Non-Af 33 L BUN/Creatinine Ratio 13.6 Glucose 192 H Calcium 8.4 L Magnesium 1.5 L 10/10/18 05:10 WBC 4.4 RBC 3.49 L Hgb 9.9 L Hct 32.9 L MCV 94.3 H MCH 28.4 MCHC 30.1 L RDW 14.9 H RDW Differential 48.5 H Plt Count 124 L MPV 9.5 Immature Gran % (Auto) 2.900 H Neut % (Auto) 65.2 Lymph % (Auto) 22.6 [place] % (Auto) 4.1 Eos % (Auto) 4.7 Baso % (Auto) 0.5 Absolute Neuts (auto) 2.9 Absolute Lymphs (auto) 1.00 Total Counted Not Reportable Diff Path Review May foll Sodium Potassium Chloride Carbon Dioxide Anion Gap BUN Creatinine Estim Creat Clear Calc Est GFR (MDRD) Af Amer Est GFR (MDRD) Non-Af BUN/Creatinine Ratio Glucose Calcium Magnesium Medical Necessity - Tobacco Use Smoking Status: Former smoker Assessment/Plan All Active Problems SBO (small bowel obstruction) (Acute) Hyperkalemia (Acute) KENDALL (acute kidney injury) (Acute) DVT of upper extremity (deep vein thrombosis) (Ruled-out) Hyperkalemia (Resolved) Small Bowel Enterocut Fistula (Resolved) abnormal bowel gas pattern, dysphagia, acute on chronic renal failure, electrolyte abnormalities. Dysphagia - patient was told by his linux admin engineer to stop Carafate. But per discussion, he stopped his Carafate following his last dilatation. he notes no difference in his early epigastric symptoms with or without Carafate. He does state he is able tolerate a diet however. SBO vs ileus - patient with multiple abdominal procedures - unsure how different from baseline imaging would appear. CT scan and plain x-rays were relatively nonspecific. 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 There are no signs of small bowel obstruction on the upper GI but the patient does have a significant number of small bowel diverticula. With no obstruction on small bowel series but many small bowel diverticula, I'm wondering of small intestinal bacterial overgrowth to be part of the patient's abdominal difficulties. I don't believe we can get a hydrogen breath test locally. trial empiric course of rifaximin failed because the patient developed a rash felt to be related to that antibiotic ileostomy output was negative for C. difficile and enteric pathogens. Unfortunately, SIBO if it is present, really needs to be diagnosed with push upper enteroscopy and aspiration of the diverticulum for culture or hydrogen breath test. At this point I would just recommend a 14 day course of rifaximin. since the weekend, the patient had increasing ileostomy output. The patient has been started on octreotide with no decrease in his ileostomy output. At this point with the patient on octreotide and maximal doses of Imodium without improvement along with the fact that the above etiologies are difficult to elucidate, the medicine service is planning to transfer to [facility]. I agree with that decision. I would be interested to see further workup for small intestinal bacterial overgrowth given the fact that the patient had been relatively stable for a prolonged period of time with his ileostomy output until these inciting events. Will increase octreotide while waiting for a bed.
[2018-10-10 15:11] LABS: Pathologist Review Reviewed
--- NOTE | 2018-10-10 20:03 | NURSING ---
Report called to Sue at [facility].
[2018-10-10] MEDS: Pramipexole Di-HCl 1 MG Tablet PO (21:08)
[2018-10-10] MEDS: Amitriptyline 25 MG Tablet PO (21:08)
== END 2018-10-10 21:45 | disposition short-term general hospital (02) | DRG 682 ==
LOC: ED 11:43 → PCU 12:32
PROVIDERS: Family Medicine; Internal Medicine; Internal Medicine Nephrology; Physician Assistant; Admitting Provider Student in an Organized Health Care Education/Training Program; Emergency Provider Emergency Medicine; Family Provider Family Medicine; PCP Family Medicine; Visit Provider Student in an Organized Health Care Education/Training Program
DX: N17.9 Acute kidney failure, unspecified (principal); K85.90 Acute pancreatitis without necrosis or infection, unspecified; E43 Unspecified severe protein-calorie malnutrition; Q39.6 Congenital diverticulum of esophagus; E87.1 Hypo-osmolality and hyponatremia; E87.2 Acidosis; K56.7 Ileus, unspecified; K21.9 Gastro-esophageal reflux disease without esophagitis; E87.5 Hyperkalemia; G20 Parkinson's disease; E86.0 Dehydration; K22.2 Esophageal obstruction; M71.522 Other bursitis, not elsewhere classified, left elbow; I25.10 Atherosclerotic heart disease of native coronary artery without angina pectoris; E03.9 Hypothyroidism, unspecified; Z93.2 Ileostomy status; N18.3 Chronic kidney disease, stage 3 (moderate); I12.9 Hypertensive chronic kidney disease with stage 1 through stage 4 chronic kidney disease, or unspecified chronic kidney disease; E83.42 Hypomagnesemia; F32.9 Major depressive disorder, single episode, unspecified; I48.0 Paroxysmal atrial fibrillation; I87.2 Venous insufficiency (chronic) (peripheral); E78.5 Hyperlipidemia, unspecified; G89.29 Other chronic pain; R10.9 Unspecified abdominal pain; R60.0 Localized edema; Z68.23 Body mass index [BMI] 23.0-23.9, adult; E83.39 Other disorders of phosphorus metabolism; M10.9 Gout, unspecified; J44.9 Chronic obstructive pulmonary disease, unspecified; Z95.1 Presence of aortocoronary bypass graft; Z90.49 Acquired absence of other specified parts of digestive tract; Z86.73 Personal history of transient ischemic attack (TIA), and cerebral infarction without residual deficits; Z87.891 Personal history of nicotine dependence; E29.1 Testicular hypofunction
CPT/HCPCS: 36415; 71046; 73070; 74019; 74176; 74249; 76770; 80048; 80061; 80076; 82436; 82550; 82570; 82962; 83036; 83690; 83735; 83930; 83935; 84100; 84132; 84133; 84156; 84300; 84439; 84443; 84484; 84540; 85025; 87493; 87506; 93005; 93971; 94640; 97110; 97116; 97163; 97165; 97530; 97802; 99284; J7030; A4216; J0610; J1940; J2354